=== PATIENT | male | born 1930 | race Caucasian/White ===

== ENCOUNTER → 2016-07-12 | Outpatient (CLI) | payer MEDICARE, BC ==
--- NOTE | 2016-07-13 13:30 | ECHOF ---
Referral Reason:R06.00 dyspnea MEASUREMENTS -------- HEIGHT: 180.3 cm WEIGHT: 102.1 kg BP: 135/84 RVIDd: 3.7 cm (< 3.3) IVSd: 1.3 cm (0.6 - 1.1) LVIDd: 4.8 cm (3.9 - 5.3) LVPWd: 1.3 cm (0.6 - 1.1) IVSs: 2.4 cm LVIDs: 3.2 cm LVPWs: 2.7 cm LA Diam: 5.1 cm (2.7 - 3.8) LAESV Index (A-L): 31.65 ml/m Ao Diam: 3.7 cm (2.0 - 3.7) AV Cusp: 1.7 cm (1.5 - 2.6) LA Diam: 4.6 cm (2.7 - 3.8) MV EXCURSION: 9.978 mm (> 18.000) MV EF SLOPE: 52 mm/s (70 - 150) EPSS: 0.8 cm RAP: 5.00 mmHg RVSP: 40.01 mmHg FINDINGS -------- Atrial fibrillation. This was a technically adequate study. The left ventricular size is normal. There is mild concentric left ventricular hypertrophy. Overall left ventricular systolic function is low-normal with, an EF between 50 - 55 %. The right ventricle is mildly enlarged. LA is midly dilated 29-33ml/m2. The right atrium is normal in size. There is mild aortic valve sclerosis. Mild mitral annular calcification present. Mild mitral regurgitation is present. Mild tricuspid regurgitation present. There is mild pulmonary hypertension. Trace/mild (physiologic) pulmonic regurgitation. The aortic root is dilated measuring 3.7cm. Normal inferior vena cava with normal inspiratory collapse consistent with estimated right atrial pressure of 5 mmHg. There is no pericardial effusion. CONCLUSIONS -------- 1. Atrial fibrillation. 2. Mild mitral annular calcification present. 3. Mild mitral regurgitation is present. 4. Mild tricuspid regurgitation present. 5. There is mild pulmonary hypertension. 6. Trace/mild (physiologic) pulmonic regurgitation. 7. The aortic root is dilated measuring 3.7cm. 8. Normal inferior vena cava with normal inspiratory collapse consistent with estimated right atrial pressure of 5 mmHg. 9. There is no pericardial effusion. 10. This was a technically adequate study. 11. The left ventricular size is normal. 12. There is mild concentric left ventricular hypertrophy. 13. Overall left ventricular systolic function is low-normal with, an EF between 50 - 55 %. 14. The right ventricle is mildly enlarged. 15. LA is midly dilated 29-33ml/m2. 16. The right atrium is normal in size. 17. There is mild aortic valve sclerosis. WATER[employer] INSPECTOR: Quin Carias RDCS
== END | disposition home or self-care (01) ==
LOC: RADECHMAIN 12:59
PROVIDERS: ATTEND Family Medicine
DX: I48.91 Unspecified atrial fibrillation (principal); I27.2 Other secondary pulmonary hypertension; I51.7 Cardiomegaly; I08.1 Rheumatic disorders of both mitral and tricuspid valves; I77.819 Aortic ectasia, unspecified site
CPT/HCPCS: 93306

== ENCOUNTER 2017-01-29 09:36 | Inpatient (IN) | payer MEDICARE, BC ==
[2017-01-29] MEDS ORDERED: SODIUM CHLORIDE 0.9% 1,000 ML IV STA (10:30)
[2017-01-29] MEDS ORDERED: SODIUM CHLORIDE 0.9% 500 ML IV STA (10:30)
[2017-01-29 10:51] LABS: CH 29.1; CHCM 32.8; HDW 2.62; HGB 11.5 gm/dL (13.0-17.5); MCH 29.3 pg (25.0-35.0); RBC 3.94 m/uL (4.30-5.90); RDW 14.9 % (11.5-15.5); WBC 2.9 k/uL (3.8-10.6); WBC (Perox) 2.86
[2017-01-29 10:58] LABS: ALT 33 U/L (21-72); AST 27 U/L (17-59); Alkaline Phosphatase 104 U/L (38-126); Anion Gap 10 mmol/L; Blood Urea Nitrogen 16 mg/dL (9-20); Calcium 8.9 mg/dL (8.4-10.2); Carbon Dioxide 26 mmol/L (22-30); Chloride 101 mmol/L (98-107); Glucose 122 mg/dL (74-99); Non-African American GFR(MDRD) >60 (>60 ml/min/1.73 sqM); Potassium 4.8 mmol/L (3.5-5.1); Sodium 137 mmol/L (137-145); Total Bilirubin 0.8 mg/dL (0.2-1.3); Total Protein 6.2 g/dL (6.3-8.2)
[2017-01-29 11:14] LABS: Creatine Kinase 79 U/L (55-170)
[2017-01-29 11:28] LABS: Creatine Kinase MB 1.4 ng/mL (0.0-2.4); Troponin I <0.012 ng/mL (0.000-0.034)
[2017-01-29 11:57] LABS: Add Differential Manual Differential
[2017-01-29 12:01] LABS: Nucleated Red Blood Cells 0 /100 WBC (0-0); Total Cells Counted 100
[2017-01-29 12:03] LABS: Ovalocytes Present
[2017-01-29 12:42] LABS: INR 2.9 (<1.2)
--- NOTE | 2017-01-29 13:06 | ED ---
GI Bleed HPI - General Chief complaint: GI Bleed Stated complaint: coumadin levels Time Seen by Provider: 01/29/17 10:16 Source: patient Mode of arrival: ambulatory Limitations: no limitations - History of Present Illness Initial comments: 6 years old gentleman on Coumadin for his atrial fibrillation he seems small amount of blood about a week ago then he didn't notice any blood in the stool this morning when he was moving his bowels he seen some bright red blood with stool, he denies any abdominal pain no nausea no vomiting no fever no chills - Related Data Home Medications Medication Instructions Recorded Confirmed Atorvastatin [Lipitor] 20 mg PO HS 01/29/17 01/29/17 Budesonide [Pulmicort] 0.5 mg INHALATION RT-BID 01/29/17 01/29/17 Calcium Carbonate/Vitamin D3 1 tab PO DAILY 01/29/17 01/29/17 [Calcium 600-Vit D3 400 Caplet] Diltiazem HCl [Diltiazem 24Hr ER] 120 mg PO Q24HR 01/29/17 01/29/17 Escitalopram [Lexapro] 10 mg PO HS 01/29/17 01/29/17 Ipratropium-Albuterol Nebulize 3 ml INHALATION RT-QID PRN 01/29/17 01/29/17 [Duoneb 0.5 mg-3 mg/3 ml Soln] Metoprolol Tartrate [Lopressor] 50 mg PO BID 01/29/17 01/29/17 Montelukast [Singulair] 10 mg PO HS 01/29/17 01/29/17 Multivitamins, Thera [Multivitamin 1 tab PO DAILY 01/29/17 01/29/17 (formulary)] [place]-3 Fatty Acids/Fish Oil [Fish 1 cap PO DAILY 01/29/17 01/29/17 Oil 1,000 mg Softgel] Terazosin HCl 5 mg PO BID 01/29/17 01/29/17 Warfarin Sodium [Coumadin] 4.5 mg PO SUMOWEFRSA 01/29/17 01/29/17 Warfarin Sodium [Coumadin] 6 mg PO TUTH 01/29/17 01/29/17 Allergies Allergy/AdvReac Type Severity Reaction Status Date / Time No Known Allergies Allergy Verified 01/29/17 10:43 Review of Systems ROS Statement: Those systems with pertinent positive or pertinent negative responses have been documented in the HPI. ROS Other: All systems not noted in ROS Statement are negative. Past Medical History Past Medical History: Atrial Fibrillation, Asthma, Cancer, COPD, Deep Vein Thrombosis (DVT), Hypertension, Myocardial Infarction (AK), Prostate Disorder Additional Past Medical History / Comment(s): prostate CA History of Any Multi-Drug Resistant Organisms: None Reported Past Surgical History: No Surgical Hx Reported Past Psychological History: No Psychological Hx Reported Smoking Status: Former smoker Past Alcohol Use History: Rare Past Drug Use History: None Reported General Exam - General Exam Comments Initial Comments: General: The patient is awake and alert, in no distress, and does not appear acutely ill. Skin: Skin is warm and dry and no rashes or lesions are noted. Eye: Pupils are equal, round and reactive to light, extra-ocular movements are intact; there is normal conjunctiva bilaterally. Ears, nose, mouth and throat: There are moist mucous membranes and no oral lesions. Neck: The neck is supple, there is no tenderness or JVD. Cardiovascular: There is a regular rate and rhythm. No murmur, rub or gallop is appreciated. Respiratory: To auscultation bilateral, no wheezing no rhonchi no distress respiratory ellis noticed Gastrointestinal: Soft, non-distended, non-tender abdomen without masses or organomegaly noted. There is no rebound or guarding present. Bowel sounds are unremarkable. Rectal exam noticed bright red blood, no perirectal abscess noticed rectal tone is good no prolapse or hemorrhoids noticed Back: There is no tenderness to palpation in the midline. There is no obvious deformity. Musculoskeletal: Normal ROM, no tenderness, There is no pedal edema. There is no calf tenderness or swelling. No cords were appreciated. Neurological: CN II-XII intact, Cranial nerves III through XII are intact. There are no obvious motor or sensory deficits. Coordination appears grossly intact. Speech is normal. Psychiatric: Cooperative, appropriate mood & affect, normal judgment. Limitations: no limitations Course Vital Signs 01/29/17 01/29/17 09:57 12:26 Temperature 98.2 F 98.6 F Pulse Rate 78 61 Respiratory 18 19 Rate Blood Pressure 118/65 112/72 O2 Sat by Pulse 95 95 Oximetry PT/INR CBC compressive metabolic panel those are old, no hemoglobin level available to compare with and without active bleed and being on Coumadin and I prefer to keep him for observation. Admitted to Dr. Blankenship service and will consult Dr. Keyes for possible scope Medical Decision Making - Lab Data Result diagrams: 01/29/17 10:15 01/29/17 10:15 Lab Results 01/29/17 01/29/17 01/29/17 Range/Units 10:15 10:15 10:15 WBC 2.9 L (3.8-10.6) k/uL RBC 3.94 L (4.30-5.90) m/uL Hgb 11.5 L (13.0-17.5) gm/dL Hct 35.0 L (39.0-53.0) % MCV 89.0 (80.0-100.0) fL MCH 29.3 (25.0-35.0) pg MCHC 33.0 (31.0-37.0) g/dL RDW 14.9 (11.5-15.5) % Plt Count 102 L (150-450) k/uL Neutrophils % (Manual) 59.0 % Lymphocytes % (Manual) 11.0 % Monocytes % (Manual) 27.0 % Eosinophils % (Manual) 3.0 % Neutrophils # (Manual) 1.7 (1.3-7.7) k/uL Lymphocytes # (Manual) 0.3 L (1.0-4.8) k/uL Monocytes # (Manual) 0.8 (0-1.0) k/uL Eosinophils # (Manual) 0.1 (0-0.7) k/uL Nucleated RBCs 0 (0-0) /100 WBC Ovalocytes Present PT (9.0-12.0) sec INR (<1.2) APTT (22.0-30.0) sec Sodium 137 (137-145) mmol/L Potassium 4.8 (3.5-5.1) mmol/L Chloride 101 (98-107) mmol/L Carbon Dioxide 26 (22-30) mmol/L Anion Gap 10 mmol/L BUN 16 (9-20) mg/dL Creatinine 0.82 (0.66-1.25) mg/dL Est GFR (MDRD) Af Amer >60 (>60 ml/min/1.73 sqM) Est GFR (MDRD) Non-Af >60 (>60 ml/min/1.73 sqM) Glucose 122 H (74-99) mg/dL Calcium 8.9 (8.4-10.2) mg/dL Total Bilirubin 0.8 (0.2-1.3) mg/dL AST 27 (17-59) U/L ALT 33 (21-72) U/L Alkaline Phosphatase 104 (38-126) U/L Total Creatine Kinase 79 (55-170) U/L CK-MB (CK-2) 1.4 (0.0-2.4) ng/mL CK-MB (CK-2) Rel Index 1.8 Troponin I <0.012 (0.000-0.034) ng/mL Total Protein 6.2 L (6.3-8.2) g/dL Albumin 3.9 (3.5-5.0) g/dL Stool Occult Blood (Negative) 01/29/17 01/29/17 01/29/17 Range/Units 10:15 10:15 10:30 WBC (3.8-10.6) k/uL RBC (4.30-5.90) m/uL Hgb (13.0-17.5) gm/dL Hct (39.0-53.0) % MCV (80.0-100.0) fL MCH (25.0-35.0) pg MCHC (31.0-37.0) g/dL RDW (11.5-15.5) % Plt Count (150-450) k/uL Neutrophils % (Manual) % Lymphocytes % (Manual) % Monocytes % (Manual) % Eosinophils % (Manual) % Neutrophils # (Manual) (1.3-7.7) k/uL Lymphocytes # (Manual) (1.0-4.8) k/uL Monocytes # (Manual) (0-1.0) k/uL Eosinophils # (Manual) (0-0.7) k/uL Nucleated RBCs (0-0) /100 WBC Ovalocytes PT 28.0 H (9.0-12.0) sec INR 2.9 H (<1.2) APTT 32.3 H (22.0-30.0) sec Sodium (137-145) mmol/L Potassium (3.5-5.1) mmol/L Chloride (98-107) mmol/L Carbon Dioxide (22-30) mmol/L Anion Gap mmol/L BUN (9-20) mg/dL Creatinine (0.66-1.25) mg/dL Est GFR (MDRD) Af Amer (>60 ml/min/1.73 sqM) Est GFR (MDRD) Non-Af (>60 ml/min/1.73 sqM) Glucose (74-99) mg/dL Calcium (8.4-10.2) mg/dL Total Bilirubin (0.2-1.3) mg/dL AST (17-59) U/L ALT (21-72) U/L Alkaline Phosphatase (38-126) U/L Total Creatine Kinase (55-170) U/L CK-MB (CK-2) (0.0-2.4) ng/mL CK-MB (CK-2) Rel Index Troponin I (0.000-0.034) ng/mL Total Protein (6.3-8.2) g/dL Albumin (3.5-5.0) g/dL Stool Occult Blood Positive (Negative) Disposition Clinical Impression: GI bleed Disposition: ADMITTED IP TO THIS HOSP Condition: Good Referrals: Rafael Presley DO [Primary Care Provider] - 1-2 days
[2017-01-29] MEDS ORDERED: NALOXONE 0.4 MG/ML 1 ML VIAL IV PRN (13:12)
[2017-01-29 13:54] LABS: CH 29.2; CHCM 33.1; HCT 33.9 % (39.0-53.0); HDW 2.65; HGB 11.3 gm/dL (13.0-17.5); MCH 29.4 pg (25.0-35.0); MCHC 33.2 g/dL (31.0-37.0); MCV 88.6 fL (80.0-100.0); Mean Platelet Volume 9.6; RBC 3.83 m/uL (4.30-5.90); WBC 2.7 k/uL (3.8-10.6)
[2017-01-29] MEDS ORDERED: PHYTONADIONE ORAL 5 MG/5 ML ORAL.SYRG PO STA ×2 (15:29→23:20)
[2017-01-29] MEDS: SODIUM CHLORIDE 0.9% 1,000 ML IV SCH (16:56)
[2017-01-29] MEDS: ESOMEPRAZOLE 20 MG in SODIUM CHLORIDE 0.9% 50 ML IVPB SCH (16:57)
[2017-01-29 18:29] LABS: Aty Lym Flag Moderate; CH 28.3; CHCM 32.1; HCT 31.8 % (39.0-53.0); HDW 2.64; HGB 10.8 gm/dL (13.0-17.5); MCHC 33.8 g/dL (31.0-37.0); MCV 88.6 fL (80.0-100.0); Mean Platelet Volume 8.4; RBC 3.59 m/uL (4.30-5.90); RDW 14.4 % (11.5-15.5); WBC 2.3 k/uL (3.8-10.6)
[2017-01-29 18:47] LABS: Add Differential Manual Differential
[2017-01-29 18:49] LABS: Nucleated Red Blood Cells 0 /100 WBC (0-0); Polychromasia Present; Total Cells Counted 100
[2017-01-29 19:57] LABS: CHCM 32.4; HCT 32.1 % (39.0-53.0); HDW 2.59; HGB 10.8 gm/dL (13.0-17.5); MCH 30.2 pg (25.0-35.0); MCHC 33.5 g/dL (31.0-37.0); MCV 89.9 fL (80.0-100.0); Mean Platelet Volume 8.7; RBC 3.57 m/uL (4.30-5.90); RDW 14.8 % (11.5-15.5); WBC 3.2 k/uL (3.8-10.6)
[2017-01-29] MEDS: METOPROLOL TARTRATE 50 MG TAB PO SCH (20:59)
[2017-01-29] MEDS: ESCITALOPRAM 10 MG TAB PO SCH (20:59)
[2017-01-29] MEDS: ATORVASTATIN 20 MG TAB PO SCH (20:59)
[2017-01-29] MEDS: MONTELUKAST 10 MG TAB PO SCH (20:59)
[2017-01-29] MEDS: TERAZOSIN 5 MG CAP PO SCH (20:59)
[2017-01-29] MEDS: BUDESONIDE 0.5 MG/2 ML NEBU INHALATION SCH (21:13)
[2017-01-29] MEDS ORDERED: HYDROcodone/APAP 5-325MG 1 EACH TAB PO PRN (21:59)
[2017-01-29] MEDS ORDERED: ALPRAZolam 0.25 MG TAB PO PRN (21:59)
[2017-01-29 22:41] LABS: INR 2.5 (<1.2); Prothrombin Time 24.4 sec (9.0-12.0)
[2017-01-30 00:08] LABS: CHCM 32.6; HCT 32.2 % (39.0-53.0); HDW 2.63; HGB 10.7 gm/dL (13.0-17.5); MCH 29.7 pg (25.0-35.0); MCHC 33.2 g/dL (31.0-37.0); MCV 89.3 fL (80.0-100.0); Mean Platelet Volume 9.1; RDW 14.8 % (11.5-15.5); WBC 2.9 k/uL (3.8-10.6)
[2017-01-30 04:08] LABS: Anion Gap 9 mmol/L; Blood Urea Nitrogen 12 mg/dL (9-20); Calcium 8.7 mg/dL (8.4-10.2); Carbon Dioxide 24 mmol/L (22-30); Chloride 106 mmol/L (98-107); Glucose 101 mg/dL (74-99); Non-African American GFR(MDRD) >60 (>60 ml/min/1.73 sqM); Potassium 4.4 mmol/L (3.5-5.1); Sodium 139 mmol/L (137-145)
[2017-01-30 04:13] LABS: Aty Lym Flag Slight; CH 29.1; CHCM 32.3; HCT 36.8 % (39.0-53.0); HDW 2.59; HGB 11.9 gm/dL (13.0-17.5); MCH 29.1 pg (25.0-35.0); MCHC 32.2 g/dL (31.0-37.0); MCV 90.3 fL (80.0-100.0); Mean Platelet Volume 7.9; RBC 4.07 m/uL (4.30-5.90); RDW 14.9 % (11.5-15.5); WBC 2.8 k/uL (3.8-10.6); WBC (Perox) 3.04
[2017-01-30 04:36] LABS: Prothrombin Time 19.1 sec (9.0-12.0)
[2017-01-30 04:37] LABS: Add Differential Manual Differential
[2017-01-30 04:41] LABS: Manual Review Performed; Nucleated Red Blood Cells 0 /100 WBC (0-0); Total Cells Counted 100
[2017-01-30] MEDS: SODIUM CHLORIDE 0.9% 1,000 ML IV SCH ×2 (04:53→20:29)
[2017-01-30 06:51] LABS: Aty Lym Flag Slight; CHCM 31.9; HGB 10.8 gm/dL (13.0-17.5); MCH 28.9 pg (25.0-35.0); MCHC 31.7 g/dL (31.0-37.0); MCV 91.3 fL (80.0-100.0); Mean Platelet Volume 9.1; RBC 3.73 m/uL (4.30-5.90); WBC 2.4 k/uL (3.8-10.6); WBC (Perox) 2.47
[2017-01-30 08:09] LABS: Add Differential Manual Differential
[2017-01-30 08:15] LABS: Nucleated Red Blood Cells 0 /100 WBC (0-0); Total Cells Counted 100
[2017-01-30 08:16] LABS: Tear Drop Cells Present
[2017-01-30] MEDS: CALCIUM CARB-VIT D 500MG-200UN 1 EACH TAB PO SCH (08:37)
[2017-01-30] MEDS: DILTIAZEM CD 120 MG CAP.ER.24H PO SCH (08:37)
[2017-01-30] MEDS: METOPROLOL TARTRATE 50 MG TAB PO SCH ×2 (08:38→20:27)
[2017-01-30] MEDS: TERAZOSIN 5 MG CAP PO SCH ×2 (08:38→20:27)
[2017-01-30] MEDS: ESOMEPRAZOLE 20 MG in SODIUM CHLORIDE 0.9% 50 ML IVPB SCH (08:38)
[2017-01-30] MEDS ORDERED: NON-FORMULARY DRUG (Omega-3 Fatty Acids/Fish Oil [Fish Oil 1,000 Mg Softgel] 1 CAP) PO SCH (09:00)
[2017-01-30] MEDS: BUDESONIDE 0.5 MG/2 ML NEBU INHALATION SCH ×2 (09:23→20:56)
--- NOTE | 2017-01-30 09:37 | P.CONS ---
History of Present Illness - Reason for Consult Consult date: 01/30/17 GI bleed Requesting physician: Ping Blankenship - History of Present Illness 86-year-old gentleman with a history of atrial fibrillation Coumadin monitoring , prostate carcinoma with radiation, COPD, DVT, hypertension, AK, and hyperlipidemia. Patient presented yesterday with painless burgundy color bowel movements started around 4:30 in the morning. Patient had several bowel movements every 2 hours yesterday. Denies nausea vomiting gross hematemesis or melena. No history GI bleed. Patient completed about 40 radiation treatments last year for prostate carcinoma. No history of EGD colonoscopy. Admission hemoglobin 11.3. Platelet 93,000. MCV 88. Current hemoglobin 10.8. Platelet 98,000. Admission INR 2.9. Vitamin K 10 mg oral given yesterday present INR is 2.0. Last bowel movement about 2 hours ago jelly/burgundy/ with clot. Drinks a shot of whiskey daily to help loosen phlegm. Stool occult blood positive. Review of Systems Constitutional: Denies fever, chills, sweats, weight gain, or loss. HEENT: Negative for migraines, blurred vision or loss, earaches, drainage, tinnitus, oral mucosal lesions, dysphagia, or odynophagia. Cardiac: Atrial fibrillation. DVT. Hypertension. Hyperlipidemia. Negative for chest pain, arrhythmias, or palpitation. Respiratory: COPD. Negative for shortness of breath, hemoptysis, cough, or sputum production. Gastrointestinal: See HPI for pertinent findings. Genitourinary: Prostate carcinoma. Negative for hematuria, urgency, frequency, polyuria, dysuria, or penile discharge. Musculoskeletal: Negative for muscle aches, swelling, arthritis, and arthralgias. Neurologic: Negative for stroke or TIA. Endocrine: Negative for thyroid problems. Skin: Skin carcinoma. Negative for rash or itching. Psychiatric: Negative history for depression and anxiety All systems: negative (See HPI) Past Medical History Past Medical History: Atrial Fibrillation, Asthma, Cancer, COPD, Deep Vein Thrombosis (DVT), Hyperlipidemia, Hypertension, Memory Impairment, Myocardial Infarction (AK), Osteoarthritis (OA), Prostate Disorder Additional Past Medical History / Comment(s): prostate CA-HAD 46 RADIATION [place], MILD SHORT TERM MEMORY PROBLEMS, NAVEL HERNIA,SKIN CA (LT HAND-REMOVED Last Myocardial Infarction Date:: UNK History of Any Multi-Drug Resistant Organisms: None Reported Past Surgical History: Heart Catheterization Additional Past Surgical History / Comment(s): VASECTOMY, PROSTATE BX TOMMY CATARACTS, RT EYE LASER SX Past Anesthesia/Blood Transfusion Reactions: No Reported Reaction Smoking Status: Former smoker - Past Family History Mother Additional Family Medical History / Comment(s): RHEUMATIC FEVER- HEART VALVE DAMAGE- AGE 45 Father Family Medical History: Coronary Artery Disease (CAD) Additional Family Medical History / Comment(s): AGE 93 HEART PROBLEMS Medications and Allergies Home Medications Medication Instructions Recorded Confirmed Type Atorvastatin [Lipitor] 20 mg PO HS 01/29/17 01/29/17 History Budesonide [Pulmicort] 0.5 mg INHALATION RT-BID 01/29/17 01/29/17 History Calcium Carbonate/Vitamin D3 1 tab PO DAILY 01/29/17 01/29/17 History [Calcium 600-Vit D3 400 Caplet] Diltiazem HCl [Diltiazem 24Hr ER] 120 mg PO Q24HR 01/29/17 01/29/17 History Escitalopram [Lexapro] 10 mg PO HS 01/29/17 01/29/17 History Ipratropium-Albuterol Nebulize 3 ml INHALATION RT-QID PRN 01/29/17 01/29/17 History [Duoneb 0.5 mg-3 mg/3 ml Soln] Metoprolol Tartrate [Lopressor] 50 mg PO BID 01/29/17 01/29/17 History Montelukast [Singulair] 10 mg PO HS 01/29/17 01/29/17 History Multivitamins, Thera [Multivitamin 1 tab PO DAILY 01/29/17 01/29/17 History (formulary)] [place]-3 Fatty Acids/Fish Oil [Fish 1 cap PO DAILY 01/29/17 01/29/17 History Oil 1,000 mg Softgel] Terazosin HCl 5 mg PO BID 01/29/17 01/29/17 History Warfarin Sodium [Coumadin] 4.5 mg PO SUMOWEFRSA 01/29/17 01/29/17 History Warfarin Sodium [Coumadin] 6 mg PO TUTH 01/29/17 01/29/17 History Allergies Allergy/AdvReac Type Severity Reaction Status Date / Time No Known Allergies Allergy Verified 01/29/17 10:43 Physical Exam Vitals: Vital Signs Temp Pulse Pulse Resp BP BP Pulse Ox 01/30/17 09:29 85 01/30/17 09:24 85 01/30/17 03:58 85 16 113/83 92 L 01/29/17 23:37 97.9 F 71 16 135/85 95 01/29/17 21:23 66 14 01/29/17 21:13 66 14 01/29/17 20:00 98.2 F 64 16 139/83 97 01/29/17 16:30 97.1 F L 53 L 16 113/68 95 01/29/17 15:32 16 01/29/17 15:00 98.2 F 65 16 115/60 95 01/29/17 12:26 98.6 F 61 19 112/72 95 01/29/17 09:57 98.2 F 78 18 118/65 95 Intake and Output 01/29/17 01/30/17 01/30/17 22:59 06:59 14:59 Intake Total 130 900 Output Total 1150 600 Balance -1020 300 Intake: IV 10 900 0.9 10 900 Oral 120 Output: Urine 600 200 Stool 550 400 Other: Voiding Method Toilet Weight 103.2 kg General appearance: The patient is alert, oriented, in no acute distress. HET: Head is normocephalic and atraumatic. Pupils are equal and reactive. Oropharynx is clear without lesions. Neck: Supple without lymphadenopathy. Trachea midline. Heart: S1 S2. Lungs: No crackles or wheezes are heard. Abdomen: Soft, nontender, nondistended with bowel sounds. No peritoneal signs. No palpable organomegaly or masses. Extremities: Normal skin color and turgor. No cyanosis, rash, ulceration, clubbing, or edema. Radial and pedal pulses are 2/4 bilaterally. Neurological: No focal deficits. Strength and sensation are grossly intact. Results CBC & Chem 7: 01/30/17 05:57 01/30/17 03:32 Labs: Abnormal Lab Results - Last 24 Hours (Table) 01/29/17 01/29/17 01/29/17 Range/Units 10:15 10:15 10:15 WBC 2.9 L (3.8-10.6) k/uL RBC 3.94 L (4.30-5.90) m/uL Hgb 11.5 L (13.0-17.5) gm/dL Hct 35.0 L (39.0-53.0) % Plt Count 102 L (150-450) k/uL Lymphocytes # (Manual) 0.3 L (1.0-4.8) k/uL PT (9.0-12.0) sec INR (<1.2) APTT 32.3 H (22.0-30.0) sec Glucose 122 H (74-99) mg/dL Total Protein 6.2 L (6.3-8.2) g/dL 01/29/17 01/29/17 01/29/17 Range/Units 10:15 13:34 18:06 WBC 2.7 L 2.3 L (3.8-10.6) k/uL RBC 3.83 L 3.59 L (4.30-5.90) m/uL Hgb 11.3 L 10.8 L (13.0-17.5) gm/dL Hct 33.9 L 31.8 L (39.0-53.0) % Plt Count 93 L 87 L (150-450) k/uL Lymphocytes # (Manual) 0.3 L (1.0-4.8) k/uL PT 28.0 H (9.0-12.0) sec INR 2.9 H (<1.2) APTT (22.0-30.0) sec Glucose (74-99) mg/dL Total Protein (6.3-8.2) g/dL 01/29/17 01/29/17 01/29/17 Range/Units 19:44 22:09 23:49 WBC 3.2 L 2.9 L (3.8-10.6) k/uL RBC 3.57 L 3.60 L (4.30-5.90) m/uL Hgb 10.8 L 10.7 L (13.0-17.5) gm/dL Hct 32.1 L 32.2 L (39.0-53.0) % Plt Count 97 L 80 L (150-450) k/uL Lymphocytes # (Manual) (1.0-4.8) k/uL PT 24.4 H (9.0-12.0) sec INR 2.5 H (<1.2) APTT (22.0-30.0) sec Glucose (74-99) mg/dL Total Protein (6.3-8.2) g/dL 01/30/17 01/30/17 01/30/17 Range/Units 03:32 03:32 03:40 WBC 2.8 L (3.8-10.6) k/uL RBC 4.07 L (4.30-5.90) m/uL Hgb 11.9 L (13.0-17.5) gm/dL Hct 36.8 L (39.0-53.0) % Plt Count 100 L (150-450) k/uL Lymphocytes # (Manual) 0.3 L (1.0-4.8) k/uL PT 19.1 H (9.0-12.0) sec INR 2.0 H (<1.2) APTT (22.0-30.0) sec Glucose 101 H (74-99) mg/dL Total Protein (6.3-8.2) g/dL 01/30/17 Range/Units 05:57 WBC 2.4 L (3.8-10.6) k/uL RBC 3.73 L (4.30-5.90) m/uL Hgb 10.8 L (13.0-17.5) gm/dL Hct 34.0 L (39.0-53.0) % Plt Count 98 L (150-450) k/uL Lymphocytes # (Manual) 0.2 L (1.0-4.8) k/uL PT (9.0-12.0) sec INR (<1.2) APTT (22.0-30.0) sec Glucose (74-99) mg/dL Total Protein (6.3-8.2) g/dL Assessment and Plan (1) GI bleed Narrative/Plan: 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 Status: Acute (2) Acute blood loss anemia Status: Acute (3) Prostate carcinoma Status: Acute (4) Atrial fibrillation Status: Acute (5) Warfarin-induced coagulopathy Status: Acute Plan: 1. Clear liquid diet. 2. EGD colonoscopy Saturday. 3. CBC monitoring. PT/INR daily. Hold Coumadin. 4. Continue with IV Nexium 20 mg daily. 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 The patient has indicated understanding and acceptance of the risks and procedures discussed. Thank you for this kind referral and the opportunity to participate in the care of your patient. This consultation was discussed with Dr. Lorenzo. The impression and plan of care have been directed as dictated.
--- NOTE | 2017-01-30 09:41 | HP ---
DATE OF SERVICE: 01/29/2017 CHIEF COMPLAINT: GI bleeding. HISTORY OF PRESENT ILLNESS: This 86-year-old gentleman with a past medical history of asthma, COPD, history of atrial fibrillation, history of hypertension , hyperlipidemia being followed by Dr. Presley in [facility] was complaining of GI bleed since this morning. The patient initially had a small amount of blood about a week ago, but the patient was also on Coumadin for atrial fibrillation. The patient had multiple episodes of bloody diarrheal stools and the patient came to [facility] and admitted for further evaluation and treatment. There is no history of any fever or rigors. There is no chills. No history of headache, loss of consciousness and seizures. No history of severe abdominal pain. The blood was almost bright red in color. After admission, vitamin K was given. PAST MEDICAL HISTORY: Atrial fibrillation, asthma, COPD, DVT, hypertension, hyperlipidemia, history of DJD. MEDICATIONS PRIOR TO ADMISSION: 1. [place] 3 fatty acid. 2. Multivitamin. 3. Singulair 10 mg p.o. q.h.s. 4. Vitamin D3 p.o. daily. 5. Lipitor 20 mg p.o. q.h.s. 6. Coumadin 6 mg p.o. Saturday, and 4.5 mg Saturday, Saturday, Saturday, Saturday, Saturday. 7. Terazosin 5 mg p.o. b.i.d. 8. Pulmicort 0.5 b.i.d. 9. DuoNeb q.i.d. and p.r.n. 10. Diltiazem 120 mg p.o. daily. 11. Lopressor 50 mg p.o. b.i.d. 12. Lexapro 10 mg q.h.s. Allergies are none. FAMILY HISTORY: History of coronary artery disease, rheumatic valve disease in the family. SOCIAL HISTORY: History of occasional alcohol. Previous history of smoking. REVIEW OF SYSTEMS: ENT: No diminished hearing or diminished vision. CARDIOVASCULAR SYSTEM: As mentioned earlier. RESPIRATORY: As mentioned earlier. GI: As mentioned earlier. : No dysuria. NERVOUS SYSTEM: No numbness or weakness. ALLERGY/IMMUNOLOGY: No asthma or hayfever. MUSCULOSKELETAL: As mentioned earlier. HEMATOLOGY/ONCOLOGY: No history of anemia. ENDOCRINE: No history of diabetes or hypothyroidism. CONSTITUTIONAL: As mentioned earlier. DERMATOLOGY: Negative. RHEUMATOLOGY: As mentioned earlier. PSYCHIATRY: As mentioned earlier. PHYSICAL EXAMINATION: Patient is alert and oriented x3. Pulse is 64, blood pressure 139/83, respirations 16, temperature 98.2, pulse ox 97% on room air. HEENT: Conjunctivae clear. Oral mucosa moist. NECK: No jugular venous distention. No carotid bruit. No lymph node enlargement. CARDIOVASCULAR: S1 and S2, muffled. No S3, no S4. RESPIRATORY: Breath sounds diminished at the bases. A few scattered rhonchi. No crackles. ABDOMEN: Soft and nontender. No mass palpable. Obese. Lower abdominal wall hernia present. No guarding, no rigidity. No hepatosplenomegaly. Bowel sounds present. LEGS: No edema, no swelling. NERVOUS SYSTEM: Higher function as mentioned earlier. Moves all 4 limbs. No focal motor or sensory deficits. LYMPHATICS: No lymphadenopathy of the neck, axillae or groin. SKIN: No ulcers, rashes or bleeding. Labs are at this time WBC 2.9, hemoglobin 11.5 10.8. INR 2.9. ASSESSMENT: 1. Acute lower gastrointestinal bleeding, possibly diverticular bleeding with acute blood loss anemia. 2. Mild pancytopenia of undetermined etiology. 3. Coumadin monitoring. 4. Atrial fibrillation. 5. History of asthma, chronic obstructive pulmonary disease. 6. History of deep venous thrombosis. 7. Hypertension. 8. Hyperlipidemia. 9. History of myocardial infarction. 10. FULL CODE. RECOMMENDATIONS AND DISCUSSION: This 86-year-old gentleman who presented with multiple complex medical issues. Will monitor the patient closely. Continue the current medications. Continue symptomatic treatment. Otherwise at this time , I recommend continue with the current medications. We will monitor the hemoglobin closely. If the hemoglobin is falling or patient has significant bleeding, the patient will be transferred to the ICU and continue to monitor. Otherwise, I will repeat PT, INR and will also repeat vitamin K. Other than that , Dr. Trejo and Dr. Lorenzo will be consulted for possible endoscopy. Home medications will be continued. Hold antiplatelet agents and Coumadin. Monitor PT and INR closely. Guarded prognosis because of multiple complex medical issues. Further recommendations to follow. Nexium IV. Once again, the prognosis is guarded. Also repeat the PT, INR in the morning as well. See orders for further details. MTDD
[2017-01-30] MEDS: MULTIVITAMINS, THERA 1 EACH TAB PO SCH (14:07)
[2017-01-30] MEDS: ACETAMINOPHEN TAB 325 MG TAB PO PRN (14:07)
[2017-01-30 18:48] LABS: Aty Lym Flag Slight; CH 29.1; CHCM 32.7; HCT 32.5 % (39.0-53.0); HDW 2.66; HGB 10.6 gm/dL (13.0-17.5); MCH 29.1 pg (25.0-35.0); MCHC 32.5 g/dL (31.0-37.0); MCV 89.4 fL (80.0-100.0); Mean Platelet Volume 10.2; RBC 3.64 m/uL (4.30-5.90); RDW 14.9 % (11.5-15.5); WBC 2.4 k/uL (3.8-10.6); WBC (Perox) 2.53
[2017-01-30 19:05] LABS: Add Differential Manual Differential
[2017-01-30 19:10] LABS: Manual Review Performed; Nucleated Red Blood Cells 0 /100 WBC (0-0); Total Cells Counted 100; Toxic Granulation Present
[2017-01-30] MEDS: MELATONIN 3 MG TABLET PO SCH (20:27)
[2017-01-30] MEDS: MONTELUKAST 10 MG TAB PO SCH (20:27)
[2017-01-30] MEDS: ESCITALOPRAM 10 MG TAB PO SCH (20:27)
[2017-01-30] MEDS: ATORVASTATIN 20 MG TAB PO SCH (20:27)
--- NOTE | 2017-01-30 22:20 | PN ---
DATE OF SERVICE: 01/30/17 This 86 -year-old gentleman who was admitted with lower GI bleeding, has suspected to have diverticular bleed. The patient also had elevated INR also. Hemoglobin 10.8 at this time. INR is . Gastroenterology saw the patient and tentatively recommending colonoscopy. Past medical history reviewed. REVIEW OF SYSTEMS: CARDIOVASCULAR: No angina. GI: As mentioned earlier. : No dysuria. Respiratory: Shortness of breath. Nervous system: Diffusely weak. Current medications are reviewed and include: 1. Tylenol 650 q6h prn. 2. [place] 5 mg q6h prn 3. DuoNeb q.i.d. and prn. 4. Xanax 0.25 t.i.d. 5. Lipitor 20 mg q.h.s. 6. Pulmicort 0.5 b.i.d. 7. [place] with Vitamin D one po daily. 8. Cardizem CD 120 mg daily. 9. Lexapro 20 mg q.h.s. 10. Melatonin 3 mg q.h.s. 11. Lopressor 50 mg po b.i.d. 12. Singulair 10 mg q.h.s. 13. Multivitamin one po daily. 14. Narcan 0.2 q2h prn 15. Hytrin 5 mg po b.i.d. PHYSICAL EXAMINATION: The patient is alert and oriented times three. Pulse 80 Blood pressure 122/72. Respiratory rate 16. Temperature 97.4 degrees. Pulse ox 94% on room air. HEENT: Conjunctivae normal. Oral mucosa moist. NECK: No JVD. No carotid bruit. No lymph node enlargement. CARDIOVASCULAR: S1, S2 muffled. RESPIRATORY: Breath sounds diminished at the bases. Bilateral scattered rhonchi and crackles. Abdomen is soft. Diffusely distended. Nontender. No mass palpable. LEGS: No edema. No swelling. Nervous system: Higher functions as mentioned earlier. Moves all four limbs. No focal deficits. Lymphatics: No lymph nodes palpable in the neck, axilla and groin. SKIN: No ulcer, rash or bleeding. LABS: WBC 2.5, Hemoglobin 10.8, INR 2. ASSESSMENT: 1. Acute lower gastrointestinal bleeding with possible diverticular bleeding with acute blood loss anemia. 2. Pancytopenia of undetermined etiology. 3. Coumadin monitoring. 4. Atrial fibrillation. 5. History of asthma, chronic obstructive pulmonary disease. 6. History of deep venous thrombosis. RECOMMENDATIONS AND DISCUSSION: Continue the current medications. Continue symptomatic treatment. Continue with monitoring. Otherwise, at this time, monitor PT/INR closely. Otherwise, closely follow with gastroenterology. Further recommendations to follow. MTDD
[2017-01-31 01:18] LABS: CH 29.2; CHCM 32.6; HCT 31.6 % (39.0-53.0); HDW 2.67; HGB 10.2 gm/dL (13.0-17.5); MCHC 32.2 g/dL (31.0-37.0); MCV 89.9 fL (80.0-100.0); Mean Platelet Volume 9.3; RBC 3.52 m/uL (4.30-5.90); RDW 14.9 % (11.5-15.5); WBC 2.4 k/uL (3.8-10.6)
[2017-01-31] MEDS: ACETAMINOPHEN TAB 325 MG TAB PO PRN (04:20)
[2017-01-31] MEDS: SODIUM CHLORIDE 0.9% 1,000 ML IV SCH ×2 (05:51→23:48)
[2017-01-31 06:37] LABS: Aty Lym Flag Slight; CH 29.1; CHCM 32.5; HCT 31.5 % (39.0-53.0); HDW 2.69; HGB 10.4 gm/dL (13.0-17.5); MCH 29.7 pg (25.0-35.0); MCHC 33.1 g/dL (31.0-37.0); MCV 89.8 fL (80.0-100.0); Mean Platelet Volume 9.3; RDW 14.8 % (11.5-15.5); WBC 2.3 k/uL (3.8-10.6); WBC (Perox) 2.45
[2017-01-31 06:44] LABS: INR 1.3 (<1.2); Prothrombin Time 13.1 sec (9.0-12.0)
[2017-01-31 06:57] LABS: Anion Gap 8 mmol/L; Blood Urea Nitrogen 8 mg/dL (9-20); Calcium 8.2 mg/dL (8.4-10.2); Carbon Dioxide 23 mmol/L (22-30); Chloride 105 mmol/L (98-107); Glucose 90 mg/dL (74-99); Non-African American GFR(MDRD) >60 (>60 ml/min/1.73 sqM); Sodium 136 mmol/L (137-145)
[2017-01-31 07:18] LABS: Add Differential Manual Differential
[2017-01-31 07:24] LABS: Nucleated Red Blood Cells 0 /100 WBC (0-0); Total Cells Counted 100
[2017-01-31 07:25] LABS: Manual Review Performed
[2017-01-31] MEDS: CALCIUM CARB-VIT D 500MG-200UN 1 EACH TAB PO SCH (08:07)
[2017-01-31] MEDS: METOPROLOL TARTRATE 50 MG TAB PO SCH ×2 (08:07→20:36)
[2017-01-31] MEDS: TERAZOSIN 5 MG CAP PO SCH ×2 (08:07→20:36)
[2017-01-31] MEDS: MULTIVITAMINS, THERA 1 EACH TAB PO SCH (08:07)
[2017-01-31] MEDS: DILTIAZEM CD 120 MG CAP.ER.24H PO SCH (08:07)
[2017-01-31] MEDS: BUDESONIDE 0.5 MG/2 ML NEBU INHALATION SCH ×2 (09:02→20:07)
[2017-01-31] MEDS: IPRATROPIUM-ALBUTEROL 3 ML NEB INHALATION PRN ×3 (09:02→20:07)
[2017-01-31] MEDS: ESOMEPRAZOLE 20 MG in SODIUM CHLORIDE 0.9% 50 ML IVPB SCH (09:06)
--- NOTE | 2017-01-31 10:15 | P.PN ---
Subjective Principal diagnosis: GI bleed Admitted with painless rectal bleeding burgundy-colored. Still passing small burgundy color bowel movements every 2-3 hours. Hemoglobin 10.4. Platelet 95, 000. INR 1.3. BUN 8. Creatinine 0.6. Denies abdominal pain. Afebrile. Objective - Vital Signs Vital signs: Vital Signs Temp 97 F L 01/31/17 08:00 Pulse 76 01/31/17 09:15 Resp 17 01/31/17 08:00 BP 129/79 01/31/17 08:00 Pulse Ox 93 L 01/31/17 08:00 Intake & Output 01/30/17 01/31/17 01/31/17 18:59 06:59 18:59 Intake Total 360 1725 Output Total 1250 1150 Balance -890 575 Weight 100.2 kg Intake: IV 1725 0.9 1725 Oral 360 Output: Urine 1100 750 Stool 150 400 Other: # Voids 1 # Bowel Movements 2 - Exam General appearance: The patient is alert, oriented, in no acute distress. HET: Head is normocephalic and atraumatic. Pupils are equal and reactive. Oropharynx is clear without lesions. Neck: Supple without lymphadenopathy. Trachea midline. Heart: S1 S2. Regular rate and rhythm. Lungs: No crackles or wheezes are heard. Abdomen: Soft, nontender, nondistended with bowel sounds. No peritoneal signs. No palpable organomegaly or masses. Extremities: Normal skin color and turgor. No cyanosis, rash, ulceration, clubbing, or edema. Radial and pedal pulses are 2/4 bilaterally. Neurological: No focal deficits. Strength and sensation are grossly intact. - Labs CBC & Chem 7: 01/31/17 05:53 01/31/17 05:53 Labs: Abnormal Lab Results - Last 24 Hours (Table) 01/30/17 01/31/17 01/31/17 Range/Units 18:32 00:54 05:53 WBC 2.4 L 2.4 L 2.3 L (3.8-10.6) k/uL RBC 3.64 L 3.52 L 3.50 L (4.30-5.90) m/uL Hgb 10.6 L 10.2 L 10.4 L (13.0-17.5) gm/dL Hct 32.5 L 31.6 L 31.5 L (39.0-53.0) % Plt Count 93 L 78 L 95 L (150-450) k/uL Lymphocytes # (Manual) 0.4 L 0.3 L (1.0-4.8) k/uL PT (9.0-12.0) sec INR (<1.2) Sodium (137-145) mmol/L BUN (9-20) mg/dL Calcium (8.4-10.2) mg/dL 01/31/17 01/31/17 Range/Units 05:53 05:53 WBC (3.8-10.6) k/uL RBC (4.30-5.90) m/uL Hgb (13.0-17.5) gm/dL Hct (39.0-53.0) % Plt Count (150-450) k/uL Lymphocytes # (Manual) (1.0-4.8) k/uL PT 13.1 H (9.0-12.0) sec INR 1.3 H (<1.2) Sodium 136 L (137-145) mmol/L BUN 8 L (9-20) mg/dL Calcium 8.2 L (8.4-10.2) mg/dL Assessment and Plan (1) GI bleed Narrative/Plan: 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 Status: Acute (2) Acute blood loss anemia Status: Acute (3) Prostate carcinoma Status: Acute (4) Atrial fibrillation Status: Acute (5) Warfarin-induced coagulopathy Status: Acute Plan: 1. Clear liquid diet. 2. EGD colonoscopy tomorrow. 3. CBC monitoring. PT/INR daily. Hold Coumadin. 4. Continue with IV Nexium 20 mg daily. 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 The patient has indicated understanding and acceptance of the risks and procedures discussed. Assessment and plan of care discussed with Dr. Lorenzo
[2017-01-31] MEDS ORDERED: PEG 3350-NA SULF,BICARB,CL/KCL 4,000 ML BOTTLE PO ONE (15:00)
[2017-01-31] MEDS: ESCITALOPRAM 10 MG TAB PO SCH (20:35)
[2017-01-31] MEDS: ATORVASTATIN 20 MG TAB PO SCH (20:35)
[2017-01-31] MEDS: MELATONIN 3 MG TABLET PO SCH (20:36)
[2017-01-31] MEDS: MONTELUKAST 10 MG TAB PO SCH (20:36)
[2017-01-31] MEDS ORDERED: LIDOCAINE 1% 20 ML VIAL (10MG/ML) FOR IV START INTRADERMA PRN (21:40)
[2017-01-31] MEDS: LACTATED RINGERS 1,000 ML IV SCH (23:51)
[2017-02-01 06:48] LABS: Aty Lym Flag Moderate; CH 29.1; CHCM 32.9; HCT 30.2 % (39.0-53.0); HDW 2.65; HGB 9.7 gm/dL (13.0-17.5); MCH 28.7 pg (25.0-35.0); MCHC 32.3 g/dL (31.0-37.0); MCV 88.8 fL (80.0-100.0); Mean Platelet Volume 10.6; RBC 3.39 m/uL (4.30-5.90); RDW 14.9 % (11.5-15.5); WBC 2.1 k/uL (3.8-10.6)
[2017-02-01 06:56] LABS: INR 1.2 (<1.2)
[2017-02-01 07:01] LABS: Anion Gap 7 mmol/L; Blood Urea Nitrogen 8 mg/dL (9-20); Calcium 8.1 mg/dL (8.4-10.2); Carbon Dioxide 27 mmol/L (22-30); Chloride 104 mmol/L (98-107); Glucose 87 mg/dL (74-99); Non-African American GFR(MDRD) >60 (>60 ml/min/1.73 sqM); Potassium 3.7 mmol/L (3.5-5.1); Sodium 138 mmol/L (137-145)
[2017-02-01 07:04] LABS: Add Differential Manual Differential
[2017-02-01 07:11] LABS: Manual Review Performed; Nucleated Red Blood Cells 0 /100 WBC (0-0); Total Cells Counted 100
[2017-02-01 07:13] LABS: Polychromasia Present
[2017-02-01] MEDS: ESOMEPRAZOLE 20 MG in SODIUM CHLORIDE 0.9% 50 ML IVPB SCH (08:06)
[2017-02-01] MEDS: METOPROLOL TARTRATE 50 MG TAB PO SCH ×2 (08:06→21:18)
[2017-02-01] MEDS: DILTIAZEM CD 120 MG CAP.ER.24H PO SCH (08:06)
[2017-02-01] MEDS: CALCIUM CARB-VIT D 500MG-200UN 1 EACH TAB PO SCH (08:07)
[2017-02-01] MEDS: TERAZOSIN 5 MG CAP PO SCH ×2 (08:08→21:18)
--- NOTE | 2017-02-01 08:08 | PN ---
DATE OF SERVICE: 01/31/2017 This 86-year-old gentleman was admitted with lower GI bleeding, also had some pancytopenia. The patient was scheduled for colonoscopy. His stool is burgundy colored. Clear liquid diet has been initiated. No chest pain or palpitation. No fever. On exam, alert and oriented x3. Pulse is 68, blood pressure 104/79, respirations 18, temperature is normal. Pulse ox 94% on room air. HEENT: Conjunctivae normal. NECK: No jugular venous distention. CARDIOVASCULAR: S1 and S2 muffled. RESPIRATORY: Breath sounds diminished at the bases. No rhonchi. No crackles. ABDOMEN: Soft, nontender. No mass palpable. LEGS: No edema. NERVOUS SYSTEM: No focal deficits. Labs are WBC 2.3, hemoglobin 10.4. INR 1.3. Sodium 136. ASSESSMENT: 1. Acute lower gastrointestinal bleeding with possible acute diverticular bleeding with acute blood loss anemia. 2. Pancytopenia. 3. Coumadin monitoring. 4. Atrial fibrillation. 5. History of asthma, chronic obstructive pulmonary disease. 6. History of deep vein thrombosis. RECOMMENDATIONS AND DISCUSSION: Recommend to continue current medications. Continue symptomatic treatment. Will closely monitor. Otherwise possible colonoscopy. Further recommendations to follow. MTDD
[2017-02-01] MEDS: SODIUM CHLORIDE 0.9% 1,000 ML IV SCH ×2 (08:09→23:59)
[2017-02-01] MEDS: BUDESONIDE 0.5 MG/2 ML NEBU INHALATION SCH ×2 (08:50→21:04)
[2017-02-01] MEDS: IPRATROPIUM-ALBUTEROL 3 ML NEB INHALATION PRN (08:50)
[2017-02-01] MEDS: MULTIVITAMINS, THERA 1 EACH TAB PO SCH ×2 (11:29→21:19)
[2017-02-01] MEDS ORDERED: IV FLUID CONTINUATION 1,000 ML IV ONE (14:42)
[2017-02-01] MEDS ORDERED: PROPOFOL 10 MG/ML 20 ML VIAL IV ONE (14:42)
--- NOTE | 2017-02-01 15:17 | P.PCN ---
Date of Procedure: 02/01/17 Preoperative Diagnosis: Postoperative Diagnosis: Procedure(s) Performed: Brief history: Patient is a pleasant 86-year-old white male, admitted to the hospital with acute GI bleed. He had multiple episodes of maroon colored stools for the last 2 days' duration. He has been on Coumadin which has been on hold and INR today is 1.2 g/dL. The patient had history of prostate cancer and underwent radiation therapy a year ago. He is scheduled scheduled for an elective upper endoscopy as well as colonoscopy as a part of evaluation of acute GI bleed. Procedure performed: Esophagogastroduodenoscopy Colonoscopy with argon plasma coagulation Preoperative diagnosis: Acute GI bleed Anesthesia: MAC Procedure: After informed consent was obtained from the patient was brought into the endoscopy unit and IV sedation was administered by anesthesia under continuous monitoring. Initially upper endoscopy was done. The Olympus GF 160 video endoscope was inserted inserted into the mouth and esophagus intubated without any difficulty and was gradually advanced into the stomach and duodenum and carefully examined. No evidence of acute upper GI bleed. The bulb and second part of the duodenum appeared normal. The scope was then withdrawn into the stomach adequately insufflated with air and upon careful examination the antrum and body, cardia and fundus appeared normal. The scope was then withdrawn into the esophagus. The GE junction was located at 40 cm to the incisors. Small hiatal hernia noted. It appeared regular with no erythema erosions or ulcerations. Rest of the esophagus appeared normal. Patient tolerated the procedure well. At this time the patient continued to remain sedation. Initial digital rectal examination was normal. Olympus CF 160 video colonoscope was then inserted into the rectum and gradually advanced to the cecum without any difficulty. Careful examination was performed as the scope was gradually being withdrawn. The prep was excellent. The cecum, ascending colon, transverse colon, descending colon, sigmoid colon appeared normal. Moderate sigmoid diverticula seen. The distal rectum there was evidence of multiple telangiectasias, 2 of which with active bleeding status post argon plasma coagulation with good hemostasis. Retroflexion was performed in the rectum and no lesions were noted. Patient tolerated the procedure well. Impression: 1. Upper endoscopy revealed small hiatal hernia, no evidence of acute upper GI bleed. 2. 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 Moderate sigmoid diverticulosis seen Recommendations: Findings of this examination were discussed with the patient . At this time will continue to hold Coumadin for 1 week. Diet will be advanced as tolerated. Implants: Indications for Procedure: Operative Findings: Description of Procedure:
[2017-02-01] MEDS: ACETAMINOPHEN TAB 325 MG TAB PO PRN (16:38)
[2017-02-01] MEDS: ATORVASTATIN 20 MG TAB PO SCH (21:17)
[2017-02-01] MEDS: ESCITALOPRAM 10 MG TAB PO SCH (21:18)
[2017-02-01] MEDS: MONTELUKAST 10 MG TAB PO SCH (21:18)
[2017-02-01] MEDS: MELATONIN 3 MG TABLET PO SCH (21:19)
[2017-02-01] MEDS: LACTATED RINGERS 1,000 ML IV SCH (21:20)
[2017-02-02] MEDS: BUDESONIDE 0.5 MG/2 ML NEBU INHALATION SCH (07:17)
[2017-02-02] MEDS: IPRATROPIUM-ALBUTEROL 3 ML NEB INHALATION PRN ×2 (07:17→11:32)
[2017-02-02 07:38] VITALS: BP 131/80; RESP 20; TEMP 97.9
[2017-02-02 09:03] LABS: Aty Lym Flag Slight; CH 28.7; CHCM 32.7; HCT 29.2 % (39.0-53.0); HDW 2.71; HGB 9.8 gm/dL (13.0-17.5); MCH 29.7 pg (25.0-35.0); MCHC 33.6 g/dL (31.0-37.0); MCV 88.4 fL (80.0-100.0); Mean Platelet Volume 9.1; RBC 3.31 m/uL (4.30-5.90); RDW 14.6 % (11.5-15.5); WBC 4.5 k/uL (3.8-10.6); WBC (Perox) 4.86
[2017-02-02] MEDS: CALCIUM CARB-VIT D 500MG-200UN 1 EACH TAB PO SCH (09:09)
[2017-02-02] MEDS: TERAZOSIN 5 MG CAP PO SCH (09:09)
[2017-02-02] MEDS: METOPROLOL TARTRATE 50 MG TAB PO SCH (09:10)
[2017-02-02] MEDS: DILTIAZEM CD 120 MG CAP.ER.24H PO SCH (09:10)
[2017-02-02] MEDS: ESOMEPRAZOLE 20 MG in SODIUM CHLORIDE 0.9% 50 ML IVPB SCH (09:12)
[2017-02-02 09:14] LABS: INR 1.2 (<1.2); Prothrombin Time 12.1 sec (9.0-12.0)
[2017-02-02] MEDS: ACETAMINOPHEN TAB 325 MG TAB PO PRN (09:17)
[2017-02-02 09:20] LABS: Anion Gap 7 mmol/L; Blood Urea Nitrogen 11 mg/dL (9-20); Calcium 7.9 mg/dL (8.4-10.2); Carbon Dioxide 25 mmol/L (22-30); Chloride 100 mmol/L (98-107); Glucose 162 mg/dL (74-99); Non-African American GFR(MDRD) >60 (>60 ml/min/1.73 sqM); Potassium 3.8 mmol/L (3.5-5.1); Sodium 132 mmol/L (137-145)
[2017-02-02 09:37] LABS: Add Differential Manual Differential
[2017-02-02 09:39] LABS: Nucleated Red Blood Cells 0 /100 WBC (0-0); Total Cells Counted 100
[2017-02-02 09:40] LABS: Manual Review Performed
[2017-02-02 11:45] VITALS: PULSE 73
--- NOTE | 2017-02-02 11:50 | PN ---
DATE OF SERVICE: 02/01/17 This 86-year-old gentleman who was admitted with lower GI bleeding, underwent colonoscopy by Dr. Lorenzo. The endoscope showed small hiatal hernia. Colonoscopy showed radiation proctitis with active oozing, status post Argon plasma coagulation. No chest pain. No palpitations. No fever. On exam, Alert and oriented times three. Pulse 70, blood pressure 157/82. Respiratory rate 18. Temperature 97 degrees. Pulse ox 97% on room air. HEENT: Conjunctivae normal. NECK: no JVD. CARDIOVASCULAR: S1, S2 muffled. RESPIRATORY: Breath sounds diminished at the bases. No rhonchi and no crackles. Abdomen is soft. Nontender. LEGS: No edema. No swelling. Nervous system: No focal deficits. LABS: WBC 2.9, hemoglobin 9.7, it was 10.4 yesterday. INR 1.2. ASSESSMENT: 1. Acute lower gastrointestinal bleeding from acute radiation proctitis with active ooze status post Argon plasma coagulation ablation. 2. Small hiatal hernia in the upper gastrointestinal exam. 3. Pancytopenia. 4. Coumadin monitoring. 5. Atrial fibrillation. 6. History of asthma, chronic obstructive pulmonary disease. 7. History of deep venous thrombosis. RECOMMENDATIONS AND DISCUSSION: Continue the current medications. Continue with monitoring and symptomatic treatment. Otherwise, we will monitor the patient closely. The patient is anemic, off anticoagulants. Guarded prognosis because of multiple complex medical problems. Further recommendations to follow. MTDD
[2017-02-02] MEDS: SODIUM CHLORIDE 0.9% 1,000 ML IV SCH (14:26)
--- NOTE | 2017-02-02 16:31 | P.DS ---
Providers Date of admission: 01/30/17 15:12 Attending physician: Ping Blankenship Consults: 01/29/17 13:18 Consult Physician Stat Consulting Provider: Fred Trejo Consult Reason/Comments: gi bleed Do you want consulting provider notified?: Yes [facility] Course: This 86-year-old gentleman was admitted with lower GI bleeding. Patient underwent colonoscopy by Dr. fraser Colonoscopy showed active oozing from radiation proctitis. Argon plasma coagulation and ablation was done. Patient improved significantly. On exam vitals stable. S1-S2 normal. Breath sounds normal. Abdomen soft nontender. Final diagnosis 1. Acute lower GI bleeding from radiation proctitis status post colonoscopy and argon plasma coagulation. 2. Small hiatal hernia and upper GI exam. 3. Pancytopenia undetermined or etiology. 4. Coumadin monitoring 5. Atrial fibrillation This 86-year-old gentleman has improved significantly. Patient be discharged home. Total time to time taken 35 minutes. Regardless of antiplatelet agents. To be restarted slowly in the preceding. Patient Condition at Discharge: Good Plan - Discharge Summary New Discharge Prescriptions: Continue Escitalopram [Lexapro] 10 mg PO HS Multivitamins, Thera [Multivitamin (formulary)] 1 tab PO DAILY Montelukast [Singulair] 10 mg PO HS Calcium Carbonate/Vitamin D3 [Calcium 600-Vit D3 400 Caplet] 1 tab PO DAILY Atorvastatin [Lipitor] 20 mg PO HS Terazosin HCl 5 mg PO BID Budesonide [Pulmicort] 0.5 mg INHALATION RT-BID Ipratropium-Albuterol Nebulize [Duoneb 0.5 mg-3 mg/3 ml Soln] 3 ml INHALATION RT-QID PRN PRN Reason: Shortness Of Breath Diltiazem HCl [Diltiazem 24Hr ER] 120 mg PO Q24HR Metoprolol Tartrate [Lopressor] 50 mg PO BID Discontinued Warfarin Sodium [Coumadin] 4.5 mg PO SUMOWEFRSA Warfarin Sodium [Coumadin] 6 mg PO TUTH [place]-3 Fatty Acids/Fish Oil [Fish Oil 1,000 mg Softgel] 1 cap PO DAILY Discharge Medication List Atorvastatin [Lipitor] 20 mg PO HS 01/29/17 [History] Budesonide [Pulmicort] 0.5 mg INHALATION RT-BID 01/29/17 [History] Calcium Carbonate/Vitamin D3 [Calcium 600-Vit D3 400 Caplet] 1 tab PO DAILY 07/17 [History] Diltiazem HCl [Diltiazem 24Hr ER] 120 mg PO Q24HR 01/29/17 [History] Escitalopram [Lexapro] 10 mg PO HS 01/29/17 [History] Ipratropium-Albuterol Nebulize [Duoneb 0.5 mg-3 mg/3 ml Soln] 3 ml INHALATION RT -QID PRN 01/29/17 [History] Metoprolol Tartrate [Lopressor] 50 mg PO BID 01/29/17 [History] Montelukast [Singulair] 10 mg PO HS 01/29/17 [History] Multivitamins, Thera [Multivitamin (formulary)] 1 tab PO DAILY 01/29/17 [History ] Terazosin HCl 5 mg PO BID 01/29/17 [History] Follow up Appointment(s)/Referral(s): Precious Lorenzo MD [STAFF PHYSICIAN] - 3 Weeks Rafael Presley DO [Primary Care Provider] - 1-2 days Ambulatory/Diagnostic Orders: Complete Blood Count w/diff [LAB.AMB] Location: Determined By Patient Patient Instructions/Handouts: Soft Diet (DC) Activity/Diet/Wound Care/Special Instructions: diet soft bland act limited till f/u Discharge Disposition: HOME SELF-CARE
--- NOTE | 2017-02-02 17:09 | PN ---
DATE OF SERVICE: 02/02/2017 The patient is an 86-year-old pleasant white male admitted to the hospital with acute GI bleed. He underwent an upper endoscopy as well as colonoscopy yesterday. Upper endoscopy showed some gastritis. Colonoscopy revealed severe radiation proctitis with active bleeding status post argon plasma coagulation and the patient did well. Today he is doing better. No further bleeding since yesterday. Denies any abdominal pain. No nausea or vomiting. The patient is status post radiation therapy to prostate cancer about a year ago. On physical examination he appears comfortable, no apparent distress. Vital signs are stable. Blood pressure is 131/80, pulse rate 109, temperature 97.9. HEENT: Unremarkable. Conjunctivae pink. Sclerae anicteric. Oral cavity, no lesions. NECK: No JVD or lymph node enlargement. CHEST: Clear to auscultation. HEART: Regular rate and rhythm. ABDOMEN: Soft. Bowel sounds are positive. No organomegaly. EXTREMITIES: No pedal edema. SKIN: No rashes. NEURO: Alert and oriented x3. No focal deficits. Labs done today, hemoglobin 9.8, WBC 4.5, platelets are 84. INR 1.2. IMPRESSION: 1. Acute lower gastrointestinal bleed secondary to radiation proctitis status post EGD and colonoscopy yesterday. 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 Presently no further bleeding. Hemoglobin is stable. 2. Atria fibrillation on Coumadin which is currently on hold. INR is 1.2. RECOMMENDATIONS: 1. Discussed with the patient proctitis. At this time I suggested that he continue with stool softeners and avoid straining and constipation. If he has recurrent bleeding he will be a candidate for a repeat flexible sigmoidoscopy with argon plasma coagulation. At this time I will hold off on the Coumadin for another week and can be resumed then. 2. The patient can be discharged home today with an outpatient follow up in two months. [facility]
== END 2017-02-02 15:26 | disposition home or self-care (01) | DRG 394 ==
LOC: EC 09:36 → 4MS4W 13:13 → 6SEL 16:21 → OBSVTOIN 01-30 15:12 → 4MS4W 02-01 16:26
PROVIDERS: ADMIT Hospitalist; ATTEND Hospitalist
PROC: 0W3P8ZZ Control Bleeding in Gastrointestinal Tract, Via Natural or Artificial Opening Endoscopic (ICD-10-PCS; principal; 2017-02-01 13:25)
PROC: 0DJ08ZZ Inspection of Upper Intestinal Tract, Via Natural or Artificial Opening Endoscopic (ICD-10-PCS; 2017-02-01 13:25)
DX: K62.7 Radiation proctitis (principal); D61.818 Other pancytopenia; K92.2 Gastrointestinal hemorrhage, unspecified; I48.91 Unspecified atrial fibrillation; J44.9 Chronic obstructive pulmonary disease, unspecified; I10 Essential (primary) hypertension; E78.5 Hyperlipidemia, unspecified; I25.2 Old myocardial infarction; K29.70 Gastritis, unspecified, without bleeding; K44.9 Diaphragmatic hernia without obstruction or gangrene; K57.30 Diverticulosis of large intestine without perforation or abscess without bleeding; R79.1 Abnormal coagulation profile; T45.515A Adverse effect of anticoagulants, initial encounter; M19.90 Unspecified osteoarthritis, unspecified site; I78.1 Nevus, non-neoplastic; Z79.01 Long term (current) use of anticoagulants; Z79.899 Other long term (current) drug therapy; Z85.46 Personal history of malignant neoplasm of prostate; Z87.891 Personal history of nicotine dependence; Z92.3 Personal history of irradiation; Z85.828 Personal history of other malignant neoplasm of skin; Z82.49 Family history of ischemic heart disease and other diseases of the circulatory system; Y84.2 Radiological procedure and radiotherapy as the cause of abnormal reaction of the patient, or of later complication, without mention of misadventure at the time of the procedure
CPT/HCPCS: 36415; 43235; 45382; 80048; 80053; 82272; 82550; 82553; 84484; 85025; 85027; 85610; 85730; 86850; 86900; 86901; 94640; 96360; 96361; 99285

== ENCOUNTER 2017-12-06 11:25 | Inpatient (IN) | payer OTHER, MEDICARE, BC ==
--- NOTE | 2017-12-06 11:47 | ED ---
General Adult HPI - General Chief complaint: Recheck/Abnormal Lab/Rx Stated complaint: Coughing up Blood Time Seen by Provider: 12/06/17 11:33 Source: patient, RN notes reviewed Mode of arrival: ambulatory Limitations: no limitations - History of Present Illness Initial comments: This is a 87-year-old male presents emergency Department chief complaint of coughing up blood. Patient states her last 4 days he's noticed blood streaks in his phlegm and he states it's progressively getting worse. Patient did state that he stopped his Coumadin a few days ago as he noticed symptoms. He states that he takes Coumadin for atrial fibrillation. Patient does have a history of COPD and does complain of some shortness of breath and chest tightness. Patient reports no fever no chills. Patient states that he just does not feel his usual self feels more weak and run down. Patient has had a prior DVT states he has no history of PEs. Patient denies sore throat, headache or dizziness. 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 - Related Data Home Medications Medication Instructions Recorded Confirmed Calcium Carbonate/Vitamin D3 1 tab PO DAILY 01/29/17 12/06/17 [Calcium 600-Vit D3 400 Caplet] Diltiazem HCl [Diltiazem 24Hr ER] 120 mg PO Q24HR 01/29/17 12/06/17 Escitalopram [Lexapro] 10 mg PO HS 01/29/17 12/06/17 Ipratropium-Albuterol Nebulize 3 ml INHALATION RT-QID PRN 01/29/17 12/06/17 [Duoneb 0.5 mg-3 mg/3 ml Soln] Metoprolol Tartrate [Lopressor] 50 mg PO BID 01/29/17 12/06/17 Montelukast [Singulair] 10 mg PO HS 01/29/17 12/06/17 Multivitamins, Thera [Multivitamin 1 tab PO DAILY 01/29/17 12/06/17 (formulary)] Terazosin HCl 5 mg PO BID 01/29/17 12/06/17 Ammonium Lactate Cream [Lac-Hydrin 1 applic TOPICAL DAILY PRN 12/06/17 12/06/17 12% Cream] Atorvastatin [Lipitor] 40 mg PO DAILY 12/06/17 12/06/17 Budesonide/Formoterol Fumarate 2 puff INHALATION RT-BID 12/06/17 12/06/17 [Symbicort 80-4.5 Mcg Inhaler] EPINEPHrine (Auto Inject) [Epipen] 0.3 mg IM ONCE PRN 12/06/17 12/06/17 Enzalutamide [Xtandi] 160 mg PO DAILY 12/06/17 12/06/17 Warfarin [Coumadin] 4.5 mg PO SUTUTHSA 12/06/17 12/06/17 Warfarin [Coumadin] 6 mg PO MOWEFR 12/06/17 12/06/17 Allergies Allergy/AdvReac Type Severity Reaction Status Date / Time No Known Allergies Allergy Verified 12/06/17 11:31 Review of Systems ROS Statement: Those systems with pertinent positive or pertinent negative responses have been documented in the HPI. ROS Other: All systems not noted in ROS Statement are negative. Past Medical History Past Medical History: Atrial Fibrillation, Asthma, Cancer, COPD, Deep Vein Thrombosis (DVT), Hyperlipidemia, Hypertension, Memory Impairment, Myocardial Infarction (NM), Osteoarthritis (OA), Prostate Disorder Additional Past Medical History / Comment(s): prostate CA-HAD 44 RADIATION [place], MILD SHORT TERM MEMORY PROBLEMS, NAVEL HERNIA,SKIN CA (LT HAND-REMOVED Last Myocardial Infarction Date:: UNK History of Any Multi-Drug Resistant Organisms: None Reported Past Surgical History: Heart Catheterization Additional Past Surgical History / Comment(s): VASECTOMY, PROSTATE BX TOMMY CATARACTS, RT EYE LASER SX Past Anesthesia/Blood Transfusion Reactions: No Reported Reaction Past Psychological History: No Psychological Hx Reported Smoking Status: Former smoker Past Alcohol Use History: None Reported Past Drug Use History: None Reported - Past Family History Mother Additional Family Medical History / Comment(s): RHEUMATIC FEVER- HEART VALVE DAMAGE- AGE 45 Father Family Medical History: Coronary Artery Disease (CAD) Additional Family Medical History / Comment(s): AGE 93 HEART PROBLEMS General Exam Limitations: no limitations General appearance: alert, in no apparent distress Head exam: Present: atraumatic, normocephalic, normal inspection Eye exam: Present: normal appearance, PERRL, EOMI. Absent: scleral icterus, conjunctival injection, periorbital swelling ENT exam: Present: normal exam, normal oropharynx, mucous membranes moist Neck exam: Present: normal inspection, full ROM. Absent: tenderness, meningismus, lymphadenopathy Respiratory exam: Present: rhonchi (Left lower). Absent: normal lung sounds bilaterally, respiratory distress, wheezes, rales, stridor Cardiovascular Exam: Present: regular rate, normal rhythm, normal heart sounds. Absent: systolic murmur, diastolic murmur, rubs, gallop, clicks GI/Abdominal exam: Present: soft, normal bowel sounds. Absent: distended, tenderness, guarding, rebound, rigid Extremities exam: Present: pedal edema (Pedal Edema noted to the right lower extremity pulses equal bilaterally) Skin exam: Present: warm, dry, intact, normal color. Absent: rash Course Vital Signs 12/06/17 12/06/17 12/06/17 11:29 12:00 13:40 Temperature 98.3 F 97.9 F Pulse Rate 75 86 Respiratory 20 20 18 Rate Blood Pressure 127/78 133/76 O2 Sat by Pulse 98 98 Oximetry EKG Findings - EKG Comments: EKG Findings:: EKG performed at 12:22 A. fib with a rate of 62 QRS 80 QT/QTC 48/ 495 Medical Decision Making - Medical Decision Making 87-year-old male presents from for hemoptysis. Patient had x-ray, ultrasound, CT. 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 Patient does have evidence of bilateral pneumonia and CT. Patient will be treated at this time. Patient will be admitted for further evaluation. Patient 's processor inspector is Dr. Joy. - Lab Data Result diagrams: 12/06/17 12:00 12/06/17 12:00 Lab Results 12/06/17 12/06/17 12/06/17 Range/Units 12:00 12:00 12:00 WBC 7.8 (3.8-10.6) k/uL RBC 3.52 L (4.30-5.90) m/uL Hgb 10.4 L (13.0-17.5) gm/dL Hct 31.3 L (39.0-53.0) % MCV 88.8 (80.0-100.0) fL MCH 29.5 (25.0-35.0) pg MCHC 33.2 (31.0-37.0) g/dL RDW 15.7 H (11.5-15.5) % Plt Count 112 L (150-450) k/uL Neutrophils % 76 % Lymphocytes % 4 % Monocytes % 17 % Eosinophils % 0 % Basophils % 0 % Neutrophils # 5.9 (1.3-7.7) k/uL Lymphocytes # 0.3 L (1.0-4.8) k/uL Monocytes # 1.4 H (0-1.0) k/uL Eosinophils # 0.0 (0-0.7) k/uL Basophils # 0.0 (0-0.2) k/uL RBC Morphology Normal PT (9.0-12.0) sec INR (<1.2) APTT (22.0-30.0) sec D-Dimer (<0.60) mg/L FEU Sodium 136 L (137-145) mmol/L Potassium 4.1 (3.5-5.1) mmol/L Chloride 102 (98-107) mmol/L Carbon Dioxide 23 (22-30) mmol/L Anion Gap 11 mmol/L BUN 15 (9-20) mg/dL Creatinine 0.61 L (0.66-1.25) mg/dL Est GFR (CKD-EPI)AfAm >90 (>60 ml/min/1.73 sqM) Est GFR (CKD-EPI)NonAf >90 (>60 ml/min/1.73 sqM) Glucose 97 (74-99) mg/dL Calcium 8.1 L (8.4-10.2) mg/dL Magnesium 2.1 (1.6-2.3) mg/dL Total Bilirubin 1.5 H (0.2-1.3) mg/dL AST 30 (17-59) U/L ALT 29 (21-72) U/L Alkaline Phosphatase 88 (38-126) U/L Total Creatine Kinase 154 (55-170) U/L CK-MB (CK-2) 2.0 (0.0-2.4) ng/mL CK-MB (CK-2) Rel Index 1.3 Troponin I <0.012 (0.000-0.034) ng/mL NT-Pro-B Natriuret Pep pg/mL Total Protein 5.6 L (6.3-8.2) g/dL Albumin 3.4 L (3.5-5.0) g/dL 12/06/17 12/06/17 Range/Units 12:00 12:00 WBC (3.8-10.6) k/uL RBC (4.30-5.90) m/uL Hgb (13.0-17.5) gm/dL Hct (39.0-53.0) % MCV (80.0-100.0) fL MCH (25.0-35.0) pg MCHC (31.0-37.0) g/dL RDW (11.5-15.5) % Plt Count (150-450) k/uL Neutrophils % % Lymphocytes % % Monocytes % % Eosinophils % % Basophils % % Neutrophils # (1.3-7.7) k/uL Lymphocytes # (1.0-4.8) k/uL Monocytes # (0-1.0) k/uL Eosinophils # (0-0.7) k/uL Basophils # (0-0.2) k/uL RBC Morphology PT 14.4 H (9.0-12.0) sec INR 1.6 H (<1.2) APTT 31.4 H (22.0-30.0) sec D-Dimer 0.32 (<0.60) mg/L FEU Sodium (137-145) mmol/L Potassium (3.5-5.1) mmol/L Chloride (98-107) mmol/L Carbon Dioxide (22-30) mmol/L Anion Gap mmol/L BUN (9-20) mg/dL Creatinine (0.66-1.25) mg/dL Est GFR (CKD-EPI)AfAm (>60 ml/min/1.73 sqM) Est GFR (CKD-EPI)NonAf (>60 ml/min/1.73 sqM) Glucose (74-99) mg/dL Calcium (8.4-10.2) mg/dL Magnesium (1.6-2.3) mg/dL Total Bilirubin (0.2-1.3) mg/dL AST (17-59) U/L ALT (21-72) U/L Alkaline Phosphatase (38-126) U/L Total Creatine Kinase (55-170) U/L CK-MB (CK-2) (0.0-2.4) ng/mL CK-MB (CK-2) Rel Index Troponin I (0.000-0.034) ng/mL NT-Pro-B Natriuret Pep 6210 pg/mL Total Protein (6.3-8.2) g/dL Albumin (3.5-5.0) g/dL Disposition Clinical Impression: Bilateral pneumonia, Hemoptysis, Atrial fibrillation Disposition: ADMITTED IP TO THIS HOSP Condition: Fair Referrals: [facility],Clinic [Primary Care Provider] - 1-2 days
[2017-12-06 12:17] LABS: Basophils % (A) 0 %; Eosinophils % (A) 0 %; HCT 31.3 % (39.0-53.0); HGB 10.4 gm/dL (13.0-17.5); Lymphocytes # (A) 0.3 k/uL (1.0-4.8); Lymphocytes % (A) 4 %; MCH 29.5 pg (25.0-35.0); MCHC 33.2 g/dL (31.0-37.0); MCV 88.8 fL (80.0-100.0); Mean Platelet Volume 9.2; Monocytes # (A) 1.4 k/uL (0-1.0); Monocytes % (A) 17 %; Neutrophils # (A) 5.9 k/uL (1.3-7.7); Neutrophils % (A) 76 %; Platelet Count 112 k/uL (150-450); RBC 3.52 m/uL (4.30-5.90); RDW 15.7 % (11.5-15.5); WBC 7.8 k/uL (3.8-10.6)
[2017-12-06 12:19] LABS: ALT 29 U/L (21-72); AST 30 U/L (17-59); Albumin 3.4 g/dL (3.5-5.0); Alkaline Phosphatase 88 U/L (38-126); Anion Gap 11 mmol/L; Blood Urea Nitrogen 15 mg/dL (9-20); Calcium 8.1 mg/dL (8.4-10.2); Carbon Dioxide 23 mmol/L (22-30); Chloride 102 mmol/L (98-107); Glucose 97 mg/dL (74-99); Magnesium 2.1 mg/dL (1.6-2.3); Potassium 4.1 mmol/L (3.5-5.1); Sodium 136 mmol/L (137-145); Total Bilirubin 1.5 mg/dL (0.2-1.3); Total Protein 5.6 g/dL (6.3-8.2)
--- NOTE | 2017-12-06 12:20 | XR ---
EXAMINATION TYPE: XR chest 2V DATE OF EXAM: 12/06/2017 COMPARISON: 03/14/2015 TECHNIQUE: PA and lateral views submitted. HISTORY: Difficulty breathing FINDINGS: Chronic rib deformities are seen and there is a subsegmental consolidation left lung base. The heart is enlarged. There is no overt failure or pneumothorax. Arthropathy of the shoulders and degenerative change of the spine. There is ectasia of the aorta. Descending aorta measures 4.2 cm compatible with aneurysmal dilation. IMPRESSION: 1. 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 2. Subsegmental changes at the left lung base could been the basis of atelectasis or infiltrate. Foll ow to resolution to exclude underlying nodularity. 2. Small area of irregularity along the anterior margin the left first rib which could be correlated with CT scan to exclude pulmonary nodule.
[2017-12-06 12:25] LABS: D-Dimer 0.32 mg/L FEU (<0.60); INR 1.6 (<1.2); Partial Thromboplastin Time 31.4 sec (22.0-30.0); Prothrombin Time 14.4 sec (9.0-12.0)
[2017-12-06 12:28] LABS: Creatine Kinase 154 U/L (55-170)
[2017-12-06 12:41] LABS: Troponin I <0.012 ng/mL (0.000-0.034)
--- NOTE | 2017-12-06 13:03 | US ---
EXAMINATION TYPE: US venous doppler duplex LE RT DATE OF EXAM: 12/06/2017 12:55 PM COMPARISON: NONE CLINICAL HISTORY: Pain, right leg swelling SIDE PERFORMED: Right TECHNIQUE: The lower extremity deep venous system is examined utilizing real time linear array sonog amandeep with graded compression, doppler sonography and color-flow sonography. VESSELS IMAGED: External Iliac Vein (EIV) Common Femoral Vein Deep Femoral Vein Greater Saphenous Vein * Femoral Vein Popliteal Vein Small Saphenous Vein * Proximal Calf Veins (* superficial vessels) Grayscale, color doppler, spectral doppler imaging performed of the deep veins of the right lower ext remity. There is normal flow, compressibility, vascular waveforms. Right Leg: Negative for DVT IMPRESSION: No sonographic evidence of deep venous thrombosis within the right lower extremity.
--- NOTE | 2017-12-06 14:11 | CT ---
CT CHEST FOR PULMONARY EMBOLISM. EXAMINATION TYPE: CT chest angio for PE DATE OF EXAM: 12/06/2017 INDICATION: Hemoptysis CT DLP: 454.5 mGycm, Automated exposure control for dose reduction was used. CONTRAST: Patient injected with 83 mL of Isovue 370. COMPARISON: NONE TECHNIQUE: CT of the chest is performed on a spiral scan at 2 mm thick sections. Study is performed with intravenous contrast timed for evaluation for pulmonary embolism. This will limit additional po rtions of the evaluation. 3-D MIP images reconstructed by the technologist are reviewed on the compu ter in the coronal and sagittal planes. FINDINGS: No persistent filling defects are evident to suggest an acute pulmonary embolism. No mediastinal or hilar adenopathy enlarged by CT criteria is evident. The ascending aorta diameter at the level of the main pulmonary artery is 4.1 cm. The main pulmonary artery diameter at the bifur cation is 3.2 cm. There is reflux into the superior portion inferior vena cava as well as reflux into the portal system. Others prominence of the right ventricle compared to the left with a ratio greate r than 1. Pulmonary hypertension is likely present. There is a lobular density in the left upper lobe which measures 1.5 x 0.8 cm on the lung windows. So me emphysematous changes present. Scattered infiltrates are within the left lower lobe. Underlying no dule measuring 0.8 cm is not excluded within this infiltrate. Series 5 image 101 Some mild infiltrate is within the right middle lobe. Subtle underlying 0.6 and meter nodule may be p resent. Series 5 image 97. There is a 5.5 cm cyst within the medial right lobe liver measuring 4 Hounsfield units. An additional subtle cyst may be within the medial right lobe liver adjacent to the ligamentum teres measuring 1.9 cm. The left adrenal gland is enlarged at 2.1 cm. Fatty infiltration of the pancreas is present. IMPRESSIONS: 1. No acute pulmonary embolism. 2. Changes discussed above, however, suggest pulmonary hypertension. 3. Hepatic cysts. 4. Enlarged left adrenal gland.
[2017-12-06] MEDS ORDERED: LEVOFLOXACIN 750MG-D5W PMX 750 MG in DEXTROSE/WATER 1 150ML.BAG IVPB STA (14:33)
[2017-12-06] MEDS ORDERED: PIPERACILLIN-TAZOBACTAM 3.375 GM in DEXTROSE/WATER 1 50ML.BAG IVPB STA (14:33)
[2017-12-06] MEDS ORDERED: PNEUMONIA PROTOCOL UTILIZED 1 EACH MISC PO PRN (14:33)
[2017-12-06] MEDS ORDERED: EPINEPHrine 1 MG/ML 1 ML AMP SQ PRN (17:28)
[2017-12-06] MEDS ORDERED: AMMONIUM LACTATE 12% CREAM 140 GM TUBE TOPICAL PRN (17:28)
[2017-12-06] MEDS ORDERED: WARFARIN 3 MG TAB PO SCH (18:00)
[2017-12-06] MEDS: SYMBICORT 80-4.5 MCG INHALER INHALATION SCH (19:29)
[2017-12-06] MEDS: ESCITALOPRAM 10 MG TAB PO SCH (21:10)
[2017-12-06] MEDS: MONTELUKAST 10 MG TAB PO SCH (21:10)
[2017-12-06] MEDS: METOPROLOL TARTRATE 50 MG TAB PO SCH (21:10)
[2017-12-06] MEDS: PIPERACILLIN-TAZOBACTAM 3.375 GM in DEXTROSE/WATER 1 50ML.BAG IVPB SCH (23:32)
[2017-12-06] MEDS: ACETAMINOPHEN TAB 325 MG TAB PO PRN (23:33)
--- NOTE | 2017-12-07 00:14 | P.HPIM ---
History of Present Illness H&P Date: 12/06/17 Chief Complaint: Cough and hemoptysis Patient is a 87-year-old male with a known history of atrial fibrillation on anticoagulation, asthma/COPD history of DVT in the popliteal vein, prostate cancer status post radiation and currently undergoing chemotherapy and multiple other medical problems came to ER with complaints of coughing of blood. Patient states her last 4 days he's noticed blood streaks in his phlegm and he states it's progressively getting worse. Patient did state that he stopped his Coumadin a few days ago as he noticed symptoms. Patient does have a history of COPD and does complain of some shortness of breath and chest tightness. Patient reports no fever no chills. Patient states that he just does not feel his usual self feels more weak and run down. Patient has had a prior DVT states he has no history of PEs. Patient denies sore throat, headache or dizziness. 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 Left. Right lower activity duplex scan showed no evidence of DVT INR 1.6 D-dimer not elevated Review of Systems Constitutional: Patient denies any fever or chills . No generalized weakness or weight loss. Abdomen: Patient denied nausea vomiting and diarrhea and abdominal pain. Cardiovascular: Patient denies any chest pain or short of breath no palpitations. Respiratory: Patient does have blood in the sputum. No shortness of breath Neurologic: Patient denied any numbness or tingling headache. Musculoskeletal: Patient denies any complaints of joint swelling or deformity. Skin: Negative Psychiatric: Negative Endocrine: No heat or cold intolerance. No recent weight gain. Genitourinary: No dysuria or hematuria. 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 past gi bleed lower bowel pt stated it was from the past radiation tx- it was cauterized.. Last Myocardial Infarction Date:: UNK History of Any Multi-Drug Resistant Organisms: None Reported Past Surgical History: Heart Catheterization Additional Past Surgical History / Comment(s): VASECTOMY, PROSTATE BX TOMMY CATARACTS, RT EYE LASER SX, skin ca removed. Past Anesthesia/Blood Transfusion Reactions: No Reported Reaction Smoking Status: Former smoker - Past Family History Mother Additional Family Medical History / Comment(s): RHEUMATIC FEVER- HEART VALVE DAMAGE- AGE 45 Father Family Medical History: Coronary Artery Disease (CAD) Additional Family Medical History / Comment(s): AGE 93 HEART PROBLEMS Medications and Allergies Home Medications Medication Instructions Recorded Confirmed Type Calcium Carbonate/Vitamin D3 1 tab PO DAILY 01/29/17 12/06/17 History [Calcium 600-Vit D3 400 Caplet] Diltiazem HCl [Diltiazem 24Hr ER] 120 mg PO Q24HR 01/29/17 12/06/17 History Escitalopram [Lexapro] 10 mg PO HS 01/29/17 12/06/17 History Ipratropium-Albuterol Nebulize 3 ml INHALATION RT-QID PRN 01/29/17 12/06/17 History [Duoneb 0.5 mg-3 mg/3 ml Soln] Metoprolol Tartrate [Lopressor] 50 mg PO BID 01/29/17 12/06/17 History Montelukast [Singulair] 10 mg PO HS 01/29/17 12/06/17 History Multivitamins, Thera [Multivitamin 1 tab PO DAILY 01/29/17 12/06/17 History (formulary)] Terazosin HCl 5 mg PO BID 01/29/17 12/06/17 History Ammonium Lactate Cream [Lac-Hydrin 1 applic TOPICAL DAILY PRN 12/06/17 12/06/17 History 12% Cream] Atorvastatin [Lipitor] 40 mg PO DAILY 12/06/17 12/06/17 History Budesonide/Formoterol Fumarate 2 puff INHALATION RT-BID 12/06/17 12/06/17 History [Symbicort 80-4.5 Mcg Inhaler] EPINEPHrine (Auto Inject) [Epipen] 0.3 mg IM ONCE PRN 12/06/17 12/06/17 History Enzalutamide [Xtandi] 160 mg PO DAILY 12/06/17 12/06/17 History Warfarin [Coumadin] 4.5 mg PO SUTUTHSA 12/06/17 12/06/17 History Warfarin [Coumadin] 6 mg PO MOWEFR 12/06/17 12/06/17 History Allergies Allergy/AdvReac Type Severity Reaction Status Date / Time No Known Allergies Allergy Verified 12/06/17 11:31 Physical Exam Vitals: Vital Signs Temp Pulse Pulse Resp BP BP Pulse Ox 12/06/17 16:00 97.7 F 78 16 120/71 100 12/06/17 15:32 98.2 F 12/06/17 15:02 82 18 121/72 98 12/06/17 13:40 97.9 F 86 18 133/76 98 12/06/17 12:00 20 12/06/17 11:29 98.3 F 75 20 127/78 98 Intake and Output 12/06/17 12/06/17 12/06/17 06:59 14:59 22:59 Other: Weight 99.79 kg PHYSICAL EXAMINATION: Patient is lying in the bed comfortably, no acute distress, awake alert and oriented.. HEENT: Normocephalic. Neck is supple. Pupils reactive. Nostrils clear. Oral cavity is moist. Ears reveal no drainage. Neck reveals no JVD, carotid bruits, or thyromegaly. CHEST EXAMINATION: Trachea is central. Symmetrical expansion. Diminished bibasilar air entry and minimal fine crackles. No wheezing otherwise Lung castellon clear to auscultation and percussion. CARDIAC: Normal S1, S2 with no gallops. No murmurs ABDOMEN: Soft. Bowel sounds normal. No organomegaly. No abdominal bruits. Extremities: reveal no edema. No clubbing or cyanosis Neurologically awake, alert, oriented x3 with well-coordinated movements. No focal deficits noted Skin: No rash or skin lesions. Psychiatric: Coperative. Nonsuicidal Musculoskeletal: No joint swelling or deformity. Normal range of motion. Results CBC & Chem 7: 12/06/17 12:00 12/06/17 12:00 Labs: Abnormal Lab Results - Last 24 Hours (Table) 12/06/17 12/06/17 12/06/17 Range/Units 12:00 12:00 12:00 RBC 3.52 L (4.30-5.90) m/uL Hgb 10.4 L (13.0-17.5) gm/dL Hct 31.3 L (39.0-53.0) % RDW 15.7 H (11.5-15.5) % Plt Count 112 L (150-450) k/uL Lymphocytes # 0.3 L (1.0-4.8) k/uL Monocytes # 1.4 H (0-1.0) k/uL PT 14.4 H (9.0-12.0) sec INR 1.6 H (<1.2) APTT 31.4 H (22.0-30.0) sec Sodium 136 L (137-145) mmol/L Creatinine 0.61 L (0.66-1.25) mg/dL Calcium 8.1 L (8.4-10.2) mg/dL Total Bilirubin 1.5 H (0.2-1.3) mg/dL Total Protein 5.6 L (6.3-8.2) g/dL Albumin 3.4 L (3.5-5.0) g/dL Thrombosis Risk Factor Assmnt - DVT/VTE Prophylaxis DVT/VTE Prophylaxis: Pharmacologic Prophylaxis ordered Assessment and Plan Assessment: Cough, shortness of breath and Hemoptysis likely due to supratherapeutic INR. Unlikely pneumonia Atrial fibrillation on anticoagulation with Coumadin. 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 Status post radiation previously History of lower GI bleed. Status post cauterization Hyperlipidemia Hypertension Memory impairment History of AR Previous history of smoking Plan: Patient will be continued on breathing treatments and monitor H&H. Patient was started on antibiotics in the form of Zosyn and Levaquin for possible pneumonia. CT chest showed no evidence of pneumonia. We will discontinue antibiotics. Pulmonary was consulted. Current with home medications and follow closely. Prognosis is poor with multiple medical problems and advanced prostate cancer with metastases to bone. Further recommendations based on the clinical course. Continue the pain management. Monitor INR. Time with Patient: Greater than 30
--- NOTE | 2017-12-07 07:27 | XR ---
EXAMINATION TYPE: XR chest 2V DATE OF EXAM: 12/07/2017 COMPARISON: 12/06/2017 HISTORY: Hemoptysis. TECHNIQUE: Frontal and lateral views of the chest are obtained. FINDINGS: Left basilar opacity is linear in orientation and improved from the prior exam of 12/06/2017 . Diffuse interstitial prominence is slightly progressed from the prior and may represent mild inters titial pulmonary edema. No sizable pleural effusion or pneumothorax. Cardia mediastinal silhouette is stable. Degenerative changes of the glenohumeral joints are noted. Osseous structures are grossly in tact. IMPRESSION: 1. Findings suggesting new mild interstitial edema, likely from fluid overload. 2. Improving left basilar opacity, clinically representing pneumonia with component of atelectasis zelaya spected.
[2017-12-07] MEDS: ATORVASTATIN 40 MG TAB PO SCH (08:27)
[2017-12-07] MEDS: METOPROLOL TARTRATE 50 MG TAB PO SCH ×2 (08:27→21:38)
[2017-12-07] MEDS: PIPERACILLIN-TAZOBACTAM 3.375 GM in DEXTROSE/WATER 1 50ML.BAG IVPB SCH ×2 (08:27→18:15)
[2017-12-07] MEDS: DOXAZOSIN 4 MG TAB PO SCH (08:27)
[2017-12-07] MEDS: DILTIAZEM CD 120 MG CAP.ER.24H PO SCH (08:28)
[2017-12-07] MEDS: SYMBICORT 80-4.5 MCG INHALER INHALATION SCH (08:33)
[2017-12-07 09:10] LABS: Anion Gap 9 mmol/L; Blood Urea Nitrogen 13 mg/dL (9-20); Calcium 7.9 mg/dL (8.4-10.2); Carbon Dioxide 26 mmol/L (22-30); Chloride 104 mmol/L (98-107); Glucose 101 mg/dL (74-99); Potassium 3.7 mmol/L (3.5-5.1); Sodium 139 mmol/L (137-145)
[2017-12-07 09:12] LABS: HCT 29.5 % (39.0-53.0); HGB 9.7 gm/dL (13.0-17.5); MCH 29.3 pg (25.0-35.0); MCHC 32.7 g/dL (31.0-37.0); MCV 89.4 fL (80.0-100.0); Mean Platelet Volume 8.5; Platelet Count 109 k/uL (150-450); RDW 15.2 % (11.5-15.5); WBC 4.9 k/uL (3.8-10.6)
[2017-12-07 09:26] LABS: Band Neutrophils % 1 %; Eosinophils # (M) 0.05 k/uL (0-0.7); Lymphocytes # (M) 0.34 k/uL (1.0-4.8); Metamyelocytes # (M) 0.05 k/uL (0); Metamyelocytes % 1 %; Monocytes # (M) 1.03 k/uL (0-1.0); Myelocytes # (M) 0.05 k/uL (0); Myelocytes % 1 %; Neutrophils % (M) 70 %; Nucleated Red Blood Cells 0 /100 WBC (0-0); Total Cells Counted 200
--- NOTE | 2017-12-07 10:00 | P.CNPUL ---
History of Present Illness Consult date: 12/07/17 Reason for consult: dyspnea, cough Chief complaint: Hemoptysis History of present illness: This is an 87-year-old gentleman who presented emergency department complaining of coughing up blood. The patient states that started a few days ago and began to worsen. He states he has been coughing up bright red blood. He is on Coumadin for atrial fibrillation and states that his INR was 3.9 and he stops taking the Coumadin. Today he reports that he had a few streaks of blood but it is improving. He denies fevers and chills. He states he did feel like he was getting bronchitis at home. He is a former smoker he used to smoke 2 packs per day for 30 years. He states he quit 30 years ago. He was in the [employer]. He believes he might have been exposed to asbestos when he worked for [employer]. The patient is currently undergoing chemotherapy for metastatic prostate cancer. He also follows with Dr. BEN Joy in the office for asthma and COPD. He states he does use a nebulizer at home. He also has Pulmicort which he does not use. He does not wear oxygen at home. The patient is also on Xolair and singulair as an outpatient. The patient did have a pulmonary function test done in July 2017 which showed moderate COPD. The patient did have a CTA of the chest which showed no evidence of pulmonary embolism. It showed evidence of pulmonary hypertension, left upper lobe lobular density measuring 1.5 x 0.8 cm, emphysematous changes, scattered infiltrates within the left lower lobe, mild infiltrate within the right middle lobe, scattered subcentimeter nodules. Review of Systems All systems: negative Past Medical History Past Medical History: Atrial Fibrillation, Asthma, Cancer, COPD, Deep Vein Thrombosis (DVT), GI Bleed, Hyperlipidemia, Hypertension, Memory Impairment, Myocardial Infarction (DC), Osteoarthritis (OA), Prostate Disorder Additional Past Medical History / Comment(s): prostate CA-HAD 46 RADIATION TX- had mets to bone currently taking oral chemo and hormone tx, MILD SHORT TERM MEMORY PROBLEMS, NAVEL HERNIA,SKIN CA basal cell(LT HAND-lip. back REMOVED. past gi bleed lower bowel pt stated it was from the past radiation tx- it was cauterized.. Last Myocardial Infarction Date:: UNK History of Any Multi-Drug Resistant Organisms: None Reported Past Surgical History: Heart Catheterization Additional Past Surgical History / Comment(s): VASECTOMY, PROSTATE BX TOMMY CATARACTS, RT EYE LASER SX, skin ca removed. Past Anesthesia/Blood Transfusion Reactions: No Reported Reaction Smoking Status: Former smoker - Past Family History Mother Additional Family Medical History / Comment(s): RHEUMATIC FEVER- HEART VALVE DAMAGE- AGE 45 Father Family Medical History: Coronary Artery Disease (CAD) Additional Family Medical History / Comment(s): AGE 93 HEART PROBLEMS Medications and Allergies Home Medications Medication Instructions Recorded Confirmed Type Calcium Carbonate/Vitamin D3 1 tab PO DAILY 01/29/17 12/06/17 History [Calcium 600-Vit D3 400 Caplet] Diltiazem HCl [Diltiazem 24Hr ER] 120 mg PO Q24HR 01/29/17 12/06/17 History Escitalopram [Lexapro] 10 mg PO HS 01/29/17 12/06/17 History Ipratropium-Albuterol Nebulize 3 ml INHALATION RT-QID PRN 01/29/17 12/06/17 History [Duoneb 0.5 mg-3 mg/3 ml Soln] Metoprolol Tartrate [Lopressor] 50 mg PO BID 01/29/17 12/06/17 History Montelukast [Singulair] 10 mg PO HS 01/29/17 12/06/17 History Multivitamins, Thera [Multivitamin 1 tab PO DAILY 01/29/17 12/06/17 History (formulary)] Terazosin HCl 5 mg PO BID 01/29/17 12/06/17 History Ammonium Lactate Cream [Lac-Hydrin 1 applic TOPICAL DAILY PRN 12/06/17 12/06/17 History 12% Cream] Atorvastatin [Lipitor] 40 mg PO DAILY 12/06/17 12/06/17 History Budesonide/Formoterol Fumarate 2 puff INHALATION RT-BID 12/06/17 12/06/17 History [Symbicort 80-4.5 Mcg Inhaler] EPINEPHrine (Auto Inject) [Epipen] 0.3 mg IM ONCE PRN 12/06/17 12/06/17 History Enzalutamide [Xtandi] 160 mg PO DAILY 12/06/17 12/06/17 History Warfarin [Coumadin] 4.5 mg PO SUTUTHSA 12/06/17 12/06/17 History Warfarin [Coumadin] 6 mg PO MOWEFR 12/06/17 12/06/17 History Allergies Allergy/AdvReac Type Severity Reaction Status Date / Time No Known Allergies Allergy Verified 12/06/17 11:31 Physical Exam Osteopathic Statement: *. No significant issues noted on an osteopathic structural exam other than those noted in the History and Physical/Consult. Vitals: Vital Signs Temp Pulse Pulse Resp BP BP Pulse Ox 12/07/17 06:18 97.4 F L 81 16 146/88 94 L 12/06/17 23:00 97.0 F L 70 16 115/76 94 L 12/06/17 16:00 97.7 F 78 16 120/71 100 12/06/17 15:32 98.2 F 12/06/17 15:02 82 18 121/72 98 12/06/17 13:40 97.9 F 86 18 133/76 98 12/06/17 12:00 20 12/06/17 11:29 98.3 F 75 20 127/78 98 Intake and Output 12/06/17 12/07/17 12/07/17 22:59 06:59 14:59 Intake Total 150 Output Total 900 Balance 150 -900 Intake: Intake, IV Titration 150 Amount Levofloxacin 750Mg-D5w 100 Pmx 750 mg In Dextrose/ Water 1 150ml.bag @ 100 mls/hr IVPB ONCE STA Rx#: [id number] Piperacillin-Tazobactam 3 50 .375 gm In Dextrose/Water 1 50ml.bag @ 12.5 mls/hr IVPB ONCE STA Rx#: [id number] Output: Urine 900 Other: Voiding Method Toilet Urinal # Voids 1 Gen.: Patient is alert and oriented 3, no acute distress Cardiovascular: Regular rate and rhythm, S1/S2 Lungs: Scattered rhonchi with forced expiration Abdomen: Soft nontender nondistended positive bowel sounds Extremities: No edema Results - Laboratory Findings CBC and BMP: 12/07/17 07:32 12/07/17 07:32 PT/INR, D-dimer PT 14.4 sec (9.0-12.0) H 12/06/17 12:00 INR 1.6 (<1.2) H 12/06/17 12:00 D-Dimer 0.32 mg/L FEU (<0.60) 12/06/17 12:00 Abnormal lab findings: Abnormal Labs 12/06/17 12/06/17 12/06/17 12:00 12:00 12:00 RBC 3.52 L Hgb 10.4 L Hct 31.3 L RDW 15.7 H Plt Count 112 L Lymphocytes # 0.3 L Lymphocytes # (Manual) Monocytes # 1.4 H Monocytes # (Manual) Metamyelocytes # (Man) Myelocytes # (Manual) PT 14.4 H INR 1.6 H APTT 31.4 H Sodium 136 L Creatinine 0.61 L Glucose Calcium 8.1 L Total Bilirubin 1.5 H Total Protein 5.6 L Albumin 3.4 L 12/07/17 12/07/17 07:32 07:32 RBC 3.30 L Hgb 9.7 L Hct 29.5 L RDW Plt Count 109 L Lymphocytes # Lymphocytes # (Manual) 0.34 L Monocytes # Monocytes # (Manual) 1.03 H Metamyelocytes # (Man) 0.05 H Myelocytes # (Manual) 0.05 H PT INR APTT Sodium Creatinine Glucose 101 H Calcium 7.9 L Total Bilirubin Total Protein Albumin - Diagnostic Findings Chest x-ray: report reviewed, image reviewed CT scan - chest: report reviewed, image reviewed Assessment and Plan Assessment: Community-acquired pneumonia, bilateral Hemoptysis Acute exacerbation of COPD/moderate persistent asthma Bilateral pulmonary nodules Pulmonary hypertension, echocardiogram done in July 2016 showed an RVSP of 40 mmHg Metastatic prostate cancer, currently undergoing chemotherapy Atrial fibrillation Coumadin coagulopathy, subtherapeutic History of prior radiation therapy for prostate cancer History of lower GI bleed status post cauterization Dyslipidemia Hypertension History of [place] Remote history of tobacco abuse O2 to maintain saturation greater than equal to 90% Sputum culture Monitor hemoglobin Antibiotics: Zosyn and Levaquin Pulmicort Duo nebs Singulair Incentive spirometry and pulmonary hygiene Prednisone taper Echocardiogram Coumadin dosing for goal INR 2-3 Follow up outpatient for pulmonary nodules, repeat CT/PET scan in 4-6 weeks Continue Xolair as outpatient If hemopytsis recurs, will consider bronchoscopy Thank you for this consultation. We will continue to follow along.
[2017-12-07 10:10] LABS: INR 1.5 (<1.2); Prothrombin Time 13.9 sec (9.0-12.0)
[2017-12-07] MEDS: IPRATROPIUM-ALBUTEROL 3 ML NEB INHALATION PRN ×3 (11:32→20:36)
[2017-12-07] MEDS: CALCIUM CARB-VIT D 500MG-200UN 1 EACH TAB PO SCH (11:43)
[2017-12-07] MEDS: predniSONE 20 MG TAB PO SCH (11:43)
[2017-12-07] MEDS: MULTIVITAMINS, THERA 1 EACH TAB PO SCH (11:43)
--- NOTE | 2017-12-07 14:25 | ECHOF ---
Referral Reason:pulmonary hypertension MEASUREMENTS -------- HEIGHT: 180.3 cm WEIGHT: 99.8 kg BP: 146/88 RVIDd: 3.6 cm (< 3.3) IVSd: 1.5 cm (0.6 - 1.1) LVIDd: 4.6 cm (3.9 - 5.3) LVPWd: 1.6 cm (0.6 - 1.1) IVSs: 2.1 cm LVIDs: 3.3 cm LVPWs: 2.1 cm LA Diam: 4.4 cm (2.7 - 3.8) LAESV Index (A-L): 55.90 ml/m Ao Diam: 3.9 cm (2.0 - 3.7) AV Cusp: 1.8 cm (1.5 - 2.6) MV EXCURSION: 21.085 mm (> 18.000) MV EF SLOPE: 104 mm/s (70 - 150) EPSS: 0.1 cm AV maxP.92 mmHg AV meanP.12 mmHg RAP: 5.00 mmHg RVSP: 43.59 mmHg FINDINGS -------- Atrial fibrillation. This was a technically adequate study. The left ventricular size is normal. There is moderate concentric left ventricular hypertrophy. O verall left ventricular systolic function is low-normal with, an EF between 50 - 55 %. The right ventricle is mildly enlarged. LA is severely dilated >40 ml/m2 The right atrium is normal in size. There is mild to moderate aortic valve sclerosis. There is mild aortic stenosis present. Peak/joel n gradient across the Aortic Valve is 17.92mmHg / 8.12mmHg. Mild mitral annular calcification present. Mild mitral regurgitation is present. Mild tricuspid regurgitation present. There is mild pulmonary hypertension. The right ventricular systolic pressure, as measured by Doppler, is 43.59mmHg. Trace/mild (physiologic) pulmonic regurgitation. The aortic root is dilated measuring 3.9cm. Normal inferior vena cava with normal inspiratory collapse consistent with estimated right atrial pre ssure of 5 mmHg. The inferior vena cava is mildly dilated. There is no pericardial effusion. CONCLUSIONS -------- 1. Atrial fibrillation. 2. This was a technically adequate study. 3. The left ventricular size is normal. 4. There is moderate concentric left ventricular hypertrophy. 5. Overall left ventricular systolic function is low-normal with, an EF between 50 - 55 %. 6. The right ventricle is mildly enlarged. 7. LA is severely dilated >40 ml/m2 8. The right atrium is normal in size. 9. There is mild to moderate aortic valve sclerosis. 10. There is mild aortic stenosis present. 11. Peak/mean gradient across the Aortic Valve is 17.92mmHg / 8.12mmHg. 12. Mild mitral annular calcification present. 13. Mild mitral regurgitation is present. 14. Mild tricuspid regurgitation present. 15. There is mild pulmonary hypertension. 16. The right ventricular systolic pressure, as measured by Doppler, is 43.59mmHg. 17. Trace/mild (physiologic) pulmonic regurgitation. 18. The aortic root is dilated measuring 3.9cm. 19. Normal inferior vena cava with normal inspiratory collapse consistent with estimated right atrial pressure of 5 mmHg. 20. The inferior vena cava is mildly dilated. 21. There is no pericardial effusion. HOT MAN: Vanessa Ricci RDCS
[2017-12-07] MEDS: LEVOFLOXACIN 750MG-D5W PMX 750 MG in DEXTROSE/WATER 1 150ML.BAG IVPB SCH (16:12)
[2017-12-07] MEDS: WARFARIN 2 MG TAB PO SCH (18:16)
[2017-12-07] MEDS: WARFARIN 2.5 MG TAB PO SCH (18:16)
[2017-12-07] MEDS: BUDESONIDE 0.5 MG/2 ML NEBU INHALATION SCH (20:36)
[2017-12-07] MEDS: ESCITALOPRAM 10 MG TAB PO SCH (21:38)
[2017-12-07] MEDS: MONTELUKAST 10 MG TAB PO SCH (21:38)
--- NOTE | 2017-12-07 23:52 | P.PN ---
Subjective Progress Note Date: 12/07/17 Principal diagnosis: Hemoptysis and pneumonia Patient is a 87-year-old male with a known history of atrial fibrillation on anticoagulation, asthma/COPD history of DVT in the popliteal vein, prostate cancer status post radiation and currently undergoing chemotherapy and multiple other medical problems came to ER with complaints of coughing of blood. Patient states her last 4 days he's noticed blood streaks in his phlegm and he states it's progressively getting worse. Patient did state that he stopped his Coumadin a few days ago as he noticed symptoms. Patient does have a history of COPD and does complain of some shortness of breath and chest tightness. Patient reports no fever no chills. Patient states that he just does not feel his usual self feels more weak and run down. Patient has had a prior DVT states he has no history of PEs. Patient denies sore throat, headache or dizziness. 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 Left. Right lower activity duplex scan showed no evidence of DVT INR 1.6 D-dimer not elevated 12/07/2017 Patient says that his breathing status is slightly better. No complaints of chest pain. Patient says that he still having blood in the sputum. No active bleeding at this time. Hemoglobin 9.7. Pulmonary is following. Otherwise continued on antibiotics for pneumonia and chest x-ray showed new mild interstitial edema. Likely from fluid load. Improving left basilar opacity likely representing pneumonia with component of atelectasis. No fever no chills. No other acute overnight issues otherwise. All other review of systems negative except the above Active Medications Generic Name Dose Route Start Last Admin Trade Name Freq PRN Reason Stop Dose Admin Acetaminophen 650 mg 12/06/17 23:29 12/06/17 23:33 Tylenol Tab PO 650 mg Q6HR PRN Administration Fever and/ or Pain Albuterol/Ipratropium 3 ml 12/06/17 17:28 12/07/17 20:36 Duoneb 0.5 Mg-3 Mg/3 Ml Soln INHALATION 3 ml RT-QID PRN Administration Shortness Of Breath Atorvastatin Calcium 40 mg 12/07/17 09:00 12/07/17 08:27 Lipitor PO 40 mg DAILY MIKE Administration Budesonide 0.5 mg 12/07/17 20:00 12/07/17 20:36 Pulmicort INHALATION 0.5 mg RT-BID MIKE Administration Calcium Carbonate 1 each 12/07/17 12:00 12/07/17 11:43 Oscal 500+D PO 1 each DAILY@1200 MIKE Administration Diltiazem HCl 120 mg 12/07/17 09:00 12/07/17 08:28 Cardizem Cd PO 120 mg Q24HR MIKE Administration Doxazosin Mesylate 8 mg 12/07/17 09:00 12/07/17 08:27 Cardura PO 8 mg DAILY MIKE Administration Epinephrine HCl 0.3 mg 12/06/17 17:28 Adrenalin SQ ONCE PRN Anaphylaxis Escitalopram Oxalate 10 mg 12/06/17 21:00 12/07/17 21:38 Lexapro PO 10 mg HS MIKE Administration Levofloxacin 750 mg/ IV 150 mls @ 100 mls/hr 12/07/17 15:00 12/07/17 16:12 Solution IVPB 12/19/17 15:01 100 mls/hr Q24H MIKE Administration Piperacillin/Tazobactam/ 50 mls @ 12.5 mls/hr 12/07/17 00:00 12/07/17 18:15 Dextrose 3.375 gm/ IV Solution IVPB 12/16/17 00:01 12.5 mls/hr Q8HR MIKE Administration Lactic Acid 1 applic 12/06/17 17:28 Ammonium Lactate TOPICAL DAILY PRN Rash Metoprolol Tartrate 50 mg 12/06/17 21:00 12/07/17 21:38 Lopressor PO 50 mg BID MIKE Administration Miscellaneous Information 1 each 12/06/17 14:33 Pneumonia Protocol Utilized PO ONCE PRN Per Protocol Montelukast Sodium 10 mg 12/06/17 21:00 12/07/17 21:38 Singulair PO 10 mg HS MIKE Administration Multivitamins 1 each 12/07/17 12:00 12/07/17 11:43 Theragran PO 1 each DAILY@1200 MIKE Administration Non-Formulary Medication 160 mg 12/07/17 09:00 12/07/17 11:56 Enzalutamide [Xtandi] PO 160 mg DAILY MIKE Administration Prednisone 60 mg 12/07/17 10:30 12/07/17 11:43 PO 60 mg DAILY MIKE Administration Warfarin Sodium 2.5 mg 12/07/17 18:00 12/07/17 18:16 Coumadin PO 2.5 mg SuTuThSa@1800 MIKE Administration Warfarin Sodium 6 mg 12/06/17 18:00 12/06/17 18:10 Coumadin PO 6 mg MoWeFr@1800 MIKE Administration Warfarin Sodium 2 mg 12/07/17 18:00 12/07/17 18:16 Coumadin PO 2 mg SuTuThSa@1800 MIKE Administration Objective - Vital Signs Vital signs: Vital Signs Temp 97.7 F 12/07/17 23:00 Pulse 87 12/07/17 23:00 Resp 16 12/07/17 23:00 BP 137/88 12/07/17 23:00 Pulse Ox 94 L 12/07/17 23:00 Intake & Output 12/07/17 12/07/17 12/08/17 06:59 18:59 06:59 Intake Total 900 Output Total 900 Balance -900 900 Intake: Oral 900 Output: Urine 900 Other: # Voids 1 2 - Exam Patient is lying in the bed comfortably, no acute distress, awake alert and oriented.. HEENT: Normocephalic. Neck is supple. Pupils reactive. Nostrils clear. Oral cavity is moist. Ears reveal no drainage. Neck reveals no JVD, carotid bruits, or thyromegaly. CHEST EXAMINATION: Trachea is central. Symmetrical expansion. Diminished bibasilar air entry and minimal fine crackles. No wheezing otherwise Lung castellon clear to auscultation and percussion. CARDIAC: Normal S1, S2 with no gallops. No murmurs ABDOMEN: Soft. Bowel sounds normal. No organomegaly. No abdominal bruits. Extremities: reveal no edema. No clubbing or cyanosis Neurologically awake, alert, oriented x3 with well-coordinated movements. No focal deficits noted Skin: No rash or skin lesions. Psychiatric: Coperative. Nonsuicidal Musculoskeletal: No joint swelling or deformity. Normal range of motion. - Labs CBC & Chem 7: 12/07/17 07:32 12/07/17 07:32 Labs: Abnormal Lab Results - Last 24 Hours (Table) 12/07/17 12/07/17 12/07/17 Range/Units 07:32 07:32 07:32 RBC 3.30 L (4.30-5.90) m/uL Hgb 9.7 L (13.0-17.5) gm/dL Hct 29.5 L (39.0-53.0) % Plt Count 109 L (150-450) k/uL Lymphocytes # (Manual) 0.34 L (1.0-4.8) k/uL Monocytes # (Manual) 1.03 H (0-1.0) k/uL Metamyelocytes # (Man) 0.05 H (0) k/uL Myelocytes # (Manual) 0.05 H (0) k/uL PT 13.9 H (9.0-12.0) sec INR 1.5 H (<1.2) Glucose 101 H (74-99) mg/dL Calcium 7.9 L (8.4-10.2) mg/dL Microbiology - Last 24 Hours (Table) 12/06/17 12:00 Blood Culture - Preliminary Blood No Growth after 24 hours 12/06/17 21:10 Gram Stain - Preliminary Sputum Sputum Culture - Preliminary Assessment and Plan Assessment: Left basilar pneumonia. Completed quite. Presented with Cough, shortness of breath Hemoptysis likely due to supratherapeutic INR. Atrial fibrillation on anticoagulation with Coumadin. 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 Status post radiation previously History of lower GI bleed. Status post cauterization Hyperlipidemia Hypertension Memory impairment History of [place] Previous history of smoking Plan: Patient will be continued on breathing treatments and monitor H&H. Patient was started on antibiotics in the form of Zosyn and Levaquin for possible pneumonia. CT chest showed no evidence of pneumonia. Pulmonary was consulted. Current with home medications and follow closely. Pulmonary is considering bronchoscopy if the patient continues to have hemoptysis. Prognosis is poor with multiple medical problems and advanced prostate cancer with metastases to bone. Further recommendations based on the clinical course. Continue the pain management. Monitor INR. Time with Patient: Greater than 30
[2017-12-08] MEDS: PIPERACILLIN-TAZOBACTAM 3.375 GM in DEXTROSE/WATER 1 50ML.BAG IVPB SCH ×3 (00:23→17:18)
[2017-12-08] MEDS: ACETAMINOPHEN TAB 325 MG TAB PO PRN (00:25)
[2017-12-08] MEDS: ATORVASTATIN 40 MG TAB PO SCH (08:11)
[2017-12-08] MEDS: predniSONE 20 MG TAB PO SCH (08:11)
[2017-12-08] MEDS: METOPROLOL TARTRATE 50 MG TAB PO SCH ×2 (08:11→20:10)
[2017-12-08] MEDS: DOXAZOSIN 4 MG TAB PO SCH (08:11)
[2017-12-08] MEDS: DILTIAZEM CD 120 MG CAP.ER.24H PO SCH (08:11)
[2017-12-08] MEDS: IPRATROPIUM-ALBUTEROL 3 ML NEB INHALATION PRN ×3 (08:13→20:17)
[2017-12-08] MEDS: BUDESONIDE 0.5 MG/2 ML NEBU INHALATION SCH ×2 (08:13→20:17)
[2017-12-08 08:59] LABS: Basophils % (A) 0 %; Eosinophils % (A) 0 %; HCT 31.5 % (39.0-53.0); HGB 10.3 gm/dL (13.0-17.5); Lymphocytes # (A) 0.4 k/uL (1.0-4.8); Lymphocytes % (A) 10 %; MCH 29.3 pg (25.0-35.0); MCHC 32.6 g/dL (31.0-37.0); MCV 89.7 fL (80.0-100.0); Mean Platelet Volume 8.7; Monocytes # (A) 0.4 k/uL (0-1.0); Monocytes % (A) 10 %; Neutrophils # (A) 3.1 k/uL (1.3-7.7); Neutrophils % (A) 78 %; Platelet Count 119 k/uL (150-450); RBC 3.51 m/uL (4.30-5.90); RDW 15.4 % (11.5-15.5)
[2017-12-08 09:05] LABS: INR 1.5 (<1.2); Prothrombin Time 14.1 sec (9.0-12.0)
[2017-12-08 09:10] LABS: Anion Gap 14 mmol/L; Blood Urea Nitrogen 12 mg/dL (9-20); Calcium 8.5 mg/dL (8.4-10.2); Carbon Dioxide 25 mmol/L (22-30); Chloride 101 mmol/L (98-107); Glucose 153 mg/dL (74-99); Potassium 3.7 mmol/L (3.5-5.1); Sodium 140 mmol/L (137-145)
--- NOTE | 2017-12-08 12:33 | P.PN ---
<Marce Carter E - Last Filed: 12/08/17 12:28> Subjective Progress Note Date: 12/08/17 HPI: This is an 87-year-old gentleman who presented emergency department complaining of coughing up blood. The patient states that started a few days ago and began to worsen. He states he has been coughing up bright red blood. He is on Coumadin for atrial fibrillation and states that his INR was 3.9 and he stops taking the Coumadin. Today he reports that he had a few streaks of blood but it is improving. He denies fevers and chills. He states he did feel like he was getting bronchitis at home. He is a former smoker he used to smoke 2 packs per day for 30 years. He states he quit 30 years ago. He was in the [employer]. He believes he might have been exposed to asbestos when he worked for [employer]. The patient is currently undergoing chemotherapy for metastatic prostate cancer. He also follows with Dr. BEN Joy in the office for asthma and COPD. He states he does use a nebulizer at home. He also has Pulmicort which he does not use. He does not wear oxygen at home. The patient is also on Xolair and singulair as an outpatient. The patient did have a pulmonary function test done in July 2017 which showed moderate COPD. The patient did have a CTA of the chest which showed no evidence of pulmonary embolism. It showed evidence of pulmonary hypertension, left upper lobe lobular density measuring 1.5 x 0.8 cm, emphysematous changes, scattered infiltrates within the left lower lobe, mild infiltrate within the right middle lobe, scattered subcentimeter nodules. Interval History: 12/08/17- patient is being seen examined and evaluated today on rounds. He is resting up in bed with his daughter at bedside. He states his breathing is slowly improving. He reports that his sputum is less blood-streaked and is more brown specks. The possibility of a bronchoscopy in the future was discussed with the patient as well as his daughter and at this time, it is decided with both parties to wait on the bronchoscopy procedure and possibly do it outpatient if the patient continues to have hemoptysis, as it is improving at this current state. He feels his breathing treatments are helping significantly. He is afebrile no further complaints. Objective - Vital Signs Vital signs: Vital Signs Temp 97 F L 12/08/17 07:00 Pulse 78 12/08/17 12:12 Resp 18 12/08/17 07:00 BP 130/86 12/08/17 07:00 Pulse Ox 93 L 12/08/17 07:00 Intake & Output 12/07/17 12/08/17 12/08/17 18:59 06:59 18:59 Intake Total 900 Balance 900 Intake: Oral 900 Other: Voiding Method Toilet Urinal # Voids 2 2 - Exam Gen.: Patient is alert and oriented 3, no acute distress Cardiovascular: Regular rate and rhythm, S1/S2 Lungs: Scattered rhonchi with forced expiration Abdomen: Soft nontender nondistended positive bowel sounds Extremities: No edema - Labs CBC & Chem 7: 12/08/17 08:35 12/08/17 08:35 Labs: Abnormal Lab Results - Last 24 Hours (Table) 12/08/17 12/08/17 12/08/17 Range/Units 08:35 08:35 08:35 RBC 3.51 L (4.30-5.90) m/uL Hgb 10.3 L (13.0-17.5) gm/dL Hct 31.5 L (39.0-53.0) % Plt Count 119 L (150-450) k/uL Lymphocytes # 0.4 L (1.0-4.8) k/uL PT 14.1 H (9.0-12.0) sec INR 1.5 H (<1.2) Glucose 153 H (74-99) mg/dL Microbiology - Last 24 Hours (Table) 12/06/17 12:00 Blood Culture - Preliminary Blood No Growth after 24 hours Assessment and Plan Assessment: Assessment: Community-acquired pneumonia, bilateral Hemoptysis Acute exacerbation of COPD/moderate persistent asthma Bilateral pulmonary nodules Pulmonary hypertension, echocardiogram done in July 2016 showed an RVSP of 40 mmHg Metastatic prostate cancer, currently undergoing chemotherapy Atrial fibrillation Coumadin coagulopathy, subtherapeutic History of prior radiation therapy for prostate cancer History of lower GI bleed status post cauterization Dyslipidemia Hypertension History of [place] Remote history of tobacco abuse Plan Medications have been reviewed and will be continued as ordered. O2 to maintain saturation greater than equal to 90% Sputum culture Monitor hemoglobin Antibiotics: Zosyn and Levaquin Pulmicort Duo nebs Singulair Incentive spirometry and pulmonary hygiene Prednisone taper Echocardiogram Coumadin dosing for goal INR 2-3 Follow up outpatient for pulmonary nodules, repeat CT/PET scan in 4-6 weeks Continue Xolair as outpatient If hemopytsis recurs, will consider bronchoscopy outpatient, currenlty improving We will continue to follow along. I performed an examination of the patient and discussed their management with the nurse practitioner. I have reviewed the nurse practitioner's note and agree with the documented findings and plan of care. <Poornima Birch A - Last Filed: 12/08/17 12:34> Objective - Vital Signs Vital signs: Vital Signs Temp 97 F L 12/08/17 07:00 Pulse 78 12/08/17 12:12 Resp 18 12/08/17 07:00 BP 130/86 12/08/17 07:00 Pulse Ox 93 L 12/08/17 07:00 Intake & Output 12/07/17 12/08/17 12/08/17 18:59 06:59 18:59 Intake Total 900 Balance 900 Intake: Oral 900 Other: Voiding Method Toilet Urinal # Voids 2 2 - Labs CBC & Chem 7: 12/08/17 08:35 12/08/17 08:35 Labs: Abnormal Lab Results - Last 24 Hours (Table) 12/08/17 12/08/17 12/08/17 Range/Units 08:35 08:35 08:35 RBC 3.51 L (4.30-5.90) m/uL Hgb 10.3 L (13.0-17.5) gm/dL Hct 31.5 L (39.0-53.0) % Plt Count 119 L (150-450) k/uL Lymphocytes # 0.4 L (1.0-4.8) k/uL PT 14.1 H (9.0-12.0) sec INR 1.5 H (<1.2) Glucose 153 H (74-99) mg/dL Microbiology - Last 24 Hours (Table) 12/06/17 12:00 Blood Culture - Preliminary Blood No Growth after 24 hours Assessment and Plan Assessment: Patient states his hemoptysis is improving, becoming darker clots. Continue present management. If worsens or recurs, consider bronchoscopy. ~Poornima Birch DO
[2017-12-08] MEDS: CALCIUM CARB-VIT D 500MG-200UN 1 EACH TAB PO SCH (12:50)
[2017-12-08] MEDS: MULTIVITAMINS, THERA 1 EACH TAB PO SCH (12:50)
[2017-12-08] MEDS: LEVOFLOXACIN 750MG-D5W PMX 750 MG in DEXTROSE/WATER 1 150ML.BAG IVPB SCH (15:59)
[2017-12-08] MEDS: WARFARIN 2 MG TAB PO SCH (17:19)
[2017-12-08] MEDS: WARFARIN 2.5 MG TAB PO SCH (17:19)
[2017-12-08] MEDS: MONTELUKAST 10 MG TAB PO SCH (20:10)
[2017-12-08] MEDS: ESCITALOPRAM 10 MG TAB PO SCH (20:10)
--- NOTE | 2017-12-08 23:56 | P.PN ---
Subjective Progress Note Date: 12/08/17 Principal diagnosis: Hemoptysis and pneumonia Patient is a 87-year-old male with a known history of atrial fibrillation on anticoagulation, asthma/COPD history of DVT in the popliteal vein, prostate cancer status post radiation and currently undergoing chemotherapy and multiple other medical problems came to ER with complaints of coughing of blood. Patient states her last 4 days he's noticed blood streaks in his phlegm and he states it's progressively getting worse. Patient did state that he stopped his Coumadin a few days ago as he noticed symptoms. Patient does have a history of COPD and does complain of some shortness of breath and chest tightness. Patient reports no fever no chills. Patient states that he just does not feel his usual self feels more weak and run down. Patient has had a prior DVT states he has no history of PEs. Patient denies sore throat, headache or dizziness. 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 Left. Right lower activity duplex scan showed no evidence of DVT INR 1.6 D-dimer not elevated 12/07/2017 Patient says that his breathing status is slightly better. No complaints of chest pain. Patient says that he still having blood in the sputum. No active bleeding at this time. Hemoglobin 9.7. Pulmonary is following. Otherwise continued on antibiotics for pneumonia and chest x-ray showed new mild interstitial edema. Likely from fluid load. Improving left basilar opacity likely representing pneumonia with component of atelectasis. No fever no chills. No other acute overnight issues otherwise. 12/08/2017 Patient denied any complaints of worsening shortness of breath or chest pain. Patient is still having streaks of blood in the sputum which has much improved now. Patient has been afebrile and hemodynamically stable. Ambulating in the hallway. Pulmonary is following. Continued on current antibiotics. All other review of systems negative except the above Active Medications Generic Name Dose Route Start Last Admin Trade Name Freq PRN Reason Stop Dose Admin Acetaminophen 650 mg 12/06/17 23:29 12/06/17 23:33 Tylenol Tab PO 650 mg Q6HR PRN Administration Fever and/ or Pain Albuterol/Ipratropium 3 ml 12/06/17 17:28 12/07/17 20:36 Duoneb 0.5 Mg-3 Mg/3 Ml Soln INHALATION 3 ml RT-QID PRN Administration Shortness Of Breath Atorvastatin Calcium 40 mg 12/07/17 09:00 12/07/17 08:27 Lipitor PO 40 mg DAILY MIKE Administration Budesonide 0.5 mg 12/07/17 20:00 12/07/17 20:36 Pulmicort INHALATION 0.5 mg RT-BID MIKE Administration Calcium Carbonate 1 each 12/07/17 12:00 12/07/17 11:43 Oscal 500+D PO 1 each DAILY@1200 MIKE Administration Diltiazem HCl 120 mg 12/07/17 09:00 12/07/17 08:28 Cardizem Cd PO 120 mg Q24HR MIKE Administration Doxazosin Mesylate 8 mg 12/07/17 09:00 12/07/17 08:27 Cardura PO 8 mg DAILY MIKE Administration Epinephrine HCl 0.3 mg 12/06/17 17:28 Adrenalin SQ ONCE PRN Anaphylaxis Escitalopram Oxalate 10 mg 12/06/17 21:00 12/07/17 21:38 Lexapro PO 10 mg HS MIKE Administration Levofloxacin 750 mg/ IV 150 mls @ 100 mls/hr 12/07/17 15:00 12/07/17 16:12 Solution IVPB 12/19/17 15:01 100 mls/hr Q24H MIKE Administration Piperacillin/Tazobactam/ 50 mls @ 12.5 mls/hr 12/07/17 00:00 12/07/17 18:15 Dextrose 3.375 gm/ IV Solution IVPB 12/16/17 00:01 12.5 mls/hr Q8HR MIKE Administration Lactic Acid 1 applic 12/06/17 17:28 Ammonium Lactate TOPICAL DAILY PRN Rash Metoprolol Tartrate 50 mg 12/06/17 21:00 12/07/17 21:38 Lopressor PO 50 mg BID MIKE Administration Miscellaneous Information 1 each 12/06/17 14:33 Pneumonia Protocol Utilized PO ONCE PRN Per Protocol Montelukast Sodium 10 mg 12/06/17 21:00 12/07/17 21:38 Singulair PO 10 mg HS MIKE Administration Multivitamins 1 each 12/07/17 12:00 12/07/17 11:43 Theragran PO 1 each DAILY@1200 MIKE Administration Non-Formulary Medication 160 mg 12/07/17 09:00 12/07/17 11:56 Enzalutamide [Xtandi] PO 160 mg DAILY MIKE Administration Prednisone 60 mg 12/07/17 10:30 12/07/17 11:43 PO 60 mg DAILY MIKE Administration Warfarin Sodium 2.5 mg 12/07/17 18:00 12/07/17 18:16 Coumadin PO 2.5 mg SuTuThSa@1800 MIKE Administration Warfarin Sodium 6 mg 12/06/17 18:00 12/06/17 18:10 Coumadin PO 6 mg MoWeFr@1800 MIKE Administration Warfarin Sodium 2 mg 12/07/17 18:00 12/07/17 18:16 Coumadin PO 2 mg SuTuThSa@1800 MIKE Administration Objective - Vital Signs Vital signs: Vital Signs Temp 97 F L 12/08/17 07:00 Pulse 78 12/08/17 12:12 Resp 18 12/08/17 07:00 BP 130/86 12/08/17 07:00 Pulse Ox 93 L 12/08/17 07:00 Intake & Output 12/07/17 12/08/17 12/08/17 18:59 06:59 18:59 Intake Total 900 Balance 900 Intake: Oral 900 Other: Voiding Method Toilet Urinal # Voids 2 2 - Exam Patient is lying in the bed comfortably, no acute distress, awake alert and oriented.. HEENT: Normocephalic. Neck is supple. Pupils reactive. Nostrils clear. Oral cavity is moist. Ears reveal no drainage. Neck reveals no JVD, carotid bruits, or thyromegaly. CHEST EXAMINATION: Trachea is central. Symmetrical expansion. Diminished bibasilar air entry and minimal fine crackles. No wheezing otherwise Lung castellon clear to auscultation and percussion. CARDIAC: Normal S1, S2 with no gallops. No murmurs ABDOMEN: Soft. Bowel sounds normal. No organomegaly. No abdominal bruits. Extremities: reveal no edema. No clubbing or cyanosis Neurologically awake, alert, oriented x3 with well-coordinated movements. No focal deficits noted Skin: No rash or skin lesions. Psychiatric: Coperative. Nonsuicidal Musculoskeletal: No joint swelling or deformity. Normal range of motion. - Labs CBC & Chem 7: 12/08/17 08:35 12/08/17 08:35 Labs: Abnormal Lab Results - Last 24 Hours (Table) 12/08/17 12/08/17 12/08/17 Range/Units 08:35 08:35 08:35 RBC 3.51 L (4.30-5.90) m/uL Hgb 10.3 L (13.0-17.5) gm/dL Hct 31.5 L (39.0-53.0) % Plt Count 119 L (150-450) k/uL Lymphocytes # 0.4 L (1.0-4.8) k/uL PT 14.1 H (9.0-12.0) sec INR 1.5 H (<1.2) Glucose 153 H (74-99) mg/dL Microbiology - Last 24 Hours (Table) 12/06/17 12:00 Blood Culture - Preliminary Blood No Growth after 48 hours Assessment and Plan Assessment: Left basilar pneumonia. Community-acquired. Presented with Cough, shortness of breath Hemoptysis likely due to pneumonia. Patient was also supratherapeutic. Improved now. Atrial fibrillation on anticoagulation with Coumadin. 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 Status post radiation previously History of lower GI bleed. Status post cauterization Hyperlipidemia Hypertension Memory impairment History of [place] Previous history of smoking Plan: Patient will be continued on breathing treatments and monitor H&H. Patient was started on antibiotics in the form of Zosyn and Levaquin for possible pneumonia. CT chest showed no evidence of pneumonia. Pulmonary is following. Current with home medications and follow closely. Pulmonary is considering bronchoscopy if the patient continues to have hemoptysis. Prognosis is poor with multiple medical problems and advanced prostate cancer with metastases to bone. Further recommendations based on the clinical course. Continue the pain management. Monitor INR. Time with Patient: Greater than 30
[2017-12-09] MEDS: PIPERACILLIN-TAZOBACTAM 3.375 GM in DEXTROSE/WATER 1 50ML.BAG IVPB SCH ×2 (00:03→08:27)
[2017-12-09] MEDS: ACETAMINOPHEN TAB 325 MG TAB PO PRN (01:21)
[2017-12-09] MEDS: BUDESONIDE 0.5 MG/2 ML NEBU INHALATION SCH (07:26)
[2017-12-09] MEDS: IPRATROPIUM-ALBUTEROL 3 ML NEB INHALATION PRN ×2 (07:26→11:27)
[2017-12-09] MEDS: predniSONE 20 MG TAB PO SCH (08:26)
[2017-12-09] MEDS: METOPROLOL TARTRATE 50 MG TAB PO SCH (08:27)
[2017-12-09] MEDS: ATORVASTATIN 40 MG TAB PO SCH (08:27)
[2017-12-09] MEDS: DOXAZOSIN 4 MG TAB PO SCH (08:27)
[2017-12-09] MEDS: DILTIAZEM CD 120 MG CAP.ER.24H PO SCH (08:28)
[2017-12-09 09:58] LABS: INR 1.7 (<1.2); Prothrombin Time 15.6 sec (9.0-12.0)
--- NOTE | 2017-12-09 10:16 | P.PN ---
Subjective Progress Note Date: 12/09/17 HPI: This is an 87-year-old gentleman who presented emergency department complaining of coughing up blood. The patient states that started a few days ago and began to worsen. He states he has been coughing up bright red blood. He is on Coumadin for atrial fibrillation and states that his INR was 3.9 and he stops taking the Coumadin. Today he reports that he had a few streaks of blood but it is improving. He denies fevers and chills. He states he did feel like he was getting bronchitis at home. He is a former smoker he used to smoke 2 packs per day for 30 years. He states he quit 30 years ago. He was in the [employer]. He believes he might have been exposed to asbestos when he worked for [employer]. The patient is currently undergoing chemotherapy for metastatic prostate cancer. He also follows with Dr. BEN Joy in the office for asthma and COPD. He states he does use a nebulizer at home. He also has Pulmicort which he does not use. He does not wear oxygen at home. The patient is also on Xolair and singulair as an outpatient. The patient did have a pulmonary function test done in July 2017 which showed moderate COPD. The patient did have a CTA of the chest which showed no evidence of pulmonary embolism. It showed evidence of pulmonary hypertension, left upper lobe lobular density measuring 1.5 x 0.8 cm, emphysematous changes, scattered infiltrates within the left lower lobe, mild infiltrate within the right middle lobe, scattered subcentimeter nodules. Interval History: 12/08/17- patient is being seen examined and evaluated today on rounds. He is resting up in bed with his daughter at bedside. He states his breathing is slowly improving. He reports that his sputum is less blood-streaked and is more brown specks. The possibility of a bronchoscopy in the future was discussed with the patient as well as his daughter and at this time, it is decided with both parties to wait on the bronchoscopy procedure and possibly do it outpatient if the patient continues to have hemoptysis, as it is improving at this current state. He feels his breathing treatments are helping significantly. He is afebrile no further complaints. 12/09/17- patient being seen examined and evaluated at bedside. He is resting up in bed on room air. Feels his breathing continues to get better each day. This morning he did have a few productive cough some brought up yellow white sputum with no blood however occasionally will have a blood tinged streak. The blood tinged streak episodes overall have decreased as well. He has been afebrile. No further complaints. Objective - Vital Signs Vital signs: Vital Signs Temp 98.3 F 12/09/17 07:15 Pulse 82 12/09/17 07:38 Resp 16 12/09/17 07:15 BP 134/79 12/09/17 07:15 Pulse Ox 94 L 12/09/17 07:15 Intake & Output 12/08/17 12/09/17 12/09/17 18:59 06:59 18:59 Intake Total 500 Balance 500 Intake: Oral 500 Other: Voiding Method Urinal # Voids 3 2 - Exam Gen.: Patient is alert and oriented 3, no acute distress Cardiovascular: Regular rate and rhythm, S1/S2 Lungs: Scattered rhonchi with forced expiration Abdomen: Soft nontender nondistended positive bowel sounds Extremities: No edema - Labs CBC & Chem 7: 12/08/17 08:35 12/08/17 08:35 Labs: Abnormal Lab Results - Last 24 Hours (Table) 12/09/17 Range/Units 09:41 PT 15.6 H (9.0-12.0) sec INR 1.7 H (<1.2) Microbiology - Last 24 Hours (Table) 12/06/17 21:10 Gram Stain - Final Sputum Sputum Culture - Final 12/06/17 12:00 Blood Culture - Preliminary Blood No Growth after 48 hours Assessment and Plan Assessment: Assessment: Community-acquired pneumonia, bilateral Hemoptysis Acute exacerbation of COPD/moderate persistent asthma Bilateral pulmonary nodules Pulmonary hypertension, echocardiogram done in July 2016 showed an RVSP of 40 mmHg Metastatic prostate cancer, currently undergoing chemotherapy Atrial fibrillation Coumadin coagulopathy, subtherapeutic History of prior radiation therapy for prostate cancer History of lower GI bleed status post cauterization Dyslipidemia Hypertension History of [place] Remote history of tobacco abuse Plan Patient could be cleared for discharge from pulmonary standpoint, we will follow closely outpatient Medications have been reviewed and will be continued as ordered. O2 to maintain saturation greater than equal to 90% Sputum culture Monitor hemoglobin Antibiotics: Zosyn and Levaquin Pulmicort Duo nebs Singulair Incentive spirometry and pulmonary hygiene Prednisone taper Echocardiogram Coumadin dosing for goal INR 2-3 Follow up outpatient for pulmonary nodules, repeat CT/PET scan in 4-6 weeks Continue Xolair as outpatient If hemopytsis worsens or recurs, will consider bronchoscopy outpatient, currently improving We will continue to follow along. I performed an examination of the patient and discussed their management with the nurse practitioner. I have reviewed the nurse practitioner's note and agree with the documented findings and plan of care.
[2017-12-09] MEDS: CALCIUM CARB-VIT D 500MG-200UN 1 EACH TAB PO SCH (12:40)
[2017-12-09] MEDS: MULTIVITAMINS, THERA 1 EACH TAB PO SCH (12:40)
--- NOTE | 2017-12-09 12:59 | CDI ---
Last Revision, May 2017 Documentation Clarification Form Date: 12/09/17 From: Candi Dunn RN, CCDS Admit Date: 12/06/2017 2:42:00 PM Patient Name: Rowan Calderon Visit Number: [id number] Discharge Date: ATTENTION: The Clinical Documentation Specialists (CDI) and [facility] Coding Staff appreciate your assistance in clarifying documentation. Please respond to the clarification below the line at the bottom and electronically sign. The CDI & [facility] Coding staff will review the response and follow-up if needed. Please note: Queries are made part of the Legal Health Record. If you have any questions, please contact the author of this message via ITS. Dr. Trupti De Leon Atrial fibrillation is documented in the Emergency Room notes, your H&P and progress notes History/Risk Factors: Atrial Fibrillation, Asthma, Prostate CA, Hypertension, Clinical Indicators: Present with complaint of coughing up blood. He has a history of atrial fibrillation and is taking Coumadin. Vital signs: 127/78 75 20 98.3 98 % RA EKG/telemetry: A. fib with rate of 62 Treatment: Monitor Labs Coumadin Po Per orders In your professional opinion, can you please clarify the type of atrial fibrillation, if known? Chronic/Permanent Paroxysmal Persistent Other, please specify Unable to determine Please continue to document in your progress notes and discharge summary in order to capture severity of illness and risk of mortality. Include clinical findings that support your diagnosis. MTDD
--- NOTE | 2017-12-09 13:20 | CDI ---
Last Revision, May 2017 Documentation Clarification Form Date: 12/09/17 From: Candi Dunn RN, CCDS Admit Date: 12/06/2017 2:42:00 PM Patient Name: Rowan Calderon Visit Number: [id number] Discharge Date: ATTENTION: The Clinical Documentation Specialists (CDI) and [facility] Coding Staff appreciate your assistance in clarifying documentation. Please respond to the clarification below the line at the bottom and electronically sign. The CDI & [facility] Coding staff will review the response and follow-up if needed. Please note: Queries are made part of the Legal Health Record. If you have any questions, please contact the author of this message via ITS. Dr. Poornima Birch Moderate persistent asthma is documented in the Pulmonary consult on 12/07/17 and continue in your ongoing progress notes . Patient history/risk factors: Asthma, Atrial fibrillation, COPD, hypertension, Prostate CA, Former smoker Clinical Indicators: Present with complaint of coughing up blood. He does complain of some shortness of breath and chest tightness. Lungs has rhonchi left lower lobe. Vital signs 127/78 75 20 98.2 Chest x-ray showed aneurysmal dilation of descending thoracic aorta subsegmental atelectasis of left lung base/Atelectasis/infiltrate. Treatment: Albuterol/Ipratropium Duoneb's Pulmicort Inhalation Singular PO Prednisone PO Levaquin PO In your professional opinion, can you please further specify the following, if known? Moderate persistent asthma With: Acute Exacerbation- yes Without Acute Exacerbation Other, please specify Unable to determine Please continue to document in your progress notes and discharge summary in order to capture severity of illness and risk of mortality. Include clinical findings that support your diagnosis. acute exacerbation MTDD
[2017-12-09 14:29] VITALS: BP 133/88; PULSE 86; RESP 18; TEMP 97
[2017-12-09] MEDS ORDERED: LEVOFLOXACIN 750 MG TAB PO SCH (15:00)
--- NOTE | 2017-12-10 01:23 | P.DS ---
Providers Date of admission: 12/06/17 14:42 Attending physician: Ping Blankenship Consults: 12/06/17 14:34 Consult Physician Stat Consulting Provider: Heath Joy Consult Reason/Comments: Dyspnea, bilateral pneumonia, hemoptysis Do you want consulting provider notified?: Yes Primary care physician: [facility] Course: Discharge diagnosis Left basilar pneumonia. Community-acquired. Presented with Cough, shortness of breath. improved clinically Hemoptysis likely due to pneumonia. Patient was also supratherapeutic. Improved now. Acute exacerbation of COPD/moderate persistent asthma Moderate pulmonary hypertension. Chronic Atrial fibrillation on anticoagulation with Coumadin. 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 Status post radiation previously History of lower GI bleed. Status post cauterization Hyperlipidemia Hypertension Memory impairment History of [place] Previous history of smoking Hospital course Patient is a 87-year-old male with a known history of atrial fibrillation on anticoagulation, asthma/COPD history of DVT in the popliteal vein, prostate cancer status post radiation and currently undergoing chemotherapy and multiple other medical problems came to ER with complaints of coughing of blood. Patient states her last 4 days he's noticed blood streaks in his phlegm and he states it's progressively getting worse. Patient did state that he stopped his Coumadin a few days ago as he noticed symptoms. Patient does have a history of COPD and does complain of some shortness of breath and chest tightness. Patient reports no fever no chills. Patient states that he just does not feel his usual self feels more weak and run down. Patient has had a prior DVT states he has no history of PEs. Patient denies sore throat, headache or dizziness. 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 Left. Right lower activity duplex scan showed no evidence of DVT INR 1.6 D-dimer not elevated 12/07/2017 Patient says that his breathing status is slightly better. No complaints of chest pain. Patient says that he still having blood in the sputum. No active bleeding at this time. Hemoglobin 9.7. Pulmonary is following. Otherwise continued on antibiotics for pneumonia and chest x-ray showed new mild interstitial edema. Likely from fluid load. Improving left basilar opacity likely representing pneumonia with component of atelectasis. No fever no chills. No other acute overnight issues otherwise. 12/08/2017 Patient denied any complaints of worsening shortness of breath or chest pain. Patient is still having streaks of blood in the sputum which has much improved now. Patient has been afebrile and hemodynamically stable. Ambulating in the hallway. Pulmonary is following. Continued on current antibiotics. 12/09/2017 Patient did improve clinically. Patient be continued on antibiotics in the form of Levaquin and prednisone taper and was as an outpatient. Patient was cleared by pulmonary as well. Plan: Patient was continued on breathing treatments and monitored H&H. Patient was started on antibiotics in the form of Zosyn and Levaquin for possible pneumonia. Pulmonary has seen the patient and recommended can with antibiotics. Current with home medications and follow closely. Pulmonary is considering bronchoscopy if the patient continues to have hemoptysis. As an outpatient. Prognosis is poor with multiple medical problems and advanced prostate cancer with metastases to bone. Continued the pain management. Monitor INR. Otherwise patient is clinically stable to be discharged home. PHYSICAL EXAMINATION: Patient is lying in the bed comfortably, no acute distress, awake alert and oriented.. HEENT: Normocephalic. Neck is supple. Pupils reactive. Nostrils clear. Oral cavity is moist. Ears reveal no drainage. Neck reveals no JVD, carotid bruits, or thyromegaly. CHEST EXAMINATION: Trachea is central. Symmetrical expansion. Bibasilar minimal crackles. No rhonchi no wheezing. Nonlabored. CARDIAC: Normal S1, S2 with no gallops. No murmurs ABDOMEN: Soft. Bowel sounds normal. No organomegaly. No abdominal bruits. Extremities: reveal no edema. No clubbing or cyanosis Neurologically awake, alert, oriented x3 with well-coordinated movements. No focal deficits noted Skin: No rash or skin lesions. Psychiatric: Coperative. Nonsuicidal Musculoskeletal: No joint swelling or deformity. Normal range of motion. Vital Signs - 24 hr 12/09/17 12/09/17 12/09/17 07:15 07:26 07:38 Temperature 98.3 F Pulse Rate 80 82 Pulse Rate [ 80 Pulse Oximetery ] Respiratory 16 Rate Blood Pressure [Left Arm] Blood Pressure 134/79 [Right Arm] O2 Sat by Pulse 94 L Oximetry 12/09/17 12/09/17 12/09/17 11:27 11:38 14:18 Temperature 97.0 F L Pulse Rate 80 80 Pulse Rate [ 86 Pulse Oximetery ] Respiratory 18 Rate Blood Pressure 133/88 [Left Arm] Blood Pressure [Right Arm] O2 Sat by Pulse 92 L Oximetry Total time taken greater than 35 minutes including 18 minutes for counseling and coordination of care. Patient Condition at Discharge: Good Plan - Discharge Summary Discharge Rx Participant: No New Discharge Prescriptions: New Levofloxacin [Levaquin] 750 mg PO DAILY@1500 5 Days #5 tab predniSONE See Taper PO DAILY #45 tab Continue Escitalopram [Lexapro] 10 mg PO HS Multivitamins, Thera [Multivitamin (formulary)] 1 tab PO DAILY Montelukast [Singulair] 10 mg PO HS Calcium Carbonate/Vitamin D3 [Calcium 600-Vit D3 400 Caplet] 1 tab PO DAILY Terazosin HCl 5 mg PO BID Ipratropium-Albuterol Nebulize [Duoneb 0.5 mg-3 mg/3 ml Soln] 3 ml INHALATION RT-QID PRN PRN Reason: Shortness Of Breath Diltiazem HCl [Diltiazem 24Hr ER] 120 mg PO Q24HR Metoprolol Tartrate [Lopressor] 50 mg PO BID Warfarin [Coumadin] 4.5 mg PO SUTUTHSA Warfarin [Coumadin] 6 mg PO MOWEFR EPINEPHrine (Auto Inject) [Epipen] 0.3 mg IM ONCE PRN PRN Reason: Anaphylaxis Budesonide/Formoterol Fumarate [Symbicort 80-4.5 Mcg Inhaler] 2 puff INHALATION RT-BID Atorvastatin [Lipitor] 40 mg PO DAILY Ammonium Lactate Cream [Lac-Hydrin 12% Cream] 1 applic TOPICAL DAILY PRN PRN Reason: Rash Enzalutamide [Xtandi] 160 mg PO DAILY Discharge Medication List Calcium Carbonate/Vitamin D3 [Calcium 600-Vit D3 400 Caplet] 1 tab PO DAILY 07/17 [History] Diltiazem HCl [Diltiazem 24Hr ER] 120 mg PO Q24HR 01/29/17 [History] Escitalopram [Lexapro] 10 mg PO HS 01/29/17 [History] Ipratropium-Albuterol Nebulize [Duoneb 0.5 mg-3 mg/3 ml Soln] 3 ml INHALATION RT -QID PRN 01/29/17 [History] Metoprolol Tartrate [Lopressor] 50 mg PO BID 01/29/17 [History] Montelukast [Singulair] 10 mg PO HS 01/29/17 [History] Multivitamins, Thera [Multivitamin (formulary)] 1 tab PO DAILY 01/29/17 [History ] Terazosin HCl 5 mg PO BID 01/29/17 [History] Ammonium Lactate Cream [Lac-Hydrin 12% Cream] 1 applic TOPICAL DAILY PRN [History] Atorvastatin [Lipitor] 40 mg PO DAILY 12/06/17 [History] Budesonide/Formoterol Fumarate [Symbicort 80-4.5 Mcg Inhaler] 2 puff INHALATION RT-BID 12/06/17 [History] EPINEPHrine (Auto Inject) [Epipen] 0.3 mg IM ONCE PRN 12/06/17 [History] Enzalutamide [Xtandi] 160 mg PO DAILY 12/06/17 [History] Warfarin [Coumadin] 4.5 mg PO SUTUTHSA 12/06/17 [History] Warfarin [Coumadin] 6 mg PO MOWEFR 12/06/17 [History] Levofloxacin [Levaquin] 750 mg PO DAILY@1500 5 Days #5 tab 12/09/17 [Rx] predniSONE See Taper PO DAILY #45 tab 12/09/17 [Rx] Follow up Appointment(s)/Referral(s): Poornima Birch DO [Doctor of Osteopathic Medicine] - 12/16/17 11:45 am [facility],Clinic [Primary Care Provider] - 1-2 days (please call to schedule an appointment) Patient Instructions/Handouts: Pneumonia (DC) Discharge Disposition: HOME SELF-CARE
== END 2017-12-09 15:30 | disposition home or self-care (01) | DRG 194 ==
LOC: EC 11:25 → 4MS4W 14:42
PROVIDERS: ADMIT Hospitalist; ATTEND Hospitalist
DX: J18.9 Pneumonia, unspecified organism (principal); R04.2 Hemoptysis; C79.51 Secondary malignant neoplasm of bone; J98.11 Atelectasis; I48.2 Chronic atrial fibrillation; I27.20 Pulmonary hypertension, unspecified; C61 Malignant neoplasm of prostate; K76.89 Other specified diseases of liver; J43.9 Emphysema, unspecified; T45.515A Adverse effect of anticoagulants, initial encounter; J45.40 Moderate persistent asthma, uncomplicated; G31.84 Mild cognitive impairment of uncertain or unknown etiology; I25.2 Old myocardial infarction; E78.5 Hyperlipidemia, unspecified; I10 Essential (primary) hypertension; M19.91 Primary osteoarthritis, unspecified site; Z79.01 Long term (current) use of anticoagulants; Z79.51 Long term (current) use of inhaled steroids; Z79.899 Other long term (current) drug therapy; Z92.3 Personal history of irradiation; Z87.891 Personal history of nicotine dependence; Z86.718 Personal history of other venous thrombosis and embolism; Z92.21 Personal history of antineoplastic chemotherapy; Z98.42 Cataract extraction status, left eye; Z98.41 Cataract extraction status, right eye; Z77.090 Contact with and (suspected) exposure to asbestos; Z85.828 Personal history of other malignant neoplasm of skin; Z82.49 Family history of ischemic heart disease and other diseases of the circulatory system
CPT/HCPCS: 36415; 71046; 71275; 80048; 80053; 82550; 82553; 83735; 83880; 84484; 85025; 85379; 85610; 85730; 87040; 87070; 87205; 93005; 93306; 94640; 94760; 96365; 99285

== ENCOUNTER 2018-03-13 15:49 | Inpatient (IN) | payer MEDICARE, BC ==
[2018-03-13] MEDS ORDERED: SODIUM CHLORIDE 0.9% 500 ML IV STA (16:05)
--- NOTE | 2018-03-13 16:11 | ED ---
General Adult HPI - General Source: patient, family Mode of arrival: wheelchair Limitations: no limitations <Brayan Jo - Last Filed: 03/13/18 16:10> <Garrison Javier - Last Filed: 03/13/18 17:48> - General Chief complaint: Neuro Symptoms/Deficit Stated complaint: stroke Time Seen by Provider: 03/13/18 16:09 - History of Present Illness Initial comments: Dictation was produced using [employer] dictation software. please excuse any grammatical, word or spelling errors. Chief Complaint: 87-year-old male presents with strokelike symptoms starting at 3 PM History of Present Illness: Patient is a 87-year-old male who presents with his . At approximately 3 PM patient began having confusion. He was saying all these strange words out of context. who is at bedside states she's noticed it while they are getting ready for dinner. They had just come from a clinic appointment with patient's oncologist at [facility]. at bedside states that patient has never had a CVA in the past. Chart review shows that patient has history of atrial fibrillation, asthma, prostate cancer, DVT, hyperlipidemia, hypertension. did not notice any asymmetrical extremity weakness or paresthesias. They came directly here through triage. states that patient has never been like this in the past. He is on Coumadin for atrial fibrillation. The ROS documented in this emergency department record has been reviewed and confirmed by me. Those systems with pertinent positive or negative responses have been documented in the HPI. All other systems are other negative and/or noncontributory. (Brayan Jo) - Related Data Home Medications Medication Instructions Recorded Confirmed Calcium Carbonate/Vitamin D3 1 tab PO DAILY 01/29/17 03/13/18 [Calcium 600-Vit D3 400 Caplet] Diltiazem HCl [Diltiazem 24Hr ER] 120 mg PO Q24HR 01/29/17 03/13/18 Escitalopram [Lexapro] 10 mg PO HS 01/29/17 03/13/18 Ipratropium-Albuterol Nebulize 3 ml INHALATION RT-QID PRN 01/29/17 03/13/18 [Duoneb 0.5 mg-3 mg/3 ml Soln] Metoprolol Tartrate [Lopressor] 50 mg PO BID 01/29/17 03/13/18 Montelukast [Singulair] 10 mg PO HS 01/29/17 03/13/18 Multivitamins, Thera [Multivitamin 1 tab PO DAILY 01/29/17 03/13/18 (formulary)] Terazosin HCl 5 mg PO BID 01/29/17 03/13/18 Budesonide/Formoterol Fumarate 2 puff INHALATION RT-BID 12/06/17 03/13/18 [Symbicort 80-4.5 Mcg Inhaler] EPINEPHrine (Auto Inject) [Epipen] 0.3 mg IM ONCE PRN 12/06/17 03/13/18 Enzalutamide [Xtandi] 160 mg PO DAILY 12/06/17 03/13/18 Ascorbic Acid [Vitamin C] 500 mg PO DAILY 03/13/18 03/13/18 Atorvastatin [Lipitor] 20 mg PO HS 03/13/18 03/13/18 Prochlorperazine [Compazine] 10 mg PO Q6H PRN 03/13/18 03/13/18 Vit C/E/Zn/Coppr/Lutein/Zeaxan 1 cap PO DAILY 03/13/18 03/13/18 [Preservision Areds 2 Softgel] Warfarin Unknown Dose 1 tab PO DIRECTED 03/13/18 03/13/18 predniSONE 5 mg PO BID 03/13/18 03/13/18 traMADol HCL [Ultram] 50 mg PO Q4HR PRN 03/13/18 03/13/18 Allergies Allergy/AdvReac Type Severity Reaction Status Date / Time No Known Allergies Allergy Verified 03/13/18 15:54 Review of Systems ROS Other: All systems not noted in ROS Statement are negative. <Brayan Jo - Last Filed: 03/13/18 16:10> ROS Other: All systems not noted in ROS Statement are negative. <Garrison Javier - Last Filed: 03/13/18 17:48> ROS Statement: Those systems with pertinent positive or pertinent negative responses have been documented in the HPI. 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 back REMOVED. past gi bleed lower bowel pt stated it was from the past radiation tx- it was cauterized.. Last Myocardial Infarction Date:: UNK History of Any Multi-Drug Resistant Organisms: None Reported Past Surgical History: Heart Catheterization Additional Past Surgical History / Comment(s): VASECTOMY, PROSTATE BX TOMMY CATARACTS, RT EYE LASER SX, skin ca removed. Past Anesthesia/Blood Transfusion Reactions: No Reported Reaction Past Psychological History: No Psychological Hx Reported Smoking Status: Former smoker Past Alcohol Use History: Rare Past Drug Use History: None Reported - Past Family History Mother Additional Family Medical History / Comment(s): RHEUMATIC FEVER- HEART VALVE DAMAGE- AGE 45 Father Family Medical History: Coronary Artery Disease (CAD) Additional Family Medical History / Comment(s): AGE 93 HEART PROBLEMS <Brayan Jo - Last Filed: 03/13/18 16:10> General Exam Limitations: no limitations <Brayan Jo - Last Filed: 03/13/18 16:10> <Garrison Javier - Last Filed: 03/13/18 17:48> - General Exam Comments Initial Comments: PHYSICAL EXAM: General Impression: Alert HEENT: Normocephalic atraumatic, extra-ocular movements intact, pupils equal and reactive to light bilaterally, mucous membranes moist. Cardiovascular: Heart regular rate and rhythm, S1&S2 audible, no murmurs, rubs or gallops Chest: Lungs clear to auscultation bilaterally, no rhonchi, no wheeze, no rales Abdomen: Bowel sounds present, abdomen soft, non-tender, non-distended, no organomegaly Musculoskeletal: Pulses present and equal in all extremities, no peripheral edema Motor: Power 5/5 bilaterally, no focal deficits noted Neurological: Right lower facial weakness, patient is aphasic. No upper or lower extremity weakness or sensory deficits to light touch Skin: Intact with no visualized rashes Psych: Normal affect and mood (Brayan Jo) Course <Brayan Jo - Last Filed: 03/13/18 16:10> <Garrison Javier - Last Filed: 03/13/18 17:48> Vital Signs 03/13/18 03/13/18 03/13/18 15:52 16:10 16:25 Temperature 98.2 F Pulse Rate 83 80 75 Respiratory 20 18 18 Rate Blood Pressure 100/58 166/119 100/60 O2 Sat by Pulse 99 97 97 Oximetry 03/13/18 03/13/18 16:41 17:10 Temperature Pulse Rate 76 76 Respiratory 18 18 Rate Blood Pressure 101/60 102/65 O2 Sat by Pulse 95 96 Oximetry - Reevaluation(s) Reevaluation #1: 03/13/18 16:27 She'll be evaluated 37 minutes after initial presentation. NIH is 1. Patient' s aphasia is resolved. He has residual right sided facial droop. Extremities are 5 out of 5 bilaterally, no drift. (Garrison Javier) Reevaluation #2: 03/13/[address] Galvin, did discuss tPA with Dr. Deras, stroke neurologist. Patient is on Coumadin, INR greater than 1.7, additionally his platelets are 54. Patient' s symptoms are improving in the emergency department. Repeat NIH is 1. Patient is not a TPA candidate. (Garrison Javier) EKG Findings - EKG Comments: EKG Findings:: EKG: Atrial fibrillation, ventricular rate of 79, QRS duration 74 QTC 481, no ST segment elevation or depression <Garrison Javier - Last Filed: 03/13/18 17:48> Medical Decision Making <Brayan Jo - Last Filed: 03/13/18 16:10> - Lab Data Result diagrams: 03/13/18 16:25 03/13/18 16:25 <Garrison Javier - Last Filed: 03/13/18 17:48> - Medical Decision Making ED course: 87-year-old male with multiple comorbidities presents with strokelike symptoms starting at 3 PM. Patient given an NIH initially of 3 for aphasia and right facial weakness. Code stroke was paged given the patient in the window. Patient likely not an ideal candidate given that patient is on anticoagulation therapy and is 87. denies that patient has a history of CVA. Code stroke paged. Patient is signed out to oncoming physician for follow -up of workup, neurology recommendation and final disposition. Please refer to that physician's documentation for further details. (Brayan Jo) Patient presenting with aphasia and right-sided facial droop. Initial NIH is 3. This improves rapidly in the emergency department. Repeat NIH is 14 residual right-sided facial droop. Patient has fluent speech, no other neuro deficits. Head CT is obtained, negative for intracranial hemorrhage, there is remote occipital infarct. CTA is negative for any acute occlusion. Chest x- ray is improved from prior, no heart failure, no pneumonia. Patient is pancytopenic with a white count of 2.0, hemoglobin 10.6, and platelets of 54. Remainder of patient's laboratory studies are unremarkable. Patient's symptoms may be related to mild hypotension. His antihypertensives will be held initially. He is given some IV hydration. He will be admitted for further stroke workup. Case discussed with Dr. Blankenship who will accept admission ( Garrison Javier) - Lab Data Lab Results 03/13/18 03/13/18 03/13/18 Range/Units 16:00 16:25 16:25 WBC 2.0 L (3.8-10.6) k/uL RBC 3.65 L (4.30-5.90) m/uL Hgb 10.6 L (13.0-17.5) gm/dL Hct 32.4 L (39.0-53.0) % MCV 88.6 (80.0-100.0) fL MCH 28.9 (25.0-35.0) pg MCHC 32.6 (31.0-37.0) g/dL RDW 14.6 (11.5-15.5) % Plt Count 54 L (150-450) k/uL Neutrophils % 77 % Lymphocytes % 12 % Monocytes % 7 % Eosinophils % 1 % Basophils % 0 % Neutrophils # 1.5 (1.3-7.7) k/uL Lymphocytes # 0.2 L (1.0-4.8) k/uL Monocytes # 0.1 (0-1.0) k/uL Eosinophils # 0.0 (0-0.7) k/uL Basophils # 0.0 (0-0.2) k/uL Manual Slide Review Performed Large Platelets Present PT (9.0-12.0) sec INR (<1.2) APTT (22.0-30.0) sec Sodium 133 L (137-145) mmol/L Potassium 5.4 H (3.5-5.1) mmol/L Chloride 99 (98-107) mmol/L Carbon Dioxide 24 (22-30) mmol/L Anion Gap 10 mmol/L BUN 20 (9-20) mg/dL Creatinine 0.81 (0.66-1.25) mg/dL Est GFR (CKD-EPI)AfAm >90 (>60 ml/min/1.73 sqM) Est GFR (CKD-EPI)NonAf 81 (>60 ml/min/1.73 sqM) Glucose 160 H (74-99) mg/dL POC Glucose (mg/dL) 170 H (75-99) mg/dL POC Glu Protein Chemist ID Fide Low Calcium 8.4 (8.4-10.2) mg/dL Total Bilirubin 1.2 (0.2-1.3) mg/dL AST 41 (17-59) U/L ALT 29 (21-72) U/L Alkaline Phosphatase 94 (38-126) U/L Total Creatine Kinase (55-170) U/L CK-MB (CK-2) (0.0-2.4) ng/mL CK-MB (CK-2) Rel Index Troponin I (0.000-0.034) ng/mL Total Protein 6.0 L (6.3-8.2) g/dL Albumin 3.4 L (3.5-5.0) g/dL 03/13/18 03/13/18 Range/Units 16:25 16:25 WBC (3.8-10.6) k/uL RBC (4.30-5.90) m/uL Hgb (13.0-17.5) gm/dL Hct (39.0-53.0) % MCV (80.0-100.0) fL MCH (25.0-35.0) pg MCHC (31.0-37.0) g/dL RDW (11.5-15.5) % Plt Count (150-450) k/uL Neutrophils % % Lymphocytes % % Monocytes % % Eosinophils % % Basophils % % Neutrophils # (1.3-7.7) k/uL Lymphocytes # (1.0-4.8) k/uL Monocytes # (0-1.0) k/uL Eosinophils # (0-0.7) k/uL Basophils # (0-0.2) k/uL Manual Slide Review Large Platelets PT 16.3 H (9.0-12.0) sec INR 1.8 H (<1.2) APTT 27.5 (22.0-30.0) sec Sodium (137-145) mmol/L Potassium (3.5-5.1) mmol/L Chloride (98-107) mmol/L Carbon Dioxide (22-30) mmol/L Anion Gap mmol/L BUN (9-20) mg/dL Creatinine (0.66-1.25) mg/dL Est GFR (CKD-EPI)AfAm (>60 ml/min/1.73 sqM) Est GFR (CKD-EPI)NonAf (>60 ml/min/1.73 sqM) Glucose (74-99) mg/dL POC Glucose (mg/dL) (75-99) mg/dL POC Glu Protein Chemist ID Calcium (8.4-10.2) mg/dL Total Bilirubin (0.2-1.3) mg/dL AST (17-59) U/L ALT (21-72) U/L Alkaline Phosphatase (38-126) U/L Total Creatine Kinase 29 L (55-170) U/L CK-MB (CK-2) 1.3 (0.0-2.4) ng/mL CK-MB (CK-2) Rel Index 4.5 Troponin I <0.012 (0.000-0.034) ng/mL Total Protein (6.3-8.2) g/dL Albumin (3.5-5.0) g/dL Critical Care Time Critical Care Time: Yes Total Critical Care Time: 35 <Garrison Javier - Last Filed: 03/13/18 17:48> Disposition <Brayan Jo - Last Filed: 03/13/18 16:10> Is patient prescribed a controlled substance at d/c from ED?: No Decision to Admit Reason: Admit from EC Decision Date: 03/13/18 Decision Time: 17:48 <Garrison Javier - Last Filed: 03/13/18 17:48> Clinical Impression: Cerebrovascular accident Disposition: ADMITTED IP TO THIS HOSP Condition: Stable Referrals: Brooklyn Wolf, PAC [REFERRING] - 1-2 days
[2018-03-13 16:35] LABS: Basophils % (A) 0 %; Eosinophils % (A) 1 %; HCT 32.4 % (39.0-53.0); HGB 10.6 gm/dL (13.0-17.5); Lymphocytes # (A) 0.2 k/uL (1.0-4.8); Lymphocytes % (A) 12 %; MCH 28.9 pg (25.0-35.0); MCHC 32.6 g/dL (31.0-37.0); MCV 88.6 fL (80.0-100.0); Mean Platelet Volume 12.2; Monocytes # (A) 0.1 k/uL (0-1.0); Monocytes % (A) 7 %; Neutrophils # (A) 1.5 k/uL (1.3-7.7); Neutrophils % (A) 77 %; RBC 3.65 m/uL (4.30-5.90); RDW 14.6 % (11.5-15.5)
--- NOTE | 2018-03-13 16:38 | CT ---
EXAMINATION TYPE: CT brain wo con for TPA DATE OF EXAM: 03/13/2018 COMPARISON: None HISTORY: code stroke weakness CT DLP: 1014.3 mGycm Automated exposure control for dose reduction was used. FINDINGS: There is cerebral cortical atrophy. There is no mass effect nor midline shift. There is no sign of in tracranial hemorrhage. The calvarium is intact. There is patchy hypodensity in the periventricular wh ite matter. There is poorly marginated 1.5 cm hypodensity in the medial left occipital lobe cortex co nsistent with old cortical infarct. IMPRESSION: CEREBRAL ATROPHY AND CHRONIC SMALL VESSEL ISCHEMIA. NO ACUTE INTRACRANIAL ABNORMALITY. 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
[2018-03-13 16:46] LABS: ALT 29 U/L (21-72); AST 41 U/L (17-59); Albumin 3.4 g/dL (3.5-5.0); Alkaline Phosphatase 94 U/L (38-126); Anion Gap 10 mmol/L; Blood Urea Nitrogen 20 mg/dL (9-20); Calcium 8.4 mg/dL (8.4-10.2); Carbon Dioxide 24 mmol/L (22-30); Chloride 99 mmol/L (98-107); Glucose 160 mg/dL (74-99); Sodium 133 mmol/L (137-145); Total Bilirubin 1.2 mg/dL (0.2-1.3)
[2018-03-13 16:50] LABS: Large Platelets Present; Platelet Count 54 k/uL (150-450)
[2018-03-13 16:51] LABS: Potassium 5.4 mmol/L (3.5-5.1)
[2018-03-13 16:53] LABS: Glucose,Whole Blood 170 mg/dL (75-99)
[2018-03-13 16:54] LABS: Creatine Kinase 29 U/L (55-170)
[2018-03-13 16:59] LABS: INR 1.8 (<1.2); Partial Thromboplastin Time 27.5 sec (22.0-30.0); Prothrombin Time 16.3 sec (9.0-12.0)
[2018-03-13 17:07] LABS: Creatine Kinase MB 1.3 ng/mL (0.0-2.4); Troponin I <0.012 ng/mL (0.000-0.034)
--- NOTE | 2018-03-13 17:15 | CT ---
EXAMINATION TYPE: CT angio head neck DATE OF EXAM: 03/13/2018 HISTORY: code stroke weakness COMPARISON: None CT DLP: 1362.7 mGycm. Automated Exposure Control for Dose Reduction was Utilized. TECHNIQUE: CTA scan of the neck is performed with IV Contrast, patient injected with 65mL mL of Isov ue 370, axial images are obtained, coronal and sagittal reformatted images are reviewed. Three-D kelvin nstructed images are created on an independent workstation and reviewed. FINDINGS: There is normal branching pattern of the great vessels on the aortic arch. There is atheromatous hernandez ge in the thoracic aorta. There is arterial flow in both vertebral arteries are left vertebral artery slightly larger than the right. There is arterial flow in the common internal and external carotid a rteries bilaterally. There is no evidence of carotid artery aneurysm or dissection. There is no evide nce of vertebral dissection. There is minimal plaque at the carotid artery bifurcations. Luminal narr owing is less than 20%. There is arterial flow in the anterior middle and posterior cerebral arteries. There is arterial flow in the vertebrobasilar artery system. There is no evidence of aneurysm or neovascularity. There is n o contrast opacification of the venous sinuses. There is no evidence of intracranial arterial stenosi s. IMPRESSION: Atherosclerotic vascular disease. No evidence of hemodynamically significant stenosis.
--- NOTE | 2018-03-13 17:27 | XR ---
EXAMINATION TYPE: XR chest 2V DATE OF EXAM: 03/13/2018 COMPARISON: NONE HISTORY: Slurred speech TECHNIQUE: Frontal and lateral views of the chest are obtained. FINDINGS: There is no heart failure nor confluent pneumonic infiltrate. Thoracic aorta is atheromato us. I see no pleural effusion. There are chest leads. There is slight coarsening of the lung markings . IMPRESSION: Mild palmy fibrosis. No heart failure. There is improved aeration of the lungs compared to old exam. There is clearing of mild apparent CHF compared to old exam. There is clearing of small pleural effusions compared to old exam.
[2018-03-13] MEDS: SODIUM CHLORIDE 0.9% 1,000 ML IV SCH (19:34)
[2018-03-13] MEDS: WARFARIN 3 MG TAB PO SCH (21:16)
[2018-03-13] MEDS: DOXAZOSIN 4 MG TAB PO SCH (21:17)
[2018-03-13] MEDS: ATORVASTATIN 20 MG TAB PO SCH (21:17)
[2018-03-13] MEDS: ESCITALOPRAM 10 MG TAB PO SCH (21:17)
[2018-03-13] MEDS: predniSONE 5 MG TAB PO SCH (21:18)
[2018-03-13] MEDS: ALPRAZolam 0.25 MG TAB PO PRN (21:18)
[2018-03-13] MEDS: METOPROLOL TARTRATE 50 MG TAB PO SCH (21:18)
[2018-03-13] MEDS: MONTELUKAST 10 MG TAB PO SCH (21:18)
[2018-03-13] MEDS ORDERED: PANTOPRAZOLE 40 MG TABLET PO SCH (22:00)
--- NOTE | 2018-03-13 23:05 | HP ---
HISTORY AND PHYSICAL DATE OF SERVICE: 03/13/2018 CHIEF COMPLAINTS: Difficulty in speaking as well as facial deviation. HISTORY OF PRESENT ILLNESS: This 87-year-old gentleman with a past medical history of multiple medical problems, including atrial fibrillation, history of asthma, COPD, DVT, history of GI bleed , hypertension, hyperlipidemia, history of memory impairment, history of prostate disorder, prostate cancer, being followed by Dr. Presley in the outpatient setting, was noted to have some difficulty in speaking and facial deviation on the right side. The patient was unable to direct his words, and the patient came to [facility] and was admitted for further evaluation and treatment. There is no history of any fever, rigor or chills. No history of headache, loss of consciousness, seizures. CT scan of the brain showed cerebral atrophy and chronic small vessel ischemia, and old left small occipital cortical infarct was also noted. The patient was admitted for further evaluation treatment. A CT angio was also done which showed no evidence of any hemodynamically significant stenosis. PAST MEDICAL HISTORY: 1. History of asthma. 2. COPD. 3. DVT. 4. GI bleed. 5. Hypertension. 6. Hyperlipidemia. 7. Memory impairment. 8. History of prostate cancer, on radiation. HOME MEDICATIONS: 1. Singulair 10 mg at bedtime. 2. Lexapro 10 mg at bedtime. 3. Lipitor 20 mg at bedtime. 4. Coumadin 6 mg Saturday, Saturday, Saturday and 4.5 mg Saturday, , Saturday. 5. Xanax 0.25 at bedtime p.r.n. 6. Ultram 50 mg q.4 p.r.n. 7. Prednisone 5 mg p.o. b.i.d. 8. Vitamin C with zinc 1 capsule p.o. daily. 9. Terazosin 5 mg p.o. b.i.d. 10.Compazine 10 mg q.6 p.r.n. 11.Multivitamins 1 p.o. daily. 12.Lopressor 50 mg p.o. b.i.d. 13.DuoNeb q.i.d. p.r.n. 14.EpiPen 0.3 IM p.r.n. 15.Diltiazem 24-hour 120 mg p.o. q.24 hours. 16.Calcium with vitamin D one p.o. daily. 17.Symbicort 80/4.5 two puffs b.i.d. 18.Vitamin C 500 mg p.o. daily. ALLERGIES: NONE. FAMILY HISTORY: History of coronary artery disease and rheumatic fever in the family. SOCIAL HISTORY: Previous history of smoking. No current smoking or alcohol intake. REVIEW OF SYSTEMS: ENT: As mentioned earlier. CARDIOVASCULAR SYSTEM: No angina, palpitations. RESPIRATORY SYSTEM: As mentioned earlier. GI: No nausea, vomiting. : No dysuria or retention. NERVOUS SYSTEM: As mentioned earlier. ALLERGY/IMMUNOLOGY: No asthma, hayfever. MUSCULOSKELETAL: As mentioned earlier. HEMATOLOGY/ONCOLOGY: As mentioned earlier. ENDOCRINE: No history of diabetes, hypothyroidism. CONSTITUTIONAL: As mentioned earlier. DERMATOLOGY: Negative. RHEUMATOLOGY: Negative. PSYCHIATRY: As mentioned earlier. PHYSICAL EXAMINATION: Patient alert and oriented x3. Pulse is 80, blood pressure 111/58, respiration 19, temperature 97.6, pulse ox 96% on room air. HEENT: Conjunctivae normal. Oral mucosa moist. NECK: No jugular venous distention. No carotid bruit. No lymph node enlargement. CARDIOVASCULAR SYSTEM: S1, S2 muffled. RESPIRATORY SYSTEM: Breath sounds diminished at the bases. No rhonchi. No crackles. ABDOMEN: Soft, obese, non-tender. No mass palpable. LEGS: No edema. No swelling. NERVOUS SYSTEM: Higher functions as mentioned earlier. Right facial droop present, upper motor neuron facial palsy. Minimal weakness of the right upper limb. Otherwise no other weakness. Reflexes are normal. No obvious signs coordination. No gait dysfunction. SKIN: No ulcer, rash, bleeding. LYMPHATICS: No lymph node palpable in neck, axillae or groin. JOINTS: No active deforming arthropathy. LABS: WBC 2, hemoglobin 10.6, platelets 54. INR 1.8. Sodium 133, potassium 5.4. ASSESSMENT: 1. Acute stroke involving the left hemisphere causing dysphasia as well as right upper motor neuron facial palsy and right upper limb weakness. 2. Pancytopenia, possibly secondary to chemotherapy. 3. 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 4. Prostate cancer with metastases, on chemo. 5. Hyponatremia. 6. Hyperkalemia, mild. 7. History of atrial fibrillation. 8. History of asthma. 9. History of chronic obstructive pulmonary disease. 10.History of deep venous thrombosis. 11.History of gastrointestinal bleed. 12.Hypertension. 13.Hyperlipidemia. 14.History of memory impairment. 15.History of myocardial infarction. 16.History of degenerative joint disease. RECOMMENDATIONS AND DISCUSSION: In this 87-year-old gentleman who presented with multiple complex medical issues , we will monitor the patient closely, continue the current medications, continue with symptomatic treatment. I recommend antiplatelet agents and also full neurovascular workup. Neurology consultation. Neuro checks. Otherwise, patient also had pancytopenia, possibly secondary to chemotherapy malignancy. Abnormal labs will be repeated. Hematology/Oncology. Also repeated MRI of the brain will be ordered. The prognosis is guarded because of multiple complex medical issues. Further recommendations to follow. A copy of this dictation is being forwarded to Dr. Presley at the [facility] in the outpatient setting for further evaluation and treatment. RALPH / ERIK: [id number] / MTDD
--- NOTE | 2018-03-14 00:54 | P.CNNES ---
History of Present Illness Consult date: 03/13/18 Reason for Consult: Patient admitted with right facial droop and slurred speech. History of Present Illness: This patient is a 87-year-old right-handed white male who apparently was in his usual state of health until 3 PM this afternoon. The patient had come in this morning to be seen by his oncologist Dr. Hamilton at the [facility]. The patient has a history of prostate cancer and is being closely followed for this condition. After completing his initial laboratory testing and follow-up visit he was on his way home with his . Apparently she noticed that he was having sudden onset of confusion and slurring of his speech. He then seemed to have great difficulty getting his words out. The is very worried that the patient may be having a stroke and decided take him directly to the emergency room at [facility]. He was seen in the ER by Dr. Javier. He was sent for a computed tomography scan of the brain which reveals cerebral atrophy and chronic small vessel ischemia. No acute intracranial abnormality was noted. 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 The patient has a known history of chronic atrial fibrillation. He has been taking Coumadin therapy for management. His INR was 1.8 on admission. His initial evaluation in the ER revealed his NIH stroke scale to be 1.0. He did undergo a CTA angiogram of the head and neck which was negative for any acute occlusion. His NIH stroke scale in the ER was noted to be 3.0. He was not a candidate for TPA as was determined by Dr. Welsh. His NIH stroke scale was rapidly improving and was noted to be 1.0. His platelet count was low at 54,000. The patient was anticoagulated with Coumadin as well. The patient did notice some facial asymmetry on his right side. His speech has improved since admission to the hospital. Patient feels his speech is back to normal at this time. We reviewed all of his study results with the patient today in detail. We will continue close neurological follow-up for the patient during this admission. It was decided that the patient was not a candidate for TPA. The patient was subsequently admitted to the hospital. His speech remains improved but clearly he has some difficulty with word finding. Neurology is now been consulted for further evaluation and recommendations. Review of Systems Constitutional: Denies chills, Denies fever Eyes: denies blurred vision, denies pain Ears, nose, mouth and throat: Denies headache, Denies sore throat Cardiovascular: Denies chest pain, Denies shortness of breath Respiratory: Denies cough Gastrointestinal: Denies abdominal pain, Denies diarrhea, Denies nausea, Denies vomiting Musculoskeletal: Denies myalgias Integumentary: Denies pruritus, Denies rash Neurological: Reports aphasia, Reports change in mentation, Reports confusion, Reports memory loss, Reports spasticity, Denies numbness, Denies weakness Psychiatric: Denies anxiety, Denies depression Endocrine: Denies fatigue, Denies weight change Past Medical History Past Medical History: Atrial Fibrillation, Asthma, Cancer, COPD, Deep Vein Thrombosis (DVT), GI Bleed, Hyperlipidemia, Hypertension, Memory Impairment, Myocardial Infarction ([place]), Osteoarthritis (OA), Prostate Disorder Additional Past Medical History / Comment(s): prostate CA-HAD 46 RADIATION TX- had mets to bone currently taking oral chemo and hormone tx, MILD SHORT TERM MEMORY PROBLEMS, NAVEL HERNIA,SKIN CA basal cell(LT HAND-lip. back REMOVED. past gi bleed lower bowel pt stated it was from the past radiation tx- it was cauterized.. Last Myocardial Infarction Date:: UNK History of Any Multi-Drug Resistant Organisms: None Reported Past Surgical History: Heart Catheterization Additional Past Surgical History / Comment(s): VASECTOMY, PROSTATE BX TOMMY CATARACTS, RT EYE LASER SX, skin ca removed. Past Anesthesia/Blood Transfusion Reactions: No Reported Reaction Past Psychological History: No Psychological Hx Reported Additional Psychological History / Comment(s): pt lives alone. uses cane when up and has a walker to use if needed. Smoking Status: Former smoker Past Alcohol Use History: Rare Additional Past Alcohol Use History / Comment(s): STARTED SMOKING AT AGE 16(1945 ), WAS SMOKING 2 PPD. QUIT 1992 Past Drug Use History: None Reported - Past Family History Mother Additional Family Medical History / Comment(s): RHEUMATIC FEVER- HEART VALVE DAMAGE- AGE 45 Father Family Medical History: Coronary Artery Disease (CAD) Additional Family Medical History / Comment(s): AGE 93 HEART PROBLEMS Medications and Allergies Home Medications Medication Instructions Recorded Confirmed Type Calcium Carbonate/Vitamin D3 1 tab PO DAILY 01/29/17 03/13/18 History [Calcium 600-Vit D3 400 Caplet] Diltiazem HCl [Diltiazem 24Hr ER] 120 mg PO Q24HR 01/29/17 03/13/18 History Escitalopram [Lexapro] 10 mg PO HS 01/29/17 03/13/18 History Ipratropium-Albuterol Nebulize 3 ml INHALATION RT-QID PRN 01/29/17 03/13/18 History [Duoneb 0.5 mg-3 mg/3 ml Soln] Metoprolol Tartrate [Lopressor] 50 mg PO BID 01/29/17 03/13/18 History Montelukast [Singulair] 10 mg PO HS 01/29/17 03/13/18 History Multivitamins, Thera [Multivitamin 1 tab PO DAILY 01/29/17 03/13/18 History (formulary)] Terazosin HCl 5 mg PO BID 01/29/17 03/13/18 History Budesonide/Formoterol Fumarate 2 puff INHALATION RT-BID 12/06/17 03/13/18 History [Symbicort 80-4.5 Mcg Inhaler] EPINEPHrine (Auto Inject) [Epipen] 0.3 mg IM ONCE PRN 12/06/17 03/13/18 History ALPRAZolam [Xanax] 0.25 mg PO HS PRN 03/13/18 03/13/18 History Ascorbic Acid [Vitamin C] 500 mg PO DAILY 03/13/18 03/13/18 History Atorvastatin [Lipitor] 20 mg PO HS 03/13/18 03/13/18 History Prochlorperazine [Compazine] 10 mg PO Q6H PRN 03/13/18 03/13/18 History Vit C/E/Zn/Coppr/Lutein/Zeaxan 1 cap PO DAILY 03/13/18 03/13/18 History [Preservision Areds 2 Softgel] Warfarin [Coumadin] 4.5 mg PO SUTUTHSA 03/13/18 03/13/18 History Warfarin [Coumadin] 6 mg PO MOWEFR 03/13/18 03/13/18 History predniSONE 5 mg PO BID 03/13/18 03/13/18 History traMADol HCL [Ultram] 50 mg PO Q4HR PRN 03/13/18 03/13/18 History Allergies Allergy/AdvReac Type Severity Reaction Status Date / Time No Known Allergies Allergy Verified 03/13/18 15:54 Physical Examination - Vital Signs Vital Signs: Vital Signs Temp Pulse Pulse Resp BP BP Pulse Ox 03/13/18 20:00 97.3 F L 80 19 115/68 96 03/13/18 18:27 98.7 F 77 18 122/70 03/13/18 18:06 97.3 F L 80 19 115/68 96 03/13/18 17:40 79 18 112/55 03/13/18 17:10 76 18 102/65 96 03/13/18 16:41 76 18 101/60 95 03/13/18 16:25 75 18 100/60 97 03/13/18 16:10 80 18 166/119 97 03/13/18 15:52 98.2 F 83 20 100/58 99 Intake and Output 03/13/18 03/13/18 03/14/18 14:59 22:59 06:59 Other: Voiding Method Toilet Weight 94.4 kg - Constitutional General appearance: average body habitus, cooperative - EENT EENT: PERRL, mucous membranes moist - Respiratory Respiratory: lungs clear, normal breath sounds - Cardiovascular Cardiovascular: regular rate, normal S1, normal S2 Extremities: no peripheral edema bilaterally - Gastrointestinal Gastrointestinal: normoactive bowel sounds - Integumentary Integumentary: normal - Neurologic Cranial nerve examination: PERRL, EOMI, VFF, V1/V2/V3 grossly intact, tongue midline, intact gag reflex, intact corneal reflex, normal palatal elevation Speech examination: intact Sensorimotor examination: intact Motor examination - right side: 4/5: biceps, triceps, wrist flexion, wrist extension, reel assembler, hip flexors, knee extensors, dorsiflexion, toe extension (EHL) , plantarflexion Motor examination - left side: 4/5: biceps, triceps, wrist flexion, wrist extension, reel assembler, hip flexors, knee extensors, dorsiflexion, toe extension (EHL) , plantarflexion Detailed sensory examination: intact, light touch Reflex and gait examination: intact Reflexes: 1+: ankle, bicep, knee, tricep - Musculoskeletal Musculoskeletal: no pain - Psychiatric Psychiatric: mood/affect appropriate, cooperative Results - Laboratory Findings CBC and BMP: 03/13/18 16:25 03/13/18 16:25 Abnormal Lab Findings: Abnormal Labs 03/13/18 03/13/1803/13/18 16:00 16:25 16:25 WBC 2.0 L RBC 3.65 L Hgb 10.6 L Hct 32.4 L Plt Count 54 L Lymphocytes # 0.2 L PT INR Sodium 133 L Potassium 5.4 H Glucose 160 H POC Glucose (mg/dL) 170 H Total Creatine Kinase Total Protein 6.0 L Albumin 3.4 L 03/13/18 03/13/18 16:25 16:25 WBC RBC Hgb Hct Plt Count Lymphocytes # PT 16.3 H INR 1.8 H Sodium Potassium Glucose POC Glucose (mg/dL) Total Creatine Kinase 29 L Total Protein Albumin Assessment and Plan (1) Acute ischemic left MCA stroke Current Visit: Yes Status: Acute Code(s): I63.512 - CEREB INFRC D/T UNSP OCCLS OR STENOS OF LEFT MID CEREB ART SNOMED Code(s): 153980853 (2) Atrial fibrillation Current Visit: No Status: Acute Code(s): I48.91 - UNSPECIFIED ATRIAL FIBRILLATION SNOMED Code(s): 91331787 (3) Asthma Current Visit: Yes Status: Acute Code(s): J45.909 - UNSPECIFIED ASTHMA, UNCOMPLICATED SNOMED Code(s): 773157080 Plan: This patient is a 87-year-old male who was admitted hospital today with acute onset of right-sided facial droop and aphasia. He has a history of a previous old stroke a few months ago. The patient continued to show evidence of right facial droop in the ER. Code stroke was initiated but the patient was felt not to be a candidate for tPA as per Dr. Welsh. Since admission his speech is shown improvement. He does have evidence of a right facial droop. He is to be sent for MRI of the brain tomorrow and we will review the results. His overall prognosis at this time remains very guarded. We will give further recommendations depending on the results of his MRI of the brain. We will continue close neurological follow-up for the patient during this admission. Time with Patient: Greater than 30
[2018-03-14] MEDS: traMADol 50 MG TAB PO PRN (01:14)
[2018-03-14 01:18] LABS: Appearance,Urine Clear (Clear); Bilirubin,Urine Negative (Negative); Blood,Urine Negative (Negative); Color,Urine Yellow; Glucose,Urine (UA) Negative (Negative); Ketones,Urine Negative (Negative); Leukocyte Esterase,Urine Negative (Negative); Nitrite,Urine Negative (Negative); PH, Urine 5.5 (5.0-8.0); Protein,Urine Negative (Negative); Specific Gravity,Urine 1.024 (1.001-1.035); Urobilinogen,Urine <2.0 mg/dL (<2.0)
[2018-03-14] MEDS: PANTOPRAZOLE 40 MG TABLET PO SCH (06:02)
[2018-03-14] MEDS: SODIUM CHLORIDE 0.9% 1,000 ML IV SCH ×2 (06:03→22:01)
[2018-03-14 06:08] LABS: HCT 29.1 % (39.0-53.0); HGB 9.5 gm/dL (13.0-17.5); Hypochromasia Slight; MCH 29.5 pg (25.0-35.0); MCHC 32.5 g/dL (31.0-37.0); MCV 90.8 fL (80.0-100.0); Mean Platelet Volume 10.3; RBC 3.21 m/uL (4.30-5.90); RDW 14.6 % (11.5-15.5); WBC 2.5 k/uL (3.8-10.6)
[2018-03-14 06:18] LABS: Anion Gap 6 mmol/L; Blood Urea Nitrogen 17 mg/dL (9-20); Carbon Dioxide 26 mmol/L (22-30); Chloride 103 mmol/L (98-107); Cholesterol 126 mg/dL (<200); Glucose 95 mg/dL (74-99); HDL Cholesterol 39 mg/dL (40-60); LDL Cholesterol,Calculated 78 mg/dL (0-99); Potassium 4.5 mmol/L (3.5-5.1); Sodium 135 mmol/L (137-145); Triglycerides 45 mg/dL (<150)
[2018-03-14 06:23] LABS: INR 1.8 (<1.2); Prothrombin Time 16.7 sec (9.0-12.0)
[2018-03-14 06:53] LABS: Platelet Count 50 k/uL (150-450)
--- NOTE | 2018-03-14 07:18 | MR ---
EXAMINATION TYPE: MR brain wo/w con DATE OF EXAM: 03/14/2018 COMPARISON: Correlation CT brain 03/13/2018 HISTORY: 87-year-old male with weakness, Stroke TECHNIQUE: Multiplanar, multisequence images of the brain and brainstem were acquired before and aft er administration of 9 mL IV Gadavist. Diffusion weighted imaging is performed. FINDINGS: No evidence for acute infarction, hemorrhage, mass, mass effect, midline shift, herniation, effacemen t of basal cisterns, or extra-axial fluid collection. The ventricles and sulci are age-appropriate. There is [id number] generalized supratentorial vo lume loss. Major intracranial flow voids are intact. The left vertebral artery is dominant. T2/FLAIR weighted sequences show old area of encephalomalacia and gliosis within the left occipital l obe and mild confluent periventricular white white matter change as well as additional mild scattered deep white matter and subcortical foci of bright signal change also involving the bilateral basal ga nglia. Midline structures demonstrate normal morphology. The craniocervical junction is normal. Post contrast images demonstrate no evidence of pathologic enhancement. Dural venous sinuses are pat ent. There is moderate mucosal thickening within the ethmoid air cells and maxillary sinuses. 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 No evidence for acute or evolving infarct. Mild to moderate generalized atrophy and mild confluent changes of chronic small vessel ischemic disease.
[2018-03-14 08:29] LABS: Lymphocytes # (M) 0.45 k/uL (1.0-4.8); Neutrophils # (M) 1.95 k/uL (1.3-7.7); Neutrophils % (M) 78 %; Nucleated Red Blood Cells 0 /100 WBC (0-0); Total Cells Counted 100
[2018-03-14] MEDS: SYMBICORT 80-4.5 MCG INHALER INHALATION SCH ×2 (09:08→19:54)
[2018-03-14] MEDS: predniSONE 5 MG TAB PO SCH ×2 (09:41→21:31)
[2018-03-14] MEDS: DILTIAZEM CD 120 MG CAP.ER.24H PO SCH (09:41)
[2018-03-14] MEDS: ASPIRIN 325 MG TAB PO SCH (09:41)
[2018-03-14] MEDS: METOPROLOL TARTRATE 50 MG TAB PO SCH ×2 (09:41→21:31)
--- NOTE | 2018-03-14 10:55 | ECHOF ---
Referral Reason:Stroke MEASUREMENTS -------- HEIGHT: 180.3 cm WEIGHT: 94.3 kg BP: 111/66 RVIDd: 4.0 cm (< 3.3) IVSd: 1.4 cm (0.6 - 1.1) LVIDd: 4.9 cm (3.9 - 5.3) LVPWd: 1.3 cm (0.6 - 1.1) IVSs: 1.9 cm LVIDs: 2.4 cm LVPWs: 1.8 cm LA Diam: 4.1 cm (2.7 - 3.8) LAESV Index (A-L): 36.28 ml/m Ao Diam: 4.2 cm (2.0 - 3.7) AV Cusp: 1.3 cm (1.5 - 2.6) MV EXCURSION: 14.013 mm (> 18.000) MV EF SLOPE: 88 mm/s (70 - 150) EPSS: 0.6 cm MV E Matthew: 1.14 m/s MV DecT: 179 ms MV A Matthew: 0.30 m/s MV E/A Ratio: 3.80 AV maxP.64 mmHg AV meanP.52 mmHg RAP: 5.00 mmHg RVSP: 42.67 mmHg FINDINGS -------- Atrial fibrillation. This was a technically adequate study. The left ventricular size is normal. There is moderate concentric left ventricular hypertrophy. O verall left ventricular systolic function is low-normal with, an EF between 50 - 55 %. The right ventricle is moderately enlarged. LA is moderately dilated 34-39 ml/m2 The right atrium is normal in size. 3 ml of Lumason was utilized for enhancement of images. There is moderate aortic valve sclerosis. There is mild aortic stenosis present. Peak/mean gradie nt across the Aortic Valve is 15.64mmHg / 8.52mmHg. The mitral valve leaflets are mildly thickened. Mild mitral annular calcification present. Mild-t o-moderate mitral regurgitation is present. Mild tricuspid regurgitation present. There is mild pulmonary hypertension. The right ventricular systolic pressure, as measured by Doppler, is 42.67mmHg. There is no pulmonic regurgitation present. The aortic root is dilated measuring 4.2cm. Normal inferior vena cava with normal inspiratory collapse consistent with estimated right atrial pre ssure of 5 mmHg. The inferior vena cava is mildly dilated. There is no pericardial effusion. CONCLUSIONS -------- 1. Atrial fibrillation. 2. This was a technically adequate study. 3. The left ventricular size is normal. 4. There is moderate concentric left ventricular hypertrophy. 5. Overall left ventricular systolic function is low-normal with, an EF between 50 - 55 %. 6. The right ventricle is moderately enlarged. 7. LA is moderately dilated 34-39 ml/m2 8. The right atrium is normal in size. 9. 3 ml of Lumason was utilized for enhancement of images. 10. There is moderate aortic valve sclerosis. 11. There is mild aortic stenosis present. 12. Peak/mean gradient across the Aortic Valve is 15.64mmHg / 8.52mmHg. 13. The mitral valve leaflets are mildly thickened. 14. Mild mitral annular calcification present. 15. Nbqk-sh-uabmrofm mitral regurgitation is present. 16. Mild tricuspid regurgitation present. 17. There is mild pulmonary hypertension. 18. The right ventricular systolic pressure, as measured by Doppler, is 42.67mmHg. 19. There is no pulmonic regurgitation present. 20. The aortic root is dilated measuring 4.2cm. 21. Normal inferior vena cava with normal inspiratory collapse consistent with estimated right atrial pressure of 5 mmHg. 22. The inferior vena cava is mildly dilated. 23. There is no pericardial effusion. COTTON GRADER: Vanessa Ricci RDCS
[2018-03-14] MEDS: CALCIUM CARB-VIT D 500MG-200UN 1 EACH TAB PO SCH (11:22)
[2018-03-14] MEDS: ASCORBIC ACID 500 MG TAB PO SCH (11:22)
[2018-03-14] MEDS: MULTIVITAMINS, THERA 1 EACH TAB PO SCH (11:22)
[2018-03-14] MEDS: VIT A,C & E-LUTEIN-MINERALS 1 EACH TAB PO SCH (11:22)
--- NOTE | 2018-03-14 16:42 | CT ---
EXAMINATION TYPE: CT angio chest DATE OF EXAM: 03/14/2018 COMPARISON: CTA chest December 06, 2017 HISTORY: Hypoxia, R/O PE CT DLP: 493.7 mGycm. Automated Exposure Control for Dose Reduction was Utilized. CONTRAST: CTA scan of the thorax is performed with IV Contrast, patient injected with 80 mL of Isovue 370, pulm onary embolism protocol. MIP Images are created on CT scanner and reviewed. FINDINGS: LUNGS: Mild to moderate underlying emphysematous change is present. There is elevated left hemidiaphr agm seen. There is patchy left basilar residual infiltrate identified which is improved from prior st udy. There is linear scarring or atelectasis anteriorly in the inferior right upper lobe mid aspect n ear axial image 83 for reference more prominent versus prior. Patchy right basilar posterior atelecta tic change is present. No new suspicious infiltrate is seen. No pleural effusion or pneumothorax is n oted bilaterally. MEDIASTINUM: There is suboptimal bolus with near equal contrast seen in right and left heart systems but there is no CT evidence for pulmonary embolism. There are no greater than 1 cm hilar or mediasti nal lymph nodes. No significant pericardial effusion is seen. Cardiomegaly is present. There is cor onary artery calcification is seen which is noted marker for coronary artery disease. Main pulmonary artery measures 3.8 cm at bifurcation axial image 67. CT finding is consistent with underlying pulmon martha artery hypertension. Adjacent ascending aorta measures up to 4.0 cm in diameter. There is ectatic and atherotic change to the arch and descending aorta noted. OTHER: There is moderate to severe multilevel spurring in the thoracic spine redemonstrated. Exaggera mansoor thoracic kyphosis is again seen. There are a few simple appearing thin-walled cysts scattered thr oughout the visualized liver. Moderate to Severe fat replaced atrophy of pancreas is redemonstrated. 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 IMPRESSION: 1. Suboptimal study without CT evidence for acute pulmonary embolism. 2. Cardiomegaly with resolving left basilar acute infiltrate. No new infiltrate is evident. Backgroun d mild to moderate underlying emphysematous change is present.
--- NOTE | 2018-03-14 16:57 | PN ---
PROGRESS NOTE DATE OF SERVICE: 03/14/2018. INTERVAL HISTORY: This 87-year-old gentleman who was admitted with acute stroke involving the left hemisphere, also had right facial deviation which is persistent. MRI of the brain was done which showed old left occipital lobe cortical infarct. No evidence of acute stroke was noted. No chest pain. No palpitations. No fever. Cardiology now is following the patient closely. PHYSICAL EXAM: Alert and oriented times three. Pulse 62, blood pressure 100/79, respiration 18, temperature 97.2, pulse ox 98% on room air. HEENT: Conjunctivae normal. Oral mucosa is moist. Neck is no jugular venous distention. No carotid bruit. No lymph node enlargement. Cardiovascular system: S1, S2 muffled. Respirations: Breath sounds diminished in the bases. No rhonchi. No crackles. ABDOMEN: Soft. NERVOUS SYSTEM: Minimal right facial deviation. Otherwise no focal deficits. LABS: WBC 2.2, hemoglobin 10.5, platelets 50. Sodium 135. UA noted. ASSESSMENT: 1. Acute stroke involving the left causing dysphagia as well as right upper lobe motor neuron facial palsy with minimal right upper limb weakness present on admission. 2. Pancytopenia, possibly secondary to chemotherapy. 3. 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 4. Prostate cancer with metastatic on chemo. 5. Hyponatremia. 6. Hypokalemia, mild. 7. History of atrial fibrillation. 8. History of asthma. 9. Chronic obstructive pulmonary disease. 10.History of deep vein thrombosis. 11.History of gastrointestinal bleed. 12.Hypertension. 13.Hyperlipidemia. 14.History of memory impairment. 15.History of myocardial infarction. 16.History of degenerative joint disease. RECOMMENDATIONS AND DISCUSSION: Recommend to continue current management. Continue with monitoring. Symptomatic treatment. Otherwise, at this time antiplatelet agents. Closely follow with multiple consultants. Guarded prognosis. Further recommendations to follow. MMODL / IJN: [id number] /
[2018-03-14] MEDS: WARFARIN 3 MG TAB PO SCH (17:03)
--- NOTE | 2018-03-14 19:26 | P.CONS ---
History of Present Illness - Reason for Consult Consult date: 03/14/18 Metastatic Prostate Cancer on Chemotherapy Requesting physician: Ping Blankenship - Chief Complaint TIA/CVA symptoms - History of Present Illness Mr Calderon is a pleasant white male,initially seen by urology, Dr. Drake in 05/13 due to a rising PSA. The PSA had been 4.43 in 11/08, and had risen to 8.24 x . At that time TRUS was discussed several times, but the patient preferred observation. PSA continued to increase, up to 13.85 in 05/14 and then 25.36 in 10/13. He ultimately did have a TRUS on 01/12 with random biopsy showing multiple areas of cancer. At that time CT scan of the abdomen and pelvis and bone scan showed no evidence of metastatic disease. He had a 6 month Lupron injection on 01/18/15. He did note a response with the PSA down to 1.008 in . It was then up to 1.49 in 06/14. At that time we discussed radiation therapy with Dr. Hung, but could not decide for sure if he wanted to pursue it. By 09/13, PSA was 7.7. He resumed Lupron and did receive external beam radiation therapy between 10/14 and 12/14. His PSA fell to a low of 0.56 in . However by 03/17 it had risen again to 10.37 and was 15.8 on 04/15/17. Testosterone level was well suppressed at 4. Bone scan on 04/29/17 showed evidence of metastatic disease in the iliac bones, as well as the thoracic and lumbar spine. He was treated with Androgen blockers, Biphosphonates and oral therapies but unfortunetly his disease continued to progress requiring IV chemotherapy. He is status post his first round of IV chemotherapy on 03/07/18 with neulasta He was evaulated in clinic yesterday 03/13/18. His biggest complaint at that time was weakness (generalized) and fatigue. As well as SOB with minimal exertion. His neurological exam at 2pm was stable. ALthough after they left office and went out to eat with his daughter she states he became weaker, was slurring words, and had a drooping noted to his one side of face, therefore they brought him to ER. He is on Anticogulation for atrial fibrillation. [facility], his platlet count was just above 50K yesterday so he was scheduled to recheck platlets today in office. As if it drops below 50K recs would be to hold warfarin. Today during evaluation his symptoms have resolved, except he is requiring oxygen when ambulating. History of pulmonary edema, chest xray showed improvement from last. His platlets are stable, mildly subtherapeutic on warfarin today at 1.8. I have reviewed his MRI and CT scans of brain. Review of Systems a 14 point review of systems assessed and completed and all negative except HPI Past Medical History Past Medical History: Atrial Fibrillation, Asthma, Cancer, COPD, Deep Vein Thrombosis (DVT), GI Bleed, Hyperlipidemia, Hypertension, Memory Impairment, Myocardial Infarction (CA), Osteoarthritis (OA), Prostate Disorder Additional Past Medical History / Comment(s): prostate CA-HAD 46 RADIATION TX- had mets to bone currently taking oral chemo and hormone tx, MILD SHORT TERM MEMORY PROBLEMS, NAVEL HERNIA,SKIN CA basal cell(LT HAND-lip. back REMOVED. past gi bleed lower bowel pt stated it was from the past radiation tx- it was cauterized.. Last Myocardial Infarction Date:: UNK History of Any Multi-Drug Resistant Organisms: None Reported Past Surgical History: Heart Catheterization Additional Past Surgical History / Comment(s): VASECTOMY, PROSTATE BX TOMMY CATARACTS, RT EYE LASER SX, skin ca removed. Past Anesthesia/Blood Transfusion Reactions: No Reported Reaction Past Psychological History: No Psychological Hx Reported Additional Psychological History / Comment(s): pt lives alone. uses cane when up and has a walker to use if needed. Smoking Status: Former smoker Past Alcohol Use History: Rare Additional Past Alcohol Use History / Comment(s): STARTED SMOKING AT AGE 16(1945 ), WAS SMOKING 2 PPD. QUIT 1992 Past Drug Use History: None Reported - Past Family History Mother Additional Family Medical History / Comment(s): RHEUMATIC FEVER- HEART VALVE DAMAGE- AGE 45 Father Family Medical History: Coronary Artery Disease (CAD) Additional Family Medical History / Comment(s): AGE 93 HEART PROBLEMS Medications and Allergies Home Medications Medication Instructions Recorded Confirmed Type Calcium Carbonate/Vitamin D3 1 tab PO DAILY 01/29/17 03/13/18 History [Calcium 600-Vit D3 400 Caplet] Diltiazem HCl [Diltiazem 24Hr ER] 120 mg PO Q24HR 01/29/17 03/13/18 History Escitalopram [Lexapro] 10 mg PO HS 01/29/17 03/13/18 History Ipratropium-Albuterol Nebulize 3 ml INHALATION RT-QID PRN 01/29/17 03/13/18 History [Duoneb 0.5 mg-3 mg/3 ml Soln] Metoprolol Tartrate [Lopressor] 50 mg PO BID 01/29/17 03/13/18 History Montelukast [Singulair] 10 mg PO HS 01/29/17 03/13/18 History Multivitamins, Thera [Multivitamin 1 tab PO DAILY 01/29/17 03/13/18 History (formulary)] Terazosin HCl 5 mg PO BID 01/29/17 03/13/18 History Budesonide/Formoterol Fumarate 2 puff INHALATION RT-BID 12/06/17 03/13/18 History [Symbicort 80-4.5 Mcg Inhaler] EPINEPHrine (Auto Inject) [Epipen] 0.3 mg IM ONCE PRN 12/06/17 03/13/18 History ALPRAZolam [Xanax] 0.25 mg PO HS PRN 03/13/18 03/13/18 History Ascorbic Acid [Vitamin C] 500 mg PO DAILY 03/13/18 03/13/18 History Atorvastatin [Lipitor] 20 mg PO HS 03/13/18 03/13/18 History Prochlorperazine [Compazine] 10 mg PO Q6H PRN 03/13/18 03/13/18 History Vit C/E/Zn/Coppr/Lutein/Zeaxan 1 cap PO DAILY 03/13/18 03/13/18 History [Preservision Areds 2 Softgel] Warfarin [Coumadin] 4.5 mg PO SUTUTHSA 03/13/18 03/13/18 History Warfarin [Coumadin] 6 mg PO MOWEFR 03/13/18 03/13/18 History predniSONE 5 mg PO BID 03/13/18 03/13/18 History traMADol HCL [Ultram] 50 mg PO Q4HR PRN 03/13/18 03/13/18 History Allergies Allergy/AdvReac Type Severity Reaction Status Date / Time No Known Allergies Allergy Verified 03/13/18 15:54 Physical Exam Vitals: Vital Signs Temp Pulse Resp BP Pulse Ox 03/14/18 15:33 62 03/14/18 15:31 97.8 F 62 18 123/79 93 L 03/14/18 11:40 99 03/14/18 11:18 99 16 123/65 93 L 03/14/18 08:00 97.6 F 91 16 106/68 03/14/18 04:00 97.6 F 94 18 111/66 93 L 03/14/18 00:00 97.9 F 69 16 100/63 92 L 03/13/18 20:00 97.3 F L 80 19 115/68 96 Intake and Output 03/14/18 03/14/18 03/14/18 06:59 14:59 22:59 Intake Total 600 402 240 Output Total 425 350 500 Balance 175 52 -260 Intake: Intake, IV Titration 600 Amount Sodium Chloride 0.9% 1, 600 000 ml @ 75 mls/hr IV . [id number] [facility] Rx#:[id number] Oral 402 240 Output: Urine 425 350 500 Other: Voiding Method Toilet # Voids 1 Weight 94.4 kg - Constitutional General appearance: average body habitus, cooperative, no acute distress - EENT Eyes: EOMI, dentition normal ENT: hard of hearing, normal oropharynx - Neck Supple, trachea midline Neck: normal ROM - Respiratory Respiratory: bilateral: diminished, wheezing - Cardiovascular Rhythm: irregularly irregular - Gastrointestinal General gastrointestinal: normal bowel sounds, soft - Integumentary Integumentary: pale - Neurologic no focal defects - Musculoskeletal Musculoskeletal: generalized weakness - Psychiatric Psychiatric: A&O x's 3, appropriate affect, intact judgment & insight Results CBC & Chem 7: 03/14/18 05:15 03/14/18 05:15 Labs: Abnormal Lab Results - Last 24 Hours (Table) 03/14/18 03/14/18 03/14/18 Range/Units 05:15 05:15 05:15 WBC 2.5 L (3.8-10.6) k/uL RBC 3.21 L (4.30-5.90) m/uL Hgb 9.5 L (13.0-17.5) gm/dL Hct 29.1 L (39.0-53.0) % Plt Count 50 L (150-450) k/uL Lymphocytes # (Manual) 0.45 L (1.0-4.8) k/uL PT 16.7 H (9.0-12.0) sec INR 1.8 H (<1.2) Sodium 135 L (137-145) mmol/L Calcium 8.0 L (8.4-10.2) mg/dL HDL Cholesterol 39 L (40-60) mg/dL Assessment and Plan (1) TIA (transient ischemic attack) Narrative/Plan: - Reviewed MRI and CT Scan - Symptoms have returned to baseline - Neurology is following Current Visit: Yes Status: Acute Code(s): G45.9 - TRANSIENT CEREBRAL ISCHEMIC ATTACK, UNSPECIFIED SNOMED Code(s): 931913337 (2) Prostate carcinoma Narrative/Plan: - Status POst Cycle one of Taxotere with Neulasta on 03/18 - Will follow-up in office as scheculed next week - COntinue on same regimen lupron, XGEVA and Taxotere as out patient Current Visit: No Status: Acute Code(s): C61 - MALIGNANT NEOPLASM OF PROSTATE SNOMED Code(s): 694271028 (3) Atrial fibrillation Narrative/Plan: - On Warfarin [facility] Current Visit: No Status: Acute Code(s): I48.91 - UNSPECIFIED ATRIAL FIBRILLATION SNOMED Code(s): 54549628 (4) Thrombocytopenia Narrative/Plan: - Monitor Daily CBC and Transfuse platlets if count less than 50K as on anticoagulation Current Visit: Yes Status: Acute Code(s): D69.6 - THROMBOCYTOPENIA, UNSPECIFIED SNOMED Code(s): 974120065 Plan: Increased oxygen need and unable to ambulate without hypoxia - CTA ordered
[2018-03-14 19:51] LABS: Glucose,Whole Blood 120 mg/dL (75-99)
--- NOTE | 2018-03-14 20:22 | CT ---
EXAMINATION TYPE: CT brain wo con for TPA DATE OF EXAM: 03/14/2018 COMPARISON: 03/13/2018 HISTORY: Neuro deficits. CT DLP: 877.6 mGycm Automated exposure control for dose reduction was used. FINDINGS: There is cerebral cortical atrophy. There is no mass effect nor midline shift. There is no sign of in tracranial hemorrhage. The calvarium is intact. There is mild hypodensity in the periventricular whit e matter. IMPRESSION: CEREBRAL ATROPHY AND MILD CHRONIC SMALL VESSEL ISCHEMIA. NO ACUTE INTRACRANIAL ABNORMALITY. NO CHANGE .
--- NOTE | 2018-03-14 20:55 | CT ---
EXAMINATION TYPE: CODE STROKE: CTA head neck DATE OF EXAM: 03/14/2018 HISTORY: Neuro deficits. COMPARISON: None CT DLP: 382.6 mGycm. Automated Exposure Control for Dose Reduction was Utilized. TECHNIQUE: CTA scan of the neck is performed with IV Contrast, patient injected with 65ml mL of Isov ue 370, axial images are obtained, coronal and sagittal reformatted images are reviewed. Three-D kelvin nstructed images are created on an independent workstation and reviewed. FINDINGS: There is normal branching pattern of the great vessels on the aortic arch. There is atheromatous hernandez ge in the thoracic aorta. There is arterial flow in both vertebral arteries. There is narrowing of th e right vertebral artery. There is arterial flow in the common internal and external carotid arteries bilaterally. There is clarence e mild plaque at the carotid artery bifurcations and lumen narrowing less than 10%. There is no evide nce of carotid or vertebral artery aneurysm or dissection. Exam of the intracranial vessels is limited slightly by motion. There is arterial flow in the anteri or middle and posterior cerebral arteries. There is arterial flow in the vertebrobasilar artery syste m. Basilar artery fills more from the right side. There is normal contrast opacification of the venou s sinuses. There is no mass effect. There is no evidence of aneurysm or neovascularity. I see no evid ence of intracranial arterial stenosis. IMPRESSION: Minimal atherosclerotic plaque at the carotid artery bifurcations. No evidence of hemodynamically sig nificant stenosis. No demonstrated intracranial arterial abnormality.
[2018-03-14] MEDS ORDERED: LORazepam 2 MG/ML INJ IV STA (21:16)
[2018-03-14] MEDS: ESCITALOPRAM 10 MG TAB PO SCH (21:30)
[2018-03-14] MEDS: DOXAZOSIN 4 MG TAB PO SCH (21:30)
[2018-03-14] MEDS: ATORVASTATIN 20 MG TAB PO SCH (21:30)
[2018-03-14] MEDS: MONTELUKAST 10 MG TAB PO SCH (21:31)
[2018-03-14 21:49] LABS: HCT 30.8 % (39.0-53.0); Hypochromasia Slight; MCH 28.9 pg (25.0-35.0); MCHC 32.4 g/dL (31.0-37.0); MCV 89.2 fL (80.0-100.0); Mean Platelet Volume 10.2; Platelet Count 66 k/uL (150-450); RBC 3.45 m/uL (4.30-5.90); RDW 14.6 % (11.5-15.5); WBC 3.9 k/uL (3.8-10.6)
[2018-03-14 21:55] LABS: Partial Thromboplastin Time 28.7 sec (22.0-30.0); Prothrombin Time 18.3 sec (9.0-12.0)
[2018-03-14 21:56] LABS: ALT 31 U/L (21-72); AST 33 U/L (17-59); Albumin 3.2 g/dL (3.5-5.0); Alkaline Phosphatase 100 U/L (38-126); Anion Gap 10 mmol/L; Blood Urea Nitrogen 14 mg/dL (9-20); Calcium 8.3 mg/dL (8.4-10.2); Carbon Dioxide 26 mmol/L (22-30); Chloride 99 mmol/L (98-107); Glucose 134 mg/dL (74-99); Potassium 4.4 mmol/L (3.5-5.1); Sodium 135 mmol/L (137-145); Total Bilirubin 0.8 mg/dL (0.2-1.3); Total Protein 5.6 g/dL (6.3-8.2)
[2018-03-14 22:13] LABS: Band Neutrophils % 11 %; Eosinophils # (M) 0.04 k/uL (0-0.7); Lymphocytes # (M) 0.35 k/uL (1.0-4.8); Metamyelocytes # (M) 0.16 k/uL (0); Metamyelocytes % 4 %; Monocytes # (M) 0.27 k/uL (0-1.0); Myelocytes # (M) 0.98 k/uL (0); Myelocytes % 25 %; Neutrophils % (M) 45 %; Nucleated Red Blood Cells 0 /100 WBC (0-0); Total Cells Counted 200
[2018-03-14 22:17] LABS: Large Platelets Present; Ovalocytes Present
[2018-03-14 22:18] LABS: Polychromasia Present
[2018-03-15] MEDS ORDERED: LORazepam 2 MG/ML INJ IV PRN (01:02)
--- NOTE | 2018-03-15 01:13 | P.PN ---
Subjective Progress Note Date: 03/14/18 This patient is a 87-year-old right-handed white male who was seen in neurology consultation yesterday for right-sided facial droop and slurred speech. He underwent an initial computed tomography scan of the brain in the emergency room which revealed evidence of an old left occipital lobe infarct. He was essentially admitted to hospital for a complete stroke evaluation. The patient was recommended to complete MRI of the brain for further assessment of possible stroke. Patient completed MRI of the brain today and results were reviewed today with the patient. There was no evidence of any acute or new onset of stroke changes noted. MRI did reveal evidence of a old left occipital lobe infarct. Once again no evidence of acute stroke and diffusion weighted imaging. The patient was coming along fairly well until late this evening. At about 7:40 PM the patient developed increased confusion with slurring speech. According to the nursing staff he had left facial droop as well as pinpoint pupils. There is also felt he had blown pupil in his right eye. A code stroke was called on this patient at about 7:45 PM. His NIH stroke scale was noted by the nurse as being 21.0. Stroke robotic was activated and the neuro interventional is Dr. Irwin who reviewed his entire case in total. It was decided the patient was not a candidate for TPA and not a candidate for any surgical intervention. It was recommended to be admitted for further stroke evaluation. The patient is now resting comfortably this evening. He does follow some simple commands. His overall memory and intellectual functions remain impaired. Objective - Vital Signs Vital signs: Vital Signs Temp 98.9 F 03/15/18 00:00 Pulse 96 03/15/18 00:00 Resp 20 03/15/18 00:00 BP 132/90 03/15/18 00:00 Pulse Ox 95 03/15/18 00:00 Intake & Output 03/14/18 03/14/18 03/15/18 06:59 18:59 06:59 Intake Total 600 642 Output Total 425 850 Balance 175 -208 Weight 94.4 kg Intake: Intake, IV Titration 600 Amount Sodium Chloride 0.9% 1, 600 000 ml @ 75 mls/hr IV . [id number] [facility] Rx#:[id number] Oral 642 Output: Urine 425 850 Other: Voiding Method Toilet # Voids 1 - Exam Physical examination: PHYSICAL EXAMINATION: Patient is resting comfortably in bed. VITAL SIGNS: Blood pressure is [123/79]. Heart rate is [62. Respiration is [18] . Temperature is [97.8]. HEENT: Head is atraumatic, neck is supple, there were no carotid bruits. CHEST: Lungs are clear to auscultation and percussion. CARDIAC: S1, S2 normal rate and rhythm. There is no murmur. ABDOMEN: Soft and nontender. Bowel sounds are present. EXTREMITIES: There is no pedal edema. Peripheral pulses are present. Neurological examination: Outcome patient is examined at bedside. He is somewhat confused and having hallucinations. He appears to be slightly delirious. He does not follow simple commands. His memory and intellectual functions are impaired. Cranial nerve examination: Cranial nerves II through XII are grossly intact. Patient has a surgical pupil in the right eye. Motor examination: Patient is moving all 4 extremities. Sensory examination: The patient sensory examination is intact in all areas tested. Deep tendon reflexes: The DTRs are 1+ and symmetric. Plantar response is flexor bilaterally. Coordination gait cannot be assessed in this patient at this time. - Labs CBC & Chem 7: 03/14/18 21:21 03/14/18 21:21 Labs: Abnormal Lab Results - Last 24 Hours (Table) 03/14/18 03/14/18 03/14/18 Range/Units 05:15 05:15 05:15 WBC 2.5 L (3.8-10.6) k/uL RBC 3.21 L (4.30-5.90) m/uL Hgb 9.5 L (13.0-17.5) gm/dL Hct 29.1 L (39.0-53.0) % Plt Count 50 L (150-450) k/uL Lymphocytes # (Manual) 0.45 L (1.0-4.8) k/uL Metamyelocytes # (Man) (0) k/uL Myelocytes # (Manual) (0) k/uL PT 16.7 H (9.0-12.0) sec INR 1.8 H (<1.2) Sodium 135 L (137-145) mmol/L Glucose (74-99) mg/dL POC Glucose (mg/dL) (75-99) mg/dL Calcium 8.0 L (8.4-10.2) mg/dL Total Protein (6.3-8.2) g/dL Albumin (3.5-5.0) g/dL HDL Cholesterol 39 L (40-60) mg/dL 03/14/18 03/14/18 03/14/18 Range/Units 19:50 21:21 21:21 WBC (3.8-10.6) k/uL RBC 3.45 L (4.30-5.90) m/uL Hgb 10.0 L (13.0-17.5) gm/dL Hct 30.8 L (39.0-53.0) % Plt Count 66 L (150-450) k/uL Lymphocytes # (Manual) 0.35 L (1.0-4.8) k/uL Metamyelocytes # (Man) 0.16 H (0) k/uL Myelocytes # (Manual) 0.98 H (0) k/uL PT 18.3 H (9.0-12.0) sec INR 2.0 H (<1.2) Sodium (137-145) mmol/L Glucose (74-99) mg/dL POC Glucose (mg/dL) 120 H (75-99) mg/dL Calcium (8.4-10.2) mg/dL Total Protein (6.3-8.2) g/dL Albumin (3.5-5.0) g/dL HDL Cholesterol (40-60) mg/dL 03/14/18 Range/Units 21:21 WBC (3.8-10.6) k/uL RBC (4.30-5.90) m/uL Hgb (13.0-17.5) gm/dL Hct (39.0-53.0) % Plt Count (150-450) k/uL Lymphocytes # (Manual) (1.0-4.8) k/uL Metamyelocytes # (Man) (0) k/uL Myelocytes # (Manual) (0) k/uL PT (9.0-12.0) sec INR (<1.2) Sodium 135 L (137-145) mmol/L Glucose 134 H (74-99) mg/dL POC Glucose (mg/dL) (75-99) mg/dL Calcium 8.3 L (8.4-10.2) mg/dL Total Protein 5.6 L (6.3-8.2) g/dL Albumin 3.2 L (3.5-5.0) g/dL HDL Cholesterol (40-60) mg/dL Assessment and Plan (1) Acute ischemic left MCA stroke Current Visit: Yes Status: Acute Code(s): I63.512 - CEREB INFRC D/T UNSP OCCLS OR STENOS OF LEFT MID CEREB ART SNOMED Code(s): 267926005 (2) Atrial fibrillation Current Visit: No Status: Acute Code(s): I48.91 - UNSPECIFIED ATRIAL FIBRILLATION SNOMED Code(s): 27711844 (3) Asthma Current Visit: Yes Status: Acute Code(s): J45.909 - UNSPECIFIED ASTHMA, UNCOMPLICATED SNOMED Code(s): 140924725
[2018-03-15 03:55] LABS: Hemoglobin A1C 6.8 % (4.0-6.0)
[2018-03-15] MEDS: PANTOPRAZOLE 40 MG TABLET PO SCH (06:04)
[2018-03-15 06:13] LABS: HCT 28.7 % (39.0-53.0); HGB 9.3 gm/dL (13.0-17.5); MCH 28.8 pg (25.0-35.0); MCHC 32.4 g/dL (31.0-37.0); Mean Platelet Volume 10.6; RBC 3.23 m/uL (4.30-5.90); RDW 14.8 % (11.5-15.5); WBC 6.4 k/uL (3.8-10.6)
[2018-03-15 06:17] LABS: Platelet Count 66 k/uL (150-450)
[2018-03-15 06:18] LABS: INR 2.4 (<1.2); Prothrombin Time 21.2 sec (9.0-12.0)
[2018-03-15 06:24] LABS: Anion Gap 5 mmol/L; Blood Urea Nitrogen 16 mg/dL (9-20); Calcium 8.1 mg/dL (8.4-10.2); Carbon Dioxide 27 mmol/L (22-30); Chloride 99 mmol/L (98-107); Glucose 125 mg/dL (74-99); Potassium 4.3 mmol/L (3.5-5.1); Sodium 131 mmol/L (137-145)
[2018-03-15 07:11] LABS: Band Neutrophils % 6 %; Lymphocytes # (M) 0.58 k/uL (1.0-4.8); Monocytes # (M) 1.28 k/uL (0-1.0); Myelocytes # (M) 0.19 k/uL (0); Myelocytes % 3 %; Neutrophils % (M) 62 %; Nucleated Red Blood Cells 0 /100 WBC (0-0); Total Cells Counted 200
[2018-03-15 07:14] LABS: Polychromasia Present
[2018-03-15] MEDS: SYMBICORT 80-4.5 MCG INHALER INHALATION SCH ×2 (07:39→20:44)
--- NOTE | 2018-03-15 09:31 | P.PN ---
Subjective Progress Note Date: 03/15/18 And another episode of numbness of the left side of his face and neck. This has resolved completely. He was assessed by neurology today. He still has somewhat increased work of respiration. He denies any new areas of pain. No history of nausea/vomiting/fever/chills Objective - Vital Signs Vital signs: Vital Signs Temp 98.7 F 03/15/18 04:00 Pulse 106 H 03/15/18 04:00 Resp 20 03/15/18 04:00 BP 120/64 03/15/18 04:00 Pulse Ox 96 03/15/18 04:00 Intake & Output 03/14/18 03/15/18 03/15/18 18:59 06:59 18:59 Intake Total 642 600 Output Total 850 Balance -208 600 Weight 95 kg Intake: Intake, IV Titration 600 Amount Sodium Chloride 0.9% 1, 600 000 ml @ 75 mls/hr IV . [id number] [facility] Rx#:[id number] Oral 642 Output: Urine 850 Other: Voiding Method Urinal Incontinent # Voids 1 - Constitutional General appearance: Present: no acute distress - EENT Eyes: Present: EOMI ENT: Present: hearing grossly normal, normal oropharynx - Respiratory Respiratory: bilateral: CTA - Cardiovascular Details: Tachycardia Rhythm: irregularly irregular Heart sounds: normal: S1, S2 - Gastrointestinal General gastrointestinal: Present: normal bowel sounds, soft - Neurologic Neurologic: Present: CNII-XII intact - Musculoskeletal Musculoskeletal: Present: generalized weakness, strength equal bilaterally - Psychiatric Psychiatric: Present: A&O x's 3, appropriate affect - Labs CBC & Chem 7: 03/15/18 05:40 03/15/18 05:40 Labs: Abnormal Lab Results - Last 24 Hours (Table) 03/14/18 03/14/18 03/14/18 Range/Units 19:50 21:21 21:21 RBC 3.45 L (4.30-5.90) m/uL Hgb 10.0 L (13.0-17.5) gm/dL Hct 30.8 L (39.0-53.0) % Plt Count 66 L (150-450) k/uL Lymphocytes # (Manual) 0.35 L (1.0-4.8) k/uL Monocytes # (Manual) (0-1.0) k/uL Metamyelocytes # (Man) 0.16 H (0) k/uL Myelocytes # (Manual) 0.98 H (0) k/uL PT 18.3 H (9.0-12.0) sec INR 2.0 H (<1.2) Sodium (137-145) mmol/L Glucose (74-99) mg/dL POC Glucose (mg/dL) 120 H (75-99) mg/dL Hemoglobin A1c (4.0-6.0) % Calcium (8.4-10.2) mg/dL Total Protein (6.3-8.2) g/dL Albumin (3.5-5.0) g/dL 03/14/18 03/14/18 03/15/18 Range/Units 21:21 21:21 05:40 RBC 3.23 L (4.30-5.90) m/uL Hgb 9.3 L (13.0-17.5) gm/dL Hct 28.7 L (39.0-53.0) % Plt Count 66 L (150-450) k/uL Lymphocytes # (Manual) 0.58 L (1.0-4.8) k/uL Monocytes # (Manual) 1.28 H (0-1.0) k/uL Metamyelocytes # (Man) (0) k/uL Myelocytes # (Manual) 0.19 H (0) k/uL PT (9.0-12.0) sec INR (<1.2) Sodium 135 L (137-145) mmol/L Glucose 134 H (74-99) mg/dL POC Glucose (mg/dL) (75-99) mg/dL Hemoglobin A1c 6.8 H (4.0-6.0) % Calcium 8.3 L (8.4-10.2) mg/dL Total Protein 5.6 L (6.3-8.2) g/dL Albumin 3.2 L (3.5-5.0) g/dL 03/15/18 03/15/18 Range/Units 05:40 05:40 RBC (4.30-5.90) m/uL Hgb (13.0-17.5) gm/dL Hct (39.0-53.0) % Plt Count (150-450) k/uL Lymphocytes # (Manual) (1.0-4.8) k/uL Monocytes # (Manual) (0-1.0) k/uL Metamyelocytes # (Man) (0) k/uL Myelocytes # (Manual) (0) k/uL PT 21.2 H (9.0-12.0) sec INR 2.4 H (<1.2) Sodium 131 L (137-145) mmol/L Glucose 125 H (74-99) mg/dL POC Glucose (mg/dL) (75-99) mg/dL Hemoglobin A1c (4.0-6.0) % Calcium 8.1 L (8.4-10.2) mg/dL Total Protein (6.3-8.2) g/dL Albumin (3.5-5.0) g/dL Assessment and Plan (1) Acute ischemic left MCA stroke Narrative/Plan: The patient had another episode last evening, and was assessed by neurology. He was not felt to be a candidate for TPA. Symptoms have improved significantly. INR was mildly subtherapeutic on 03/13/18 but was 2 yesterday and is 2.4 today. Based on the clinical picture, it appears that the patient will need continued anticoagulation, as well as antiplatelet therapy. He is on aspirin and warfarin. Defer to neurology for continued management. A possible complication could be low platelet counts from his chemotherapy. Fortunately, his platelet counts did not go below 50,000 and are starting to recover. They were 66 today. Okay to continue anticoagulation and antiplatelet therapy as long as platelet counts are greater than 50,000 Current Visit: Yes Status: Acute Code(s): I63.512 - CEREB INFRC D/T UNSP OCCLS OR STENOS OF LEFT MID CEREB ART SNOMED Code(s): 344084863 (2) Thrombocytopenia Narrative/Plan: Due to chemotherapy. Platelets did not drop below 50,000 and are recovering. He will need close monitoring of his platelet count as an outpatient, while on chemotherapy Current Visit: Yes Status: Acute Code(s): D69.6 - THROMBOCYTOPENIA, UNSPECIFIED SNOMED Code(s): 905886863 (3) Prostate carcinoma Narrative/Plan: Status post-1 cycle of chemotherapy for hormone resistant disease. At this time the plan would be to continue chemotherapy as an outpatient, assuming that his acute condition is resolved and performance status is sufficient Current Visit: No Status: Acute Code(s): C61 - MALIGNANT NEOPLASM OF PROSTATE SNOMED Code(s): 090133900 Plan: His CTA did not show evidence of pulmonary embolus. Results were reviewed with him
[2018-03-15] MEDS: predniSONE 5 MG TAB PO SCH ×2 (10:52→20:55)
[2018-03-15] MEDS: METOPROLOL TARTRATE 50 MG TAB PO SCH ×2 (10:52→20:55)
[2018-03-15] MEDS: DILTIAZEM CD 120 MG CAP.ER.24H PO SCH (10:52)
[2018-03-15] MEDS: ASPIRIN 325 MG TAB PO SCH (10:52)
[2018-03-15] MEDS: SODIUM CHLORIDE 0.9% 1,000 ML IV SCH ×2 (10:53→23:46)
[2018-03-15] MEDS: ONDANSETRON 4 MG/2 ML VIAL IVP PRN (13:18)
--- NOTE | 2018-03-15 14:50 | CT ---
EXAMINATION TYPE: CT brain wo con DATE OF EXAM: 03/15/2018 COMPARISON: 03/14/2018 HISTORY: patient poor historian CT DLP: 1236 mGycm Automated exposure control for dose reduction was used. FINDINGS: There is cerebral cortical atrophy. There is no mass effect nor midline shift. There is no sign of in tracranial hemorrhage. There is some hypodensity around the frontal horns of the lateral ventricles. There is a 1 cm mucous retention cyst right maxillary sinus. The calvarium is intact. IMPRESSION: CEREBRAL ATROPHY. CHRONIC SMALL VESSEL ISCHEMIA. NO CHANGE.
--- NOTE | 2018-03-15 14:52 | PN ---
PROGRESS NOTE DATE OF SERVICE: 03/15/2018 This 87-year-old gentleman admitted with acute stroke involving the left hemisphere causing right facial droop and dysphasia is slightly more drowsy today. The patient is being closely monitored. The patient is running some mild fever, also. MRI of the brain was noted. Past medical history reviewed. REVIEW OF SYSTEMS: ENT: As mentioned earlier. CARDIOVASCULAR SYSTEM: No angina, palpitations. RESPIRATORY SYSTEM: Occasional cough. GI: As mentioned earlier. : No dysuria or retention. NERVOUS SYSTEM: As mentioned earlier. CURRENT MEDICATIONS: Reviewed. They include: 1. DuoNeb q.i.d. and p.r.n. 2. Xanax 0.25 at bedtime. 3. Vitamin C 500 mg daily. 4. Aspirin 325 mg daily. 5. Lipitor. 6. Symbicort 80/4.5 two puffs b.i.d. 7. Os-Valdemar with vitamin D. 8. Cardizem CD 120 mg b.i.d. 9. Cardura 8 mg p.o. at bedtime. 10.Lexapro 10 mg at bedtime. 11.Ativan 1 mg q.6 p.r.n. 12.Lopressor 50 mg p.o. b.i.d. 13.Singulair 10 mg at bedtime. 14.Multivitamins 1 p.o. daily. 15.Ivite daily. 16.Zofran 4 mg q.6 p.r.n. 17.Protonix 40 mg daily. 18.Prednisone 5 mg b.i.d. 19.Compazine. 20.Ultram 50 mg q.4 p.r.n. 21.Coumadin 4.5 mg and 6 mg. PHYSICAL EXAMINATION: Patient is alert and oriented x2. Pulse is 93, blood pressure 100/60, respiration 24, temperature 98.8, pulse ox 96% on 2 L. HEENT: Conjunctivae normal. Oral mucosa moist. NECK: No jugular venous distention. No carotid bruit. No lymph node enlargement. CARDIOVASCULAR SYSTEM: S1, S2 muffled. RESPIRATORY SYSTEM: Breath sounds diminished at the bases. No rhonchi. No crackles. ABDOMEN: Soft, non-tender. LEGS: No edema. No swelling. NERVOUS SYSTEM: Diffusely weak. LABS: WBC 6.2, hemoglobin 9.3, INR 2.4. ASSESSMENT: 1. Acute stroke involving the left hemisphere causing dysphasia as well as right upper motor neuron lesion facial palsy with minimal right upper limb weakness, present on admission. 2. Pancytopenia, possibly secondary to chemotherapy. 3. 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 4. Fever for evaluation. 5. Prostate cancer with metastatic cancer, on chemo. 6. Hyponatremia. 7. Hypokalemia, mild. 8. History of atrial fibrillation. 9. History of asthma. 10.Chronic obstructive pulmonary disease. 11.History of deep vein thrombosis. 12.History of gastrointestinal bleed. 13.Hypertension. 14.Hyperlipidemia. 15.History of memory impairment. 16.History of myocardial infarction. 17.History of degenerative joint disease. RECOMMENDATIONS AND DISCUSSION: I recommend to continue current medication, continue symptomatic treatment. I would recommend monitoring the patient closely. Continue with the neuro checks. Neurology evaluation. I also recommend broad-spectrum IV antibiotics. Follow the cultures. Guarded prognosis. Further recommendations to follow. See orders for further details. MMODL / IJN: [id number] /
--- NOTE | 2018-03-15 15:05 | XR ---
EXAMINATION TYPE: XR chest 1V portable DATE OF EXAM: 03/15/2018 COMPARISON: 03/13/2018 HISTORY: Sepsis TECHNIQUE: Single frontal view of the chest is obtained. FINDINGS: There is some pulmonary vascular congestion. There is slight blunting of costophrenic angl es. Thoracic aorta is atheromatous. There is increased patchy density at the right lung base. IMPRESSION: There is probably new heart failure compared to last exam. There is new infiltrate in th e right lower lobe.
[2018-03-15] MEDS: CALCIUM CARB-VIT D 500MG-200UN 1 EACH TAB PO SCH (15:56)
[2018-03-15] MEDS: ASCORBIC ACID 500 MG TAB PO SCH (15:56)
[2018-03-15] MEDS: MULTIVITAMINS, THERA 1 EACH TAB PO SCH (15:56)
[2018-03-15] MEDS: VIT A,C & E-LUTEIN-MINERALS 1 EACH TAB PO SCH (15:57)
[2018-03-15] MEDS ORDERED: CEFEPIME 2 GM in SODIUM CHLORIDE 0.9% 50 ML IVPB SCH (16:00)
[2018-03-15] MEDS ORDERED: VANCOMYCIN 1,500 MG in SODIUM CHLORIDE 0.9% 250 ML IVPB STA (16:16)
[2018-03-15] MEDS ORDERED: SODIUM CHLORIDE 0.9% 500 ML IV ONE ×2 (16:40→23:48)
[2018-03-15] MEDS: WARFARIN 3 MG TAB PO SCH (18:33)
[2018-03-15] MEDS: MONTELUKAST 10 MG TAB PO SCH (20:55)
[2018-03-15] MEDS: DOXAZOSIN 4 MG TAB PO SCH (20:55)
[2018-03-15] MEDS: ATORVASTATIN 20 MG TAB PO SCH (20:55)
[2018-03-15] MEDS: ESCITALOPRAM 10 MG TAB PO SCH (20:55)
[2018-03-15] MEDS: PIPERACILLIN-TAZOBACTAM 3.375 GM in DEXTROSE/WATER 1 50ML.BAG IVPB SCH (23:45)
[2018-03-16] MEDS: traMADol 50 MG TAB PO PRN (00:06)
[2018-03-16] MEDS: PANTOPRAZOLE 40 MG TABLET PO SCH (06:01)
[2018-03-16] MEDS: VANCOMYCIN 1,500 MG in SODIUM CHLORIDE 0.9% 250 ML IVPB SCH ×2 (06:01→18:02)
[2018-03-16 06:48] LABS: INR 2.5 (<1.2); Prothrombin Time 22.5 sec (9.0-12.0)
[2018-03-16 06:58] LABS: HCT 26.9 % (39.0-53.0); HGB 8.6 gm/dL (13.0-17.5); Hypochromasia Slight; MCH 28.8 pg (25.0-35.0); MCHC 32.1 g/dL (31.0-37.0); MCV 89.6 fL (80.0-100.0); Mean Platelet Volume 10.5; RBC 3.01 m/uL (4.30-5.90); RDW 14.9 % (11.5-15.5); WBC 10.4 k/uL (3.8-10.6)
[2018-03-16 07:00] LABS: Platelet Count 62 k/uL (150-450)
[2018-03-16 07:07] LABS: Anion Gap 7 mmol/L; Blood Urea Nitrogen 13 mg/dL (9-20); Calcium 7.1 mg/dL (8.4-10.2); Carbon Dioxide 24 mmol/L (22-30); Chloride 103 mmol/L (98-107); Glucose 88 mg/dL (74-99); Sodium 134 mmol/L (137-145)
[2018-03-16 07:47] LABS: Band Neutrophils % 8 %; Neutrophils % (M) 64 %; Nucleated Red Blood Cells 0 /100 WBC (0-0); Poikilocytosis (M) Present; Polychromasia Present; Promyelocytes % 1 %; Total Cells Counted 200; Toxic Granulation Present
[2018-03-16 07:48] LABS: Basophilic Stippling Present
[2018-03-16] MEDS: SYMBICORT 80-4.5 MCG INHALER INHALATION SCH ×2 (08:03→18:57)
--- NOTE | 2018-03-16 08:08 | CONS ---
CONSULTATION DATE OF SERVICE: 03/15/2018. REASON FOR CONSULTATION: Sepsis. HISTORY OF PRESENT ILLNESS: The patient is an 87-year-old male who was initially brought to the [facility] ER on 03/13/2018 with chief complaints of confusion, right-sided facial droop and slurred speech with concern for possible stroke. The patient did have initial CT scan of the brain which showed old left occipital lobe infarct. Subsequently did have MRA of the brain which confirmed the same finding, but no acute overt evolving stroke. The patient apparently was doing well. However, the last evening he had another episode of confusion and slurred speech and left facial droop. Apparently the patient has been evaluated by the and was not considered to be a candidate for tPA. The patient apparently has been running a low-grade fever and more labored breathing and congested cough has been noticed. A chest x-ray completed this morning is showing a new right lower lobe infiltrate concern for possible sepsis or pneumonia. The patient was started on cefepime and vancomycin. Infectious Disease was consulted for further recommendation of antibiotic therapy. Most of the information has been obtained from thorough review of the chart and talking to nursing staff, the patient currently is lethargic and was unable to provide reliable history making history limited. REVIEW OF SYSTEMS: Could not be reliably obtained. The positive points have been mentioned in the HPI. PAST MEDICAL HISTORY: Significant for the atrial fibrillation, DVT, myocardial infarction, hypertension, hyperlipidemia, prostate cancer with metastases to the bone on oral chemo . PAST SURGICAL HISTORY: Heart catheterization, vasectomy, prostate biopsy, bilateral cataract surgery, right surgery, removal. SOCIAL HISTORY: Remote history of smoking, smoked from 1947 until 1992, two packs per day, drug use. FAMILY HISTORY: Mother with history rheumatic fever. Father history of coronary artery disease. ALLERGIES: No known drug allergies. MEDICATIONS: Include the patient is currently on DuoNeb, Xanax, vitamin C, aspirin, Lipitor, Symbicort, Os-Valdemar D, diltiazem, Cardura, Lexapro, Ativan, Lopressor, Singulair, Theragran, Protonix, cefepime, prednisone, tramadol, and Vancomycin along with Coumadin. EXAMINATION: Blood pressure 106/65, pulse of 80, temperature of 99. He is 94% on 2 L nasal cannula. General description is an elderly male lying in bed in no distress. No tachypnea or accessory muscles for respiration use. HEENT: Shows slight pallor. No scleral icterus. Oral mucosa membranes are dry. Neck trachea central. No thyromegaly. Lungs: Unlabored breathing, coarse breath sounds in the bases bilaterally, no wheeze. Heart S1, S2. Irregular rhythm. ABDOMEN: Soft, no tenderness. No rigidity. EXTREMITIES: No edema of the feet. Skin examination: No rash or mass palpable. Neurologic: The patient is currently lethargic: no nuchal rigidity. LABS: Hemoglobin 9.2, white count 6.4 with a BUN of 16, creatinine 0.75, INR 2.4. Electrolytes have been normal. Urine has been negative. Chest x-ray with a new right lower lobe infiltrate. DIAGNOSTIC IMPRESSION AND PLAN: Patient admitted to the hospital with possible cerebrovascular accident for which the patient currently being evaluated by neurology service. The patient who seems to have increasing shortness of breath, did have a congested cough, low-grade fever with a new right lower lobe infiltrate concerning likely for aspiration pneumonia in a patient possible process started in the hospital. Will need to cover for the resistant gram- negative as well as gram-positive pathogen. PLAN: 1. We will try to obtain sputum for Gram stain culture and sensitivity. 2. Discontinue the cefepime. 3. We will start the patient on Zosyn 3.375 g q.8h and continue with vancomycin pharmacy to dose, however, watching kidney function closely. 4. We will follow up on his clinical condition and culture to further adjust medication if needed. Thank you for this consultation. We will follow this patient along with you. MMODL / IJN: [id number] /
--- NOTE | 2018-03-16 08:50 | P.PN ---
Subjective Progress Note Date: 03/15/18 This patient is a 87-year-old right-handed white male who was seen in neurology consultation yesterday for right-sided facial droop and slurred speech. He underwent an initial computed tomography scan of the brain in the emergency room which revealed evidence of an old left occipital lobe infarct. He was essentially admitted to hospital for a complete stroke evaluation. The patient was recommended to complete MRI of the brain for further assessment of possible stroke. Patient completed MRI of the brain today and results were reviewed today with the patient. There was no evidence of any acute or new onset of stroke changes noted. MRI did reveal evidence of a old left occipital lobe infarct. Once again no evidence of acute stroke and diffusion weighted imaging. The patient was coming along fairly well until late this evening. At about 7:40 PM the patient developed increased confusion with slurring speech. According to the nursing staff he had left facial droop as well as pinpoint pupils. There is also felt he had blown pupil in his right eye. A code stroke was called on this patient at about 7:45 PM. His NIH stroke scale was noted by the nurse as being 21.0. Stroke robotic was activated and the neuro interventional is Dr. Irwin who reviewed his entire case in total. It was decided the patient was not a candidate for TPA and not a candidate for any surgical intervention. It was recommended to be admitted for further stroke evaluation. The patient's neurological status as assessed yesterday by the neuro interventional S was not felt to be health and safety representative of an acute stroke. He did show significant improvement today in his mental status. Patient is to continue on anticoagulant therapy with Coumadin and aspirin. He does have evidence of low platelet counts secondary to his chemotherapy treatment for his prostate cancer. We are waiting further recommendations from Dr. Hamilton from oncology regarding his thrombocytopenia and history of prostate cancer. Patient was seen by infectious disease for possible aspiration pneumonia. He is currently on a combination of Zosyn and vancomycin. We will continue close neurological follow-up for the patient during this admission. The patient is now resting comfortably this evening. He does follow some simple commands. His overall memory and intellectual functions remain impaired. He continues to show evidence of mild respiratory distress and will need follow-up for his aspiration pneumonia involving the right lower lobe. His overall neurological status remains stable. His long-term prognosis however is guarded. Objective - Vital Signs Vital signs: Vital Signs Temp 98.8 F 03/15/18 11:57 Pulse 93 03/15/18 12:00 Resp 24 03/15/18 12:00 BP 100/67 03/15/18 11:57 Pulse Ox 96 03/15/18 11:57 Intake & Output 03/14/18 03/15/18 03/15/18 18:59 06:59 18:59 Intake Total 642 600 100 Output Total 850 700 Balance -208 600 -600 Weight 95 kg Intake: Intake, IV Titration 600 Amount Sodium Chloride 0.9% 1, 600 000 ml @ 75 mls/hr IV . [id number] MIKE Rx#:[id number] Oral 642 100 Output: Urine 850 700 Other: Voiding Method Urinal Urinal Incontinent Incontinent # Voids 1 - Exam Physical examination: PHYSICAL EXAMINATION: Patient is resting comfortably in bed. VITAL SIGNS: Blood pressure is [100/67]. Heart rate is [93]. Respiration is [24] . Temperature is [98.8]. HEENT: Head is atraumatic, neck is supple, there were no carotid bruits. CHEST: Lungs are clear to auscultation and percussion. CARDIAC: S1, S2 normal rate and rhythm. There is no murmur. ABDOMEN: Soft and nontender. Bowel sounds are present. EXTREMITIES: There is no pedal edema. Peripheral pulses are present. Neurological examination: Outcome patient is examined at bedside. He is somewhat confused and having hallucinations. He appears to be slightly delirious. He does not follow simple commands. His memory and intellectual functions are impaired. Cranial nerve examination: Cranial nerves II through XII are grossly intact. Patient has a surgical pupil in the right eye. Motor examination: Patient is moving all 4 extremities. Sensory examination: The patient sensory examination is intact in all areas tested. Deep tendon reflexes: The DTRs are 1+ and symmetric. Plantar response is flexor bilaterally. Coordination gait cannot be assessed in this patient at this time. - Labs CBC & Chem 7: 03/16/18 06:09 03/16/18 06:09 Labs: Abnormal Lab Results - Last 24 Hours (Table) 03/14/18 03/14/18 03/14/18 Range/Units 19:50 21:21 21:21 RBC 3.45 L (4.30-5.90) m/uL Hgb 10.0 L (13.0-17.5) gm/dL Hct 30.8 L (39.0-53.0) % Plt Count 66 L (150-450) k/uL Lymphocytes # (Manual) 0.35 L (1.0-4.8) k/uL Monocytes # (Manual) (0-1.0) k/uL Metamyelocytes # (Man) 0.16 H (0) k/uL Myelocytes # (Manual) 0.98 H (0) k/uL PT 18.3 H (9.0-12.0) sec INR 2.0 H (<1.2) Sodium (137-145) mmol/L Glucose (74-99) mg/dL POC Glucose (mg/dL) 120 H (75-99) mg/dL Hemoglobin A1c (4.0-6.0) % Calcium (8.4-10.2) mg/dL Total Protein (6.3-8.2) g/dL Albumin (3.5-5.0) g/dL 03/14/18 03/14/18 03/15/18 Range/Units 21:21 21:21 05:40 RBC 3.23 L (4.30-5.90) m/uL Hgb 9.3 L (13.0-17.5) gm/dL Hct 28.7 L (39.0-53.0) % Plt Count 66 L (150-450) k/uL Lymphocytes # (Manual) 0.58 L (1.0-4.8) k/uL Monocytes # (Manual) 1.28 H (0-1.0) k/uL Metamyelocytes # (Man) (0) k/uL Myelocytes # (Manual) 0.19 H (0) k/uL PT (9.0-12.0) sec INR (<1.2) Sodium 135 L (137-145) mmol/L Glucose 134 H (74-99) mg/dL POC Glucose (mg/dL) (75-99) mg/dL Hemoglobin A1c 6.8 H (4.0-6.0) % Calcium 8.3 L (8.4-10.2) mg/dL Total Protein 5.6 L (6.3-8.2) g/dL Albumin 3.2 L (3.5-5.0) g/dL 03/15/18 03/15/18 Range/Units 05:40 05:40 RBC (4.30-5.90) m/uL Hgb (13.0-17.5) gm/dL Hct (39.0-53.0) % Plt Count (150-450) k/uL Lymphocytes # (Manual) (1.0-4.8) k/uL Monocytes # (Manual) (0-1.0) k/uL Metamyelocytes # (Man) (0) k/uL Myelocytes # (Manual) (0) k/uL PT 21.2 H (9.0-12.0) sec INR 2.4 H (<1.2) Sodium 131 L (137-145) mmol/L Glucose 125 H (74-99) mg/dL POC Glucose (mg/dL) (75-99) mg/dL Hemoglobin A1c (4.0-6.0) % Calcium 8.1 L (8.4-10.2) mg/dL Total Protein (6.3-8.2) g/dL Albumin (3.5-5.0) g/dL Assessment and Plan (1) Acute ischemic left MCA stroke Current Visit: Yes Status: Acute Code(s): I63.512 - CEREB INFRC D/T UNSP OCCLS OR STENOS OF LEFT MID CEREB ART SNOMED Code(s): 924324070 (2) Atrial fibrillation Current Visit: No Status: Acute Code(s): I48.91 - UNSPECIFIED ATRIAL FIBRILLATION SNOMED Code(s): 59366761 (3) Asthma Current Visit: Yes Status: Acute Code(s): J45.909 - UNSPECIFIED ASTHMA, UNCOMPLICATED SNOMED Code(s): 458994118 Plan: This patient is a 87-year-old right-handed white male who was admitted to hospital with symptoms of acute TIA versus stroke. He was evaluated by the neuro interventional illness and was not felt to be a candidate for TPA. He underwent MRI of the brain on 03/14/2018 which revealed evidence of an old left occipital stroke. There was no evidence for acute or evolving stroke on the MRI. Patient had a recurrent bout of unresponsiveness and possible recurrent TIA and stroke yesterday evening. Code stroke was initiated but he was not a candidate for TPA intervention. Today he continues to show slight improvement in his overall neurological status. His symptoms suggest possibility of TIA. He is to continue on Coumadin and aspirin for long-term anticoagulation. We will continue to follow his progress closely during this admission. He will likely require ECF placement due to his multiple complex medical issues. His overall prognosis at this time remains guarded. We will await further recommendations from multiple specialists that her following this patient as well. As noted his overall prognosis remains guarded.
[2018-03-16] MEDS: predniSONE 5 MG TAB PO SCH ×2 (09:31→23:14)
[2018-03-16] MEDS: ASPIRIN 325 MG TAB PO SCH (09:31)
[2018-03-16] MEDS: PIPERACILLIN-TAZOBACTAM 3.375 GM in DEXTROSE/WATER 1 50ML.BAG IVPB SCH ×2 (09:31→16:32)
[2018-03-16] MEDS: DILTIAZEM CD 120 MG CAP.ER.24H PO SCH (09:31)
[2018-03-16] MEDS: METOPROLOL TARTRATE 50 MG TAB PO SCH ×2 (09:31→23:13)
[2018-03-16] MEDS: VIT A,C & E-LUTEIN-MINERALS 1 EACH TAB PO SCH (12:02)
[2018-03-16] MEDS: MULTIVITAMINS, THERA 1 EACH TAB PO SCH (12:02)
[2018-03-16] MEDS: CALCIUM CARB-VIT D 500MG-200UN 1 EACH TAB PO SCH (12:02)
[2018-03-16] MEDS: ASCORBIC ACID 500 MG TAB PO SCH (12:02)
[2018-03-16] MEDS ORDERED: FUROSEMIDE 10 MG/ML 2 ML VIAL IV ONE (13:15)
--- NOTE | 2018-03-16 15:23 | PN ---
PROGRESS NOTE DATE OF SERVICE: 03/16/2018. REASON FOR FOLLOWUP: 1. Aspiration pneumonia. 2. Bacteremia. INTERVAL HISTORY: The patient is afebrile. He seemed to be more awake and alert today. He is breathing comfortably. He still had some rattling of the lung and is coughing up some sputum. Did mention he provided sputum sample. The patient denies having any chest pain. No nausea, vomiting. No abdominal pain and no diarrhea. EXAMINATION: Blood pressure 102/63 with a pulse of 79, temperature 97.9. He is 94% on 2 L nasal cannula. General description is an elderly male lying in bed in no distress. RESPIRATORY SYSTEM: Unlabored breathing. The patient's wheezing was noted, but no crackles. HEART: S1, S2. Regular rate and rhythm. ABDOMEN: Soft, no tenderness. EXTREMITIES: No edema feet. LABS: Hemoglobin 8.6, white count 10.4, BUN of 13, creatinine 0.74. Blood cultures with gram- positive cocci. Sputum culture currently pending. DIAGNOSTIC IMPRESSION AND PLAN: Patient with sepsis with concern for possible aspiration pneumonia. The patient currently covered with Zosyn and the vancomycin that will be continued, waiting for the final ID of the gram-positive in the blood as well as sputum culture finalized. Blood culture has been repeated to document clearance of his bacteremia. Plan of care discussed with the family present at bedside. Their questions were answered. MMODL / IJN: [id number] /
[2018-03-16] MEDS: PROCHLORPERAZINE 10 MG TAB PO PRN (18:00)
[2018-03-16] MEDS: WARFARIN 3 MG TAB PO SCH (18:00)
--- NOTE | 2018-03-16 20:50 | PN ---
PROGRESS NOTE DATE OF SERVICE: 03/16/2018. INTERVAL HISTORY: This 87-year-old gentleman admitted with acute stroke also had features of sepsis. Infectious disease is following the patient closely. The possibility of aspiration pneumonia is suspected. The patient had preliminary blood culture growing gram- positive cocci. The patient also had tiredness and weakness and cough yesterday. Sputum was also noted. Chest x-ray also noted. PAST MEDICAL HISTORY: Reviewed. REVIEW OF SYSTEMS: CARDIOVASCULAR: No angina. RESPIRATORY: As mentioned earlier. GI: No nausea or vomiting. No dysuria. Central nervous system: As mentioned earlier. CURRENT MEDICATIONS: Reviewed and include: 1. DuoNeb q.i.d. and p.r.n. 2. Xanax 0.25 q.h.s. 3. Vitamin C 500 daily. 4. Aspirin 320 mg daily. 5. Lipitor 20 mg. 6. Symbicort 1 b.i.d. 7. Os-Valdemar with vitamin D 1 p.o. daily. 8. Cardizem CD 120 mg daily. 9. Cardura 8 mg p.o. daily. 10.Lexapro 10 mg. 11.Ativan 1 mg b.i.d. 12.Lopressor 50 mg p.o. b.i.d. 13.Vancomycin IV. 14.I-Kiki. 15.Zofran. 16.Protonix. 17.Zosyn IV. 18.Prednisone 5 mg p.o. b.i.d. 19.Compazine_. 20.Coumadin 4.25 mg Saturday, Saturday, , Saturday and 6 mg Saturday, Saturday, Saturday. PHYSICAL EXAMINATION: The patient is alert and oriented x3. Pulse is 79, blood pressure 108/60, respirations 18, temperature 97.2, pulse ox 94% on 2 L. HEENT is conjunctivae normal. Oral mucosa moist. Neck is no jugular venous distention. Cardiovascular: S1, S2 muffled. Respiratory: Breath sounds diminished in the bases. A few rhonchi. No crackles. ABDOMEN: Soft, nontender. No mass palpable. Legs: No edema and no swelling. NERVOUS SYSTEM: Higher functions as mentioned earlier. Diffuse weakness present. Skin: No ulcers, rashes or bleeding. Joints: No active deforming arthropathy. LABS: WBC 10.2, hemoglobin is 8.6, INR is 2.5. Sodium 134. Cultures are pending. Influenza is negative. ASSESSMENT: 1. Acute stroke involving the left hemisphere causing dysphagia as well as right upper lobe motor neuron facial droop, facial palsy with minimal right upper limb weakness, present on admission. 2. Possible sepsis with secondary from aspiration pneumonia. 3. Pancytopenia, possibly secondary to chemotherapy. 4. 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 5. Prostate cancer with metastatic cancer on chemo. 6. Hyponatremia. 7. Hypokalemia, mild. 8. History atrial fibrillation. 9. History of asthma. 10.History of chronic obstructive pulmonary disease. 11.History of deep vein thrombosis. 12.History of gastrointestinal bleed. 13.Hypertension. 14.Hyperlipidemia. 15.History of memory impairment. 16.History of myocardial infarction. 17.History degenerative joint disease. 18.Thrombocytopenia. RECOMMENDATIONS AND DISCUSSION: Recommend to continue current medications, management and symptomatic treatment. Otherwise, at this time, I recommend continue with broad-spectrum IV antibiotics. Continue with rest of the medications. DVT prophylaxis. Continue the bronchodilators. Closely follow with Infectious Disease. Guarded prognosis because of multiple complex medical issues. further recommendations to follow. See orders for details. INR is 2.5 today. MMODL / IJN: [id number] / BOWEN
[2018-03-16] MEDS: ESCITALOPRAM 10 MG TAB PO SCH (23:13)
[2018-03-16] MEDS: ATORVASTATIN 20 MG TAB PO SCH (23:13)
[2018-03-16] MEDS: MONTELUKAST 10 MG TAB PO SCH (23:13)
[2018-03-16] MEDS: DOXAZOSIN 4 MG TAB PO SCH (23:13)
[2018-03-16] MEDS: ALPRAZolam 0.25 MG TAB PO PRN (23:26)
[2018-03-17] MEDS: PIPERACILLIN-TAZOBACTAM 3.375 GM in DEXTROSE/WATER 1 50ML.BAG IVPB SCH ×3 (00:05→17:33)
[2018-03-17] MEDS ORDERED: VANCOMYCIN TROUGH DUE 1 EACH MISC MISCELLANE ONE (05:00)
[2018-03-17 06:04] LABS: HCT 28.2 % (39.0-53.0); Hypochromasia Slight; MCH 29.2 pg (25.0-35.0); MCV 91.1 fL (80.0-100.0); Mean Platelet Volume 9.4; RBC 3.09 m/uL (4.30-5.90); RDW 15.1 % (11.5-15.5); WBC 19.6 k/uL (3.8-10.6)
[2018-03-17 06:08] LABS: Platelet Count 64 k/uL (150-450)
[2018-03-17] MEDS: PANTOPRAZOLE 40 MG TABLET PO SCH (06:09)
[2018-03-17] MEDS: VANCOMYCIN 1,500 MG in SODIUM CHLORIDE 0.9% 250 ML IVPB SCH (06:12)
[2018-03-17 06:13] LABS: INR 3.4 (<1.2); Prothrombin Time 30.9 sec (9.0-12.0)
[2018-03-17 06:17] LABS: Anion Gap 5 mmol/L; Blood Urea Nitrogen 9 mg/dL (9-20); Calcium 7.5 mg/dL (8.4-10.2); Carbon Dioxide 28 mmol/L (22-30); Chloride 103 mmol/L (98-107); Glucose 106 mg/dL (74-99); Potassium 3.8 mmol/L (3.5-5.1); Sodium 136 mmol/L (137-145)
[2018-03-17 06:29] LABS: Nucleated Red Blood Cells 0 /100 WBC (0-0)
[2018-03-17 06:30] LABS: Large Platelets Present; Poikilocytosis (M) Present; Polychromasia Present
[2018-03-17 07:27] LABS: Band Neutrophils % 8 %; Lymphocytes # (M) 0.59 k/uL (1.0-4.8); Metamyelocytes # (M) 1.76 k/uL (0); Metamyelocytes % 9 %; Monocytes # (M) 1.57 k/uL (0-1.0); Myelocytes # (M) 2.16 k/uL (0); Myelocytes % 11 %; Neutrophils % (M) 62 %; Promyelocytes % 1 %; Total Cells Counted 200
[2018-03-17 07:41] LABS: Metamyelocytes # (M) 1.14 k/uL (0); Metamyelocytes % 11 %; Monocytes # (M) 0.31 k/uL (0-1.0); Myelocytes # (M) 1.46 k/uL (0); Myelocytes % 14 %
[2018-03-17] MEDS: SYMBICORT 80-4.5 MCG INHALER INHALATION SCH (07:59)
[2018-03-17] MEDS: DILTIAZEM CD 120 MG CAP.ER.24H PO SCH (08:25)
[2018-03-17] MEDS: ASPIRIN 325 MG TAB PO SCH (08:25)
[2018-03-17] MEDS: METOPROLOL TARTRATE 50 MG TAB PO SCH ×2 (08:25→22:06)
[2018-03-17] MEDS ORDERED: POLYETHYLENE GLYCOL 3350 17 GM POWD.PACK PO PRN (10:47)
--- NOTE | 2018-03-17 10:47 | P.PN ---
Subjective Progress Note Date: 03/17/18 Principal diagnosis: on treatment for prostate adenocarcinoma Pt seen in f/u, he can ambulate short distances, has no appetite, denies fever, nausea, dysphagia, he is SOB on exertion, thinks he may be constipated, no pain to report this AM. Objective - Vital Signs Vital signs: Vital Signs Temp 96.5 F L 03/17/18 08:00 Pulse 76 03/17/18 08:00 Resp 18 03/17/18 04:00 BP 127/75 03/17/18 08:00 Pulse Ox 97 03/17/18 08:00 Intake & Output 03/16/18 03/17/18 03/17/18 18:59 06:59 18:59 Intake Total 360 610 Output Total 900 200 Balance -540 -200 610 Weight 98.7 kg Intake: Intake, IV Titration 250 Amount Vancomycin 1,500 mg In 250 Sodium Chloride 0.9% 250 ml @ 125 mls/hr IVPB Q12H [facility] Rx#:[id number] Oral 360 360 Output: Urine 900 200 Other: Voiding Method Urinal Urinal Incontinent Incontinent # Voids 1 1 2 - Constitutional General appearance: Present: cooperative, no acute distress, obese - EENT Eyes: Present: anicteric sclerae ENT: Present: normal oropharynx - Respiratory Respiratory: bilateral: rales (end expiratory) - Cardiovascular Heart sounds: normal: S1, S2 - Peripheral edema leg Peripheral Edema: bilateral: 1+, Pitting - Gastrointestinal General gastrointestinal: Present: normal bowel sounds, soft - Integumentary Integumentary: Present: pale - Neurologic Neurologic: Present: CNII-XII intact - Musculoskeletal Musculoskeletal: Present: generalized weakness, strength equal bilaterally - Psychiatric Psychiatric: Present: A&O x's 3, appropriate affect, intact judgment & insight - Labs CBC & Chem 7: 03/17/18 05:50 03/17/18 05:50 Labs: Abnormal Lab Results - Last 24 Hours (Table) 03/16/18 03/17/18 03/17/18 Range/Units 06:09 05:50 05:50 WBC 19.6 H (3.8-10.6) k/uL RBC 3.09 L (4.30-5.90) m/uL Hgb 9.0 L (13.0-17.5) gm/dL Hct 28.2 L (39.0-53.0) % Plt Count 64 L (150-450) k/uL Neutrophils # (Manual) 13.70 H (1.3-7.7) k/uL Lymphocytes # (Manual) 0.10 L 0.59 L (1.0-4.8) k/uL Monocytes # (Manual) 1.57 H (0-1.0) k/uL Metamyelocytes # (Man) 1.14 H 1.76 H (0) k/uL Myelocytes # (Manual) 1.46 H 2.16 H (0) k/uL Promyelocytes # (Man) 0.10 H 0.20 H (0) k/uL Blast Cells # (Man) 0.20 H (0) k/uL PT 30.9 H (9.0-12.0) sec INR 3.4 H (<1.2) Sodium (137-145) mmol/L Glucose (74-99) mg/dL Calcium (8.4-10.2) mg/dL 03/17/18 Range/Units 05:50 WBC (3.8-10.6) k/uL RBC (4.30-5.90) m/uL Hgb (13.0-17.5) gm/dL Hct (39.0-53.0) % Plt Count (150-450) k/uL Neutrophils # (Manual) (1.3-7.7) k/uL Lymphocytes # (Manual) (1.0-4.8) k/uL Monocytes # (Manual) (0-1.0) k/uL Metamyelocytes # (Man) (0) k/uL Myelocytes # (Manual) (0) k/uL Promyelocytes # (Man) (0) k/uL Blast Cells # (Man) (0) k/uL PT (9.0-12.0) sec INR (<1.2) Sodium 136 L (137-145) mmol/L Glucose 106 H (74-99) mg/dL Calcium 7.5 L (8.4-10.2) mg/dL Microbiology - Last 24 Hours (Table) 03/15/18 13:59 Blood Culture Gram Stain - Preliminary Blood Blood Culture - Preliminary Presumptive Staph aureus 03/16/18 09:45 Urine Culture - Preliminary Urine,Voided 03/15/18 04:10 Gram Stain - Preliminary Sputum 03/15/18 13:59 Blood Culture - Final Blood - Imaging and Cardiology CT Scan - head: report reviewed Assessment and Plan (1) Prostate carcinoma Narrative/Plan: S/P chemotherapy. Dose may need to be adjusted to minimize hematological toxicities. This will be reviewed in the outpatient setting Current Visit: No Status: Acute Priority: High Code(s): C61 - MALIGNANT NEOPLASM OF PROSTATE SNOMED Code(s): 484932797 (2) Thrombocytopenia Narrative/Plan: Secondary to chemotherapy for prostate adeno. Close monitoring. Administer platelets if count is <50,000 as pt requires full dose anticoagulation and is on antiplatelet therapy. Current Visit: Yes Status: Acute Priority: High Code(s): D69.6 - THROMBOCYTOPENIA, UNSPECIFIED SNOMED Code(s): 441511498 (3) Anemia aplastic aregenerative Narrative/Plan: Secondary to chemo, no transfusion today, CBC daily. Current Visit: Yes Status: Acute Priority: High Code(s): D61.9 - APLASTIC ANEMIA, UNSPECIFIED SNOMED Code(s): 420870997 Plan: TIA-management per Neurology. Pt does not appear to have residual deficit. Pt has stool softeners and lax PRN
[2018-03-17] MEDS: ASCORBIC ACID 500 MG TAB PO SCH (12:37)
[2018-03-17] MEDS: CALCIUM CARB-VIT D 500MG-200UN 1 EACH TAB PO SCH (12:37)
[2018-03-17] MEDS: VIT A,C & E-LUTEIN-MINERALS 1 EACH TAB PO SCH (12:37)
[2018-03-17] MEDS: SENNOSIDES 8.6 MG TAB PO SCH (12:37)
[2018-03-17] MEDS: predniSONE 5 MG TAB PO SCH (12:37)
[2018-03-17] MEDS: MULTIVITAMINS, THERA 1 EACH TAB PO SCH (12:37)
--- NOTE | 2018-03-17 15:36 | PN ---
PROGRESS NOTE DATE OF SERVICE: 03/17/2018 This is an 87-year-old gentleman admitted with acute stroke, also had features of sepsis. Patient also had neutropenia, present on admission. Currently, patient 's WBC is increased. Patient also complaining of some cough and some hemoptysis also. No chest pain, no palpitation. Cough and sputum was also reported. Patient on broad spectrum IV antibiotics. Infectious Disease and Hematology/Oncology following the patient closely. PAST MEDICAL HISTORY: Reviewed. REVIEW OF SYSTEMS: CARDIOVASCULAR: No angina. RESPIRATION: As mentioned earlier. GI: As mentioned earlier. : No dysuria. NERVOUS SYSTEM: As mentioned earlier. CURRENT MEDICATIONS ARE REVIEWED/INCLUDE:: 1. DuoNeb q.i.d. and p.r.n. 2. Xanax 0.5 q.h.s. 3. Vitamin C 500 mg daily. 4. Aspirin 325 mg daily. 5. Lipitor 10 mg q.h.s. 6. Symbicort 80/4.5 two puffs b.i.d. 7. Os-Valdemar with vitamin D 1 p.o. daily. 8. Cardizem CD 120 mg p.o. daily. 9. Cardura 8 mg p.o. q.h.s. 10.Lexapro 10 mg q.h.s. 11.Ativan 1 mg p.r.n. 12.Lopressor 50 mg p.o. b.i.d. 13.Singular 10 mg q.h.s. 15.I-Kiki. 16.Zofran q.6 p.r.n. 17.Protonix 40 mg daily. 18.MiraLAX. 19.Prednisone 5 mg p.o. b.i.d. 20.Compazine. 21.Senokot 8.6 p.o. daily. 22.Ultram 50 mg q.4 p.r.n. 23.Coumadin 4.5 mg Saturday, Saturday, , Saturday. 24.Coumadin 6 mg p.o. Saturday, Saturday, Saturday. PHYSICAL EXAM: Patient is alert, oriented x3. blood pressure 130/78, respiration 18, temperature 97.9, pulse ox 94% on 2 L. HEENT: Conjunctivae normal, oral mucosa moist. Neck is no jugular venous distention. No carotid bruit, no lymph node enlargement. CARDIOVASCULAR SYSTEM: S1,S2, muffled. RESPIRATION: Breath sounds diminished at the bases., a few scattered rhonchi, no crackles. ABDOMEN: Soft, nontender. No mass palpable. LEGS: No edema, no swelling. NERVOUS SYSTEM: Higher functions as mentioned earlier. Moves all four limbs. No focal deficits. SKIN: No ulcers, rashes, bleeding. LABS: WBC is 19.2, hemoglobin is 9. Otherwise, sodium is 136. INR 1.3, negative. The blood cultures are presumptive Staph aureus. ASSESSMENT: 1. Acute stroke involving the left hemisphere causing dysphagia, as well as right upper lobe motor neuron lesion and facial droop on the right side with minimal right upper lobe weakness, present on admission. 2. Possible sepsis present on admission. 3. Possible aspiration pneumonia. 4. Staphylococcus aureus presumptively from the blood. 5. Pancytopenia, possibly secondary to chemotherapy. 6. Old left occipital infarct, cortical infarct, history of prostate cancer with metastatic cancer on chemotherapy. 7. Hyponatremia. 8. Hypokalemia, mild. 9. Atrial fibrillation. 10.History of asthma. 11.History of chronic obstructive pulmonary disease. 12.History of deep vein thrombosis. 13.History of gastrointestinal bleed. 14.Hypertension. 15.Hyperlipidemia. 16.Memory impairment. 17.History of myocardial infarction. 18.History of degenerative joint disease. 19.History of thrombocytopenia. RECOMMENDATION: Recommend to continue current medications and symptomatic treatment. Continue with the bronchodilators, continue empiric antibiotics. Continue with the vancomycin, otherwise pulmonary evaluation. Other than that, I would also recommend follow the cultures and evaluate the idea of final organisms. Prognosis guarded because of multiple complex medical issues. Further recommendations to follow. MMODL / IJN: [id number] / [facility] HOSPITALPedro
[2018-03-17] MEDS: IPRATROPIUM-ALBUTEROL 3 ML NEB INHALATION PRN ×2 (16:28→20:40)
[2018-03-17] MEDS: WARFARIN 3 MG TAB PO SCH (17:34)
--- NOTE | 2018-03-17 20:34 | CONS ---
CONSULTATION Rowan Calderon is an 87-year-old male who presented to the ED at [facility] with left-sided facial numbness and weakness. He also had some difficulty speaking. He denies any choking on any of his food. He was seen in the ER, admitted for further evaluation. He has a history of prostate cancer and had been undergoing chemotherapy. He denied any fever or chills. He has been having progressive worsening shortness of breath along with cough and some sputum production. Sputum does not have any color to it. He has had no fever while he was in the hospital. Pulmonary consultation is placed because of the possibility of aspiration pneumonia. PAST MEDICAL HISTORY: 1. Severe asthma. 2. COPD. 3. History of prostate cancer. 4. History of DVT. 5. GI bleed. 6. Hypertension. 7. Some memory impairment. 8. Hyperlipidemia. FAMILY HISTORY: Positive for coronary artery disease. SOCIAL HISTORY: Patient used to smoke in the past. Does not drink alcohol excessively. MEDICATIONS PRIOR TO ADMISSION: 1. Montelukast. 2. Lexapro. 3. Lipitor. 4. Coumadin. 5. Xanax. 6. Ultram. 7. Prednisone. 8. Terazosin. 9. Compazine. 10.Multivitamin. 11.Metoprolol. 12.Albuterol with ipratropium. 13.Diltiazem. 14.Budesonide with formoterol. 15.Ascorbic acid. 16.Calcium carbonate. REVIEW OF SYSTEMS: Noncontributory. PHYSICAL EXAMINATION: Patient is sitting in a chair. He is mildly short of breath. His oxygen saturation on room air is only 90%. Blood pressure is 119/69, respiratory rate of 26, pulse rate of 83, temperature 96.5 degrees Fahrenheit. HEENT reveals pupils that are equal. Chest reveals decreased breath sounds. Prolonged expiration with expiratory wheeze. Cardiovascular system is in S1, S2. No S3, no S4. ABDOMEN: Soft. There is no pedal edema. Patient has no focal neurological deficit. LABS/IMAGING: White count is 19.6, hemoglobin of 9, platelet count of 64,000. Chest x-ray from 03/15/2018 shows patchy density in the right lung base. IMPRESSION AT THIS TIME: 1. Severe asthma with acute exacerbation. 2. Chronic obstructive pulmonary disease. 3. Aspiration pneumonia with new infiltrate in the right lung base. 4. Cerebrovascular accident versus transient ischemic attack. 5. History of prostate cancer, status post chemotherapy. At this point in time from a pulmonary standpoint, would continue the patient on Zosyn and vancomycin. He did grow presumptive Staph aureus from blood culture from 03/15/2018. Would discontinue his prednisone and start him on IV Solu-Medrol 60 mg IV push q.6. Keep him on montelukast. Discontinue the Symbicort and start him on Pulmicort by aerosol. Have Physical Medicine and Rehab further evaluate the patient. Increase his activity level. We will follow him closely during his hospital stay and appreciate the opportunity to participate in his care. He was counseled regarding his condition in the presence of his family and has a fair understanding of our recommendations. I would like to thank you for allowing me the privilege of participating in his care. RALPH / ERIK: [id number] /
[2018-03-17] MEDS: BUDESONIDE 0.5 MG/2 ML NEBU INHALATION SCH (20:40)
[2018-03-17] MEDS ORDERED: MONTELUKAST 10 MG TAB PO SCH (21:00)
[2018-03-17] MEDS: traMADol 50 MG TAB PO PRN (22:03)
[2018-03-17] MEDS: VANCOMYCIN 1,750 MG in SODIUM CHLORIDE 0.9% 500 ML IVPB SCH (22:04)
[2018-03-17] MEDS: methylPREDNISolone SOD SUCCI 125 MG/2 ML VIAL IV SCH (22:05)
[2018-03-17] MEDS: DOXAZOSIN 4 MG TAB PO SCH (22:05)
[2018-03-17] MEDS: ATORVASTATIN 20 MG TAB PO SCH (22:05)
[2018-03-17] MEDS: ESCITALOPRAM 10 MG TAB PO SCH (22:06)
[2018-03-17] MEDS: MONTELUKAST 10 MG TAB PO SCH (22:07)
--- NOTE | 2018-03-17 22:42 | PN ---
PROGRESS NOTE DATE OF SERVICE: 03/17/2018. REASON FOR FOLLOWUP VISIT: Pneumonia and bacteremia. INTERVAL HISTORY: The patient is afebrile. He has been breathing more comfortably. Denies significant chest pain. He did have a cough, now decreased intensity. No nausea, vomiting. No abdominal pain, no diarrhea. EXAMINATION: Blood pressure is 127/75 with a pulse of 73, temperature 96.5, pulse ox 97% 2 L nasal cannula. General description is an elderly male lying in bed in no distress. RESPIRATORY SYSTEM: Unlabored breathing. Some coarse breath sounds at the bases. No wheeze. HEART: S1, S2. Regular rate and rhythm. ABDOMEN: Soft, no tenderness. LABS: His white count is slightly elevated at 19.6 today. Blood is Staph aureus sensitivities pending. Sputum culture currently pending. DIAGNOSTIC IMPRESSION AND PLAN: Patient with a component of sepsis and pneumonia likely aspiration etiology. Also with evidence of Staph aureus bacteremia. Repeat blood culture has been negative so far, although will keep the patient on vancomycin and Zosyn while waiting for the culture to finalize. Continue supportive care. MMODL / IJN: [id number] /
[2018-03-18] MEDS: PIPERACILLIN-TAZOBACTAM 3.375 GM in DEXTROSE/WATER 1 50ML.BAG IVPB SCH ×4 (00:30→19:28)
[2018-03-18] MEDS: methylPREDNISolone SOD SUCCI 125 MG/2 ML VIAL IV SCH ×3 (00:30→14:23)
[2018-03-18 05:54] LABS: INR 3.6 (<1.2); Prothrombin Time 32.4 sec (9.0-12.0)
[2018-03-18 05:58] LABS: Anion Gap 6 mmol/L; Blood Urea Nitrogen 7 mg/dL (9-20); Calcium 7.8 mg/dL (8.4-10.2); Carbon Dioxide 28 mmol/L (22-30); Chloride 103 mmol/L (98-107); Glucose 85 mg/dL (74-99); Potassium 3.5 mmol/L (3.5-5.1); Sodium 137 mmol/L (137-145)
[2018-03-18] MEDS: PANTOPRAZOLE 40 MG TABLET PO SCH (06:14)
--- NOTE | 2018-03-18 06:20 | P.CONS ---
History of Present Illness - Chief Complaint Gait disturbance - History of Present Illness I had the opportunity to see patient for inpatient rehab consultation with regard to gait disturbance. He was admitted to [facility] March 13 acute onset confusion and right-sided weakness. Seen by Dr. Pedro Toure for left-sided stroke with right hemiparesthesias. Seen by Dr. Hamilton for known prostate cancer. Head CT's angiogram CTs done and demonstrates atrophy as well as minimal atherosclerosis. Chest x-rays followed for CHF and an increasing right lower lobe infiltrate. PT reports supervision for mobility including 150 feet with roller walker. OT reports modified independent for upper dressing and supervision with bathing lower dressing and toileting. Previous functional history as elicited patient: 87-year-old right-handed white male who is lives in a first-floor of a 2 floor home. Retired. Describes independent with cooking, laundry, driving. Does eat out. Reports that standing shower and has a standard cane which is not used. Denies smoking in his trace alcohol. Should note that patient actually presented with to the emergency room. Patient reports his Drs. Brooklyn Wolf but chart indicates Dr. Presley. Family medical history father was a smoker. Review of Systems Review of systems: ENT: Denies sneezes or discharge. Eyes: Denies discharge or photophobia. Cardiac: Denies chest pain or palpitation. Pulmonary: Denies cough or shortness of breath. Gastrointestinal: Denies nausea, emesis, constipation, diarrhea. Genitourinary: Denies discharge or frequency. Musculoskeletal: Denies muscle or bone aches. Neurologic: Denies motor or sensory change. Endocrine: Denies shakes or sweats. Oncology: Denies cancers. Dermatologic: Denies rash, itching, pruritus. ALLERGY/immunology: Denies sneezes, rashes. 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 past gi bleed lower bowel pt stated it was from the past radiation tx- it was cauterized.. Last Myocardial Infarction Date:: UNK History of Any Multi-Drug Resistant Organisms: None Reported Past Surgical History: Heart Catheterization Additional Past Surgical History / Comment(s): VASECTOMY, PROSTATE BX TOMMY CATARACTS, RT EYE LASER SX, skin ca removed. Past Anesthesia/Blood Transfusion Reactions: No Reported Reaction Past Psychological History: No Psychological Hx Reported Additional Psychological History / Comment(s): pt lives alone. uses cane when up and has a walker to use if needed. Smoking Status: Former smoker Past Alcohol Use History: Rare Additional Past Alcohol Use History / Comment(s): STARTED SMOKING AT AGE 16(1945 ), WAS SMOKING 2 PPD. QUIT 1992 Past Drug Use History: None Reported - Past Family History Mother Additional Family Medical History / Comment(s): RHEUMATIC FEVER- HEART VALVE DAMAGE- AGE 45 Father Family Medical History: Coronary Artery Disease (CAD) Additional Family Medical History / Comment(s): AGE 93 HEART PROBLEMS Medications and Allergies Home Medications Medication Instructions Recorded Confirmed Type Calcium Carbonate/Vitamin D3 1 tab PO DAILY 01/29/17 03/13/18 History [Calcium 600-Vit D3 400 Caplet] Diltiazem HCl [Diltiazem 24Hr ER] 120 mg PO Q24HR 01/29/17 03/13/18 History Escitalopram [Lexapro] 10 mg PO HS 01/29/17 03/13/18 History Ipratropium-Albuterol Nebulize 3 ml INHALATION RT-QID PRN 01/29/17 03/13/18 History [Duoneb 0.5 mg-3 mg/3 ml Soln] Metoprolol Tartrate [Lopressor] 50 mg PO BID 01/29/17 03/13/18 History Montelukast [Singulair] 10 mg PO HS 01/29/17 03/13/18 History Multivitamins, Thera [Multivitamin 1 tab PO DAILY 01/29/17 03/13/18 History (formulary)] Terazosin HCl 5 mg PO BID 01/29/17 03/13/18 History Budesonide/Formoterol Fumarate 2 puff INHALATION RT-BID 12/06/17 03/13/18 History [Symbicort 80-4.5 Mcg Inhaler] EPINEPHrine (Auto Inject) [Epipen] 0.3 mg IM ONCE PRN 12/06/17 03/13/18 History ALPRAZolam [Xanax] 0.25 mg PO HS PRN 03/13/18 03/13/18 History Ascorbic Acid [Vitamin C] 500 mg PO DAILY 03/13/18 03/13/18 History Atorvastatin [Lipitor] 20 mg PO HS 03/13/18 03/13/18 History Prochlorperazine [Compazine] 10 mg PO Q6H PRN 03/13/18 03/13/18 History Vit C/E/Zn/Coppr/Lutein/Zeaxan 1 cap PO DAILY 03/13/18 03/13/18 History [Preservision Areds 2 Softgel] Warfarin [Coumadin] 4.5 mg PO SUTUTHSA 03/13/18 03/13/18 History Warfarin [Coumadin] 6 mg PO MOWEFR 03/13/18 03/13/18 History predniSONE 5 mg PO BID 03/13/18 03/13/18 History traMADol HCL [Ultram] 50 mg PO Q4HR PRN 03/13/18 03/13/18 History Allergies Allergy/AdvReac Type Severity Reaction Status Date / Time No Known Allergies Allergy Verified 03/13/18 15:54 Physical Exam Vitals: Vital Signs Temp Pulse Pulse Resp BP Pulse Ox 03/18/18 04:00 97.8 F 84 18 133/90 93 L 03/18/18 00:00 97.8 F 97 18 125/66 92 L 03/17/18 20:49 80 03/17/18 20:40 76 03/17/18 20:00 98.0 F 73 18 133/73 96 03/17/18 16:37 88 03/17/18 16:28 88 03/17/18 16:00 87 140/76 94 L 03/17/18 12:00 83 119/69 90 L 03/17/18 08:00 96.5 F L 76 127/75 97 Intake and Output 03/17/18 03/17/18 03/18/18 14:59 22:59 06:59 Intake Total 970 286 Output Total 300 600 Balance 670 286 -600 Intake: Intake, IV Titration 250 50 Amount Piperacillin-Tazobactam 3 50 .375 gm In Dextrose/Water 1 50ml.bag @ 12.5 mls/hr IVPB Q8HR [facility] Rx#: [id number] Vancomycin 1,500 mg In 250 Sodium Chloride 0.9% 250 ml @ 125 mls/hr IVPB Q12H [facility] Rx#:[id number] Oral 720 236 Output: Urine 300 600 Other: Voiding Method Urinal Urinal Incontinent Incontinent # Voids 2 2 Weight 99.6 kg Skin: Atrophic, intact. General: Overweight build and comfortable appearance. Head: Normocephalic, atraumatic. Eyes: Symmetric. Pupils equal round. Ears: Symmetric. Hearing within normal limits. Mouth: Clear. Neck: Supple. Carotid without bruit. Cardiac: Regular rate and rhythm. Lungs: Clear anteriorly and posteriorly. Abdomen: Soft active nontender. Extremities: Normal tone. Neurological: Mental status: Alert, cooperative, pleasant. Cranial nerves: Symmetric facial tone and trapezius. Motor: Normal strength and isolation all 4 limbs. I note 4+/5 left hand and ankle. Sensation: Intact throughout. DTRs: Symmetric and equal throughout. Mobility: Sits without assistance or loss of balance. Results CBC & Chem 7: 03/17/18 05:50 03/18/18 05:12 Labs: Abnormal Lab Results - Last 24 Hours (Table) 03/16/18 03/17/18 03/17/18 Range/Units 06:09 05:50 05:50 Neutrophils # (Manual) 13.70 H (1.3-7.7) k/uL Lymphocytes # (Manual) 0.10 L 0.59 L (1.0-4.8) k/uL Monocytes # (Manual) 1.57 H (0-1.0) k/uL Metamyelocytes # (Man) 1.14 H 1.76 H (0) k/uL Myelocytes # (Manual) 1.46 H 2.16 H (0) k/uL Promyelocytes # (Man) 0.10 H 0.20 H (0) k/uL Blast Cells # (Man) 0.20 H (0) k/uL PT (9.0-12.0) sec INR (<1.2) Sodium 136 L (137-145) mmol/L BUN (9-20) mg/dL Glucose 106 H (74-99) mg/dL Calcium 7.5 L (8.4-10.2) mg/dL 03/18/18 03/18/18 Range/Units 05:12 05:12 Neutrophils # (Manual) (1.3-7.7) k/uL Lymphocytes # (Manual) (1.0-4.8) k/uL Monocytes # (Manual) (0-1.0) k/uL Metamyelocytes # (Man) (0) k/uL Myelocytes # (Manual) (0) k/uL Promyelocytes # (Man) (0) k/uL Blast Cells # (Man) (0) k/uL PT 32.4 H (9.0-12.0) sec INR 3.6 H (<1.2) Sodium (137-145) mmol/L BUN 7 L (9-20) mg/dL Glucose (74-99) mg/dL Calcium 7.8 L (8.4-10.2) mg/dL Microbiology - Last 24 Hours (Table) 03/15/18 13:59 Blood Culture Gram Stain - Final Blood Blood Culture - Final Staphylococcus aureus 03/16/18 14:09 Blood Culture - Preliminary Blood No Growth after 24 hours 03/16/18 09:45 Urine Culture - Final Urine,Voided 03/15/18 04:10 Gram Stain - Preliminary Sputum Sputum Culture - Preliminary Assessment and Plan (1) Acute ischemic left MCA stroke Current Visit: Yes Status: Acute Code(s): I63.512 - CEREB INFRC D/T UNSP OCCLS OR STENOS OF LEFT MID CEREB ART SNOMED Code(s): 123500929 Plan: Impression: 1. Gait disturbance. 2. Left MCA stroke result in right hemiparesthesias. 3. Prostate cancer. 4. Active fibrillation. 5. Hypertension. 6. Dyslipidemia. 7. Osteoarthritis. 8. COPD/asthma. 9. History of AR, DVT, GI bleed. 10. Memory impairment. Comments and plan: At this time PT and OT are ongoing. Speech therapy ordered. PT and OT however reports the patient is supervision level for basic self- care tasks and mobility. This is technically too good for inpatient rehab. We' ll continue to follow with yourself.
[2018-03-18] MEDS: VANCOMYCIN 1,750 MG in SODIUM CHLORIDE 0.9% 500 ML IVPB SCH ×2 (08:41→18:23)
[2018-03-18] MEDS: ASPIRIN 325 MG TAB PO SCH (08:43)
[2018-03-18] MEDS: SENNOSIDES 8.6 MG TAB PO SCH (08:44)
[2018-03-18] MEDS: DILTIAZEM CD 120 MG CAP.ER.24H PO SCH (08:44)
[2018-03-18] MEDS: METOPROLOL TARTRATE 50 MG TAB PO SCH ×2 (08:44→21:25)
[2018-03-18] MEDS: IPRATROPIUM-ALBUTEROL 3 ML NEB INHALATION PRN (08:56)
[2018-03-18] MEDS: BUDESONIDE 0.5 MG/2 ML NEBU INHALATION SCH ×2 (08:56→19:40)
[2018-03-18 08:58] LABS: HCT 26.3 % (39.0-53.0); HGB 8.3 gm/dL (13.0-17.5); Hypochromasia Moderate; MCH 28.6 pg (25.0-35.0); MCHC 31.5 g/dL (31.0-37.0); MCV 90.7 fL (80.0-100.0); Mean Platelet Volume 10.9; RDW 15.4 % (11.5-15.5); WBC 23.3 k/uL (3.8-10.6)
[2018-03-18 09:04] LABS: Platelet Count 70 k/uL (150-450)
--- NOTE | 2018-03-18 10:11 | P.PN ---
<EmmaMarce E - Last Filed: 03/18/18 10:36> Subjective Progress Note Date: 03/18/18 HPI: Chun waldron is a 87-year-old male who presented to the ED at [facility] with left sided facial numbness and weakness. He also had some difficulty speaking. He denies any choking on any of his food. He was seen in the ER, admitted for further evaluation. He has a history of prostate cancer and has been undergoing chemotherapy. He denied any fevers or chills. He has been having progressive worsening shortness of breath along with cough and some sputum production. Sputum does not have any color to it. He has had no fever while he was in the hospital. Pulmonary consultation is placed because of the possibility of aspiration pneumonia. Interval history: 03/18/2018patient is being seen examined and evaluated today on rounds. Patient currently has a WBC count of 23.3 which could possibly be related to initiating Solu-Medrol yesterday. He continues and chemo precautions. He is resting up in bedside chair on room air. He states he does get short of breath with exertion. He also has a cough and has had some hemoptysis which he states has been intermittently ongoing for a few months now. He states the breathing treatments and steroids have been helping him. We will get a repeat sputum culture and initiate incentive spirometer. He denies any fevers or chills. Objective - Vital Signs Vital signs: Vital Signs Temp 97.8 F 03/18/18 04:00 Pulse 80 03/18/18 09:11 Resp 18 03/18/18 04:00 BP 133/90 03/18/18 04:00 Pulse Ox 93 L 03/18/18 04:00 Intake & Output 03/17/18 03/18/18 03/18/18 18:59 06:59 18:59 Intake Total 1256 Output Total 300 600 600 Balance 956 -600 -600 Weight 99.6 kg Intake: Intake, IV Titration 300 Amount Piperacillin-Tazobactam 3 50 .375 gm In Dextrose/Water 1 50ml.bag @ 12.5 mls/hr IVPB Q8HR MIKE Rx#: [id number] Vancomycin 1,500 mg In 250 Sodium Chloride 0.9% 250 ml @ 125 mls/hr IVPB Q12H MIKE Rx#:[id number] Oral 956 Output: Urine 300 600 600 Other: Voiding Method Urinal Incontinent # Voids 2 2 - Exam GENERAL EXAM: Alert, active, comfortable in no apparent distress. HEAD: Normocephalic. EYES: Normal reaction of pupils, equal size. NOSE: Clear with pink turbinates. THROAT: No erythema or exudates. NECK: No masses, no JVD. CHEST: No chest wall deformity. LUNGS: Chest reveals decreased breath sounds more so on the right. Prolonged expiration with expiratory wheeze. CVS: S1 and S2 normal with no audible mumurs, regular rhythm. ABDOMEN: No hepatosplenomegaly, normal bowel sounds, no guarding or rigidity. EXTREMITIES: +1 edema noted, pedal pulses palpable. CENTRAL NERVOUS SYSTEM: No focal deficits, tone is normal in all 4 extremities. - Labs CBC & Chem 7: 03/18/18 05:12 03/18/18 05:12 Labs: Abnormal Lab Results - Last 24 Hours (Table) 03/18/18 03/18/18 03/18/18 Range/Units 05:12 05:12 05:12 WBC 23.3 H (3.8-10.6) k/uL RBC 2.90 L (4.30-5.90) m/uL Hgb 8.3 L (13.0-17.5) gm/dL Hct 26.3 L (39.0-53.0) % Plt Count 70 L (150-450) k/uL PT 32.4 H (9.0-12.0) sec INR 3.6 H (<1.2) BUN 7 L (9-20) mg/dL Calcium 7.8 L (8.4-10.2) mg/dL Microbiology - Last 24 Hours (Table) 03/15/18 13:59 Blood Culture Gram Stain - Final Blood Blood Culture - Final Staphylococcus aureus 03/16/18 14:09 Blood Culture - Preliminary Blood No Growth after 24 hours 03/16/18 09:45 Urine Culture - Final Urine,Voided 03/15/18 04:10 Gram Stain - Preliminary Sputum Sputum Culture - Preliminary Assessment and Plan Assessment: Assessment Chronic severe persistent asthma with acute exacerbation COPD Aspiration pneumonia with new infiltrate in the right lung base CVA versus TIA History of prostate cancer status post chemotherapy Hemoptysisintermittent Plan Medications have been reviewed and will be continued as ordered. Continue on Zosyn and vancomycin, ID on consult Solu-Medrol taper Repeat sputum culture Initiate and encourage incentive spirometer Continue with pulmonary hygiene, coughing and deep breathing exercises, and supportive care. Supplemental oxygen to maintain oxygen saturations of 92% or better. Continue nebulizer treatments, DuoNeb and budesonide. GI and DVT prophylaxis. Heme/onc on consult Neuro on consult Increase activity as tolerated PT and OT, inpatient rehab on consult We will continue to monitor labs/results and adjust treatment as necessary. Further recommendations pending. I performed an examination of the patient and discussed their management with the nurse practitioner. I have reviewed the nurse practitioner's note and agree with the documented findings and plan of care. <Poornima Birch A - Last Filed: 03/18/18 13:13> Objective - Vital Signs Vital signs: Vital Signs Temp 97.1 F L 03/18/18 09:27 Pulse 88 03/18/18 12:57 Resp 17 03/18/18 09:36 BP 122/67 03/18/18 09:27 Pulse Ox 93 L 03/18/18 09:27 Intake & Output 03/17/18 03/18/18 03/18/18 18:59 06:59 18:59 Intake Total 1256 360 Output Total 300 600 600 Balance 956 -600 -240 Weight 99.6 kg Intake: Intake, IV Titration 300 Amount Piperacillin-Tazobactam 3 50 .375 gm In Dextrose/Water 1 50ml.bag @ 12.5 mls/hr IVPB Q8HR MIKE Rx#: [id number] Vancomycin 1,500 mg In 250 Sodium Chloride 0.9% 250 ml @ 125 mls/hr IVPB Q12H MIKE Rx#:[id number] Oral 956 360 Output: Urine 300 600 600 Other: Voiding Method Urinal Incontinent # Voids 2 2 - Labs CBC & Chem 7: 03/18/18 05:12 03/18/18 05:12 Labs: Abnormal Lab Results - Last 24 Hours (Table) 03/18/18 03/18/18 03/18/18 Range/Units 05:12 05:12 05:12 WBC 23.3 H (3.8-10.6) k/uL RBC 2.90 L (4.30-5.90) m/uL Hgb 8.3 L (13.0-17.5) gm/dL Hct 26.3 L (39.0-53.0) % Plt Count 70 L (150-450) k/uL Neutrophils # (Manual) 16.30 H (1.3-7.7) k/uL Lymphocytes # (Manual) 0.70 L (1.0-4.8) k/uL Metamyelocytes # (Man) 2.56 H (0) k/uL Myelocytes # (Manual) 3.50 H (0) k/uL Promyelocytes # (Man) 0.23 H (0) k/uL PT 32.4 H (9.0-12.0) sec INR 3.6 H (<1.2) BUN 7 L (9-20) mg/dL POC Glucose (mg/dL) (75-99) mg/dL Calcium 7.8 L (8.4-10.2) mg/dL 03/18/18 Range/Units 12:02 WBC (3.8-10.6) k/uL RBC (4.30-5.90) m/uL Hgb (13.0-17.5) gm/dL Hct (39.0-53.0) % Plt Count (150-450) k/uL Neutrophils # (Manual) (1.3-7.7) k/uL Lymphocytes # (Manual) (1.0-4.8) k/uL Metamyelocytes # (Man) (0) k/uL Myelocytes # (Manual) (0) k/uL Promyelocytes # (Man) (0) k/uL PT (9.0-12.0) sec INR (<1.2) BUN (9-20) mg/dL POC Glucose (mg/dL) 175 H (75-99) mg/dL Calcium (8.4-10.2) mg/dL Microbiology - Last 24 Hours (Table) 03/15/18 04:10 Gram Stain - Preliminary Sputum Sputum Culture - Preliminary Gram Neg Bacilli 03/15/18 13:59 Blood Culture Gram Stain - Final Blood Blood Culture - Final Staphylococcus aureus 03/16/18 14:09 Blood Culture - Preliminary Blood No Growth after 24 hours 03/16/18 09:45 Urine Culture - Final Urine,Voided Assessment and Plan Assessment: Patient seen and examined. Patient complaining of hemoptysis that comes and goes over the past few months. He states it will get better with steroids but it always comes back. CTA of the chest is reviewed. Will plan for bronchoscopy 03/20/2018 at 1400. Continue ABX, Duonebs, Pulmicort. Sputum culture pending. ~Poornima Birch,
[2018-03-18 11:28] LABS: Band Neutrophils % 7 %; Metamyelocytes # (M) 2.56 k/uL (0); Metamyelocytes % 11 %; Monocytes # (M) 0.47 k/uL (0-1.0); Myelocytes % 15 %; Neutrophils % (M) 63 %; Nucleated Red Blood Cells 0 /100 WBC (0-0); Promyelocytes # (M) 0.23 k/uL (0); Promyelocytes % 1 %; Total Cells Counted 200
[2018-03-18 11:30] LABS: Poikilocytosis (M) Present; Polychromasia Present
[2018-03-18 12:08] LABS: Glucose,Whole Blood 175 mg/dL (75-99)
[2018-03-18] MEDS: IPRATROPIUM-ALBUTEROL 3 ML NEB INHALATION SCH ×3 (12:41→19:39)
[2018-03-18] MEDS ORDERED: LIDOCAINE 2% (PF) 20 MG/ML 2 ML AMP INHALATION ONE (13:05)
[2018-03-18] MEDS: VIT A,C & E-LUTEIN-MINERALS 1 EACH TAB PO SCH (13:21)
[2018-03-18] MEDS: predniSONE 20 MG TAB PO SCH (13:21)
[2018-03-18] MEDS: CALCIUM CARB-VIT D 500MG-200UN 1 EACH TAB PO SCH (13:21)
[2018-03-18] MEDS: MULTIVITAMINS, THERA 1 EACH TAB PO SCH (13:43)
[2018-03-18] MEDS: ASCORBIC ACID 500 MG TAB PO SCH (13:43)
[2018-03-18 16:39] LABS: Glucose,Whole Blood 271 mg/dL (75-99)
[2018-03-18] MEDS: WARFARIN 3 MG TAB PO SCH (16:52)
--- NOTE | 2018-03-18 17:18 | P.PN ---
Subjective Progress Note Date: 03/18/18 Principal diagnosis: on treatment for prostate adenocarcinoma Patient seen in follow-up. He is due for cycle 2 of Taxotere next week for his prostate cancer. He does not appear to have any residual effects from CVA, he is on Zosyn and Vanco for positive blood cultures. Patient states he's had rather persistent cough/pneumonia, occasional small amounts of hemoptysis, no other bleeding to report. He thinks his breathing is getting a little better, cough a little less, no fevers, nausea, appetite is decent, he is getting back and forth to the bathroom with standby assist. He does tired easily, he is denying any pain. Objective - Vital Signs Vital signs: Vital Signs Temp 98.9 F 03/18/18 16:39 Pulse 77 03/18/18 16:39 Resp 17 03/18/18 16:39 BP 110/70 03/18/18 16:39 Pulse Ox 96 03/18/18 16:39 Intake & Output 03/17/18 03/18/18 03/18/18 18:59 06:59 18:59 Intake Total 1256 600 Output Total 300 600 600 Balance 956 -600 0 Weight 99.6 kg Intake: Intake, IV Titration 300 Amount Piperacillin-Tazobactam 3 50 .375 gm In Dextrose/Water 1 50ml.bag @ 12.5 mls/hr IVPB Q8HR MIKE Rx#: [id number] Vancomycin 1,500 mg In 250 Sodium Chloride 0.9% 250 ml @ 125 mls/hr IVPB Q12H MIKE Rx#:[id number] Oral 956 600 Output: Urine 300 600 600 Other: Voiding Method Urinal Incontinent # Voids 2 2 - Constitutional General appearance: Present: cooperative, no acute distress, obese - EENT Eyes: Present: EOMI ENT: Present: normal oropharynx - Respiratory Respiratory: bilateral: rales (anterior) - Cardiovascular Heart sounds: normal: S1, S2 - Peripheral edema leg Peripheral Edema: bilateral: Trace - Gastrointestinal General gastrointestinal: Present: normal bowel sounds, soft - Neurologic Neurologic Comment(s): mild unilateral weakness - Musculoskeletal Musculoskeletal: Present: strength equal bilaterally - Psychiatric Psychiatric: Present: A&O x's 3, appropriate affect, intact judgment & insight - Labs CBC & Chem 7: 03/18/18 05:12 03/18/18 05:12 Labs: Abnormal Lab Results - Last 24 Hours (Table) 03/18/18 03/18/18 03/18/18 Range/Units 05:12 05:12 05:12 WBC 23.3 H (3.8-10.6) k/uL RBC 2.90 L (4.30-5.90) m/uL Hgb 8.3 L (13.0-17.5) gm/dL Hct 26.3 L (39.0-53.0) % Plt Count 70 L (150-450) k/uL Neutrophils # (Manual) 16.30 H (1.3-7.7) k/uL Lymphocytes # (Manual) 0.70 L (1.0-4.8) k/uL Metamyelocytes # (Man) 2.56 H (0) k/uL Myelocytes # (Manual) 3.50 H (0) k/uL Promyelocytes # (Man) 0.23 H (0) k/uL PT 32.4 H (9.0-12.0) sec INR 3.6 H (<1.2) BUN 7 L (9-20) mg/dL POC Glucose (mg/dL) (75-99) mg/dL Calcium 7.8 L (8.4-10.2) mg/dL 03/18/18 03/18/18 Range/Units 12:02 16:37 WBC (3.8-10.6) k/uL RBC (4.30-5.90) m/uL Hgb (13.0-17.5) gm/dL Hct (39.0-53.0) % Plt Count (150-450) k/uL Neutrophils # (Manual) (1.3-7.7) k/uL Lymphocytes # (Manual) (1.0-4.8) k/uL Metamyelocytes # (Man) (0) k/uL Myelocytes # (Manual) (0) k/uL Promyelocytes # (Man) (0) k/uL PT (9.0-12.0) sec INR (<1.2) BUN (9-20) mg/dL POC Glucose (mg/dL) 175 H 271 H (75-99) mg/dL Calcium (8.4-10.2) mg/dL Microbiology - Last 24 Hours (Table) 03/16/18 14:09 Blood Culture - Preliminary Blood No Growth after 48 hours 03/15/18 04:10 Gram Stain - Preliminary Sputum Sputum Culture - Preliminary Gram Neg Bacilli 03/15/18 13:59 Blood Culture Gram Stain - Final Blood Blood Culture - Final Staphylococcus aureus 03/16/18 09:45 Urine Culture - Final Urine,Voided Assessment and Plan (1) Prostate carcinoma Narrative/Plan: S/P chemotherapy, first cycle of Taxotere with GCS-F on February 04. Dose will be adjusted to minimize hematological and physical toxicities. Patient was happy to hear this plan, he agrees. He is anxious to rehabilitate and move forward with treatment for his prostate cancer. Current Visit: No Status: Acute Priority: High Code(s): C61 - MALIGNANT NEOPLASM OF PROSTATE SNOMED Code(s): 707012424 (2) Thrombocytopenia Narrative/Plan: Patient's platelets have remained greater than 60,000 so, patient has remained on his antiplatelet therapy, anticoagulation was held due to supratherapeutic INR. Current Visit: Yes Status: Acute Priority: High Code(s): D69.6 - THROMBOCYTOPENIA, UNSPECIFIED SNOMED Code(s): 936811509 (3) Anemia aplastic aregenerative Narrative/Plan: Secondary to chemo. no transfusion today Did review patient's medical record here and from the office, I do not see iron studies, these will be ordered to further workup patient's anemia. Current Visit: Yes Status: Acute Priority: High Code(s): D61.9 - APLASTIC ANEMIA, UNSPECIFIED SNOMED Code(s): 612112483 (4) Neutrophilic leukocytosis Narrative/Plan: Patient received granulocyte colony-stimulating factor on the eighth, which today is just about perfect timing for the increase in neutrophils (10 days). No acute intervention, continue to monitor differential for persistent or progressive changes Current Visit: Yes Status: Acute Priority: High Code(s): D72.9 - DISORDER OF WHITE BLOOD CELLS, UNSPECIFIED SNOMED Code(s): 953740199 (5) Warfarin-induced coagulopathy Narrative/Plan: Reviewed medical record/reports. Plan is for pt to have bronchoscopy with pulmonary in 2 days to evaluate persistent hemoptysis. Discussed case with pulmonary ARMATURE TESTER. Communication order to hold aspirin and Coumadin until post bronchoscopy entered. INR in the a.m., vitamin K to be administered if INR not decreasing enough for prior to procedure. Discussed briefly with RN. Current Visit: Yes Status: Acute Priority: High Code(s): D68.9 - COAGULATION DEFECT, UNSPECIFIED; T45.515A - ADVERSE EFFECT OF ANTICOAGULANTS, INITIAL ENCOUNTER SNOMED Code(s): 94214076
[2018-03-18] MEDS: INSULIN ASPART 100 UNIT/ML 1 ML 10 ML VIAL SQ SCH ×3 (17:30→21:29)
[2018-03-18 20:25] LABS: Glucose,Whole Blood 214 mg/dL (75-99)
[2018-03-18] MEDS: ATORVASTATIN 20 MG TAB PO SCH (21:24)
[2018-03-18] MEDS: DOXAZOSIN 4 MG TAB PO SCH (21:24)
[2018-03-18] MEDS: ESCITALOPRAM 10 MG TAB PO SCH (21:25)
[2018-03-18] MEDS: MONTELUKAST 10 MG TAB PO SCH (21:26)
--- NOTE | 2018-03-18 23:00 | PN ---
PROGRESS NOTE DATE OF SERVICE: 03/18/2018. REASON FOR FOLLOWUP: 1. MSSA bacteremia. 2. Pneumonia with sputum showing gram-negative. INTERVAL HISTORY: The patient is afebrile. He is breathing comfortably, still has significant purulent secretions with hemoptysis. No chest pain. No nausea or vomiting. No abdominal pain and no diarrhea. EXAMINATION: Blood pressure 148/95 with pulse of 86, temperature 97.3. He is 93% on room air. General description is an elderly male up in the chair in no distress. RESPIRATORY SYSTEM: Unlabored breathing. Coarse breath sounds in the bases. No wheeze. HEART: S1, S2. Regular rate and rhythm. ABDOMEN: Soft. No tenderness. EXTREMITIES: No edema of feet. LABS: Hemoglobin 8.8, white count up to 23.3 with a BUN of 7, creatinine 0.73. Blood culture with MSSA repeat has been negative. Sputum, however, showing a gram-negative. DIAGNOSTIC IMPRESSION AND PLAN: Patient with Staphylococcus aureus bacteremia, concern for possible pneumonia with concern for aspiration pneumonia. However, sputum is showing gram-negative compared to blood, which is gram-positive. We are waiting for the final identification of the gram- negative to adjust the medication. Also noticed to have some jump in white count, which more likely due to steroids, which have been discontinued. Hopefully, white count should show a downward trend. Will re-evaluate the patient tomorrow. Continue with supportive care. RALPH / ERIK: [id number] /
[2018-03-19] MEDS: PIPERACILLIN-TAZOBACTAM 3.375 GM in DEXTROSE/WATER 1 50ML.BAG IVPB SCH ×2 (00:29→09:16)
[2018-03-19] MEDS ORDERED: VANCOMYCIN TROUGH DUE 1 EACH MISC MISCELLANE ONE (05:00)
[2018-03-19 06:25] LABS: Anion Gap 10 mmol/L; Blood Urea Nitrogen 10 mg/dL (9-20); Calcium 8.2 mg/dL (8.4-10.2); Carbon Dioxide 26 mmol/L (22-30); Chloride 104 mmol/L (98-107); Glucose 107 mg/dL (74-99); Potassium 4.1 mmol/L (3.5-5.1); Sodium 140 mmol/L (137-145)
[2018-03-19 06:26] LABS: INR 2.7 (<1.2); Prothrombin Time 24.6 sec (9.0-12.0)
[2018-03-19 06:58] LABS: Glucose,Whole Blood 117 mg/dL (75-99)
[2018-03-19] MEDS: INSULIN ASPART 100 UNIT/ML 1 ML 10 ML VIAL SQ SCH ×4 (08:31→22:39)
[2018-03-19] MEDS: BUDESONIDE 0.5 MG/2 ML NEBU INHALATION SCH ×2 (08:32→20:07)
[2018-03-19] MEDS: IPRATROPIUM-ALBUTEROL 3 ML NEB INHALATION SCH ×4 (08:32→20:07)
[2018-03-19] MEDS: VANCOMYCIN 1,750 MG in SODIUM CHLORIDE 0.9% 500 ML IVPB SCH (08:42)
[2018-03-19] MEDS ORDERED: LIDOCAINE 2% (PF) 20 MG/ML 2 ML AMP INHALATION ONE (09:00)
[2018-03-19] MEDS: SENNOSIDES 8.6 MG TAB PO SCH (09:17)
[2018-03-19] MEDS: PANTOPRAZOLE 40 MG TABLET PO SCH (09:17)
[2018-03-19] MEDS: DILTIAZEM CD 120 MG CAP.ER.24H PO SCH (09:18)
[2018-03-19] MEDS: predniSONE 20 MG TAB PO SCH (09:18)
[2018-03-19] MEDS: METOPROLOL TARTRATE 50 MG TAB PO SCH ×2 (09:18→22:41)
--- NOTE | 2018-03-19 09:58 | P.PN ---
<Marce Carter E - Last Filed: 03/19/18 09:55> Subjective Progress Note Date: 03/19/18 HPI: Chun waldron is a 87-year-old male who presented to the ED at [facility] with left sided facial numbness and weakness. He also had some difficulty speaking. He denies any choking on any of his food. He was seen in the ER, admitted for further evaluation. He has a history of prostate cancer and has been undergoing chemotherapy. He denied any fevers or chills. He has been having progressive worsening shortness of breath along with cough and some sputum production. Sputum does not have any color to it. He has had no fever while he was in the hospital. Pulmonary consultation is placed because of the possibility of aspiration pneumonia. Interval history: 03/18/2018patient is being seen examined and evaluated today on rounds. Patient currently has a WBC count of 23.3 which could possibly be related to initiating Solu-Medrol yesterday. He continues and chemo precautions. He is resting up in bedside chair on room air. He states he does get short of breath with exertion. He also has a cough and has had some hemoptysis which he states has been intermittently ongoing for a few months now. He states the breathing treatments and steroids have been helping him. We will get a repeat sputum culture and initiate incentive spirometer. He denies any fevers or chills. 03/19/2018patient is being seen examined and evaluated today on rounds. He continues on room air and still has hemoptysis. His INR today is 2.7. His Coumadin and aspirin were held yesterday. He is scheduled for a bronchoscopy tomorrow. They procedure risk class complications have been discussed with the patient's and all questions have been answered. He is willing to go forth with the procedure. He continues on prednisone 40 mg at this time. He states the breathing treatments are also helping him. He did have an EEG and those results are pending. He is afebrile and has no further complaints. Objective - Vital Signs Vital signs: Vital Signs Temp 97 F L 03/19/18 05:57 Pulse 77 03/19/18 08:46 Resp 18 03/19/18 05:57 BP 133/92 03/19/18 05:57 Pulse Ox 92 L 03/19/18 05:57 Intake & Output 03/18/18 03/19/18 03/19/18 18:59 06:59 18:59 Intake Total 840 500 Output Total 600 425 Balance 240 75 Weight 99.6 kg Intake: Intake, IV Titration 500 Amount Vancomycin 1,750 mg In 500 Sodium Chloride 0.9% 500 ml @ 166.667 mls/hr IVPB Q12H MIKE Rx#:[id number] Oral 840 Output: Urine 600 425 Other: Voiding Method Urinal # Voids 2 2 - Exam GENERAL EXAM: Alert, active, comfortable in no apparent distress. HEAD: Normocephalic. EYES: Normal reaction of pupils, equal size. NOSE: Clear with pink turbinates. THROAT: No erythema or exudates. NECK: No masses, no JVD. CHEST: No chest wall deformity. LUNGS: Chest reveals decreased breath sounds more so on the right. Prolonged expiration with expiratory wheeze. CVS: S1 and S2 normal with no audible mumurs, regular rhythm. ABDOMEN: No hepatosplenomegaly, normal bowel sounds, no guarding or rigidity. EXTREMITIES: +1 edema noted, pedal pulses palpable. CENTRAL NERVOUS SYSTEM: No focal deficits, tone is normal in all 4 extremities. - Labs CBC & Chem 7: 03/18/18 05:12 03/19/18 05:48 Labs: Abnormal Lab Results - Last 24 Hours (Table) 03/18/18 03/18/18 03/18/18 Range/Units 05:12 12:02 16:37 Neutrophils # (Manual) 16.30 H (1.3-7.7) k/uL Lymphocytes # (Manual) 0.70 L (1.0-4.8) k/uL Metamyelocytes # (Man) 2.56 H (0) k/uL Myelocytes # (Manual) 3.50 H (0) k/uL Promyelocytes # (Man) 0.23 H (0) k/uL PT (9.0-12.0) sec INR (<1.2) Glucose (74-99) mg/dL POC Glucose (mg/dL) 175 H 271 H (75-99) mg/dL Calcium (8.4-10.2) mg/dL 03/18/18 03/19/18 03/19/18 Range/Units 20:24 05:48 05:48 Neutrophils # (Manual) (1.3-7.7) k/uL Lymphocytes # (Manual) (1.0-4.8) k/uL Metamyelocytes # (Man) (0) k/uL Myelocytes # (Manual) (0) k/uL Promyelocytes # (Man) (0) k/uL PT 24.6 H (9.0-12.0) sec INR 2.7 H (<1.2) Glucose 107 H (74-99) mg/dL POC Glucose (mg/dL) 214 H (75-99) mg/dL Calcium 8.2 L (8.4-10.2) mg/dL 03/19/18 Range/Units 06:56 Neutrophils # (Manual) (1.3-7.7) k/uL Lymphocytes # (Manual) (1.0-4.8) k/uL Metamyelocytes # (Man) (0) k/uL Myelocytes # (Manual) (0) k/uL Promyelocytes # (Man) (0) k/uL PT (9.0-12.0) sec INR (<1.2) Glucose (74-99) mg/dL POC Glucose (mg/dL) 117 H (75-99) mg/dL Calcium (8.4-10.2) mg/dL Microbiology - Last 24 Hours (Table) 03/16/18 14:09 Blood Culture - Preliminary Blood No Growth after 48 hours 03/15/18 04:10 Gram Stain - Preliminary Sputum Sputum Culture - Preliminary Gram Neg Bacilli Assessment and Plan Assessment: Assessment Chronic severe persistent asthma with acute exacerbation COPD Aspiration pneumonia with new infiltrate in the right lung base CVA versus TIA History of prostate cancer status post chemotherapy Hemoptysisintermittent Plan Patient is scheduled for a bronchoscopy on 03/20/2018 Case is discussed with heme/onc FR[employer]ICE HELP Medications have been reviewed and will be continued as ordered. Continue on Zosyn and vancomycin, ID on consult Prednisone taper Repeat sputum culture Initiate and encourage incentive spirometer Continue with pulmonary hygiene, coughing and deep breathing exercises, and supportive care. Supplemental oxygen to maintain oxygen saturations of 92% or better. Continue nebulizer treatments, DuoNeb and budesonide. GI and DVT prophylaxis. Heme/onc on consult Neuro on consult Increase activity as tolerated PT and OT, inpatient rehab on consult We will continue to monitor labs/results and adjust treatment as necessary. Further recommendations pending. I performed an examination of the patient and discussed their management with the nurse practitioner. I have reviewed the nurse practitioner's note and agree with the documented findings and plan of care. <Poornima Birch A - Last Filed: 03/19/18 14:02> Objective - Vital Signs Vital signs: Vital Signs Temp 97.1 F L 03/19/18 12:11 Pulse 78 03/19/18 11:52 Resp 22 03/19/18 12:11 BP 135/78 03/19/18 12:11 Pulse Ox 99 03/19/18 12:11 Intake & Output 03/18/18 03/19/18 03/19/18 18:59 06:59 18:59 Intake Total 840 500 240 Output Total 600 425 275 Balance 240 75 -35 Weight 99.6 kg Intake: Intake, IV Titration 500 Amount Vancomycin 1,750 mg In 500 Sodium Chloride 0.9% 500 ml @ 166.667 mls/hr IVPB Q12H MIKE Rx#:[id number] Oral 840 240 Output: Urine 600 425 275 Other: Voiding Method Urinal Toilet Urinal # Voids 2 2 - Labs CBC & Chem 7: 03/19/18 05:48 03/19/18 05:48 Labs: Abnormal Lab Results - Last 24 Hours (Table) 03/18/18 03/18/18 03/19/18 Range/Units 16:37 20:24 05:48 WBC (3.8-10.6) k/uL RBC (4.30-5.90) m/uL Hgb (13.0-17.5) gm/dL Hct (39.0-53.0) % Plt Count (150-450) k/uL Neutrophils # (Manual) (1.3-7.7) k/uL Lymphocytes # (Manual) (1.0-4.8) k/uL Monocytes # (Manual) (0-1.0) k/uL Metamyelocytes # (Man) (0) k/uL Myelocytes # (Manual) (0) k/uL PT (9.0-12.0) sec INR (<1.2) Glucose (74-99) mg/dL POC Glucose (mg/dL) 271 H 214 H (75-99) mg/dL Calcium (8.4-10.2) mg/dL Ferritin 932.4 H (22.0-322.0) ng/mL Vitamin B12 3150.0 H (200.0-944.0) pg/mL 03/19/18 03/19/18 03/19/18 Range/Units 05:48 05:48 05:48 WBC 34.8 H (3.8-10.6) k/uL RBC 3.09 L (4.30-5.90) m/uL Hgb 8.7 L (13.0-17.5) gm/dL Hct 28.0 L (39.0-53.0) % Plt Count 80 L (150-450) k/uL Neutrophils # (Manual) 27.10 H (1.3-7.7) k/uL Lymphocytes # (Manual) 0.35 L (1.0-4.8) k/uL Monocytes # (Manual) 1.04 H (0-1.0) k/uL Metamyelocytes # (Man) 3.13 H (0) k/uL Myelocytes # (Manual) 3.48 H (0) k/uL PT 24.6 H (9.0-12.0) sec INR 2.7 H (<1.2) Glucose 107 H (74-99) mg/dL POC Glucose (mg/dL) (75-99) mg/dL Calcium 8.2 L (8.4-10.2) mg/dL Ferritin (22.0-322.0) ng/mL Vitamin B12 (200.0-944.0) pg/mL 03/19/18 03/19/18 Range/Units 06:56 11:40 WBC (3.8-10.6) k/uL RBC (4.30-5.90) m/uL Hgb (13.0-17.5) gm/dL Hct (39.0-53.0) % Plt Count (150-450) k/uL Neutrophils # (Manual) (1.3-7.7) k/uL Lymphocytes # (Manual) (1.0-4.8) k/uL Monocytes # (Manual) (0-1.0) k/uL Metamyelocytes # (Man) (0) k/uL Myelocytes # (Manual) (0) k/uL PT (9.0-12.0) sec INR (<1.2) Glucose (74-99) mg/dL POC Glucose (mg/dL) 117 H 163 H (75-99) mg/dL Calcium (8.4-10.2) mg/dL Ferritin (22.0-322.0) ng/mL Vitamin B12 (200.0-944.0) pg/mL Microbiology - Last 24 Hours (Table) 03/15/18 13:59 Blood Culture Gram Stain - Final Blood Blood Culture - Final Staphylococcus aureus 03/16/18 14:09 Blood Culture - Preliminary Blood No Growth after 48 hours 03/15/18 04:10 Gram Stain - Preliminary Sputum Sputum Culture - Preliminary Gram Neg Bacilli Assessment and Plan Assessment: Patient seen and examined. Patient is agreeable to proceed with bronchoscopy for recurrent hemoptysis. INR in AM. Will proceed with bronch if INR < or = 2.0. ABX per ID. Hold Coumadin and ASA. Monitor platelet count closely. ~Poornima Birch,
[2018-03-19 10:21] LABS: HGB 8.7 gm/dL (13.0-17.5); Hypochromasia Moderate; MCH 28.2 pg (25.0-35.0); MCHC 31.2 g/dL (31.0-37.0); MCV 90.6 fL (80.0-100.0); Mean Platelet Volume 10.3; RBC 3.09 m/uL (4.30-5.90); RDW 15.5 % (11.5-15.5); WBC 34.8 k/uL (3.8-10.6)
[2018-03-19 10:24] LABS: Platelet Count 80 k/uL (150-450)
[2018-03-19 10:46] LABS: Band Neutrophils % 10 %; Lymphocytes # (M) 0.35 k/uL (1.0-4.8); Metamyelocytes # (M) 3.13 k/uL (0); Metamyelocytes % 9 %; Monocytes # (M) 1.04 k/uL (0-1.0); Myelocytes # (M) 3.48 k/uL (0); Myelocytes % 10 %; Neutrophils % (M) 68 %; Nucleated Red Blood Cells 0 /100 WBC (0-0); Total Cells Counted 200
[2018-03-19 10:47] LABS: Polychromasia Present
[2018-03-19 10:48] LABS: Toxic Granulation Present
[2018-03-19 11:08] LABS: Iron Saturation 23.93 (15.00-50.00)
[2018-03-19 11:43] LABS: Glucose,Whole Blood 163 mg/dL (75-99)
[2018-03-19] MEDS: VIT A,C & E-LUTEIN-MINERALS 1 EACH TAB PO SCH (12:42)
[2018-03-19] MEDS: ASCORBIC ACID 500 MG TAB PO SCH (12:43)
[2018-03-19] MEDS: MULTIVITAMINS, THERA 1 EACH TAB PO SCH (12:43)
[2018-03-19] MEDS: CALCIUM CARB-VIT D 500MG-200UN 1 EACH TAB PO SCH (12:43)
--- NOTE | 2018-03-19 15:23 | PN ---
PROGRESS NOTE DATE OF SERVICE: 03/19/2018 REASON FOR FOLLOWUP: MSSA bacteremia and a gram-negative pneumonia. INTERVAL HISTORY: The patient is currently afebrile. He is breathing comfortably. The patient continued to have hemoptysis, but denies having any chest pain. No nausea, vomiting. No abdominal pain and no diarrhea. PHYSICAL EXAMINATION: Blood pressure is 135/78 with a pulse of 78, temperature 97.1. He is 99% on room air. General description is an elderly male, up in the bed in no distress. RESPIRATORY SYSTEM: Unlabored breathing with decreased breath sounds in the bases, no wheeze. HEART: S1, S2. Regular rate and rhythm. ABDOMEN: Soft, no tenderness. EXTREMITIES: No edema of the feet. LABS: Hemoglobin 8.7, white count of 24.8 with a BUN of 10, creatinine 0.77. DIAGNOSTIC IMPRESSION/PLAN: 1. Patient with a complaint of aspiration pneumonia, now with sputum showing a gram negative, ID sensitivities is pending. However, the blood culture has been finalized with methicillin-sensitive Staphylococcus aureus. Ideally would have used cefazolin 2 g q.8 hours for his bacteremia. However, in view of the concurrent gram-negative seen in the sputum that needs to be covered, will switch the antibiotic therapy to cefepime 2 g q.12 while waiting for the sputum culture to finalize. 2. Patient's jump in the white count more likely related to steroid which has been discontinued. The patient does not seem to have showing any worsening of his clinical condition. The patient will be monitored closely. Continue supportive care. MMODL / IJN: [id number] /
[2018-03-19] MEDS: CEFEPIME 2 GM in SODIUM CHLORIDE 0.9% 50 ML IVPB SCH ×2 (15:26→22:51)
--- NOTE | 2018-03-19 16:24 | P.PN ---
Subjective Progress Note Date: 03/18/18 Progress note being dictated for Dr. Hansen. Interval history: This a 87-year-old gentleman admitted with acute CVA, neutropenia, sepsis with MSSA bacteremia and multiple other medical issues. Maintained on vancomycin and Zosyn as per ID. Repeat blood cultures pending. Afebrile, increased WBC,23.3. Tenacious sputum with intermittent minimal hemoptysis reported. Sputum culture reporting gram-negative bacilli. INR 3.6. Hemoglobin 8.3. Denies nausea or vomiting. Ambulating in hallway, tolerated exertion well. Denies chest pain, palpitations. Objective - Vital Signs Vital signs: Vital Signs Temp 97.1 F L 03/18/18 09:27 Pulse 80 03/18/18 09:27 Resp 17 03/18/18 09:36 BP 122/67 03/18/18 09:27 Pulse Ox 93 L 03/18/18 09:27 Intake & Output 03/17/18 03/18/18 03/18/18 18:59 06:59 18:59 Intake Total 1256 360 Output Total 300 600 600 Balance 956 -600 -240 Weight 99.6 kg Intake: Intake, IV Titration 300 Amount Piperacillin-Tazobactam 3 50 .375 gm In Dextrose/Water 1 50ml.bag @ 12.5 mls/hr IVPB Q8HR [facility] Rx#: [id number] Vancomycin 1,500 mg In 250 Sodium Chloride 0.9% 250 ml @ 125 mls/hr IVPB Q12H [facility] Rx#:[id number] Oral 956 360 Output: Urine 300 600 600 Other: Voiding Method Urinal Incontinent # Voids 2 2 - Exam PHYSICAL EXAM: VITAL SIGNS: As above GENERAL: Sitting up in chair, no acute distress HEENT: Conjunctivae normal. eyes normal. Oral mucosa moist NECK: No JVD. No thyroid enlargement. No LNs CARDIOVASCULAR: S1, S2 muffled. No murmur RESPIRATION: Breath sounds diminished in the bases. Scattered coarse rhonchi , no crackles. Expiratory wheeze ABDOMEN: Soft, nontender . No guarding. no masses palpable.Bowel sounds heard. LEGS: No edema. no swelling PSYCHIATRY: Alert and oriented -3, mood and affect normal. NERVOUS SYSTEM: Cranial N 2-12 grossly normal. Moves all 4 limbs. Diffuse weakness No focal deficits. Skin: no ulcer no rash - Labs CBC & Chem 7: 03/19/18 05:48 03/19/18 05:48 Labs: Abnormal Lab Results - Last 24 Hours (Table) 03/18/18 03/18/18 03/18/18 Range/Units 05:12 05:12 05:12 WBC 23.3 H (3.8-10.6) k/uL RBC 2.90 L (4.30-5.90) m/uL Hgb 8.3 L (13.0-17.5) gm/dL Hct 26.3 L (39.0-53.0) % Plt Count 70 L (150-450) k/uL PT 32.4 H (9.0-12.0) sec INR 3.6 H (<1.2) BUN 7 L (9-20) mg/dL Calcium 7.8 L (8.4-10.2) mg/dL Microbiology - Last 24 Hours (Table) 03/15/18 04:10 Gram Stain - Preliminary Sputum Sputum Culture - Preliminary Gram Neg Bacilli 03/15/18 13:59 Blood Culture Gram Stain - Final Blood Blood Culture - Final Staphylococcus aureus 03/16/18 14:09 Blood Culture - Preliminary Blood No Growth after 24 hours 03/16/18 09:45 Urine Culture - Final Urine,Voided Assessment and Plan Assessment: -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, right upper lobe motor neuron lesion, right sided facial droop with minimal right upper lobe weakness, present on admission -Sepsis present on admission secondary to possible aspiration pneumonia, gram- negative bacilli -Bacteremia with MSSA , repeat cultures pending -Pancytopenia secondary to chemotherapy -Old left occipital infarct, cortical infarct, history of prostate cancer with metastatic cancer on chemotherapy -Chronic Atrial fibrillation with controlled ventricular rate -CAD, history of [place] -Degenerative joint disease -Warfarin induced coagulopathy -Anemia, secondary to chemo Plan: Continue on current medication regime ,monitoring and symptomatic treatment. Hold Coumadin and aspirin. Bronchoscopy pending .Repeat cultures pending. Aggressive pulmonary toileting. Elevated WBC, possibly steroid induced, reevaluate tomorrow. Iron studies ordered. The impression and plan of care has been dictated as directed. : I performed a history and examination of this patient, discussed the same with the dictator. I agree with the dictator's note ,documented as a scribe. Any additional findings or plans will be noted.
--- NOTE | 2018-03-19 16:34 | P.PN ---
Subjective Progress Note Date: 03/19/18 Progress note being dictated for Dr. Hansen. Interval history: This a 87-year-old gentleman admitted with acute CVA, neutropenia, sepsis with MSSA bacteremia and multiple other medical issues. Maintained on vancomycin and Zosyn as per ID. Repeat blood cultures pending. Afebrile, increased WBC,23.3. Tenacious sputum with intermittent minimal hemoptysis reported. Sputum culture reporting gram-negative bacilli. INR 3.6. Hemoglobin 8.3. Denies nausea or vomiting. Ambulating in hallway, tolerated exertion well. Denies chest pain, palpitations. 03/19/2018 ongoing hemoptysis, bronchoscopy scheduled for tomorrow. Hemoglobin 8.7. Denies nausea or vomiting. Coumadin on hold, INR 2.7. Afebrile. Antibiotics adjusted to cefepime as per ID. WBC 34.8, steroids discontinued. Afebrile. Objective - Vital Signs Vital signs: Vital Signs Temp 97.1 F L 03/19/18 12:11 Pulse 78 03/19/18 11:52 Resp 22 03/19/18 12:11 BP 135/78 03/19/18 12:11 Pulse Ox 99 03/19/18 12:11 Intake & Output 03/18/18 03/19/18 03/19/18 18:59 06:59 18:59 Intake Total 427 203 1208 Output Total 600 425 275 Balance 240 75 915 Weight 99.6 kg 99.6 kg Intake: Intake, IV Titration 500 550 Amount Piperacillin-Tazobactam 3 50 .375 gm In Dextrose/Water 1 50ml.bag @ 12.5 mls/hr IVPB Q8HR [facility] Rx#: [id number] Vancomycin 1,750 mg In 500 500 Sodium Chloride 0.9% 500 ml @ 166.667 mls/hr IVPB Q12H [facility] Rx#:[id number] Oral 840 640 Output: Urine 600 425 275 Other: Voiding Method Urinal Toilet Urinal # Voids 2 2 - Exam PHYSICAL EXAM: VITAL SIGNS: As above GENERAL: Sitting up in chair, no acute distress HEENT: Conjunctivae normal. eyes normal. Oral mucosa moist NECK: No JVD. No thyroid enlargement. No LNs CARDIOVASCULAR: S1, S2 muffled. No murmur RESPIRATION: Breath sounds diminished in the bases. Scattered coarse rhonchi , no crackles. ABDOMEN: Soft, nontender . No guarding. no masses palpable.Bowel sounds heard. LEGS: No edema. no swelling PSYCHIATRY: Alert and oriented -3, mood and affect normal. NERVOUS SYSTEM: Cranial N 2-12 grossly normal. Moves all 4 limbs. Diffuse weakness No focal deficits. Skin: no ulcer no rash Microbiology 03/16/18 14:09 Blood Blood Culture - Preliminary No Growth after 72 hours 03/15/18 13:59 Blood Blood Culture Gram Stain - Final 03/15/18 13:59 Blood Blood Culture - Final Staphylococcus aureus 03/15/18 04:10 Sputum Gram Stain - Preliminary 03/15/18 04:10 Sputum Sputum Culture - Preliminary Gram Neg Bacilli 03/16/18 09:45 Urine,Voided Urine Culture - Final 03/15/18 13:59 Blood Blood Culture - Final - Labs CBC & Chem 7: 03/19/18 05:48 03/19/18 05:48 Labs: Abnormal Lab Results - Last 24 Hours (Table) 03/18/18 03/18/18 03/19/18 Range/Units 16:37 20:24 05:48 WBC (3.8-10.6) k/uL RBC (4.30-5.90) m/uL Hgb (13.0-17.5) gm/dL Hct (39.0-53.0) % Plt Count (150-450) k/uL Neutrophils # (Manual) (1.3-7.7) k/uL Lymphocytes # (Manual) (1.0-4.8) k/uL Monocytes # (Manual) (0-1.0) k/uL Metamyelocytes # (Man) (0) k/uL Myelocytes # (Manual) (0) k/uL PT (9.0-12.0) sec INR (<1.2) Glucose (74-99) mg/dL POC Glucose (mg/dL) 271 H 214 H (75-99) mg/dL Calcium (8.4-10.2) mg/dL Ferritin 932.4 H (22.0-322.0) ng/mL Vitamin B12 3150.0 H (200.0-944.0) pg/mL 03/19/18 03/19/18 03/19/18 Range/Units 05:48 05:48 05:48 WBC 34.8 H (3.8-10.6) k/uL RBC 3.09 L (4.30-5.90) m/uL Hgb 8.7 L (13.0-17.5) gm/dL Hct 28.0 L (39.0-53.0) % Plt Count 80 L (150-450) k/uL Neutrophils # (Manual) 27.10 H (1.3-7.7) k/uL Lymphocytes # (Manual) 0.35 L (1.0-4.8) k/uL Monocytes # (Manual) 1.04 H (0-1.0) k/uL Metamyelocytes # (Man) 3.13 H (0) k/uL Myelocytes # (Manual) 3.48 H (0) k/uL PT 24.6 H (9.0-12.0) sec INR 2.7 H (<1.2) Glucose 107 H (74-99) mg/dL POC Glucose (mg/dL) (75-99) mg/dL Calcium 8.2 L (8.4-10.2) mg/dL Ferritin (22.0-322.0) ng/mL Vitamin B12 (200.0-944.0) pg/mL 03/19/18 03/19/18 Range/Units 06:56 11:40 WBC (3.8-10.6) k/uL RBC (4.30-5.90) m/uL Hgb (13.0-17.5) gm/dL Hct (39.0-53.0) % Plt Count (150-450) k/uL Neutrophils # (Manual) (1.3-7.7) k/uL Lymphocytes # (Manual) (1.0-4.8) k/uL Monocytes # (Manual) (0-1.0) k/uL Metamyelocytes # (Man) (0) k/uL Myelocytes # (Manual) (0) k/uL PT (9.0-12.0) sec INR (<1.2) Glucose (74-99) mg/dL POC Glucose (mg/dL) 117 H 163 H (75-99) mg/dL Calcium (8.4-10.2) mg/dL Ferritin (22.0-322.0) ng/mL Vitamin B12 (200.0-944.0) pg/mL Microbiology - Last 24 Hours (Table) 03/16/18 14:09 Blood Culture - Preliminary Blood No Growth after 72 hours 03/15/18 13:59 Blood Culture Gram Stain - Final Blood Blood Culture - Final Staphylococcus aureus Assessment and Plan Assessment: -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, right upper lobe motor neuron lesion, right sided facial droop with minimal right upper lobe weakness, present on admission -Sepsis present on admission secondary to possible aspiration pneumonia, gram- negative bacilli -Bacteremia with MSSA , repeat cultures pending -Pancytopenia secondary to chemotherapy -Old left occipital infarct, cortical infarct, 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 Coumadin and aspirin remain on hold. Bronchoscopy scheduled for tomorrow. Aggressive pulmonary toileting. Antibiotics as per ID, follow cultures closely. The impression and plan of care has been dictated as directed. : I performed a history and examination of this patient, discussed the same with the dictator. I agree with the dictator's note ,documented as a scribe. Any additional findings or plans will be noted.
[2018-03-19 17:13] LABS: Glucose,Whole Blood 182 mg/dL (75-99)
--- NOTE | 2018-03-19 17:29 | P.PN ---
Subjective Progress Note Date: 03/19/18 Principal diagnosis: on treatment for prostate adenocarcinoma Pt seen in f/u. He does state feeling much better today, he has been ambulating in the room independently, he feels a little stronger. He denies any bleeding, the hemoptysis is stable, he is having bronch for evaluation tomorrow. No fevers, nausea, indigestion, appetite is ok, no changes in bowel or bladder, no pain to report. Objective - Vital Signs Vital signs: Vital Signs Temp 97.1 F L 03/19/18 12:11 Pulse 76 03/19/18 16:18 Resp 22 03/19/18 12:11 BP 135/78 03/19/18 12:11 Pulse Ox 99 03/19/18 12:11 Intake & Output 03/18/18 03/19/18 03/19/18 18:59 06:59 18:59 Intake Total 643 356 1636 Output Total 600 425 275 Balance 240 75 915 Weight 99.6 kg 99.6 kg Intake: Intake, IV Titration 500 550 Amount Piperacillin-Tazobactam 3 50 .375 gm In Dextrose/Water 1 50ml.bag @ 12.5 mls/hr IVPB Q8HR [facility] Rx#: [id number] Vancomycin 1,750 mg In 500 500 Sodium Chloride 0.9% 500 ml @ 166.667 mls/hr IVPB Q12H [facility] Rx#:[id number] Oral 840 640 Output: Urine 600 425 275 Other: Voiding Method Urinal Toilet Urinal # Voids 2 2 - Constitutional General appearance: Present: cooperative, no acute distress, obese - EENT Eyes: Present: anicteric sclerae ENT: Present: normal oropharynx - Respiratory Respiratory: bilateral: rales (expiratory) - Cardiovascular Heart sounds: normal: S1, S2 - Gastrointestinal General gastrointestinal: Present: normal bowel sounds, soft - Integumentary Integumentary Comment(s): better color today, pink cheeks - Musculoskeletal Musculoskeletal: Present: generalized weakness, strength equal bilaterally - Psychiatric Psychiatric: Present: A&O x's 3, appropriate affect, intact judgment & insight - Labs CBC & Chem 7: 03/19/18 05:48 03/19/18 05:48 Labs: Abnormal Lab Results - Last 24 Hours (Table) 03/18/18 03/19/18 03/19/18 Range/Units 20:24 05:48 05:48 WBC (3.8-10.6) k/uL RBC (4.30-5.90) m/uL Hgb (13.0-17.5) gm/dL Hct (39.0-53.0) % Plt Count (150-450) k/uL Neutrophils # (Manual) (1.3-7.7) k/uL Lymphocytes # (Manual) (1.0-4.8) k/uL Monocytes # (Manual) (0-1.0) k/uL Metamyelocytes # (Man) (0) k/uL Myelocytes # (Manual) (0) k/uL PT (9.0-12.0) sec INR (<1.2) Glucose 107 H (74-99) mg/dL POC Glucose (mg/dL) 214 H (75-99) mg/dL Calcium 8.2 L (8.4-10.2) mg/dL Ferritin 932.4 H (22.0-322.0) ng/mL Vitamin B12 3150.0 H (200.0-944.0) pg/mL 03/19/18 03/19/18 03/19/18 Range/Units 05:48 05:48 06:56 WBC 34.8 H (3.8-10.6) k/uL RBC 3.09 L (4.30-5.90) m/uL Hgb 8.7 L (13.0-17.5) gm/dL Hct 28.0 L (39.0-53.0) % Plt Count 80 L (150-450) k/uL Neutrophils # (Manual) 27.10 H (1.3-7.7) k/uL Lymphocytes # (Manual) 0.35 L (1.0-4.8) k/uL Monocytes # (Manual) 1.04 H (0-1.0) k/uL Metamyelocytes # (Man) 3.13 H (0) k/uL Myelocytes # (Manual) 3.48 H (0) k/uL PT 24.6 H (9.0-12.0) sec INR 2.7 H (<1.2) Glucose (74-99) mg/dL POC Glucose (mg/dL) 117 H (75-99) mg/dL Calcium (8.4-10.2) mg/dL Ferritin (22.0-322.0) ng/mL Vitamin B12 (200.0-944.0) pg/mL 03/19/18 03/19/18 Range/Units 11:40 17:11 WBC (3.8-10.6) k/uL RBC (4.30-5.90) m/uL Hgb (13.0-17.5) gm/dL Hct (39.0-53.0) % Plt Count (150-450) k/uL Neutrophils # (Manual) (1.3-7.7) k/uL Lymphocytes # (Manual) (1.0-4.8) k/uL Monocytes # (Manual) (0-1.0) k/uL Metamyelocytes # (Man) (0) k/uL Myelocytes # (Manual) (0) k/uL PT (9.0-12.0) sec INR (<1.2) Glucose (74-99) mg/dL POC Glucose (mg/dL) 163 H 182 H (75-99) mg/dL Calcium (8.4-10.2) mg/dL Ferritin (22.0-322.0) ng/mL Vitamin B12 (200.0-944.0) pg/mL Microbiology - Last 24 Hours (Table) 03/16/18 14:09 Blood Culture - Preliminary Blood No Growth after 72 hours 03/15/18 13:59 Blood Culture Gram Stain - Final Blood Blood Culture - Final Staphylococcus aureus Assessment and Plan (1) Prostate carcinoma Narrative/Plan: S/P chemotherapy, first cycle of Taxotere with GCS-F on February 04. Plan is for rehabilitation then proceed with treatment for his prostate cancer. Current Visit: No Status: Acute Priority: High Code(s): C61 - MALIGNANT NEOPLASM OF PROSTATE SNOMED Code(s): 103787579 (2) Thrombocytopenia Narrative/Plan: Multifacotrial, including chemo and bactremia. Stable and improving each day. Current Visit: Yes Status: Acute Priority: High Code(s): D69.6 - THROMBOCYTOPENIA, UNSPECIFIED SNOMED Code(s): 890368357 (3) Anemia aplastic aregenerative Narrative/Plan: Multifactorial, chemo and bactremia, anemia work up pending. No transfusion today, Hgb is stable Current Visit: Yes Status: Acute Priority: High Code(s): D61.9 - APLASTIC ANEMIA, UNSPECIFIED SNOMED Code(s): 506524114 (4) Neutrophilic leukocytosis Narrative/Plan: R/T GCS-F. No acute intervention Current Visit: Yes Status: Acute Priority: High Code(s): D72.9 - DISORDER OF WHITE BLOOD CELLS, UNSPECIFIED SNOMED Code(s): 827800635 (5) Warfarin-induced coagulopathy Narrative/Plan: INR is decreasing, today will be his 3rd day without a dose. Pt is eating much better now too. Cont to hold coumadin, as pt is having bronchoscopy tomorrow. INR in AM. Anticipate INR around 1.5 tomorrow. f still too high for procedure then administer vit K. Current Visit: Yes Status: Acute Priority: High Code(s): D68.9 - COAGULATION DEFECT, UNSPECIFIED; T45.515A - ADVERSE EFFECT OF ANTICOAGULANTS, INITIAL ENCOUNTER SNOMED Code(s): 74565890 Plan: TIA-management per Neurology. Pt does not appear to have residual deficit. Pt has stool softeners and lax PRN
[2018-03-19] MEDS ORDERED: MIDAZOLAM 2 MG/2 ML VIAL IV PRN (21:25)
[2018-03-19] MEDS ORDERED: LIDOCAINE 1% 20 ML VIAL (10MG/ML) FOR IV START INTRADERMA PRN (21:25)
[2018-03-19 22:00] LABS: Glucose,Whole Blood 146 mg/dL (75-99)
[2018-03-19] MEDS: ALPRAZolam 0.25 MG TAB PO PRN (22:40)
[2018-03-19] MEDS: traMADol 50 MG TAB PO PRN (22:40)
[2018-03-19] MEDS: ATORVASTATIN 20 MG TAB PO SCH (22:41)
[2018-03-19] MEDS: DOXAZOSIN 4 MG TAB PO SCH (22:41)
[2018-03-19] MEDS: MONTELUKAST 10 MG TAB PO SCH (22:41)
[2018-03-19] MEDS: ESCITALOPRAM 10 MG TAB PO SCH (22:41)
[2018-03-19] MEDS: LACTATED RINGERS 1,000 ML IV SCH (22:42)
[2018-03-20] MEDS: SENNOSIDES 8.6 MG TAB PO SCH (07:25)
[2018-03-20] MEDS: PANTOPRAZOLE 40 MG TABLET PO SCH (07:25)
[2018-03-20] MEDS: INSULIN ASPART 100 UNIT/ML 1 ML 10 ML VIAL SQ SCH ×4 (07:26→20:35)
[2018-03-20] MEDS: BUDESONIDE 0.5 MG/2 ML NEBU INHALATION SCH ×2 (07:29→19:30)
[2018-03-20] MEDS: IPRATROPIUM-ALBUTEROL 3 ML NEB INHALATION SCH ×4 (07:32→19:30)
[2018-03-20 07:44] LABS: Prothrombin Time 17.9 sec (9.0-12.0)
[2018-03-20 07:49] LABS: Anisocytosis Slight; HCT 25.4 % (39.0-53.0); HGB 8.1 gm/dL (13.0-17.5); Hypochromasia Slight; MCV 90.5 fL (80.0-100.0); Mean Platelet Volume 9.1; RDW 16.2 % (11.5-15.5)
[2018-03-20 07:54] LABS: Anion Gap 8 mmol/L; Blood Urea Nitrogen 13 mg/dL (9-20); Carbon Dioxide 27 mmol/L (22-30); Chloride 105 mmol/L (98-107); Glucose 82 mg/dL (74-99); Potassium 3.9 mmol/L (3.5-5.1); Sodium 140 mmol/L (137-145)
[2018-03-20 08:15] LABS: Platelet Count 68 k/uL (150-450)
[2018-03-20] MEDS: DILTIAZEM CD 120 MG CAP.ER.24H PO SCH (08:42)
[2018-03-20] MEDS: predniSONE 20 MG TAB PO SCH (08:42)
[2018-03-20] MEDS: METOPROLOL TARTRATE 50 MG TAB PO SCH ×2 (08:42→21:30)
[2018-03-20] MEDS: ASCORBIC ACID 500 MG TAB PO SCH (08:44)
[2018-03-20] MEDS: MULTIVITAMINS, THERA 1 EACH TAB PO SCH (08:45)
[2018-03-20] MEDS: CALCIUM CARB-VIT D 500MG-200UN 1 EACH TAB PO SCH (08:45)
[2018-03-20] MEDS: VIT A,C & E-LUTEIN-MINERALS 1 EACH TAB PO SCH (08:45)
[2018-03-20] MEDS ORDERED: LIDOCAINE 2% (PF) 20 MG/ML 2 ML AMP INHALATION ONE (09:00)
--- NOTE | 2018-03-20 10:18 | P.PN ---
Subjective Progress Note Date: 03/20/18 HPI: Chun waldron is a 87-year-old male who presented to the ED at [facility] with left sided facial numbness and weakness. He also had some difficulty speaking. He denies any choking on any of his food. He was seen in the ER, admitted for further evaluation. He has a history of prostate cancer and has been undergoing chemotherapy. He denied any fevers or chills. He has been having progressive worsening shortness of breath along with cough and some sputum production. Sputum does not have any color to it. He has had no fever while he was in the hospital. Pulmonary consultation is placed because of the possibility of aspiration pneumonia. Interval history: 03/18/2018patient is being seen examined and evaluated today on rounds. Patient currently has a WBC count of 23.3 which could possibly be related to initiating Solu-Medrol yesterday. He continues and chemo precautions. He is resting up in bedside chair on room air. He states he does get short of breath with exertion. He also has a cough and has had some hemoptysis which he states has been intermittently ongoing for a few months now. He states the breathing treatments and steroids have been helping him. We will get a repeat sputum culture and initiate incentive spirometer. He denies any fevers or chills. 03/19/2018patient is being seen examined and evaluated today on rounds. He continues on room air and still has hemoptysis. His INR today is 2.7. His Coumadin and aspirin were held yesterday. He is scheduled for a bronchoscopy tomorrow. They procedure risk class complications have been discussed with the patient's and all questions have been answered. He is willing to go forth with the procedure. He continues on prednisone 40 mg at this time. He states the breathing treatments are also helping him. He did have an EEG and those results are pending. He is afebrile and has no further complaints. 03/20/2018patient is being seen examined and evaluated today on rounds. He is resting in bed on room air. Still has intermittent hemoptysis. His hemoglobin today is 8.1, his INR is 2.0, platelets 68. Patient is scheduled to go for a bronchoscopy this afternoon. Sputum showing Pseudomonas stutzeri, ID is on consult. He is afebrile no further complaints. Objective - Vital Signs Vital signs: Vital Signs Temp 94.4 F L 03/20/18 07:39 Pulse 72 03/20/18 07:43 Resp 17 03/20/18 07:39 BP 137/84 03/20/18 07:39 Pulse Ox 99 03/20/18 07:39 Intake & Output 03/19/18 03/20/18 03/20/18 18:59 06:59 18:59 Intake Total 1190 160 Output Total 275 850 Balance 915 -690 Weight 99.6 kg 99.6 kg Intake: Intake, IV Titration 550 160 Amount Lactated Ringers 1,000 ml 160 @ 20 mls/hr IV .Q24H [facility] Rx#:[id number] Piperacillin-Tazobactam 3 50 .375 gm In Dextrose/Water 1 50ml.bag @ 12.5 mls/hr IVPB Q8HR [facility] Rx#: [id number] Vancomycin 1,750 mg In 500 Sodium Chloride 0.9% 500 ml @ 166.667 mls/hr IVPB Q12H [facility] Rx#:[id number] Oral 640 Output: Urine 275 850 Other: Voiding Method Toilet Toilet Urinal Urinal # Voids 2 - Exam GENERAL EXAM: Alert, active, comfortable in no apparent distress. HEAD: Normocephalic. EYES: Normal reaction of pupils, equal size. NOSE: Clear with pink turbinates. THROAT: No erythema or exudates. NECK: No masses, no JVD. CHEST: No chest wall deformity. LUNGS: Chest reveals decreased breath sounds more so on the right. Prolonged expiration with expiratory wheeze. CVS: S1 and S2 normal with no audible mumurs, regular rhythm. ABDOMEN: No hepatosplenomegaly, normal bowel sounds, no guarding or rigidity. EXTREMITIES: +1 edema noted, pedal pulses palpable. CENTRAL NERVOUS SYSTEM: No focal deficits, tone is normal in all 4 extremities. - Labs CBC & Chem 7: 03/20/18 07:07 03/20/18 07:07 Labs: Abnormal Lab Results - Last 24 Hours (Table) 03/19/18 03/19/18 03/19/18 Range/Units 05:48 05:48 05:48 WBC 34.8 H (3.8-10.6) k/uL RBC 3.09 L (4.30-5.90) m/uL Hgb 8.7 L (13.0-17.5) gm/dL Hct 28.0 L (39.0-53.0) % RDW (11.5-15.5) % Plt Count 80 L (150-450) k/uL Neutrophils # (Manual) 27.10 H (1.3-7.7) k/uL Lymphocytes # (Manual) 0.35 L (1.0-4.8) k/uL Monocytes # (Manual) 1.04 H (0-1.0) k/uL Metamyelocytes # (Man) 3.13 H (0) k/uL Myelocytes # (Manual) 3.48 H (0) k/uL PT (9.0-12.0) sec INR (<1.2) POC Glucose (mg/dL) (75-99) mg/dL Calcium (8.4-10.2) mg/dL Ferritin 932.4 H (22.0-322.0) ng/mL Vitamin B12 3150.0 H (200.0-944.0) pg/mL RBC Folate 1,365 H (280 - 791) ng/mL 03/19/18 03/19/18 03/19/18 Range/Units 11:40 17:11 21:59 WBC (3.8-10.6) k/uL RBC (4.30-5.90) m/uL Hgb (13.0-17.5) gm/dL Hct (39.0-53.0) % RDW (11.5-15.5) % Plt Count (150-450) k/uL Neutrophils # (Manual) (1.3-7.7) k/uL Lymphocytes # (Manual) (1.0-4.8) k/uL Monocytes # (Manual) (0-1.0) k/uL Metamyelocytes # (Man) (0) k/uL Myelocytes # (Manual) (0) k/uL PT (9.0-12.0) sec INR (<1.2) POC Glucose (mg/dL) 163 H 182 H 146 H (75-99) mg/dL Calcium (8.4-10.2) mg/dL Ferritin (22.0-322.0) ng/mL Vitamin B12 (200.0-944.0) pg/mL RBC Folate (280 - 791) ng/mL 03/20/18 03/20/18 03/20/18 Range/Units 07:07 07:07 07:07 WBC 30.7 H (3.8-10.6) k/uL RBC 2.80 L (4.30-5.90) m/uL Hgb 8.1 L (13.0-17.5) gm/dL Hct 25.4 L (39.0-53.0) % RDW 16.2 H (11.5-15.5) % Plt Count 68 L (150-450) k/uL Neutrophils # (Manual) (1.3-7.7) k/uL Lymphocytes # (Manual) (1.0-4.8) k/uL Monocytes # (Manual) (0-1.0) k/uL Metamyelocytes # (Man) (0) k/uL Myelocytes # (Manual) (0) k/uL PT 17.9 H (9.0-12.0) sec INR 2.0 H (<1.2) POC Glucose (mg/dL) (75-99) mg/dL Calcium 8.0 L (8.4-10.2) mg/dL Ferritin (22.0-322.0) ng/mL Vitamin B12 (200.0-944.0) pg/mL RBC Folate (280 - 791) ng/mL Microbiology - Last 24 Hours (Table) 03/15/18 04:10 Gram Stain - Final Sputum Sputum Culture - Final Pseudomonas stutzeri 03/19/18 15:30 Gram Stain - Final Sputum Sputum Culture - Final 03/16/18 14:09 Blood Culture - Preliminary Blood No Growth after 72 hours 03/15/18 13:59 Blood Culture Gram Stain - Final Blood Blood Culture - Final Staphylococcus aureus Assessment and Plan Assessment: Assessment Chronic severe persistent asthma with acute exacerbation COPD Aspiration pneumonia with new infiltrate in the right lung base CVA versus TIA History of prostate cancer status post chemotherapy Hemoptysisintermittent Plan Patient is scheduled for a bronchoscopy today Case is discussed with heme/onc [employer] Medications have been reviewed and will be continued as ordered. Continue on antibiotics, ID on consult, sputum positive with pseudomonas stutzeri Prednisone taper Initiate and encourage incentive spirometer Continue with pulmonary hygiene, coughing and deep breathing exercises, and supportive care. Supplemental oxygen to maintain oxygen saturations of 92% or better. Continue nebulizer treatments, DuoNeb and budesonide. GI and DVT prophylaxis. Heme/onc on consult Neuro on consult Increase activity as tolerated PT and OT, inpatient rehab on consult We will continue to monitor labs/results and adjust treatment as necessary. Further recommendations pending. I performed an examination of the patient and discussed their management with the nurse practitioner. I have reviewed the nurse practitioner's note and agree with the documented findings and plan of care.
[2018-03-20 10:40] LABS: Band Neutrophils % 5 %; Lymphocytes # (M) 0.61 k/uL (1.0-4.8); Metamyelocytes % 8 %; Myelocytes % 10 %; Neutrophils % (M) 73 %; Nucleated Red Blood Cells 1 /100 WBC (0-0); Total Cells Counted 200
[2018-03-20 10:41] LABS: Metamyelocytes # (M) 2.43 k/uL (0); Monocytes # (M) 0.91 k/uL (0-1.0); Myelocytes # (M) 3.04 k/uL (0); WBC 30.4 k/uL (3.8-10.6)
[2018-03-20 10:42] LABS: Poikilocytosis (M) Present; Polychromasia Present
[2018-03-20] MEDS: CEFEPIME 2 GM in SODIUM CHLORIDE 0.9% 50 ML IVPB SCH (12:38)
[2018-03-20 12:44] LABS: Glucose,Whole Blood 125 mg/dL (75-99)
[2018-03-20 13:09] VITALS: BMI 30.6
[2018-03-20] MEDS ORDERED: fentaNYL (PF) 50 MCG/ML 2 ML AMP ONE (14:02)
[2018-03-20] MEDS ORDERED: PROPOFOL 10 MG/ML 20 ML VIAL IV ONE (14:02)
[2018-03-20] MEDS ORDERED: IV FLUID CONTINUATION 1,000 ML IV ONE (14:08)
[2018-03-20] MEDS ORDERED: LIDOCAINE 2% INJ 20 MG/ML INTRATRACH ONE (14:19)
--- NOTE | 2018-03-20 14:44 | P.PN ---
Progress Note - Text Progress Note Date: 03/20/18 After review of risks and benefits and discussion of alternative methods of diagnosis, the patient provided informed consent and is willing to proceed with evaluation is recommended. The patient, in endoscopy suite, was placed on continuous electrocardiogram, noninvasive blood pressure monitoring, and SpO2 monitoring. He was administered supplemental oxygen via Ventimask and given IV sedation by the Department of anesthesia. The video bronchoscope was passed through the right nare and carried down to the level of the vocal cords the vocal cords were seen to be moving freely and phonation and respiration. The right and left nare were both noted to have blood clots mixed with bright red blood. The larynx is normal. The trachea was noted to have erythema and petechiae. The christine is sharp. The right mainstem bronchus was entered first where the right upper lobe , right middle lobe, and right lower lobe were identified. The patient was found to have pooling of bright red blood with erythematous mucosa. Saline was instilled and suctioned until clear. The bronchoscope was then directed into the left mainstem bronchus. The left upper lobe and lingula appeared somewhat edematous. Small amount of bright red blood was noted and saline was instilled and suctioned. BAL was obtained from the left lower lobe. The bronchoscope was then retracted and the procedure was terminated. The patient tolerated the procedure well. He was discharged to the recovery suite in stable and satisfactory position. BAL fluid will be sent for several studies.
--- NOTE | 2018-03-20 16:34 | P.PN ---
Subjective Progress Note Date: 03/20/18 Progress note being dictated for Dr. Hansen. Interval history: This a 87-year-old gentleman admitted with acute CVA, neutropenia, sepsis with MSSA bacteremia and multiple other medical issues. Maintained on vancomycin and Zosyn as per ID. Repeat blood cultures pending. Afebrile, increased WBC,23.3. Tenacious sputum with intermittent minimal hemoptysis reported. Sputum culture reporting gram-negative bacilli. INR 3.6. Hemoglobin 8.3. Denies nausea or vomiting. Ambulating in hallway, tolerated exertion well. Denies chest pain, palpitations. 03/19/2018 ongoing hemoptysis, bronchoscopy scheduled for tomorrow. Hemoglobin 8.7. Denies nausea or vomiting. Coumadin on hold, INR 2.7. Afebrile. Antibiotics adjusted to cefepime as per ID. WBC 34.8, steroids discontinued. Afebrile. 03/20/2018 NPO, awaiting bronchoscopy. Reports dark hemoptysis this morning. Hemoglobin currently 8.1, INR 2. Initial sputum culture reporting Pseudomonas stutzeri and initial blood culture MSSA. Repeat sputum culture contaminated and repeat blood culture. Afebrile. Maintaining O2 sats in the mid 90s on room air. Objective - Vital Signs Vital signs: Vital Signs Temp 96.9 F L 03/20/18 14:38 Pulse 76 03/20/18 15:31 Resp 16 03/20/18 14:58 BP 111/60 03/20/18 14:58 Pulse Ox 95 03/20/18 14:58 Intake & Output 03/19/18 03/20/18 03/20/18 18:59 06:59 18:59 Intake Total 1190 160 615 Output Total 275 850 Balance 915 -690 615 Weight 99.6 kg 99.6 kg 99.6 kg Intake: IV 425 Intake, IV Titration 550 160 190 Amount Cefepime 2 gm In Sodium 50 Chloride 0.9% 50 ml @ 100 mls/hr IVPB Q12H [facility] Rx# :[id number] Lactated Ringers 1,000 ml 160 140 @ 20 mls/hr IV .Q24H [facility] Rx#:[id number] Piperacillin-Tazobactam 3 50 .375 gm In Dextrose/Water 1 50ml.bag @ 12.5 mls/hr IVPB Q8HR [facility] Rx#: [id number] Vancomycin 1,750 mg In 500 Sodium Chloride 0.9% 500 ml @ 166.667 mls/hr IVPB Q12H [facility] Rx#:[id number] Oral 640 Output: Urine 275 850 Other: Voiding Method Toilet Toilet Toilet Urinal Urinal Urinal # Voids 2 - Exam PHYSICAL EXAM: VITAL SIGNS: As above GENERAL: Sitting up in bed, no acute distress HEENT: Conjunctivae normal. eyes normal. Oral mucosa moist NECK: No JVD. No thyroid enlargement. No LNs CARDIOVASCULAR: S1, S2 muffled. No murmur RESPIRATION: Breath sounds diminished in the bases. Scattered coarse rhonchi , no crackles. Expiratory wheezing ABDOMEN: Soft, nontender . No guarding. no masses palpable.Bowel sounds heard. LEGS: No edema. no swelling PSYCHIATRY: Alert and oriented -3, mood and affect normal. NERVOUS SYSTEM: Cranial N 2-12 grossly normal. Moves all 4 limbs. Diffuse weakness No focal deficits. Skin: no ulcer no rash Microbiology 03/16/18 14:09 Blood Blood Culture - Preliminary No Growth after 96 hours 03/15/18 04:10 Sputum Gram Stain - Final 03/15/18 04:10 Sputum Sputum Culture - Final Pseudomonas stutzeri 03/19/18 15:30 Sputum Gram Stain - Final 03/19/18 15:30 Sputum Sputum Culture - Final 03/15/18 13:59 Blood Blood Culture Gram Stain - Final 03/15/18 13:59 Blood Blood Culture - Final Staphylococcus aureus 03/16/18 09:45 Urine,Voided Urine Culture - Final 03/15/18 13:59 Blood Blood Culture - Final - Labs CBC & Chem 7: 03/20/18 07:07 03/20/18 07:07 Labs: Abnormal Lab Results - Last 24 Hours (Table) 03/19/18 03/19/18 03/19/18 Range/Units 05:48 17:11 21:59 WBC (3.8-10.6) k/uL RBC (4.30-5.90) m/uL Hgb (13.0-17.5) gm/dL Hct (39.0-53.0) % RDW (11.5-15.5) % Plt Count (150-450) k/uL Neutrophils # (Manual) (1.3-7.7) k/uL Lymphocytes # (Manual) (1.0-4.8) k/uL Metamyelocytes # (Man) (0) k/uL Myelocytes # (Manual) (0) k/uL Nucleated RBCs (0-0) /100 WBC PT (9.0-12.0) sec INR (<1.2) POC Glucose (mg/dL) 182 H 146 H (75-99) mg/dL Calcium (8.4-10.2) mg/dL RBC Folate 1,365 H (280 - 791) ng/mL 03/20/18 03/20/18 03/20/18 Range/Units 07:07 07:07 07:07 WBC 30.4 H (3.8-10.6) k/uL RBC 2.80 L (4.30-5.90) m/uL Hgb 8.1 L (13.0-17.5) gm/dL Hct 25.4 L (39.0-53.0) % RDW 16.2 H (11.5-15.5) % Plt Count 68 L (150-450) k/uL Neutrophils # (Manual) 23.70 H (1.3-7.7) k/uL Lymphocytes # (Manual) 0.61 L (1.0-4.8) k/uL Metamyelocytes # (Man) 2.43 H (0) k/uL Myelocytes # (Manual) 3.04 H (0) k/uL Nucleated RBCs 1 H (0-0) /100 WBC PT 17.9 H (9.0-12.0) sec INR 2.0 H (<1.2) POC Glucose (mg/dL) (75-99) mg/dL Calcium 8.0 L (8.4-10.2) mg/dL RBC Folate (280 - 791) ng/mL 03/20/18 Range/Units 12:36 WBC (3.8-10.6) k/uL RBC (4.30-5.90) m/uL Hgb (13.0-17.5) gm/dL Hct (39.0-53.0) % RDW (11.5-15.5) % Plt Count (150-450) k/uL Neutrophils # (Manual) (1.3-7.7) k/uL Lymphocytes # (Manual) (1.0-4.8) k/uL Metamyelocytes # (Man) (0) k/uL Myelocytes # (Manual) (0) k/uL Nucleated RBCs (0-0) /100 WBC PT (9.0-12.0) sec INR (<1.2) POC Glucose (mg/dL) 125 H (75-99) mg/dL Calcium (8.4-10.2) mg/dL RBC Folate (280 - 791) ng/mL Microbiology - Last 24 Hours (Table) 03/16/18 14:09 Blood Culture - Preliminary Blood No Growth after 96 hours 03/15/18 04:10 Gram Stain - Final Sputum Sputum Culture - Final Pseudomonas stutzeri 03/19/18 15:30 Gram Stain - Final Sputum Sputum Culture - Final Assessment and Plan Assessment: -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, right upper lobe motor neuron lesion, right sided facial droop with minimal right upper lobe weakness, present on admission -Sepsis present on admission secondary to possible aspiration pneumonia, Pseudomonas stutzeri -Bacteremia with MSSA , repeat cultures negative -Pancytopenia secondary to chemotherapy -Old left occipital infarct, cortical infarct, history of prostate cancer with metastatic cancer on chemotherapy -Chronic Atrial fibrillation with controlled ventricular rate -CAD, history of HI -Degenerative joint disease -Warfarin induced coagulopathy -Anemia, secondary to chemo Plan: Continue on current medication regime ,monitoring and symptomatic treatment. Coumadin and aspirin on hold, Bronchoscopy pending.Antibiotics as per ID. The impression and plan of care has been dictated as directed. : I performed a history and examination of this patient, discussed the same with the dictator. I agree with the dictator's note ,documented as a scribe. Any additional findings or plans will be noted.
[2018-03-20 17:09] LABS: Glucose,Whole Blood 206 mg/dL (75-99)
[2018-03-20 20:32] LABS: Glucose,Whole Blood 120 mg/dL (75-99)
[2018-03-20] MEDS: MONTELUKAST 10 MG TAB PO SCH (21:30)
[2018-03-20] MEDS: ESCITALOPRAM 10 MG TAB PO SCH (21:30)
[2018-03-20] MEDS: DOXAZOSIN 4 MG TAB PO SCH (21:30)
[2018-03-20] MEDS: ATORVASTATIN 20 MG TAB PO SCH (21:30)
--- NOTE | 2018-03-20 22:48 | PN ---
PROGRESS NOTE DATE OF SERVICE: 03/20/2018 REASON FOR FOLLOWUP: MSSA bacteremia and pneumonia. INTERVAL HISTORY: The patient is currently afebrile, has been breathing comfortably. Denies significant chest pain. Continues to have some hemoptysis. No nausea or vomiting. No abdominal pain or diarrhea. PHYSICAL EXAMINATION: Blood pressure is 146/82 with a pulse of 94, temperature 96.9. He is 93% on room air. General description is an elderly male lying in bed in no distress. RESPIRATORY SYSTEM: Unlabored breathing. Some coarse breath sounds at the bases. No wheeze. HEART: S1, S2. Regular rate and rhythm. ABDOMEN: Soft. No tenderness. LABS: Hemoglobin 8.1, white count 30,000 with a BUN of 13, creatinine 0.74. Blood culture repeat has been negative. Sputum with Pseudomonas stutzeri, which is a sensitive pathogen. DIAGNOSTIC IMPRESSION AND PLAN: Patient with methicillin-susceptible Staphylococcus aeruginosa bacteremia with concern about left lobe pneumonia; however, the sputum has been negative for the same pathogen and is showing gram-negative. Patient is currently on cefepime 2 grams at least 2 weeks of antibiotic from a negative blood culture, for which a midline will be placed. Continue with supportive care. MMODL / IJN: [id number] /
[2018-03-21] MEDS: CEFEPIME 2 GM in SODIUM CHLORIDE 0.9% 50 ML IVPB SCH ×3 (00:30→23:43)
[2018-03-21] MEDS: LACTATED RINGERS 1,000 ML IV SCH (04:19)
[2018-03-21 07:07] LABS: Glucose,Whole Blood 92 mg/dL (75-99)
[2018-03-21 07:31] LABS: INR 1.6 (<1.2); Prothrombin Time 14.6 sec (9.0-12.0)
[2018-03-21] MEDS: BUDESONIDE 0.5 MG/2 ML NEBU INHALATION SCH ×2 (07:36→19:49)
[2018-03-21] MEDS: IPRATROPIUM-ALBUTEROL 3 ML NEB INHALATION SCH ×4 (07:38→19:49)
[2018-03-21 07:46] LABS: Anion Gap 7 mmol/L; Blood Urea Nitrogen 15 mg/dL (9-20); Calcium 8.2 mg/dL (8.4-10.2); Carbon Dioxide 28 mmol/L (22-30); Chloride 105 mmol/L (98-107); Glucose 83 mg/dL (74-99); Potassium 3.8 mmol/L (3.5-5.1); Sodium 140 mmol/L (137-145)
[2018-03-21] MEDS: INSULIN ASPART 100 UNIT/ML 1 ML 10 ML VIAL SQ SCH ×4 (09:00→20:58)
[2018-03-21] MEDS: METOPROLOL TARTRATE 50 MG TAB PO SCH ×2 (09:07→20:58)
[2018-03-21] MEDS: PANTOPRAZOLE 40 MG TABLET PO SCH (09:07)
[2018-03-21] MEDS: DILTIAZEM CD 120 MG CAP.ER.24H PO SCH (09:07)
[2018-03-21] MEDS: predniSONE 20 MG TAB PO SCH (09:08)
[2018-03-21] MEDS: SENNOSIDES 8.6 MG TAB PO SCH (09:08)
--- NOTE | 2018-03-21 10:24 | P.PN ---
<Marce Carter E - Last Filed: 03/21/18 10:20> Subjective Progress Note Date: 03/21/18 HPI: Chun waldron is a 87-year-old male who presented to the ED at [facility] with left sided facial numbness and weakness. He also had some difficulty speaking. He denies any choking on any of his food. He was seen in the ER, admitted for further evaluation. He has a history of prostate cancer and has been undergoing chemotherapy. He denied any fevers or chills. He has been having progressive worsening shortness of breath along with cough and some sputum production. Sputum does not have any color to it. He has had no fever while he was in the hospital. Pulmonary consultation is placed because of the possibility of aspiration pneumonia. Interval history: 03/18/2018patient is being seen examined and evaluated today on rounds. Patient currently has a WBC count of 23.3 which could possibly be related to initiating Solu-Medrol yesterday. He continues and chemo precautions. He is resting up in bedside chair on room air. He states he does get short of breath with exertion. He also has a cough and has had some hemoptysis which he states has been intermittently ongoing for a few months now. He states the breathing treatments and steroids have been helping him. We will get a repeat sputum culture and initiate incentive spirometer. He denies any fevers or chills. 03/19/2018patient is being seen examined and evaluated today on rounds. He continues on room air and still has hemoptysis. His INR today is 2.7. His Coumadin and aspirin were held yesterday. He is scheduled for a bronchoscopy tomorrow. They procedure risk class complications have been discussed with the patient's and all questions have been answered. He is willing to go forth with the procedure. He continues on prednisone 40 mg at this time. He states the breathing treatments are also helping him. He did have an EEG and those results are pending. He is afebrile and has no further complaints. 03/20/2018patient is being seen examined and evaluated today on rounds. He is resting in bed on room air. Still has intermittent hemoptysis. His hemoglobin today is 8.1, his INR is 2.0, platelets 68. Patient is scheduled to go for a bronchoscopy this afternoon. Sputum showing Pseudomonas stutzeri, ID is on consult. He is afebrile no further complaints. 03/21/18- patient is being seen examined and evaluated today on rounds. He is resting up in bed on 3 L of supplemental oxygen via nasal cannula. He is states he has had some small amount of hemoptysis today however it has improved since he did undergo the bronchoscopy yesterday. Bronchoscopy washings were sent for studies and those are pending. His INR today is 1.6. He did undergo a PICC line insertion and does have infectious diseases following closely due to his Pseudomonas stutzeri. Objective - Vital Signs Vital signs: Vital Signs Temp 97.5 F L 03/21/18 05:00 Pulse 80 03/21/18 07:52 Resp 17 03/21/18 05:00 BP 114/59 03/21/18 05:00 Pulse Ox 92 L 03/21/18 07:43 Intake & Output 03/20/18 03/21/18 03/21/18 18:59 06:59 18:59 Intake Total 615 Balance 615 Weight 99.6 kg 99.6 kg Intake: IV 425 Intake, IV Titration 190 Amount Cefepime 2 gm In Sodium 50 Chloride 0.9% 50 ml @ 100 mls/hr IVPB Q12H [facility] Rx# :[id number] Lactated Ringers 1,000 ml 140 @ 20 mls/hr IV .Q24H [facility] Rx#:[id number] Other: Voiding Method Toilet Toilet Urinal Urinal # Voids 1 - Exam GENERAL EXAM: Alert, active, comfortable in no apparent distress. HEAD: Normocephalic. EYES: Normal reaction of pupils, equal size. NOSE: Clear with pink turbinates. THROAT: No erythema or exudates. NECK: No masses, no JVD. CHEST: No chest wall deformity. LUNGS: Chest to be slightly coarse today with prolonged expiration and expiratory wheeze. CVS: S1 and S2 normal with no audible mumurs, regular rhythm. ABDOMEN: No hepatosplenomegaly, normal bowel sounds, no guarding or rigidity. EXTREMITIES: +1 edema noted, pedal pulses palpable. CENTRAL NERVOUS SYSTEM: No focal deficits, tone is normal in all 4 extremities. - Labs CBC & Chem 7: 03/20/18 07:07 03/21/18 07:12 Labs: Abnormal Lab Results - Last 24 Hours (Table) 03/20/18 03/20/18 03/20/18 Range/Units 07:07 12:36 17:07 WBC 30.4 H (3.8-10.6) k/uL Neutrophils # (Manual) 23.70 H (1.3-7.7) k/uL Lymphocytes # (Manual) 0.61 L (1.0-4.8) k/uL Metamyelocytes # (Man) 2.43 H (0) k/uL Myelocytes # (Manual) 3.04 H (0) k/uL Nucleated RBCs 1 H (0-0) /100 WBC PT (9.0-12.0) sec INR (<1.2) POC Glucose (mg/dL) 125 H 206 H (75-99) mg/dL Calcium (8.4-10.2) mg/dL 03/20/18 03/21/18 03/21/18 Range/Units 20:28 07:12 07:12 WBC (3.8-10.6) k/uL Neutrophils # (Manual) (1.3-7.7) k/uL Lymphocytes # (Manual) (1.0-4.8) k/uL Metamyelocytes # (Man) (0) k/uL Myelocytes # (Manual) (0) k/uL Nucleated RBCs (0-0) /100 WBC PT 14.6 H (9.0-12.0) sec INR 1.6 H (<1.2) POC Glucose (mg/dL) 120 H (75-99) mg/dL Calcium 8.2 L (8.4-10.2) mg/dL Microbiology - Last 24 Hours (Table) 03/16/18 14:09 Blood Culture - Preliminary Blood No Growth after 96 hours 03/15/18 04:10 Gram Stain - Final Sputum Sputum Culture - Final Pseudomonas stutzeri 03/19/18 15:30 Gram Stain - Final Sputum Sputum Culture - Final Assessment and Plan Assessment: Assessment Chronic severe persistent asthma with acute exacerbation COPD Aspiration pneumonia with new infiltrate in the right lung base CVA versus TIA History of prostate cancer status post chemotherapy Hemoptysisintermittent Plan s/p bronchoscopy please see procedure notes Status post PICC line insertion Case is discussed with heme/onc [employer] O[employer]ATOR Medications have been reviewed and will be continued as ordered. Continue on antibiotics, ID on consult, sputum positive with pseudomonas stutzeri Prednisone taper Initiate and encourage incentive spirometer Continue with pulmonary hygiene, coughing and deep breathing exercises, and supportive care. Supplemental oxygen to maintain oxygen saturations of 92% or better. Continue nebulizer treatments, DuoNeb and budesonide. GI and DVT prophylaxis. Heme/onc on consult Neuro on consult Increase activity as tolerated PT and OT, inpatient rehab on consult We will continue to monitor labs/results and adjust treatment as necessary. Discharge planning I performed an examination of the patient and discussed their management with the nurse practitioner. I have reviewed the nurse practitioner's note and agree with the documented findings and plan of care. <Poornima Birch - Last Filed: 03/21/18 13:35> Objective - Vital Signs Vital signs: Vital Signs Temp 96.7 F L 03/21/18 13:00 Pulse 92 03/21/18 13:00 Resp 16 03/21/18 13:00 BP 131/74 03/21/18 13:00 Pulse Ox 92 L 03/21/18 13:00 Intake & Output 03/20/18 03/21/18 03/21/18 18:59 06:59 18:59 Intake Total 615 Balance 615 Weight 99.6 kg 99.6 kg Intake: IV 425 Intake, IV Titration 190 Amount Cefepime 2 gm In Sodium 50 Chloride 0.9% 50 ml @ 100 mls/hr IVPB Q12H [facility] Rx# :[id number] Lactated Ringers 1,000 ml 140 @ 20 mls/hr IV .Q24H [facility] Rx#:[id number] Other: Voiding Method Toilet Toilet Urinal Urinal # Voids 1 - Labs CBC & Chem 7: 03/20/18 07:07 03/21/18 07:12 Labs: Abnormal Lab Results - Last 24 Hours (Table) 03/20/18 03/20/18 03/21/18 Range/Units 17:07 20:28 07:12 PT (9.0-12.0) sec INR (<1.2) POC Glucose (mg/dL) 206 H 120 H (75-99) mg/dL Calcium 8.2 L (8.4-10.2) mg/dL 03/21/18 03/21/18 Range/Units 07:12 11:28 PT 14.6 H (9.0-12.0) sec INR 1.6 H (<1.2) POC Glucose (mg/dL) 109 H (75-99) mg/dL Calcium (8.4-10.2) mg/dL Microbiology - Last 24 Hours (Table) 03/21/18 07:39 Gram Stain - Preliminary Sputum Sputum Culture - Preliminary 03/16/18 14:09 Blood Culture - Preliminary Blood No Growth after 96 hours 03/15/18 04:10 Gram Stain - Final Sputum Sputum Culture - Final Pseudomonas stutzeri Assessment and Plan Assessment: Patient seen and examined with his daughter at bedside. The results of bronchoscopy are discussed - inflammed, irritated mucosa likely secondary to pseudomonas and asthmatic inflammation. Sputum has grown Pseudomonas. Bronchoscopy cultures are pending. Patient had midline placed for longer term antibiotics. Continue breathing treatments and steroids. Antibiotics per ID. ~Poornima Birch DO
[2018-03-21] MEDS: CALCIUM CARB-VIT D 500MG-200UN 1 EACH TAB PO SCH (11:11)
[2018-03-21] MEDS: VIT A,C & E-LUTEIN-MINERALS 1 EACH TAB PO SCH (11:12)
[2018-03-21] MEDS: MULTIVITAMINS, THERA 1 EACH TAB PO SCH (11:12)
[2018-03-21] MEDS: ASCORBIC ACID 500 MG TAB PO SCH (11:12)
[2018-03-21 11:29] LABS: Glucose,Whole Blood 109 mg/dL (75-99)
--- NOTE | 2018-03-21 13:32 | P.CONS ---
History of Present Illness - Reason for Consult Consult date: 03/21/18 Past Medical History Past Medical History: Atrial Fibrillation, Asthma, Cancer, COPD, Deep Vein Thrombosis (DVT), GI Bleed, Hyperlipidemia, Hypertension, Memory Impairment, Myocardial Infarction (VA), Osteoarthritis (OA), Prostate Disorder Additional Past Medical History / Comment(s): prostate CA-HAD 46 RADIATION TX- had mets to bone currently taking oral chemo and hormone tx, MILD SHORT TERM MEMORY PROBLEMS, NAVEL HERNIA,SKIN CA basal cell(LT HAND-lip. back REMOVED. past gi bleed lower bowel pt stated it was from the past radiation tx- it was cauterized.. Last Myocardial Infarction Date:: UNK History of Any Multi-Drug Resistant Organisms: None Reported Past Surgical History: Heart Catheterization Additional Past Surgical History / Comment(s): VASECTOMY, PROSTATE BX TOMMY CATARACTS, RT EYE LASER SX, skin ca removed. Past Anesthesia/Blood Transfusion Reactions: No Reported Reaction Past Psychological History: No Psychological Hx Reported Additional Psychological History / Comment(s): pt lives alone. uses cane when up and has a walker to use if needed. Smoking Status: Former smoker Past Alcohol Use History: Rare Additional Past Alcohol Use History / Comment(s): STARTED SMOKING AT AGE 16(1945 ), WAS SMOKING 2 PPD. QUIT 1992 Past Drug Use History: None Reported - Past Family History Mother Additional Family Medical History / Comment(s): RHEUMATIC FEVER- HEART VALVE DAMAGE- AGE 45 Father Family Medical History: Coronary Artery Disease (CAD) Additional Family Medical History / Comment(s): AGE 93 HEART PROBLEMS Medications and Allergies Home Medications Medication Instructions Recorded Confirmed Type Calcium Carbonate/Vitamin D3 1 tab PO DAILY 01/29/17 03/13/18 History [Calcium 600-Vit D3 400 Caplet] Diltiazem HCl [Diltiazem 24Hr ER] 120 mg PO Q24HR 01/29/17 03/13/18 History Escitalopram [Lexapro] 10 mg PO HS 01/29/17 03/13/18 History Ipratropium-Albuterol Nebulize 3 ml INHALATION RT-QID PRN 01/29/17 03/13/18 History [Duoneb 0.5 mg-3 mg/3 ml Soln] Metoprolol Tartrate [Lopressor] 50 mg PO BID 01/29/17 03/13/18 History Montelukast [Singulair] 10 mg PO HS 01/29/17 03/13/18 History Multivitamins, Thera [Multivitamin 1 tab PO DAILY 01/29/17 03/13/18 History (formulary)] Terazosin HCl 5 mg PO BID 01/29/17 03/13/18 History Budesonide/Formoterol Fumarate 2 puff INHALATION RT-BID 12/06/17 03/13/18 History [Symbicort 80-4.5 Mcg Inhaler] EPINEPHrine (Auto Inject) [Epipen] 0.3 mg IM ONCE PRN 12/06/17 03/13/18 History ALPRAZolam [Xanax] 0.25 mg PO HS PRN 03/13/18 03/13/18 History Ascorbic Acid [Vitamin C] 500 mg PO DAILY 03/13/18 03/13/18 History Atorvastatin [Lipitor] 20 mg PO HS 03/13/18 03/13/18 History Prochlorperazine [Compazine] 10 mg PO Q6H PRN 03/13/18 03/13/18 History Vit C/E/Zn/Coppr/Lutein/Zeaxan 1 cap PO DAILY 03/13/18 03/13/18 History [Preservision Areds 2 Softgel] Warfarin [Coumadin] 4.5 mg PO SUTUTHSA 03/13/18 03/13/18 History Warfarin [Coumadin] 6 mg PO MOWEFR 03/13/18 03/13/18 History predniSONE 5 mg PO BID 03/13/18 03/13/18 History traMADol HCL [Ultram] 50 mg PO Q4HR PRN 03/13/18 03/13/18 History Allergies Allergy/AdvReac Type Severity Reaction Status Date / Time No Known Allergies Allergy Verified 03/13/18 15:54 Physical Exam Vitals: Vital Signs Temp Pulse Pulse Resp BP Pulse Ox 03/21/18 13:00 96.7 F L 92 16 131/74 92 L 03/21/18 11:21 84 03/21/18 11:13 76 03/21/18 07:52 80 03/21/18 07:43 92 L 03/21/18 07:40 80 03/21/18 05:00 97.5 F L 90 17 114/59 92 L 03/20/18 20:27 96.9 F L 94 24 146/82 93 L 03/20/18 19:45 88 03/20/18 19:30 86 03/20/18 18:02 87 16 03/20/18 15:31 76 03/20/18 15:22 76 03/20/18 14:58 87 16 111/60 95 03/20/18 14:38 96.9 F L 78 16 141/85 99 Intake and Output 03/20/18 03/21/18 03/21/18 22:59 06:59 14:59 Intake Total 125 Balance 125 Intake: IV 125 Other: Voiding Method Toilet Toilet Urinal Urinal # Voids 2 1 Weight 99.6 kg 99.6 kg Results CBC & Chem 7: 03/20/18 07:07 03/21/18 07:12 Labs: Abnormal Lab Results - Last 24 Hours (Table) 03/20/18 03/20/18 03/21/18 Range/Units 17:07 20:28 07:12 PT (9.0-12.0) sec INR (<1.2) POC Glucose (mg/dL) 206 H 120 H (75-99) mg/dL Calcium 8.2 L (8.4-10.2) mg/dL 03/21/18 03/21/18 Range/Units 07:12 11:28 PT 14.6 H (9.0-12.0) sec INR 1.6 H (<1.2) POC Glucose (mg/dL) 109 H (75-99) mg/dL Calcium (8.4-10.2) mg/dL Microbiology - Last 24 Hours (Table) 03/21/18 07:39 Gram Stain - Preliminary Sputum Sputum Culture - Preliminary 03/16/18 14:09 Blood Culture - Preliminary Blood No Growth after 96 hours 03/15/18 04:10 Gram Stain - Final Sputum Sputum Culture - Final Pseudomonas stutzeri Assessment and Plan (1) TIA (transient ischemic attack) Current Visit: Yes Status: Acute Code(s): G45.9 - TRANSIENT CEREBRAL ISCHEMIC ATTACK, UNSPECIFIED SNOMED Code(s): 318690443 (2) Prostate carcinoma Current Visit: No Status: Acute Priority: High Code(s): C61 - MALIGNANT NEOPLASM OF PROSTATE SNOMED Code(s): 058320539 (3) Atrial fibrillation Current Visit: No Status: Acute Code(s): I48.91 - UNSPECIFIED ATRIAL FIBRILLATION SNOMED Code(s): 02519658 (4) Thrombocytopenia Current Visit: Yes Status: Acute Priority: High Code(s): D69.6 - THROMBOCYTOPENIA, UNSPECIFIED SNOMED Code(s): 559570411
--- NOTE | 2018-03-21 13:33 | P.PN ---
Subjective Progress Note Date: 03/21/18 Principal diagnosis: Acute Hypoxic Respiratory failure, TIA Patient seen and evaluated in follow-up no acute events overnight Objective - Vital Signs Vital signs: Vital Signs Temp 96.7 F L 03/21/18 13:00 Pulse 92 03/21/18 13:00 Resp 16 03/21/18 13:00 BP 131/74 03/21/18 13:00 Pulse Ox 92 L 03/21/18 13:00 Intake & Output 03/20/18 03/21/18 03/21/18 18:59 06:59 18:59 Intake Total 615 Balance 615 Weight 99.6 kg 99.6 kg Intake: IV 425 Intake, IV Titration 190 Amount Cefepime 2 gm In Sodium 50 Chloride 0.9% 50 ml @ 100 mls/hr IVPB Q12H [facility] Rx# :[id number] Lactated Ringers 1,000 ml 140 @ 20 mls/hr IV .Q24H [facility] Rx#:[id number] Other: Voiding Method Toilet Toilet Urinal Urinal # Voids 1 - Exam Constitutional General appearance: Present: cooperative, no acute distress, obese - EENT Eyes: Present: anicteric sclerae ENT: Present: normal oropharynx - Respiratory Respiratory: bilateral: rales (expiratory) - Cardiovascular Heart sounds: normal: S1, S2 - Gastrointestinal General gastrointestinal: Present: normal bowel sounds, soft - Integumentary Integumentary Comment(s): Pale - Musculoskeletal Musculoskeletal: Present: generalized weakness, strength equal bilaterally - Psychiatric Psychiatric: Present: A&O x's 3, appropriate affect, intact judgment & insight - Labs CBC & Chem 7: 03/21/18 07:12 03/21/18 07:12 Labs: Abnormal Lab Results - Last 24 Hours (Table) 03/20/18 03/20/18 03/21/18 Range/Units 17:07 20:28 07:12 PT (9.0-12.0) sec INR (<1.2) POC Glucose (mg/dL) 206 H 120 H (75-99) mg/dL Calcium 8.2 L (8.4-10.2) mg/dL 03/21/18 03/21/18 Range/Units 07:12 11:28 PT 14.6 H (9.0-12.0) sec INR 1.6 H (<1.2) POC Glucose (mg/dL) 109 H (75-99) mg/dL Calcium (8.4-10.2) mg/dL Microbiology - Last 24 Hours (Table) 03/21/18 07:39 Gram Stain - Preliminary Sputum Sputum Culture - Preliminary 03/16/18 14:09 Blood Culture - Preliminary Blood No Growth after 96 hours 03/15/18 04:10 Gram Stain - Final Sputum Sputum Culture - Final Pseudomonas stutzeri Assessment and Plan (1) TIA (transient ischemic attack) Narrative/Plan: - Reviewed MRI and CT Scan - Symptoms have returned to baseline - Neurology is following Current Visit: Yes Status: Acute Code(s): G45.9 - TRANSIENT CEREBRAL ISCHEMIC ATTACK, UNSPECIFIED SNOMED Code(s): 789909386 (2) Prostate carcinoma Narrative/Plan: - Status POst Cycle one of Taxotere with Neulasta on 03/18 - Will follow-up in office as scheculed next week - COntinue on same regimen lupron, XGEVA and Taxotere as out patient Current Visit: No Status: Acute Priority: High Code(s): C61 - MALIGNANT NEOPLASM OF PROSTATE SNOMED Code(s): 406642203 (3) Atrial fibrillation Current Visit: No Status: Acute Code(s): I48.91 - UNSPECIFIED ATRIAL FIBRILLATION SNOMED Code(s): 15937810 (4) Thrombocytopenia Current Visit: Yes Status: Acute Priority: High Code(s): D69.6 - THROMBOCYTOPENIA, UNSPECIFIED SNOMED Code(s): 291685052 Plan: Assessment and Plan (1) Prostate carcinoma Narrative/Plan: S/P chemotherapy, first cycle of Taxotere with GCS-F on February 04. Plan is for rehabilitation then proceed with treatment for his prostate cancer. Current Visit: No Status: Acute Priority: High Code(s): C61 - MALIGNANT NEOPLASM OF PROSTATE SNOMED Code(s): 850144394 (2) Thrombocytopenia Narrative/Plan: Multifacotrial, including chemo and bactremia. Stable and improving each day. Current Visit: Yes Status: Acute Priority: High Code(s): D69.6 - THROMBOCYTOPENIA, UNSPECIFIED SNOMED Code(s): 791060007 (3) Anemia aplastic aregenerative Narrative/Plan: Multifactorial, chemo and bactremia, anemia work up . No transfusion today, Hgb is stable Current Visit: Yes Status: Acute Priority: High Code(s): D61.9 - APLASTIC ANEMIA, UNSPECIFIED SNOMED Code(s): 616280035 (4) Neutrophilic leukocytosis Narrative/Plan: R/T GCS-F. No acute intervention Current Visit: Yes Status: Acute Priority: High Code(s): D72.9 - DISORDER OF WHITE BLOOD CELLS, UNSPECIFIED SNOMED Code(s): 866167883 (5) Warfarin-induced coagulopathy Narrative/Plan: INR is decreasing, today will be his 3rd day without a dose. Pt is eating much better now too. INR in AM. Current Visit: Yes Status: Acute Priority: High Code(s): D68.9 - COAGULATION DEFECT, UNSPECIFIED; T45.515A - ADVERSE EFFECT OF ANTICOAGULANTS, INITIAL ENCOUNTER SNOMED Code(s): 80288970 Plan: TIA-management per Neurology. Pt does not appear to have residual deficit. Pt has stool softeners and lax PRN Bronchoscopy Today Warfarin to restart likely after after close monitoring NR and Platlets to ensure greater than 50K
--- NOTE | 2018-03-21 15:13 | P.PN ---
Subjective Progress note being dictated for Dr. Hansen. Interval history: This a 87-year-old gentleman admitted with acute CVA, neutropenia, sepsis with MSSA bacteremia and multiple other medical issues. Maintained on vancomycin and Zosyn as per ID. Repeat blood cultures pending. Afebrile, increased WBC,23.3. Tenacious sputum with intermittent minimal hemoptysis reported. Sputum culture reporting gram-negative bacilli. INR 3.6. Hemoglobin 8.3. Denies nausea or vomiting. Ambulating in hallway, tolerated exertion well. Denies chest pain, palpitations. 03/19/2018 ongoing hemoptysis, bronchoscopy scheduled for tomorrow. Hemoglobin 8.7. Denies nausea or vomiting. Coumadin on hold, INR 2.7. Afebrile. Antibiotics adjusted to cefepime as per ID. WBC 34.8, steroids discontinued. Afebrile. 03/20/2018 NPO, awaiting bronchoscopy. Reports dark hemoptysis this morning. Hemoglobin currently 8.1, INR 2. Initial sputum culture reporting Pseudomonas stutzeri and initial blood culture MSSA. Repeat sputum culture contaminated and repeat blood culture. Afebrile. Maintaining O2 sats in the mid 90s on room air. 03/21/2018 complains of constipation, abdominal hernia released upon straining, not strangulated, minimal pain. Continues to have hemoptysis, bright red. CBC pending. Status post bronchoscopy, cultures/pathology pending. Cleared by pulmonary for discharge. Midline placed today. Patient has no coverage for IV antibiotics at home and therefore social work arranging subacute rehab. Objective - Vital Signs Vital signs: Vital Signs Temp 96.7 F L 03/21/18 13:00 Pulse 92 03/21/18 13:00 Resp 16 03/21/18 13:00 BP 131/74 03/21/18 13:00 Pulse Ox 92 L 03/21/18 13:00 Intake & Output 03/20/18 03/21/18 03/21/18 18:59 06:59 18:59 Intake Total 615 50 Output Total 400 Balance 615 -350 Weight 99.6 kg 99.6 kg Intake: IV 425 50 Cefepime 2 gm In Sodium 50 Chloride 0.9% 50 ml @ 100 mls/hr IVPB Q12H [facility] Rx# :[id number] Intake, IV Titration 190 Amount Cefepime 2 gm In Sodium 50 Chloride 0.9% 50 ml @ 100 mls/hr IVPB Q12H [facility] Rx# :[id number] Lactated Ringers 1,000 ml 140 @ 20 mls/hr IV .Q24H [facility] Rx#:[id number] Output: Urine 400 Other: Voiding Method Toilet Toilet Urinal Urinal # Voids 1 - Labs CBC & Chem 7: 03/20/18 07:07 03/21/18 07:12 Labs: Abnormal Lab Results - Last 24 Hours (Table) 03/20/18 03/20/18 03/21/18 Range/Units 17:07 20:28 07:12 PT (9.0-12.0) sec INR (<1.2) POC Glucose (mg/dL) 206 H 120 H (75-99) mg/dL Calcium 8.2 L (8.4-10.2) mg/dL 03/21/18 03/21/18 Range/Units 07:12 11:28 PT 14.6 H (9.0-12.0) sec INR 1.6 H (<1.2) POC Glucose (mg/dL) 109 H (75-99) mg/dL Calcium (8.4-10.2) mg/dL Microbiology - Last 24 Hours (Table) 03/21/18 07:39 Gram Stain - Preliminary Sputum Sputum Culture - Preliminary 03/16/18 14:09 Blood Culture - Preliminary Blood No Growth after 96 hours Assessment and Plan Assessment: -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, right upper lobe motor neuron lesion, right sided facial droop with minimal right upper lobe weakness, present on admission -Sepsis present on admission secondary to possible aspiration pneumonia, Pseudomonas stutzeri -Bacteremia with MSSA , repeat cultures negative -Pancytopenia secondary to chemotherapy -Old left occipital infarct, cortical infarct, 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 CBC pending. Bronchoscopy cultures last pathology pending .discharge planning in progress , social media assistant assisting with ECF placement-as patient has no coverage for IV antibiotics at home. The impression and plan of care has been dictated as directed. : I performed a history and examination of this patient, discussed the same with the dictator. I agree with the dictator's note ,documented as a scribe. Any additional findings or plans will be noted.
--- NOTE | 2018-03-21 15:52 | PN ---
PROGRESS NOTE DATE OF SERVICE: 03/21/2018 REASON FOR FOLLOWUP: 1. MSSA bacteremia. 2. Pneumonia. INTERVAL HISTORY: The patient is currently afebrile. He seems to be breathing comfortably. The patient continues to have a problem with hemoptysis and the patient says that his Coumadin has been put on hold. No nausea, no vomiting. No abdominal pain or any diarrhea. PHYSICAL EXAMINATION: Blood pressure is 131/74 with a pulse of 92, temperature 96.7. He is 92% on 2 L nasal cannula. General description is an elderly male up in the bed in no distress. RESPIRATORY SYSTEM: Unlabored breathing with decreased intensity of breath sounds. No wheeze. HEART: S1, S2. Regular rate and rhythm. ABDOMEN: Soft. No tenderness. EXTREMITIES: No edema of feet. LABS: BUN of 15, creatinine 0.74. INR is 1.6. DIAGNOSTIC IMPRESSION AND PLAN: Patient with methicillin-susceptible Staphylococcus aeruginosa bacteremia. Source is likely pneumonia. However, the sputum is showing Pseudomonas stutzeri and the patient is status post bronch yesterday. Those cultures have been negative. The patient continues to have a problem with hemoptysis. The patient's Coumadin has been put on hold. Will be able to switch him over to cefazolin 2 grams along with oral Cipro with no concern about interaction between antibiotic and the Coumadin. He will need at least 2 weeks of antibiotics from his negative blood culture for his bacteremia with close outpatient followup. Blood cultures repeat 03/16 have all been negative. MMODL / IJN: [id number] /
[2018-03-21] MEDS: SENNOSIDES-DOCUSATE SODIUM 1 EACH TAB PO SCH ×2 (15:59→20:58)
[2018-03-21] MEDS: DOCUSATE 100 MG CAP PO SCH ×2 (16:00→20:56)
[2018-03-21 16:01] LABS: Anisocytosis Slight; HGB 8.2 gm/dL (13.0-17.5); Hypochromasia Moderate; MCH 28.9 pg (25.0-35.0); MCHC 31.5 g/dL (31.0-37.0); MCV 91.8 fL (80.0-100.0); Mean Platelet Volume 11.9; RBC 2.84 m/uL (4.30-5.90); RDW 16.7 % (11.5-15.5)
[2018-03-21 16:03] LABS: Platelet Count 62 k/uL (150-450)
[2018-03-21 16:34] LABS: Band Neutrophils % 8 %; Lymphocytes # (M) 4.02 k/uL (1.0-4.8); Metamyelocytes % 4 %; Monocytes # (M) 0.25 k/uL (0-1.0); Myelocytes % 2 %; Neutrophils % (M) 70 %; Nucleated Red Blood Cells 1 /100 WBC (0-0); Total Cells Counted 200; WBC 25.1 k/uL (3.8-10.6)
[2018-03-21 16:35] LABS: Poikilocytosis (M) Present
[2018-03-21 17:14] LABS: Glucose,Whole Blood 190 mg/dL (75-99)
[2018-03-21 20:09] LABS: Glucose,Whole Blood 140 mg/dL (75-99)
[2018-03-21] MEDS: ESCITALOPRAM 10 MG TAB PO SCH (20:56)
[2018-03-21] MEDS: DOXAZOSIN 4 MG TAB PO SCH (20:57)
[2018-03-21] MEDS: ALPRAZolam 0.25 MG TAB PO PRN (20:58)
[2018-03-21] MEDS: ATORVASTATIN 20 MG TAB PO SCH (20:58)
[2018-03-21] MEDS: MONTELUKAST 10 MG TAB PO SCH (20:58)
[2018-03-22 06:54] LABS: INR 1.5 (<1.2); Prothrombin Time 13.8 sec (9.0-12.0)
[2018-03-22 07:07] LABS: Anion Gap 9 mmol/L; Blood Urea Nitrogen 13 mg/dL (9-20); Calcium 8.6 mg/dL (8.4-10.2); Carbon Dioxide 27 mmol/L (22-30); Chloride 100 mmol/L (98-107); Glucose 89 mg/dL (74-99); Potassium 3.8 mmol/L (3.5-5.1); Sodium 136 mmol/L (137-145)
[2018-03-22 07:31] LABS: Glucose,Whole Blood 106 mg/dL (75-99)
[2018-03-22] MEDS: DILTIAZEM CD 120 MG CAP.ER.24H PO SCH (08:11)
[2018-03-22] MEDS: predniSONE 20 MG TAB PO SCH (08:11)
[2018-03-22] MEDS: METOPROLOL TARTRATE 50 MG TAB PO SCH ×2 (08:11→20:41)
[2018-03-22] MEDS: SENNOSIDES-DOCUSATE SODIUM 1 EACH TAB PO SCH ×2 (08:11→20:40)
[2018-03-22] MEDS: DOCUSATE 100 MG CAP PO SCH ×2 (08:11→20:40)
[2018-03-22] MEDS: LACTATED RINGERS 1,000 ML IV SCH ×2 (08:12→22:11)
[2018-03-22] MEDS: SENNOSIDES 8.6 MG TAB PO SCH (08:12)
[2018-03-22] MEDS: PANTOPRAZOLE 40 MG TABLET PO SCH (08:12)
[2018-03-22] MEDS: INSULIN ASPART 100 UNIT/ML 1 ML 10 ML VIAL SQ SCH ×4 (08:12→22:10)
[2018-03-22] MEDS: IPRATROPIUM-ALBUTEROL 3 ML NEB INHALATION SCH ×4 (08:17→19:35)
[2018-03-22] MEDS: BUDESONIDE 0.5 MG/2 ML NEBU INHALATION SCH ×2 (08:17→19:35)
--- NOTE | 2018-03-22 11:15 | P.PN ---
Subjective 87-year-old gentleman admitted with acute CVA, neutropenia, sepsis with MSSA bacteremia and multiple other medical issues. Maintained on vancomycin and Zosyn as per ID. Repeat blood cultures pending. Afebrile, increased WBC, 23.3. Tenacious sputum with intermittent minimal hemoptysis reported. Sputum culture reporting gram-negative bacilli. INR 3.6. Hemoglobin 8.3. Denies nausea or vomiting. Ambulating in hallway, tolerated exertion well. Denies chest pain, palpitations. 03/19/2018 ongoing hemoptysis, bronchoscopy scheduled for tomorrow. Hemoglobin 8.7. Denies nausea or vomiting. Coumadin on hold, INR 2.7. Afebrile. Antibiotics adjusted to cefepime as per ID. WBC 34.8, steroids discontinued. Afebrile. 03/20/2018 NPO, awaiting bronchoscopy. Reports dark hemoptysis this morning. Hemoglobin currently 8.1, INR 2. Initial sputum culture reporting Pseudomonas stutzeri and initial blood culture MSSA. Repeat sputum culture contaminated and repeat blood culture. Afebrile. Maintaining O2 sats in the mid 90s on room air. 03/21/2018 complains of constipation, abdominal hernia released upon straining, not strangulated, minimal pain. Continues to have hemoptysis, bright red. CBC pending. Status post bronchoscopy, cultures/pathology pending. Cleared by pulmonary for discharge. Midline placed today. Patient has no coverage for IV antibiotics at home and therefore social work arranging subacute rehab. 03/22/2018 Patient's hemoptysis is better patient will be started back on Coumadin we'll recheck the INR tomorrow patient is feeling bit better but will need to go to rehabilitation patient is willing to submit go to subacute rehab Objective - Vital Signs Vital signs: Vital Signs Temp 97.1 F L 03/22/18 05:00 Pulse 91 03/22/18 05:00 Resp 18 03/22/18 05:00 BP 128/78 03/22/18 05:00 Pulse Ox 95 03/21/18 20:26 Intake & Output 03/21/18 03/22/18 03/22/18 18:59 06:59 18:59 Intake Total 50 1570 Output Total 400 Balance -350 1570 Intake: IV 50 Cefepime 2 gm In Sodium 50 Chloride 0.9% 50 ml @ 100 mls/hr IVPB Q12H [facility] Rx# :[id number] Intake, IV Titration 370 Amount Cefepime 2 gm In Sodium 50 Chloride 0.9% 50 ml @ 100 mls/hr IVPB Q12H [facility] Rx# :[id number] Lactated Ringers 1,000 ml 320 @ 20 mls/hr IV .Q24H [facility] Rx#:[id number] Oral 1200 Output: Urine 400 Other: Voiding Method Toilet Toilet Urinal Urinal # Voids 1 - Exam PHYSICAL EXAMINATION: GENERAL: The patient is alert and oriented x3, not in any acute distress. Well developed, well nourished. HEENT: Pupils are round and equally reacting to light. EOMI. No scleral icterus. No conjunctival pallor. Normocephalic, atraumatic. No pharyngeal erythema. No thyromegaly. CARDIOVASCULAR: S1 and S2 present. No murmurs, rubs, or gallops. PULMONARY: Rhonchus breath sounds were normal expiratory wheezing. ABDOMEN: Soft, nontender, nondistended, normoactive bowel sounds. No palpable organomegaly. MUSCULOSKELETAL: No joint swelling or deformity. EXTREMITIES: No cyanosis, clubbing, or pedal edema. NEUROLOGICAL: Gross neurological examination did not reveal any focal deficits. SKIN: No rashes. - Labs CBC & Chem 7: 03/21/18 07:12 03/22/18 06:29 Labs: Abnormal Lab Results - Last 24 Hours (Table) 03/21/18 03/21/18 03/21/18 Range/Units 07:12 11:28 17:13 WBC 25.1 H (3.8-10.6) k/uL RBC 2.84 L (4.30-5.90) m/uL Hgb 8.2 L (13.0-17.5) gm/dL Hct 26.0 L (39.0-53.0) % RDW 16.7 H (11.5-15.5) % Plt Count 62 L (150-450) k/uL Neutrophils # (Manual) 19.50 H (1.3-7.7) k/uL Metamyelocytes # (Man) 1.00 H (0) k/uL Myelocytes # (Manual) 0.50 H (0) k/uL Nucleated RBCs 1 H (0-0) /100 WBC PT (9.0-12.0) sec INR (<1.2) Sodium (137-145) mmol/L POC Glucose (mg/dL) 109 H 190 H (75-99) mg/dL 03/21/18 03/22/18 03/22/18 Range/Units 20:08 06:29 06:29 WBC (3.8-10.6) k/uL RBC (4.30-5.90) m/uL Hgb (13.0-17.5) gm/dL Hct (39.0-53.0) % RDW (11.5-15.5) % Plt Count (150-450) k/uL Neutrophils # (Manual) (1.3-7.7) k/uL Metamyelocytes # (Man) (0) k/uL Myelocytes # (Manual) (0) k/uL Nucleated RBCs (0-0) /100 WBC PT 13.8 H (9.0-12.0) sec INR 1.5 H (<1.2) Sodium 136 L (137-145) mmol/L POC Glucose (mg/dL) 140 H (75-99) mg/dL 03/22/18 Range/Units 07:03 WBC (3.8-10.6) k/uL RBC (4.30-5.90) m/uL Hgb (13.0-17.5) gm/dL Hct (39.0-53.0) % RDW (11.5-15.5) % Plt Count (150-450) k/uL Neutrophils # (Manual) (1.3-7.7) k/uL Metamyelocytes # (Man) (0) k/uL Myelocytes # (Manual) (0) k/uL Nucleated RBCs (0-0) /100 WBC PT (9.0-12.0) sec INR (<1.2) Sodium (137-145) mmol/L POC Glucose (mg/dL) 106 H (75-99) mg/dL Microbiology - Last 24 Hours (Table) 03/16/18 14:09 Blood Culture - Preliminary Blood No Growth after 120 hours 03/21/18 07:39 Gram Stain - Preliminary Sputum Sputum Culture - Preliminary Assessment and Plan Plan: Assessment and Plan Assessment: -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 -Anemia, secondary to chemo for prostate cancer
[2018-03-22 11:48] LABS: Glucose,Whole Blood 152 mg/dL (75-99)
[2018-03-22] MEDS: CEFEPIME 2 GM in SODIUM CHLORIDE 0.9% 50 ML IVPB SCH ×2 (12:58→23:46)
[2018-03-22] MEDS: LACTULOSE 20 GM/30 ML CUP PO SCH ×2 (12:58→20:41)
[2018-03-22] MEDS: CALCIUM CARB-VIT D 500MG-200UN 1 EACH TAB PO SCH (12:59)
[2018-03-22] MEDS: VIT A,C & E-LUTEIN-MINERALS 1 EACH TAB PO SCH (12:59)
[2018-03-22] MEDS: ASCORBIC ACID 500 MG TAB PO SCH (12:59)
[2018-03-22] MEDS: MULTIVITAMINS, THERA 1 EACH TAB PO SCH (12:59)
--- NOTE | 2018-03-22 16:14 | PN ---
PROGRESS NOTE He was seen again on 03/22/2018. He has been hemodynamically stable. He is less short of breath. Continues to bring up some blood, but it is less. On physical examination, blood pressure is 128/70, respiratory rate 18, pulse are 91, temperature 97.1, O2 saturation on 2 L by nasal cannula is 94%. HEENT reveals no new changes. Chest reveals decreased breath sounds, prolonged expiration with no wheeze. Cardiovascular system reveals an S1, S2. Abdomen is soft. There is no pedal edema. IMPRESSION AT THIS TIME: 1. Hemoptysis secondary to airway inflammation, status post bronchoscopy. 2. Chronic obstructive pulmonary disease. 3. Severe asthma with acute exacerbation. 4. Aspiration pneumonia. 5. Prostate cancer. Continue prednisone. Continue antibiotics for Pseudomonas. Increase his activity level. Agree with possible discharge planning to subacute rehab in the next day or 2. RAPLH / TELLYN: [id number] /
[2018-03-22 17:16] LABS: Glucose,Whole Blood 160 mg/dL (75-99)
[2018-03-22] MEDS: ESCITALOPRAM 10 MG TAB PO SCH (20:40)
[2018-03-22] MEDS: ATORVASTATIN 20 MG TAB PO SCH (20:40)
[2018-03-22] MEDS: DOXAZOSIN 4 MG TAB PO SCH (20:40)
[2018-03-22] MEDS: MONTELUKAST 10 MG TAB PO SCH (20:41)
[2018-03-22] MEDS: ALPRAZolam 0.25 MG TAB PO PRN (20:44)
[2018-03-22 21:17] LABS: Glucose,Whole Blood 155 mg/dL (75-99)
[2018-03-23 07:03] LABS: Glucose,Whole Blood 92 mg/dL (75-99)
[2018-03-23 07:43] LABS: Anisocytosis Slight; HCT 23.6 % (39.0-53.0); HGB 7.4 gm/dL (13.0-17.5); Hypochromasia Slight; MCH 28.5 pg (25.0-35.0); MCHC 31.3 g/dL (31.0-37.0); Mean Platelet Volume 9.4; RBC 2.59 m/uL (4.30-5.90); RDW 17.9 % (11.5-15.5); WBC 13.2 k/uL (3.8-10.6)
[2018-03-23 07:44] LABS: Platelet Count 96 k/uL (150-450)
[2018-03-23] MEDS: DILTIAZEM CD 120 MG CAP.ER.24H PO SCH (08:05)
[2018-03-23] MEDS: METOPROLOL TARTRATE 50 MG TAB PO SCH ×2 (08:05→20:57)
[2018-03-23] MEDS: predniSONE 20 MG TAB PO SCH (08:05)
[2018-03-23] MEDS: INSULIN ASPART 100 UNIT/ML 1 ML 10 ML VIAL SQ SCH ×4 (08:06→20:58)
[2018-03-23] MEDS: LACTULOSE 20 GM/30 ML CUP PO SCH ×2 (08:06→21:09)
[2018-03-23] MEDS: SENNOSIDES-DOCUSATE SODIUM 1 EACH TAB PO SCH ×2 (08:06→20:56)
[2018-03-23] MEDS: DOCUSATE 100 MG CAP PO SCH ×2 (08:06→20:57)
[2018-03-23] MEDS: PANTOPRAZOLE 40 MG TABLET PO SCH (08:06)
[2018-03-23] MEDS: SENNOSIDES 8.6 MG TAB PO SCH (08:06)
[2018-03-23] MEDS: BUDESONIDE 0.5 MG/2 ML NEBU INHALATION SCH ×2 (08:42→19:00)
[2018-03-23] MEDS: IPRATROPIUM-ALBUTEROL 3 ML NEB INHALATION SCH ×4 (08:42→18:51)
[2018-03-23 08:45] LABS: Anion Gap 7 mmol/L; Blood Urea Nitrogen 15 mg/dL (9-20); Calcium 8.6 mg/dL (8.4-10.2); Carbon Dioxide 29 mmol/L (22-30); Chloride 100 mmol/L (98-107); Glucose 81 mg/dL (74-99); Sodium 136 mmol/L (137-145)
[2018-03-23 11:23] LABS: Glucose,Whole Blood 112 mg/dL (75-99)
[2018-03-23] MEDS: ASCORBIC ACID 500 MG TAB PO SCH (12:27)
[2018-03-23] MEDS: VIT A,C & E-LUTEIN-MINERALS 1 EACH TAB PO SCH (12:27)
[2018-03-23] MEDS: CEFEPIME 2 GM in SODIUM CHLORIDE 0.9% 50 ML IVPB SCH ×2 (12:27→23:35)
[2018-03-23] MEDS: CALCIUM CARB-VIT D 500MG-200UN 1 EACH TAB PO SCH (12:28)
[2018-03-23] MEDS: MULTIVITAMINS, THERA 1 EACH TAB PO SCH (12:28)
--- NOTE | 2018-03-23 13:24 | PN ---
PROGRESS NOTE He has hemoptysis but it is doing less at this time. He has some increase in his shortness of breath. On physical examination, he was sitting in a chair. His respiratory rate was 20, pulse rate 99, temperature 98, blood pressure 110/74, O2 saturation on 3 L by nasal cannula is 92%. HEENT reveals pupils are equal. Chest reveals occasional wheeze on forced expiration. Cardiovascular system reveals an S1, S2. Abdomen is soft. There is trace pedal edema. IMPRESSION: 1. Hemoptysis that is multifactorial, including due to airway inflammation. 2. Pseudomonas pneumonia for which the patient is on antibiotics per ID. 3. Prostate cancer, metastatic with recent chemotherapy. At this point in time, would increase his systemic steroids. Would continue the prednisone, but increase it to 60 mg and give him 2 extra doses of Solu-Medrol. Depending on how he does, we should make further changes to his care. MMCARINL / IJN: [id number] /
--- NOTE | 2018-03-23 13:48 | P.PN ---
Subjective 87-year-old gentleman admitted with acute CVA, neutropenia, sepsis with MSSA bacteremia and multiple other medical issues. Maintained on vancomycin and Zosyn as per ID. Repeat blood cultures pending. Afebrile, increased WBC, 23.3. Tenacious sputum with intermittent minimal hemoptysis reported. Sputum culture reporting gram-negative bacilli. INR 3.6. Hemoglobin 8.3. Denies nausea or vomiting. Ambulating in hallway, tolerated exertion well. Denies chest pain, palpitations. 03/19/2018 ongoing hemoptysis, bronchoscopy scheduled for tomorrow. Hemoglobin 8.7. Denies nausea or vomiting. Coumadin on hold, INR 2.7. Afebrile. Antibiotics adjusted to cefepime as per ID. WBC 34.8, steroids discontinued. Afebrile. 03/20/2018 NPO, awaiting bronchoscopy. Reports dark hemoptysis this morning. Hemoglobin currently 8.1, INR 2. Initial sputum culture reporting Pseudomonas stutzeri and initial blood culture MSSA. Repeat sputum culture contaminated and repeat blood culture. Afebrile. Maintaining O2 sats in the mid 90s on room air. 03/21/2018 complains of constipation, abdominal hernia released upon straining, not strangulated, minimal pain. Continues to have hemoptysis, bright red. CBC pending. Status post bronchoscopy, cultures/pathology pending. Cleared by pulmonary for discharge. Midline placed today. Patient has no coverage for IV antibiotics at home and therefore social work arranging subacute rehab. 03/22/2018 Patient's hemoptysis is better patient will be started back on Coumadin we'll recheck the INR tomorrow patient is feeling bit better but will need to go to rehabilitation patient is willing to submit go to subacute rehab 03/23/2018 Patient is still with hemoptysis, his hemoglobin today is down from 8.2 to 7.4. Vital stable.he has been wheezing a little bit more this morning. his steroid dose is increased by pulmonary team and now he feels better. pt was asking about when to be discharge tomorrow. pt and neville at bed side with all their questions has been answered to their satisfaction Objective - Vital Signs Vital signs: Vital Signs Temp 98 F 03/23/18 05:00 Pulse 88 03/23/18 12:28 Resp 20 03/23/18 05:00 BP 110/74 03/23/18 05:00 Pulse Ox 92 L 03/23/18 05:00 Intake & Output 03/22/18 03/23/18 03/23/18 18:59 06:59 18:59 Intake Total 1120 Output Total 300 Balance -300 1120 Intake: Intake, IV Titration 320 Amount Lactated Ringers 1,000 ml 320 @ 20 mls/hr IV .Q24H [facility] Rx#:[id number] Oral 800 Output: Urine 300 Other: Voiding Method Toilet Toilet Toilet Urinal Urinal Urinal # Voids 1 2 # Bowel Movements 3 - Exam GENERAL: The patient is alert and oriented x3, not in any acute distress. Well developed, well nourished. HEENT: Pupils are round and equally reacting to light. EOMI. No scleral icterus. No conjunctival pallor. Normocephalic, atraumatic. No pharyngeal erythema. No thyromegaly. CARDIOVASCULAR: S1 and S2 present. No murmurs, rubs, or gallops. -PULMONARY: Rhonchus breath sounds were normal with expiratory wheezing. ABDOMEN: Soft, nontender, nondistended, normoactive bowel sounds. No palpable organomegaly. MUSCULOSKELETAL: No joint swelling or deformity. EXTREMITIES: No cyanosis, clubbing, or pedal edema. NEUROLOGICAL: Gross neurological examination did not reveal any focal deficits. SKIN: No rashes. - Labs CBC & Chem 7: 03/23/18 07:04 03/23/18 07:04 Labs: Abnormal Lab Results - Last 24 Hours (Table) 03/20/18 03/22/18 03/22/18 Range/Units 07:07 17:15 21:15 WBC (3.8-10.6) k/uL RBC (4.30-5.90) m/uL Hgb (13.0-17.5) gm/dL Hct (39.0-53.0) % RDW (11.5-15.5) % Plt Count (150-450) k/uL Sodium (137-145) mmol/L POC Glucose (mg/dL) 160 H 155 H (75-99) mg/dL T-Suppressor Cells 157 L (190-832) cell/ul Absolute CD4 [place] 308 L (443-1471) cell/ul 03/23/18 03/23/18 03/23/18 Range/Units 07:04 07:04 11:22 WBC 13.2 H (3.8-10.6) k/uL RBC 2.59 L (4.30-5.90) m/uL Hgb 7.4 L (13.0-17.5) gm/dL Hct 23.6 L (39.0-53.0) % RDW 17.9 H (11.5-15.5) % Plt Count 96 L D (150-450) k/uL Sodium 136 L (137-145) mmol/L POC Glucose (mg/dL) 112 H (75-99) mg/dL T-Suppressor Cells (190-832) cell/ul Absolute CD4 [place] (443-1471) cell/ul Microbiology - Last 24 Hours (Table) 03/16/18 14:09 Blood Culture - Final Blood No Growth after 144 hours Assessment and Plan Plan: -Acute CVA involving the left hemisphere present on admission, c/w statin, and other treatment . f/u as outpt -Sepsis present on admission secondary to possible aspiration pneumonia, ID are following the case , c/w same antibiotics. Leukocytosis is improving -Pancytopenia secondary to chemotherapy, -Old left occipital infarct, cortical infarct, history of prostate cancer with metastatic cancer on chemotherapy -Chronic Atrial fibrillation with controlled ventricular rate -CAD, history of [place] -Degenerative joint disease -Atrial fibrillation: Patient will be started back on Coumadin which is being temporally held because of hemoptysis. -Anemia, secondary to chemo for prostate cancer prognosis is guarded
[2018-03-23 17:13] LABS: Glucose,Whole Blood 153 mg/dL (75-99)
[2018-03-23] MEDS: LACTATED RINGERS 1,000 ML IV SCH (17:47)
[2018-03-23] MEDS: methylPREDNISolone SOD SUCCI 125 MG/2 ML VIAL IV SCH ×2 (17:47→23:35)
[2018-03-23 20:29] LABS: Glucose,Whole Blood 166 mg/dL (75-99)
[2018-03-23] MEDS: ALPRAZolam 0.25 MG TAB PO PRN (20:56)
[2018-03-23] MEDS: ATORVASTATIN 20 MG TAB PO SCH (20:57)
[2018-03-23] MEDS: ESCITALOPRAM 10 MG TAB PO SCH (20:57)
[2018-03-23] MEDS: DOXAZOSIN 4 MG TAB PO SCH (20:57)
[2018-03-23] MEDS: MONTELUKAST 10 MG TAB PO SCH (20:58)
[2018-03-23 22:00] LABS: Anisocytosis Slight; HCT 25.9 % (39.0-53.0); HGB 8.4 gm/dL (13.0-17.5); Hypochromasia Slight; MCH 28.9 pg (25.0-35.0); MCHC 32.2 g/dL (31.0-37.0); MCV 89.7 fL (80.0-100.0); Mean Platelet Volume 9.8; Platelet Count 106 k/uL (150-450); RBC 2.89 m/uL (4.30-5.90); RDW 17.5 % (11.5-15.5); WBC 14.1 k/uL (3.8-10.6)
[2018-03-23 22:04] LABS: INR 1.3 (<1.2); Prothrombin Time 12.3 sec (9.0-12.0)
[2018-03-23 22:17] LABS: Band Neutrophils % 9 %; Lymphocytes # (M) 0.14 k/uL (1.0-4.8); Metamyelocytes # (M) 0.56 k/uL (0); Metamyelocytes % 4 %; Neutrophils % (M) 87 %; Nucleated Red Blood Cells 0 /100 WBC (0-0); Total Cells Counted 200
[2018-03-23 22:18] LABS: Ovalocytes Present; Polychromasia Present
--- NOTE | 2018-03-24 00:18 | PN ---
PROGRESS NOTE DATE OF SERVICE: 03/23/2018. REASON FOR FOLLOWUP: MSSA bacteremia, source likely pneumonia with evidence of positive culture. INTERVAL HISTORY: The patient is currently afebrile. He has been breathing more comfortably. Denies significant chest pain. The patient hemoptysis has resolved. No nausea. No vomiting and no diarrhea. EXAMINATION: Blood pressure 116/76 with a pulse of 96, temperature 97.8. He is 92% on 2 L nasal cannula. General description is an elderly male up in the chair in no distress. Respiratory system: Unlabored breathing with decreased breath sounds in the bases. No wheeze. Heart S1, S2. Regular rate and rhythm. ABDOMEN: Soft, no tenderness. EXTREMITIES: No edema of the feet. LABS: Hemoglobin is 8.4 with white count 14.1. DIAGNOSTIC IMPRESSION AND PLAN: Patient with MSSA bacteremia in a patient follow up blood cultures has been negative. Sputum has been positive for Pseudomonas hence the patient is currently on cefepime 2 g q.12 hours for with addition antibiotic should be at least 2 weeks. Discuss further with Pulmonary tomorrow to see if the patient will be started back on Coumadin or not to determine the discharge antibiotics. Continue supportive care. MMODL / IJN: [id number] /
[2018-03-24 06:59] LABS: Glucose,Whole Blood 154 mg/dL (75-99)
[2018-03-24] MEDS: BUDESONIDE 0.5 MG/2 ML NEBU INHALATION SCH ×2 (07:31→19:07)
[2018-03-24] MEDS: IPRATROPIUM-ALBUTEROL 3 ML NEB INHALATION SCH ×4 (07:31→19:07)
[2018-03-24] MEDS: PANTOPRAZOLE 40 MG TABLET PO SCH (08:55)
[2018-03-24] MEDS: INSULIN ASPART 100 UNIT/ML 1 ML 10 ML VIAL SQ SCH ×4 (08:55→22:59)
[2018-03-24] MEDS: DOCUSATE 100 MG CAP PO SCH ×2 (08:55→22:59)
[2018-03-24] MEDS: METOPROLOL TARTRATE 50 MG TAB PO SCH ×2 (08:55→23:01)
[2018-03-24] MEDS: DILTIAZEM CD 120 MG CAP.ER.24H PO SCH (08:55)
[2018-03-24] MEDS: predniSONE 20 MG TAB PO SCH (08:56)
[2018-03-24] MEDS: LACTULOSE 20 GM/30 ML CUP PO SCH ×2 (08:56→23:00)
[2018-03-24] MEDS: SENNOSIDES-DOCUSATE SODIUM 1 EACH TAB PO SCH ×2 (09:02→23:01)
[2018-03-24 10:34] LABS: Anisocytosis Slight; HCT 25.5 % (39.0-53.0); HGB 8.2 gm/dL (13.0-17.5); Hypochromasia Slight; MCHC 32.3 g/dL (31.0-37.0); MCV 89.9 fL (80.0-100.0); Mean Platelet Volume 10.4; Platelet Count 114 k/uL (150-450); RBC 2.84 m/uL (4.30-5.90); RDW 17.6 % (11.5-15.5); WBC 13.8 k/uL (3.8-10.6)
--- NOTE | 2018-03-24 10:34 | P.PN ---
<Marce Carter E - Last Filed: 03/24/18 10:30> Subjective Progress Note Date: 03/24/18 HPI: Chun waldron is a 87-year-old male who presented to the ED at [facility] with left sided facial numbness and weakness. He also had some difficulty speaking. He denies any choking on any of his food. He was seen in the ER, admitted for further evaluation. He has a history of prostate cancer and has been undergoing chemotherapy. He denied any fevers or chills. He has been having progressive worsening shortness of breath along with cough and some sputum production. Sputum does not have any color to it. He has had no fever while he was in the hospital. Pulmonary consultation is placed because of the possibility of aspiration pneumonia. Interval history: 03/18/2018patient is being seen examined and evaluated today on rounds. Patient currently has a WBC count of 23.3 which could possibly be related to initiating Solu-Medrol yesterday. He continues and chemo precautions. He is resting up in bedside chair on room air. He states he does get short of breath with exertion. He also has a cough and has had some hemoptysis which he states has been intermittently ongoing for a few months now. He states the breathing treatments and steroids have been helping him. We will get a repeat sputum culture and initiate incentive spirometer. He denies any fevers or chills. 03/19/2018patient is being seen examined and evaluated today on rounds. He continues on room air and still has hemoptysis. His INR today is 2.7. His Coumadin and aspirin were held yesterday. He is scheduled for a bronchoscopy tomorrow. They procedure risk class complications have been discussed with the patient's and all questions have been answered. He is willing to go forth with the procedure. He continues on prednisone 40 mg at this time. He states the breathing treatments are also helping him. He did have an EEG and those results are pending. He is afebrile and has no further complaints. 03/20/2018patient is being seen examined and evaluated today on rounds. He is resting in bed on room air. Still has intermittent hemoptysis. His hemoglobin today is 8.1, his INR is 2.0, platelets 68. Patient is scheduled to go for a bronchoscopy this afternoon. Sputum showing Pseudomonas stutzeri, ID is on consult. He is afebrile no further complaints. 03/21/18- patient is being seen examined and evaluated today on rounds. He is resting up in bed on 3 L of supplemental oxygen via nasal cannula. He is states he has had some small amount of hemoptysis today however it has improved since he did undergo the bronchoscopy yesterday. Bronchoscopy washings were sent for studies and those are pending. His INR today is 1.6. He did undergo a PICC line insertion and does have infectious diseases following closely due to his Pseudomonas stutzeri. 03/22/18-03/23/18- Please see Dr BEN Marcus notes 03/24/18- patient is being seen examined and evaluated today on rounds. He is resting up in bed on supplemental oxygen via nasal cannula. He is being prepared for discharge will have a home oxygen evaluation. It appears he will be going to [facility] for rehab. His Coumadin has been restarted. He has an INR 1.3. He does have some occasional hemoptysis however it is improving and decreasing in amount. Infectious disease has recommended her antibiotics upon discharge. His hemoglobin has been stable. He is afebrile no further complaints. Objective - Vital Signs Vital signs: Vital Signs Temp 97.6 F 03/24/18 05:00 Pulse 97 03/24/18 05:00 Resp 18 03/24/18 05:00 BP 140/93 03/24/18 05:00 Pulse Ox 96 03/24/18 05:00 Intake & Output 03/23/18 03/24/18 03/24/18 18:59 06:59 18:59 Intake Total 280 Output Total 950 Balance 280 -950 Intake: IV 50 Cefepime 2 gm In Sodium 50 Chloride 0.9% 50 ml @ 100 mls/hr IVPB Q12H [facility] Rx# :[id number] Intake, IV Titration 230 Amount Lactated Ringers 1,000 ml 230 @ 20 mls/hr IV .Q24H MIKE Rx#:[id number] Output: Urine 950 Other: Voiding Method Toilet Toilet Toilet Urinal Urinal Urinal # Voids 5 1 - Exam GENERAL EXAM: Alert, active, comfortable in no apparent distress. HEAD: Normocephalic. EYES: Normal reaction of pupils, equal size. NOSE: Clear with pink turbinates. THROAT: No erythema or exudates. NECK: No masses, no JVD. CHEST: No chest wall deformity. LUNGS: Chest to be slightly coarse today with prolonged expiration and expiratory wheeze. CVS: S1 and S2 normal with no audible mumurs, regular rhythm. ABDOMEN: No hepatosplenomegaly, normal bowel sounds, no guarding or rigidity. EXTREMITIES: +1 edema noted, pedal pulses palpable. CENTRAL NERVOUS SYSTEM: No focal deficits, tone is normal in all 4 extremities. - Labs CBC & Chem 7: 03/23/18 21:35 03/23/18 07:04 Labs: Abnormal Lab Results - Last 24 Hours (Table) 03/23/18 03/23/18 03/23/18 Range/Units 11:22 17:11 20:27 WBC (3.8-10.6) k/uL RBC (4.30-5.90) m/uL Hgb (13.0-17.5) gm/dL Hct (39.0-53.0) % RDW (11.5-15.5) % Plt Count (150-450) k/uL Neutrophils # (Manual) (1.3-7.7) k/uL Lymphocytes # (Manual) (1.0-4.8) k/uL Metamyelocytes # (Man) (0) k/uL PT (9.0-12.0) sec INR (<1.2) POC Glucose (mg/dL) 112 H 153 H 166 H (75-99) mg/dL 03/23/18 03/23/18 03/24/18 Range/Units 21:35 21:35 06:58 WBC 14.1 H (3.8-10.6) k/uL RBC 2.89 L (4.30-5.90) m/uL Hgb 8.4 L (13.0-17.5) gm/dL Hct 25.9 L (39.0-53.0) % RDW 17.5 H (11.5-15.5) % Plt Count 106 L (150-450) k/uL Neutrophils # (Manual) 13.50 H (1.3-7.7) k/uL Lymphocytes # (Manual) 0.14 L (1.0-4.8) k/uL Metamyelocytes # (Man) 0.56 H (0) k/uL PT 12.3 H (9.0-12.0) sec INR 1.3 H (<1.2) POC Glucose (mg/dL) 154 H (75-99) mg/dL Microbiology - Last 24 Hours (Table) 03/23/18 12:20 Gram Stain - Preliminary Sputum Assessment and Plan Assessment: Assessment Chronic severe persistent asthma with acute exacerbation COPD Aspiration pneumonia with new infiltrate in the right lung base CVA versus TIA History of prostate cancer status post chemotherapy Hemoptysisintermittent Plan Agree with discharge planning to ECF/rehab Prescription for steroids has been e-prescribed s/p bronchoscopy please see procedure notes Status post PICC line insertion Case is discussed with heme/onc NEUROLOGICAL PHYSIOTHERAPIST Medications have been reviewed and will be continued as ordered. Continue on antibiotics, ID on consult, sputum positive with pseudomonas stutzeri Prednisone taper Initiate and encourage incentive spirometer Continue with pulmonary hygiene, coughing and deep breathing exercises, and supportive care. Supplemental oxygen to maintain oxygen saturations of 92% or better. Continue nebulizer treatments, DuoNeb and budesonide. GI and DVT prophylaxis. Heme/onc on consult Neuro on consult Increase activity as tolerated PT and OT, inpatient rehab on consult We will continue to monitor labs/results and adjust treatment as necessary. Discharge planning I performed an examination of the patient and discussed their management with the nurse practitioner. I have reviewed the nurse practitioner's note and agree with the documented findings and plan of care. <Poornima Birch A - Last Filed: 03/24/18 14:01> Objective - Vital Signs Vital signs: Vital Signs Temp 97.6 F 03/24/18 05:00 Pulse 82 03/24/18 11:14 Resp 18 03/24/18 05:00 BP 140/93 03/24/18 05:00 Pulse Ox 96 03/24/18 05:00 Intake & Output 03/23/18 03/24/18 03/24/18 18:59 06:59 18:59 Intake Total 280 Output Total 950 Balance 280 -950 Intake: IV 50 Cefepime 2 gm In Sodium 50 Chloride 0.9% 50 ml @ 100 mls/hr IVPB Q12H [facility] Rx# :[id number] Intake, IV Titration 230 Amount Lactated Ringers 1,000 ml 230 @ 20 mls/hr IV .Q24H MIKE Rx#:[id number] Output: Urine 950 Other: Voiding Method Toilet Toilet Toilet Urinal Urinal Urinal # Voids 5 1 - Labs CBC & Chem 7: 03/24/18 09:58 03/23/18 07:04 Labs: Abnormal Lab Results - Last 24 Hours (Table) 03/23/18 03/23/18 03/23/18 Range/Units 17:11 20:27 21:35 WBC 14.1 H (3.8-10.6) k/uL RBC 2.89 L (4.30-5.90) m/uL Hgb 8.4 L (13.0-17.5) gm/dL Hct 25.9 L (39.0-53.0) % RDW 17.5 H (11.5-15.5) % Plt Count 106 L (150-450) k/uL Neutrophils # (Manual) 13.50 H (1.3-7.7) k/uL Lymphocytes # (Manual) 0.14 L (1.0-4.8) k/uL Metamyelocytes # (Man) 0.56 H (0) k/uL Myelocytes # (Manual) (0) k/uL PT (9.0-12.0) sec INR (<1.2) POC Glucose (mg/dL) 153 H 166 H (75-99) mg/dL 03/23/18 03/24/18 03/24/18 Range/Units 21:35 06:58 09:58 WBC 13.8 H (3.8-10.6) k/uL RBC 2.84 L (4.30-5.90) m/uL Hgb 8.2 L (13.0-17.5) gm/dL Hct 25.5 L (39.0-53.0) % RDW 17.6 H (11.5-15.5) % Plt Count 114 L (150-450) k/uL Neutrophils # (Manual) 12.90 H (1.3-7.7) k/uL Lymphocytes # (Manual) 0.28 L (1.0-4.8) k/uL Metamyelocytes # (Man) 0.14 H (0) k/uL Myelocytes # (Manual) 0.14 H (0) k/uL PT 12.3 H (9.0-12.0) sec INR 1.3 H (<1.2) POC Glucose (mg/dL) 154 H (75-99) mg/dL 03/24/18 Range/Units 11:20 WBC (3.8-10.6) k/uL RBC (4.30-5.90) m/uL Hgb (13.0-17.5) gm/dL Hct (39.0-53.0) % RDW (11.5-15.5) % Plt Count (150-450) k/uL Neutrophils # (Manual) (1.3-7.7) k/uL Lymphocytes # (Manual) (1.0-4.8) k/uL Metamyelocytes # (Man) (0) k/uL Myelocytes # (Manual) (0) k/uL PT (9.0-12.0) sec INR (<1.2) POC Glucose (mg/dL) 109 H (75-99) mg/dL Microbiology - Last 24 Hours (Table) 03/23/18 12:20 Gram Stain - Preliminary Sputum Sputum Culture - Preliminary Rae albicans Assessment and Plan Assessment: Patient seen and examined. Patient is still coughing up blood. It appears to be dark blood at this time. His hemoglobin has been stable. Discharge planning is in progress. Would hold off on Coumadin for now. Platelets have improved to 114. Patient will need home oxygen evaluation. ~Poornima Birch DO
[2018-03-24 11:22] LABS: Glucose,Whole Blood 109 mg/dL (75-99)
--- NOTE | 2018-03-24 11:44 | P.PN ---
Subjective Progress Note Date: 03/24/18 Principal diagnosis: Acute Hypoxic Respiratory failure, TIA Patient seen and evaluated in follow-up no acute events overnight Objective - Vital Signs Vital signs: Vital Signs Temp 97.6 F 03/24/18 05:00 Pulse 82 03/24/18 11:14 Resp 18 03/24/18 05:00 BP 140/93 03/24/18 05:00 Pulse Ox 96 03/24/18 05:00 Intake & Output 03/23/18 03/24/18 03/24/18 18:59 06:59 18:59 Intake Total 280 Output Total 950 Balance 280 -950 Intake: IV 50 Cefepime 2 gm In Sodium 50 Chloride 0.9% 50 ml @ 100 mls/hr IVPB Q12H [facility] Rx# :[id number] Intake, IV Titration 230 Amount Lactated Ringers 1,000 ml 230 @ 20 mls/hr IV .Q24H MIKE Rx#:[id number] Output: Urine 950 Other: Voiding Method Toilet Toilet Toilet Urinal Urinal Urinal # Voids 5 1 - Exam Constitutional General appearance: Present: cooperative, no acute distress, obese - EENT Eyes: Present: anicteric sclerae ENT: Present: normal oropharynx - Respiratory Respiratory: bilateral: rales (expiratory) - Cardiovascular Heart sounds: normal: S1, S2 - Gastrointestinal General gastrointestinal: Present: normal bowel sounds, soft - Integumentary Integumentary Comment(s): Pale - Musculoskeletal Musculoskeletal: Present: generalized weakness, strength equal bilaterally - Psychiatric Psychiatric: Present: A&O x's 3, appropriate affect, intact judgment & insight - Labs CBC & Chem 7: 03/24/18 09:58 03/23/18 07:04 Labs: Abnormal Lab Results - Last 24 Hours (Table) 03/23/18 03/23/18 03/23/18 Range/Units 17:11 20:27 21:35 WBC 14.1 H (3.8-10.6) k/uL RBC 2.89 L (4.30-5.90) m/uL Hgb 8.4 L (13.0-17.5) gm/dL Hct 25.9 L (39.0-53.0) % RDW 17.5 H (11.5-15.5) % Plt Count 106 L (150-450) k/uL Neutrophils # (Manual) 13.50 H (1.3-7.7) k/uL Lymphocytes # (Manual) 0.14 L (1.0-4.8) k/uL Metamyelocytes # (Man) 0.56 H (0) k/uL PT (9.0-12.0) sec INR (<1.2) POC Glucose (mg/dL) 153 H 166 H (75-99) mg/dL 03/23/18 03/24/18 03/24/18 Range/Units 21:35 06:58 09:58 WBC 13.8 H (3.8-10.6) k/uL RBC 2.84 L (4.30-5.90) m/uL Hgb 8.2 L (13.0-17.5) gm/dL Hct 25.5 L (39.0-53.0) % RDW 17.6 H (11.5-15.5) % Plt Count 114 L (150-450) k/uL Neutrophils # (Manual) (1.3-7.7) k/uL Lymphocytes # (Manual) (1.0-4.8) k/uL Metamyelocytes # (Man) (0) k/uL PT 12.3 H (9.0-12.0) sec INR 1.3 H (<1.2) POC Glucose (mg/dL) 154 H (75-99) mg/dL 03/24/18 Range/Units 11:20 WBC (3.8-10.6) k/uL RBC (4.30-5.90) m/uL Hgb (13.0-17.5) gm/dL Hct (39.0-53.0) % RDW (11.5-15.5) % Plt Count (150-450) k/uL Neutrophils # (Manual) (1.3-7.7) k/uL Lymphocytes # (Manual) (1.0-4.8) k/uL Metamyelocytes # (Man) (0) k/uL PT (9.0-12.0) sec INR (<1.2) POC Glucose (mg/dL) 109 H (75-99) mg/dL Microbiology - Last 24 Hours (Table) 03/23/18 12:20 Gram Stain - Preliminary Sputum Assessment and Plan (1) TIA (transient ischemic attack) Current Visit: Yes Status: Acute Code(s): G45.9 - TRANSIENT CEREBRAL ISCHEMIC ATTACK, UNSPECIFIED SNOMED Code(s): 302811140 (2) Prostate carcinoma Narrative/Plan: - Status POst Cycle one of Taxotere with Neulasta on 03/18 - Will follow-up in office as scheculed next week - COntinue on same regimen lupron, XGEVA and Taxotere as out patient Current Visit: No Status: Acute Priority: High Code(s): C61 - MALIGNANT NEOPLASM OF PROSTATE SNOMED Code(s): 485131813 (3) Atrial fibrillation Current Visit: No Status: Acute Code(s): I48.91 - UNSPECIFIED ATRIAL FIBRILLATION SNOMED Code(s): 23715950 (4) Thrombocytopenia Current Visit: Yes Status: Acute Priority: High Code(s): D69.6 - THROMBOCYTOPENIA, UNSPECIFIED SNOMED Code(s): 693261635 Plan: Assessment and Plan (1) Prostate carcinoma Narrative/Plan: S/P chemotherapy, first cycle of Taxotere with GCS-F on February 04. Plan is for rehabilitation then proceed with treatment for his prostate cancer. Current Visit: No Status: Acute Priority: High Code(s): C61 - MALIGNANT NEOPLASM OF PROSTATE SNOMED Code(s): 534823435 (2) Thrombocytopenia Narrative/Plan: Multifacotrial, including chemo and bactremia. Stable and improving each day. - OK to restart Warfarin since platlet count greater than 50K Current Visit: Yes Status: Acute Priority: High Code(s): D69.6 - THROMBOCYTOPENIA, UNSPECIFIED SNOMED Code(s): 360846888 (3) Anemia aplastic aregenerative Narrative/Plan: Multifactorial, chemo and bactremia, anemia work up . No transfusion today, Hgb is stable Current Visit: Yes Status: Acute Priority: High Code(s): D61.9 - APLASTIC ANEMIA, UNSPECIFIED SNOMED Code(s): 675015776 (4) Neutrophilic leukocytosis Narrative/Plan: R/T GCS-F. No acute intervention Current Visit: Yes Status: Acute Priority: High Code(s): D72.9 - DISORDER OF WHITE BLOOD CELLS, UNSPECIFIED SNOMED Code(s): 974243129 (5) Warfarin-induced coagulopathy Narrative/Plan: Improved, Restart Warfarin Current Visit: Yes Status: Acute Priority: High Code(s): D68.9 - COAGULATION DEFECT, UNSPECIFIED; T45.515A - ADVERSE EFFECT OF ANTICOAGULANTS, INITIAL ENCOUNTER SNOMED Code(s): 45789472 Plan: TIA-management per Neurology. Pt does not appear to have residual deficit. Pt has stool softeners and lax PRN Restart Warfarin.
[2018-03-24 11:54] LABS: Band Neutrophils % 3 %; Eosinophils # (M) 0.14 k/uL (0-0.7); Lymphocytes # (M) 0.28 k/uL (1.0-4.8); Metamyelocytes # (M) 0.14 k/uL (0); Metamyelocytes % 1 %; Monocytes # (M) 0.41 k/uL (0-1.0); Myelocytes # (M) 0.14 k/uL (0); Myelocytes % 1 %; Neutrophils % (M) 91 %; Nucleated Red Blood Cells 0 /100 WBC (0-0); Total Cells Counted 200
[2018-03-24 12:01] LABS: Polychromasia Present
[2018-03-24] MEDS: VIT A,C & E-LUTEIN-MINERALS 1 EACH TAB PO SCH (13:22)
[2018-03-24] MEDS: MULTIVITAMINS, THERA 1 EACH TAB PO SCH (13:22)
[2018-03-24] MEDS: ASCORBIC ACID 500 MG TAB PO SCH (13:23)
[2018-03-24] MEDS: CEFEPIME 2 GM in SODIUM CHLORIDE 0.9% 50 ML IVPB SCH (13:23)
[2018-03-24] MEDS: CALCIUM CARB-VIT D 500MG-200UN 1 EACH TAB PO SCH (13:23)
[2018-03-24] MEDS ORDERED: ALPRAZolam 0.25 MG TAB PO STA (13:47)
[2018-03-24] MEDS: ONDANSETRON 4 MG/2 ML VIAL IVP PRN (15:21)
[2018-03-24] MEDS: ENOXAPARIN 100 MG/ML SYRINGE SQ SCH (15:22)
[2018-03-24 17:01] LABS: Glucose,Whole Blood 172 mg/dL (75-99)
[2018-03-24] MEDS: ceFAZolin IN SWFI 2 GM/20 ML SYRINGE IVP SCH (17:48)
[2018-03-24] MEDS: PROCHLORPERAZINE 10 MG TAB PO PRN (18:31)
--- NOTE | 2018-03-24 20:00 | P.PN ---
Subjective 87-year-old gentleman admitted with acute CVA, neutropenia, sepsis with MSSA bacteremia and multiple other medical issues. Maintained on vancomycin and Zosyn as per ID. Repeat blood cultures pending. Afebrile, increased WBC, 23.3. Tenacious sputum with intermittent minimal hemoptysis reported. Sputum culture reporting gram-negative bacilli. INR 3.6. Hemoglobin 8.3. Denies nausea or vomiting. Ambulating in hallway, tolerated exertion well. Denies chest pain, palpitations. 03/19/2018 ongoing hemoptysis, bronchoscopy scheduled for tomorrow. Hemoglobin 8.7. Denies nausea or vomiting. Coumadin on hold, INR 2.7. Afebrile. Antibiotics adjusted to cefepime as per ID. WBC 34.8, steroids discontinued. Afebrile. 03/20/2018 NPO, awaiting bronchoscopy. Reports dark hemoptysis this morning. Hemoglobin currently 8.1, INR 2. Initial sputum culture reporting Pseudomonas stutzeri and initial blood culture MSSA. Repeat sputum culture contaminated and repeat blood culture. Afebrile. Maintaining O2 sats in the mid 90s on room air. 03/21/2018 complains of constipation, abdominal hernia released upon straining, not strangulated, minimal pain. Continues to have hemoptysis, bright red. CBC pending. Status post bronchoscopy, cultures/pathology pending. Cleared by pulmonary for discharge. Midline placed today. Patient has no coverage for IV antibiotics at home and therefore social work arranging subacute rehab. 03/22/2018 Patient's hemoptysis is better patient will be started back on Coumadin we'll recheck the INR tomorrow patient is feeling bit better but will need to go to rehabilitation patient is willing to submit go to subacute rehab 03/23/2018 Patient is still with hemoptysis, his hemoglobin today is down from 8.2 to 7.4. Vital stable.he has been wheezing a little bit more this morning. his steroid dose is increased by pulmonary team and now he feels better. pt was asking about when to be discharge tomorrow. pt and neville at bed side with all their questions has been answered to their satisfaction 03/24/2018 Patient seen and examined by me this morning he was complaining of from pain at the umbilical hernia. Examination was mildly tender reproducible with no signs symptoms of inflammation. No swelling. No rebound tenderness. Patient he feels his breathing is better little phlegm with blood in it. Hemoglobin is been stable and accreditation manager team think this is more related to his Pseudomonas pneumonia infection. No chest pain. He is making some, with phlegm. However he doesn't have any more slurred speech or right facial droop. No diarrhea. Some constipation. Repeat hemoglobin from this morning is been stable at 8.4 and 8.2. Platelets are trending up from 96 to 114. INR is 1.3, we will start pt on lovenox and keep monitor pt and his Hb discharge planing in 24-48 hrs Objective - Vital Signs Vital signs: Vital Signs Temp 97.6 F 03/24/18 05:00 Pulse 97 03/24/18 05:00 Resp 18 03/24/18 05:00 BP 140/93 03/24/18 05:00 Pulse Ox 96 03/24/18 05:00 Intake & Output 03/23/18 03/24/18 03/24/18 18:59 06:59 18:59 Intake Total 280 Output Total 950 Balance 280 -950 Intake: IV 50 Cefepime 2 gm In Sodium 50 Chloride 0.9% 50 ml @ 100 mls/hr IVPB Q12H [facility] Rx# :[id number] Intake, IV Titration 230 Amount Lactated Ringers 1,000 ml 230 @ 20 mls/hr IV .Q24H [facility]KE Rx#:[id number] Output: Urine 950 Other: Voiding Method Toilet Toilet Toilet Urinal Urinal Urinal # Voids 5 1 - Exam GENERAL: The patient is alert and oriented x3, not in any acute distress. Well developed, well nourished. HEENT: Pupils are round and equally reacting to light. EOMI. No scleral icterus. No conjunctival pallor. Normocephalic, atraumatic. No pharyngeal erythema. No thyromegaly. CARDIOVASCULAR: S1 and S2 present. No murmurs, rubs, or gallops. -PULMONARY: Rhonchus breath sounds were normal with expiratory wheezing. ABDOMEN: Soft, nontender, nondistended, normoactive bowel sounds. No palpable organomegaly. MUSCULOSKELETAL: No joint swelling or deformity. EXTREMITIES: No cyanosis, clubbing, or pedal edema. NEUROLOGICAL: Gross neurological examination did not reveal any focal deficits. SKIN: No rashes. - Labs CBC & Chem 7: 03/24/18 09:58 03/23/18 07:04 Labs: Abnormal Lab Results - Last 24 Hours (Table) 03/23/18 03/23/18 03/23/18 Range/Units 11:22 17:11 20:27 WBC (3.8-10.6) k/uL RBC (4.30-5.90) m/uL Hgb (13.0-17.5) gm/dL Hct (39.0-53.0) % RDW (11.5-15.5) % Plt Count (150-450) k/uL Neutrophils # (Manual) (1.3-7.7) k/uL Lymphocytes # (Manual) (1.0-4.8) k/uL Metamyelocytes # (Man) (0) k/uL PT (9.0-12.0) sec INR (<1.2) POC Glucose (mg/dL) 112 H 153 H 166 H (75-99) mg/dL 03/23/18 03/23/18 03/24/18 Range/Units 21:35 21:35 06:58 WBC 14.1 H (3.8-10.6) k/uL RBC 2.89 L (4.30-5.90) m/uL Hgb 8.4 L (13.0-17.5) gm/dL Hct 25.9 L (39.0-53.0) % RDW 17.5 H (11.5-15.5) % Plt Count 106 L (150-450) k/uL Neutrophils # (Manual) 13.50 H (1.3-7.7) k/uL Lymphocytes # (Manual) 0.14 L (1.0-4.8) k/uL Metamyelocytes # (Man) 0.56 H (0) k/uL PT 12.3 H (9.0-12.0) sec INR 1.3 H (<1.2) POC Glucose (mg/dL) 154 H (75-99) mg/dL Microbiology - Last 24 Hours (Table) 03/23/18 12:20 Gram Stain - Preliminary Sputum Assessment and Plan Plan: -Acute CVA involving the left hemisphere present on admission, c/w statin, and other treatment . f/u as outpt -Sepsis present on admission secondary to possible aspiration pneumonia, ID are following the case , c/w same antibiotics. 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 -Anemia, secondary to chemo for prostate cancer prognosis is guarded
[2018-03-24 20:03] LABS: Glucose,Whole Blood 154 mg/dL (75-99)
[2018-03-24] MEDS: IOPAMIDOL-300 CONTRAST 30 ML VIAL (ORAL USE) PO PRN ×2 (20:15→21:15)
--- NOTE | 2018-03-24 22:35 | CT ---
EXAMINATION TYPE: CT abdomen pelvis wo/w con DATE OF EXAM: 03/24/2018 COMPARISON: None HISTORY: Umbilical hernia and abdominal pain. CT DLP: 2494 mGycm Automated exposure control for dose reduction was used. TECHNIQUE: Helical acquisition of images was performed from the lung bases through the pelvis. CONTRAST: Performed with Oral Contrast and without and with IV Contrast, patient injected with 100ml mL of Isov ue M300. FINDINGS: There is some patchy infiltrate and atelectasis at the posterior lung bases. Heart is enlarged. There is some contrast in the distal esophagus. This probably relates to reflux. There is 6 cm cyst in the anterior liver. There are smaller hepatic cysts. Bile ducts are not dilated. Spleen appears normal. There is no evidence of a pancreatic mass. Gallbladder appears normal. Stomach is large. There is bulky left adrenal gland and 1.5 cm hypodense area consistent with benign disease. Right adr enal gland appears normal. Kidneys have normal size. There is no hydronephrosis. There is 4.5 cm bel ical cyst anterior left kidney. There are multiple dilated fluid-filled loops of small bowel in the m id abdomen. There is incarcerated umbilical hernia. This contains small bowel. This appears to be the transition point. Abdominal aorta is atheromatous. There is no retroperitoneal adenopathy. There is no mesenteric adeno michelle. Abdominal aorta measures up to 3.4 cm. Large bowel gas pattern appears normal. There is no asc ites. Bladder distends smoothly. There are prostatic implants. There are spondylotic changes in the l umbar spine. There is 20% wedging of T12 vertebra. This is probably old. There is no inguinal hernia. The abdominal soft tissues appear normal. IMPRESSION: INCARCERATED UMBILICAL HERNIA APPEARS TO CONTAIN SMALL BOWEL. THERE IS EVIDENCE OF A MECHANICAL SMALL BOWEL OBSTRUCTION PROBABLY DUE TO THE HERNIA. BASILAR PULMONARY INFILTRATES AND ATELECTASIS. SMALL RIGHT PLEURAL EFFUSION.
[2018-03-24] MEDS: ATORVASTATIN 20 MG TAB PO SCH (22:58)
[2018-03-24] MEDS: ESCITALOPRAM 10 MG TAB PO SCH (22:59)
[2018-03-24] MEDS: DOXAZOSIN 4 MG TAB PO SCH (22:59)
[2018-03-24] MEDS: MONTELUKAST 10 MG TAB PO SCH (23:01)
[2018-03-24] MEDS: CIPROFLOXACIN HCL 500 MG TAB PO SCH (23:01)
[2018-03-24] MEDS: MORPHINE SULFATE 4 MG/ML SYRINGE IVP PRN (23:02)
[2018-03-24] MEDS: LACTATED RINGERS 1,000 ML IV SCH (23:13)
[2018-03-25] MEDS: ceFAZolin IN SWFI 2 GM/20 ML SYRINGE IVP SCH ×3 (00:47→17:42)
[2018-03-25] MEDS: MORPHINE SULFATE 4 MG/ML SYRINGE IVP PRN (03:08)
[2018-03-25] MEDS: ENOXAPARIN 100 MG/ML SYRINGE SQ SCH ×3 (03:11→21:11)
[2018-03-25 07:02] LABS: Glucose,Whole Blood 95 mg/dL (75-99)
[2018-03-25] MEDS: IPRATROPIUM-ALBUTEROL 3 ML NEB INHALATION SCH ×4 (07:15→20:44)
[2018-03-25] MEDS: BUDESONIDE 0.5 MG/2 ML NEBU INHALATION SCH ×2 (07:15→20:48)
[2018-03-25] MEDS: INSULIN ASPART 100 UNIT/ML 1 ML 10 ML VIAL SQ SCH ×4 (07:32→21:11)
--- NOTE | 2018-03-25 07:37 | PN ---
PROGRESS NOTE DATE OF SERVICE: 03/24/2018 REASON FOR FOLLOWUP: Pneumonia and bacteremia. INTERVAL HISTORY: The patient is currently afebrile. He is breathing comfortably. He still has some occasional hemoptysis, though no chest pain. No nausea, vomiting. No abdominal pain, no diarrhea. PHYSICAL EXAMINATION: Blood pressure 151/96, pulse of 91, temperature 97.7, he is 95% on 2 L nasal cannula. General description is an elderly male, up in the bed in no distress. RESPIRATORY SYSTEM: Unlabored breathing with decreased breath sounds in the base, no wheeze. HEART: S1, S2. Regular rate and rhythm. ABDOMEN: Soft, no tenderness. LABS: Hemoglobin 8.8, white count of 13.8. Bronch culture currently showing Rae albicans. DIAGNOSTIC IMPRESSION AND PLAN: Patient with a bacteremia, source initial concern for pneumonia. Repeat blood culture has been negative. However, the sputum did show gram-negative, hence the patient is currently on cefepime. Unfortunately, we cannot use the Cefazolin simple combination outpatient because of the Lexapro. The patient is on high risk of QTc prolongation. Hence, the patient will be discharging to the assisted on cefepime 2 g q.12 for another 10 days to finish a course of therapy with close outpatient followup. MMODL / IJN: [id number] /
--- NOTE | 2018-03-25 08:21 | XR ---
EXAMINATION TYPE: XR abdomen acute w cxr DATE OF EXAM: 03/25/2018 COMPARISON: Prior CT abdomen pelvis 03/24/2018 and chest x-ray 03/15/2018 HISTORY: Small bowel obstruction TECHNIQUE: Frontal view of the chest, 3 views the abdomen submitted FINDINGS: Chest x-ray shows a similar appearance, interstitium is somewhat increased, patchy basilar density is noted. No evident pneumothorax. NG tube is in place. Heart remains enlarged. Contrast material is co arse to the level of the right colon. Contrast also present within the bladder. No evident pneumoperi toneum. No pleural effusion. Small bowel loop is distended in the mid abdomen on supine view. Abdomin al aorta is ectatic. IMPRESSION: Findings could be indicative of partial obstruction. There are interstitial changes persisting within the lungs.
[2018-03-25 08:33] LABS: Anisocytosis Slight; HCT 23.9 % (39.0-53.0); HGB 7.8 gm/dL (13.0-17.5); Hypochromasia Slight; MCH 29.5 pg (25.0-35.0); MCHC 32.7 g/dL (31.0-37.0); MCV 90.3 fL (80.0-100.0); Mean Platelet Volume 9.5; Platelet Count 126 k/uL (150-450); RBC 2.64 m/uL (4.30-5.90); RDW 18.2 % (11.5-15.5)
[2018-03-25 08:46] LABS: Anion Gap 8 mmol/L; Blood Urea Nitrogen 21 mg/dL (9-20); Calcium 8.4 mg/dL (8.4-10.2); Carbon Dioxide 31 mmol/L (22-30); Chloride 96 mmol/L (98-107); Glucose 72 mg/dL (74-99); Potassium 4.3 mmol/L (3.5-5.1); Sodium 135 mmol/L (137-145)
[2018-03-25] MEDS: SENNOSIDES-DOCUSATE SODIUM 1 EACH TAB PO SCH ×2 (09:25→21:14)
[2018-03-25] MEDS: PANTOPRAZOLE 40 MG TABLET PO SCH (09:26)
[2018-03-25] MEDS: DILTIAZEM CD 120 MG CAP.ER.24H PO SCH (09:26)
[2018-03-25] MEDS: METOPROLOL TARTRATE 50 MG TAB PO SCH ×2 (09:26→21:12)
[2018-03-25] MEDS: predniSONE 20 MG TAB PO SCH (09:26)
[2018-03-25] MEDS: DOCUSATE 100 MG CAP PO SCH ×2 (09:26→21:11)
[2018-03-25] MEDS: CIPROFLOXACIN HCL 500 MG TAB PO SCH ×2 (09:26→21:11)
[2018-03-25] MEDS: LACTULOSE 20 GM/30 ML CUP PO SCH ×2 (09:27→21:12)
[2018-03-25 09:52] LABS: Band Neutrophils % 1 %; Myelocytes # (M) 0.13 k/uL (0); Myelocytes % 1 %; Neutrophils % (M) 87 %; Nucleated Red Blood Cells 1 /100 WBC (0-0); Total Cells Counted 200
[2018-03-25 09:53] LABS: Lymphocytes # (M) 0.78 k/uL (1.0-4.8); Monocytes # (M) 0.91 k/uL (0-1.0)
[2018-03-25 09:54] LABS: Poikilocytosis (M) Present
--- NOTE | 2018-03-25 10:10 | P.GSCN ---
History of Present Illness Consult date: 03/25/18 History of present illness: Mr. Calderon is an 87yo male with multiple medical comorbidities. He does have a history of atrial fibrillation, asthma, hyperlipidemia, hypertension, DVT, GI bleed, metastatic prostate cancer and is currently undergoing chemotherapy. He was admitted on 03/13/2018 due to CVA. He has been treated by medical and neurology team for this. Over the past day, he has been complaining of some abdominal pain and distention. He does have a history of a umbilical hernia, that the patient states he has reduced on his own for many years. He has not seeked any surgical care in the past. On workup with CT of the abdomen and pelvis, there was concern for small bowel obstruction with transition point in the umbilical hernia due to the umbilical hernia containing small bowel. Nasogastric tube was placed for decompression and the patient states he immediately felt better. Abdominal x-ray was then performed the next morning and contrast was noted to be within the colon, showing improvement of any small bowel obstruction. The patient also states he is having flatus. He states his bowel function has not been regular since his admission to the hospital. Review of Systems All systems: negative Past Medical History Past Medical History: Atrial Fibrillation, Asthma, Cancer, COPD, Deep Vein Thrombosis (DVT), GI Bleed, Hyperlipidemia, Hypertension, Memory Impairment, Myocardial Infarction (LA), Osteoarthritis (OA), Prostate Disorder Additional Past Medical History / Comment(s): prostate CA-HAD 46 RADIATION TX- had mets to bone currently taking oral chemo and hormone tx, MILD SHORT TERM MEMORY PROBLEMS, NAVEL HERNIA,SKIN CA basal cell(LT HAND-lip. back REMOVED. past gi bleed lower bowel pt stated it was from the past radiation tx- it was cauterized.. Last Myocardial Infarction Date:: UNK History of Any Multi-Drug Resistant Organisms: None Reported Past Surgical History: Heart Catheterization Additional Past Surgical History / Comment(s): VASECTOMY, PROSTATE BX TOMMY CATARACTS, RT EYE LASER SX, skin ca removed. Past Anesthesia/Blood Transfusion Reactions: No Reported Reaction Past Psychological History: No Psychological Hx Reported Additional Psychological History / Comment(s): pt lives alone. uses cane when up and has a walker to use if needed. Smoking Status: Former smoker Past Alcohol Use History: Rare Additional Past Alcohol Use History / Comment(s): STARTED SMOKING AT AGE 16(1945 ), WAS SMOKING 2 PPD. QUIT 1992 Past Drug Use History: None Reported - Past Family History Mother Additional Family Medical History / Comment(s): RHEUMATIC FEVER- HEART VALVE DAMAGE- AGE 45 Father Family Medical History: Coronary Artery Disease (CAD) Additional Family Medical History / Comment(s): AGE 93 HEART PROBLEMS Medications and Allergies Home Medications Medication Instructions Recorded Confirmed Type Calcium Carbonate/Vitamin D3 1 tab PO DAILY 01/29/17 03/13/18 History [Calcium 600-Vit D3 400 Caplet] Diltiazem HCl [Diltiazem 24Hr ER] 120 mg PO Q24HR 01/29/17 03/13/18 History Escitalopram [Lexapro] 10 mg PO HS 01/29/17 03/13/18 History Ipratropium-Albuterol Nebulize 3 ml INHALATION RT-QID PRN 01/29/17 03/13/18 History [Duoneb 0.5 mg-3 mg/3 ml Soln] Metoprolol Tartrate [Lopressor] 50 mg PO BID 01/29/17 03/13/18 History Montelukast [Singulair] 10 mg PO HS 01/29/17 03/13/18 History Multivitamins, Thera [Multivitamin 1 tab PO DAILY 01/29/17 03/13/18 History (formulary)] Terazosin HCl 5 mg PO BID 01/29/17 03/13/18 History Budesonide/Formoterol Fumarate 2 puff INHALATION RT-BID 12/06/17 03/13/18 History [Symbicort 80-4.5 Mcg Inhaler] EPINEPHrine (Auto Inject) [Epipen] 0.3 mg IM ONCE PRN 12/06/17 03/13/18 History ALPRAZolam [Xanax] 0.25 mg PO HS PRN 03/13/18 03/13/18 History Ascorbic Acid [Vitamin C] 500 mg PO DAILY 03/13/18 03/13/18 History Atorvastatin [Lipitor] 20 mg PO HS 03/13/18 03/13/18 History Prochlorperazine [Compazine] 10 mg PO Q6H PRN 03/13/18 03/13/18 History Vit C/E/Zn/Coppr/Lutein/Zeaxan 1 cap PO DAILY 03/13/18 03/13/18 History [Preservision Areds 2 Softgel] Warfarin [Coumadin] 4.5 mg PO SUTUTHSA 03/13/18 03/13/18 History Warfarin [Coumadin] 6 mg PO MOWEFR 03/13/18 03/13/18 History predniSONE 5 mg PO BID 03/13/18 03/13/18 History traMADol HCL [Ultram] 50 mg PO Q4HR PRN 03/13/18 03/13/18 History Cefepime HCl [Maxipime] 2 gm IV Q12H #20 vial 03/24/18 Rx Ipratropium-Albuterol Nebulize 3 ml INHALATION RT-QID #120 03/24/18 Rx [Duoneb 0.5 mg-3 mg/3 ml Soln] ampul.neb predniSONE 10 mg PO DIRECTED #30 tab 03/24/18 Rx Allergies Allergy/AdvReac Type Severity Reaction Status Date / Time No Known Allergies Allergy Verified 03/13/18 15:54 Surgical - Exam Osteopathic Statement: *. No significant issues noted on an osteopathic structural exam other than those noted in the History and Physical/Consult. Vital Signs Temp Pulse Resp BP Pulse Ox 98.2 F 83 20 100/58 99 03/13/18 15:52 03/13/18 15:52 03/13/18 15:52 03/13/18 15:52 03/13/18 15:52 - General no distress - ENT normal mucosa, decreased hearing - Neck trachea midline - Respiratory normal respiratory effort - Abdomen Soft, nontender, nondistended, no rebound, guarding, umbilical hernia is present and easily reducible, not painful to the touch, no skin changes - Psychiatric oriented to time, oriented to person, oriented to place Results - Labs 03/25/18 07:42 03/25/18 07:42 Abnormal Lab Results - Last 24 Hours (Table) 03/24/18 03/24/18 03/24/18 Range/Units 09:58 11:20 16:59 WBC 13.8 H (3.8-10.6) k/uL RBC 2.84 L (4.30-5.90) m/uL Hgb 8.2 L (13.0-17.5) gm/dL Hct 25.5 L (39.0-53.0) % RDW 17.6 H (11.5-15.5) % Plt Count 114 L (150-450) k/uL Neutrophils # (Manual) 12.90 H (1.3-7.7) k/uL Lymphocytes # (Manual) 0.28 L (1.0-4.8) k/uL Metamyelocytes # (Man) 0.14 H (0) k/uL Myelocytes # (Manual) 0.14 H (0) k/uL Sodium (137-145) mmol/L Chloride (98-107) mmol/L Carbon Dioxide (22-30) mmol/L BUN (9-20) mg/dL Glucose (74-99) mg/dL POC Glucose (mg/dL) 109 H 172 H (75-99) mg/dL 03/24/18 03/25/18 03/25/18 Range/Units 19:59 07:42 07:42 WBC 13.1 H (3.8-10.6) k/uL RBC 2.64 L (4.30-5.90) m/uL Hgb 7.8 L (13.0-17.5) gm/dL Hct 23.9 L (39.0-53.0) % RDW 18.2 H (11.5-15.5) % Plt Count 126 L (150-450) k/uL Neutrophils # (Manual) (1.3-7.7) k/uL Lymphocytes # (Manual) (1.0-4.8) k/uL Metamyelocytes # (Man) (0) k/uL Myelocytes # (Manual) (0) k/uL Sodium 135 L (137-145) mmol/L Chloride 96 L (98-107) mmol/L Carbon Dioxide 31 H (22-30) mmol/L BUN 21 H (9-20) mg/dL Glucose 72 L (74-99) mg/dL POC Glucose (mg/dL) 154 H (75-99) mg/dL Microbiology - Last 24 Hours (Table) 03/23/18 12:20 Gram Stain - Final Sputum Sputum Culture - Final Rae albicans Diabetes panel 03/25/18 Range/Units 07:42 Sodium 135 L (137-145) mmol/L Potassium 4.3 (3.5-5.1) mmol/L Chloride 96 L (98-107) mmol/L Carbon Dioxide 31 H (22-30) mmol/L BUN 21 H (9-20) mg/dL Creatinine 0.81 (0.66-1.25) mg/dL Glucose 72 L (74-99) mg/dL Calcium 8.4 (8.4-10.2) mg/dL Calcium panel 03/25/18 Range/Units 07:42 Calcium 8.4 (8.4-10.2) mg/dL Pituitary panel 03/25/18 Range/Units 07:42 Sodium 135 L (137-145) mmol/L Potassium 4.3 (3.5-5.1) mmol/L Chloride 96 L (98-107) mmol/L Carbon Dioxide 31 H (22-30) mmol/L BUN 21 H (9-20) mg/dL Creatinine 0.81 (0.66-1.25) mg/dL Glucose 72 L (74-99) mg/dL Calcium 8.4 (8.4-10.2) mg/dL Adrenal panel 03/25/18 Range/Units 07:42 Sodium 135 L (137-145) mmol/L Potassium 4.3 (3.5-5.1) mmol/L Chloride 96 L (98-107) mmol/L Carbon Dioxide 31 H (22-30) mmol/L BUN 21 H (9-20) mg/dL Creatinine 0.81 (0.66-1.25) mg/dL Glucose 72 L (74-99) mg/dL Calcium 8.4 (8.4-10.2) mg/dL Assessment and Plan (1) Small bowel obstruction Narrative/Plan: 87-year-old male with concern for small bowel obstruction. I spent a lengthy amount of time with the patient to discuss the umbilical hernia. The patient does state that he has had this for many years and has easily reduce this on his own. Due to multiple current comorbidities including recent CVA, MSSA bacteremia and I'm going chemotherapy treatment, the patient is wary of any surgical intervention. He is uncertain whether his body would be able to tolerate it. Due to resolution of the small bowel obstruction and beginning of flatus and contrast noted in the colon on imaging, we will remove the NG tube and begin clear liquid diet. Continue medical management. I did discuss appropriate hernia care with the patient. I did state to the patient that hernia repair should be performed, however he would like to wait. We will advance his diet as tolerated. Thank you for this consultation, I look forward in providing in this patient's care. Current Visit: Yes Status: Acute Code(s): K56.609 - UNSP INTESTNL OBST, UNSP TO PARTIAL VERSUS COMPLETE OBST SNOMED Code(s): 667287629
[2018-03-25 11:12] LABS: Glucose,Whole Blood 103 mg/dL (75-99)
--- NOTE | 2018-03-25 11:14 | P.PN ---
Subjective 87-year-old gentleman admitted with acute CVA, neutropenia, sepsis with MSSA bacteremia and multiple other medical issues. Maintained on vancomycin and Zosyn as per ID. Repeat blood cultures pending. Afebrile, increased WBC, 23.3. Tenacious sputum with intermittent minimal hemoptysis reported. Sputum culture reporting gram-negative bacilli. INR 3.6. Hemoglobin 8.3. Denies nausea or vomiting. Ambulating in hallway, tolerated exertion well. Denies chest pain, palpitations. 03/19/2018 ongoing hemoptysis, bronchoscopy scheduled for tomorrow. Hemoglobin 8.7. Denies nausea or vomiting. Coumadin on hold, INR 2.7. Afebrile. Antibiotics adjusted to cefepime as per ID. WBC 34.8, steroids discontinued. Afebrile. 03/20/2018 NPO, awaiting bronchoscopy. Reports dark hemoptysis this morning. Hemoglobin currently 8.1, INR 2. Initial sputum culture reporting Pseudomonas stutzeri and initial blood culture MSSA. Repeat sputum culture contaminated and repeat blood culture. Afebrile. Maintaining O2 sats in the mid 90s on room air. 03/21/2018 complains of constipation, abdominal hernia released upon straining, not strangulated, minimal pain. Continues to have hemoptysis, bright red. CBC pending. Status post bronchoscopy, cultures/pathology pending. Cleared by pulmonary for discharge. Midline placed today. Patient has no coverage for IV antibiotics at home and therefore social work arranging subacute rehab. 03/22/2018 Patient's hemoptysis is better patient will be started back on Coumadin we'll recheck the INR tomorrow patient is feeling bit better but will need to go to rehabilitation patient is willing to submit go to subacute rehab 03/23/2018 Patient is still with hemoptysis, his hemoglobin today is down from 8.2 to 7.4. Vital stable.he has been wheezing a little bit more this morning. his steroid dose is increased by pulmonary team and now he feels better. pt was asking about when to be discharge tomorrow. pt and neville at bed side with all their questions has been answered to their satisfaction 03/24/2018 Patient seen and examined by me this morning he was complaining of from pain at the umbilical hernia. Examination was mildly tender reproducible with no signs symptoms of inflammation. No swelling. No rebound tenderness. Patient he feels his breathing is better little phlegm with blood in it. Hemoglobin is been stable and pharmacology associate team think this is more related to his Pseudomonas pneumonia infection. No chest pain. He is making some, with phlegm. However he doesn't have any more slurred speech or right facial droop. No diarrhea. Some constipation. Repeat hemoglobin from this morning is been stable at 8.4 and 8.2. Platelets are trending up from 96 to 114. INR is 1.3, we will start pt on lovenox and keep monitor pt and his Hb discharge planing in 24-48 hrs 03/25/2018 Patient was complaining of from pain at the umbilical hernia yesterday morning, which become more severe during the night associated with frequent nausea and vomiting. Patient told the staff yesterday "I don't think am going to make it " from his severe pain. CT of the abdomen and pelvis with IV and by mouth contrast was ordered by the on-call hospitalist showing incarcerated hernia with bowel obstruction. However patient from yesterday told me he prefers not to do surgery because of his age and comorbidities. This morning patient was lying in bed with NG tube output. Not in distress. He has minimal or no pain at the umbilicus site. The umbilicus IS distended with no tenderness but it's readily reproducible. No more nausea vomiting. And patient is passing flatus. Surgical evaluation is appreciated and they recommended monitoring the patient and restart Lovenox for now. Patient told the surgeon also he prefers not to do the surgery during this hospitalization of his possible. No surgery is indicated currently as per surgical team. CONSTITUTIONAL: No fever, no malaise, no fatigue. HEENT: No recent visual problems or hearing problems. Denied any sore throat. CARDIOVASCULAR: No orthopnea, PND, no palpitations, no syncope. PULMONARY: No shortness of breath, no cough, no hemoptysis. GASTROINTESTINAL: No diarrhea, no nausea, no vomiting, no abdominal pain. Normoactive bowel sounds. NEUROLOGICAL: No headaches, no weakness, no numbness. HEMATOLOGICAL: Denies any bleeding or petechiae. GENITOURINARY: Denies any burning micturition, frequency, or urgency. MUSCULOSKELETAL/RHEUMATOLOGICAL: Denies any joint pain, swelling, or any muscle pain. ENDOCRINE: Denies any polyuria or polydipsia. Medications with dosages were reviewed as follows: Duoneb 0.5-3 mg Xanax 0.25 mg , vitamin C 500 mg, Lipitor 20 mg, Pulmicort, calcium carbonate 1 tab, cefazolin 2 g IV, Cardura 8 mg, Colace 100 mg, Cardizem 120 mg, Ringer lactate at 1 mL/h, lactulose 20 gm, Cipro 500 mg, Lexapro 10 mg, insulin sliding scale, lidocaine 1%, Lopressor 50 mg, Singulair 10 mg, morphine sulfate 3 mg IV, multivitamin, Zofran 4 mg, Protonix 40 mg, MiraLAX 17 g, prednisone 16 mg, Compazine 10 mg, Senokot 2 tablets. Objective - Vital Signs Vital signs: Vital Signs Temp 97.3 F L 03/25/18 05:00 Pulse 78 03/25/18 09:28 Resp 16 03/25/18 05:00 BP 128/74 03/25/18 09:28 Pulse Ox 95 03/25/18 09:28 Intake & Output 03/24/18 03/25/18 03/25/18 18:59 06:59 18:59 Output Total 1850 900 Balance -1850 -900 Weight 99.6 kg Output: Urine 1850 900 Other: Voiding Method Toilet Toilet Urinal Urinal # Voids 2 # Emeses 1 - Exam GENERAL: The patient is alert and oriented x3, not in any acute distress. Well developed, well nourished. HEENT: Pupils are round and equally reacting to light. EOMI. No scleral icterus. No conjunctival pallor. Normocephalic, atraumatic. No pharyngeal erythema. No thyromegaly. CARDIOVASCULAR: S1 and S2 present. No murmurs, rubs, or gallops. -PULMONARY: Rhonchus breath sounds were normal with expiratory wheezing. ABDOMEN: Soft, nontender, nondistended, normoactive bowel sounds. No palpable organomegaly. MUSCULOSKELETAL: No joint swelling or deformity. EXTREMITIES: No cyanosis, clubbing, or pedal edema. NEUROLOGICAL: Gross neurological examination did not reveal any focal deficits. SKIN: No rashes. - Labs CBC & Chem 7: 03/25/18 07:42 03/25/18 07:42 Labs: Abnormal Lab Results - Last 24 Hours (Table) 03/24/18 03/24/18 03/24/18 Range/Units 09:58 11:20 16:59 WBC (3.8-10.6) k/uL RBC (4.30-5.90) m/uL Hgb (13.0-17.5) gm/dL Hct (39.0-53.0) % RDW (11.5-15.5) % Plt Count (150-450) k/uL Neutrophils # (Manual) 12.90 H (1.3-7.7) k/uL Lymphocytes # (Manual) 0.28 L (1.0-4.8) k/uL Metamyelocytes # (Man) 0.14 H (0) k/uL Myelocytes # (Manual) 0.14 H (0) k/uL Nucleated RBCs (0-0) /100 WBC Sodium (137-145) mmol/L Chloride (98-107) mmol/L Carbon Dioxide (22-30) mmol/L BUN (9-20) mg/dL Glucose (74-99) mg/dL POC Glucose (mg/dL) 109 H 172 H (75-99) mg/dL 03/24/18 03/25/18 03/25/18 Range/Units 19:59 07:42 07:42 WBC 13.0 H (3.8-10.6) k/uL RBC 2.64 L (4.30-5.90) m/uL Hgb 7.8 L (13.0-17.5) gm/dL Hct 23.9 L (39.0-53.0) % RDW 18.2 H (11.5-15.5) % Plt Count 126 L (150-450) k/uL Neutrophils # (Manual) 11.40 H (1.3-7.7) k/uL Lymphocytes # (Manual) 0.78 L (1.0-4.8) k/uL Metamyelocytes # (Man) (0) k/uL Myelocytes # (Manual) 0.13 H (0) k/uL Nucleated RBCs 1 H (0-0) /100 WBC Sodium 135 L (137-145) mmol/L Chloride 96 L (98-107) mmol/L Carbon Dioxide 31 H (22-30) mmol/L BUN 21 H (9-20) mg/dL Glucose 72 L (74-99) mg/dL POC Glucose (mg/dL) 154 H (75-99) mg/dL Microbiology - Last 24 Hours (Table) 03/23/18 12:20 Gram Stain - Final Sputum Sputum Culture - Final Rae albicans Assessment and Plan Plan: - incarcerated hernia with bowel obstruction. Its resolving now. Patient has been evaluated by surgical team. NG tube was taken off. Patient was started on clear liquid diet. keep monitoring -Acute CVA involving the left hemisphere present on admission, c/w statin, and other treatment . f/u as outpt -Sepsis present on admission secondary to possible aspiration pneumonia, ID are following the case , c/w same antibiotics. Leukocytosis is improving -Pancytopenia secondary to chemotherapy, -Old left occipital infarct, cortical infarct, history of prostate cancer with metastatic cancer on chemotherapy -Chronic Atrial fibrillation with controlled ventricular rate -CAD, history of [place] -Degenerative joint disease -Atrial fibrillation: Patient will be started back on Coumadin which is being temporally held because of hemoptysis. -Anemia, secondary to chemo for prostate cancer prognosis is guarded
--- NOTE | 2018-03-25 12:25 | P.PN ---
<Marce Carter E - Last Filed: 03/25/18 12:20> Subjective Progress Note Date: 03/25/18 HPI: Chun waldron is a 87-year-old male who presented to the ED at [facility] with left sided facial numbness and weakness. He also had some difficulty speaking. He denies any choking on any of his food. He was seen in the ER, admitted for further evaluation. He has a history of prostate cancer and has been undergoing chemotherapy. He denied any fevers or chills. He has been having progressive worsening shortness of breath along with cough and some sputum production. Sputum does not have any color to it. He has had no fever while he was in the hospital. Pulmonary consultation is placed because of the possibility of aspiration pneumonia. Interval history: 03/18/2018patient is being seen examined and evaluated today on rounds. Patient currently has a WBC count of 23.3 which could possibly be related to initiating Solu-Medrol yesterday. He continues and chemo precautions. He is resting up in bedside chair on room air. He states he does get short of breath with exertion. He also has a cough and has had some hemoptysis which he states has been intermittently ongoing for a few months now. He states the breathing treatments and steroids have been helping him. We will get a repeat sputum culture and initiate incentive spirometer. He denies any fevers or chills. 03/19/2018patient is being seen examined and evaluated today on rounds. He continues on room air and still has hemoptysis. His INR today is 2.7. His Coumadin and aspirin were held yesterday. He is scheduled for a bronchoscopy tomorrow. They procedure risk class complications have been discussed with the patient's and all questions have been answered. He is willing to go forth with the procedure. He continues on prednisone 40 mg at this time. He states the breathing treatments are also helping him. He did have an EEG and those results are pending. He is afebrile and has no further complaints. 03/20/2018patient is being seen examined and evaluated today on rounds. He is resting in bed on room air. Still has intermittent hemoptysis. His hemoglobin today is 8.1, his INR is 2.0, platelets 68. Patient is scheduled to go for a bronchoscopy this afternoon. Sputum showing Pseudomonas stutzeri, ID is on consult. He is afebrile no further complaints. 03/21/18- patient is being seen examined and evaluated today on rounds. He is resting up in bed on 3 L of supplemental oxygen via nasal cannula. He is states he has had some small amount of hemoptysis today however it has improved since he did undergo the bronchoscopy yesterday. Bronchoscopy washings were sent for studies and those are pending. His INR today is 1.6. He did undergo a PICC line insertion and does have infectious diseases following closely due to his Pseudomonas stutzeri. 03/22/18-03/23/18- Please see Dr BEN Marcus notes 03/24/18- patient is being seen examined and evaluated today on rounds. He is resting up in bed on supplemental oxygen via nasal cannula. He is being prepared for discharge will have a home oxygen evaluation. It appears he will be going to ECF for rehab. His Coumadin has been restarted. He has an INR 1.3. He does have some occasional hemoptysis however it is improving and decreasing in amount. Infectious disease has recommended her antibiotics upon discharge. His hemoglobin has been stable. He is afebrile no further complaints. 03/25/2018patient is being seen examined and evaluated today on rounds. He is resting up in bed on nasal cannula. He feels his breathing is improving. He has less hemoptysis today. CT of the abdomen and pelvis with IV and by mouth contrast was ordered yesterday, showing incarcerated hernia with bowel obstruction. Patient declines any intervention at this time. Surgery is on consult appreciate recommendations, currently they state no surgical intervention at this time. Patient is passing flatus, denies any nausea vomiting. He is tolerating his diet. Discharge planning underway for possible ECF. Objective - Vital Signs Vital signs: Vital Signs Temp 97.3 F L 03/25/18 05:00 Pulse 78 03/25/18 09:28 Resp 16 03/25/18 05:00 BP 128/74 03/25/18 09:28 Pulse Ox 95 03/25/18 09:28 Intake & Output 03/24/18 03/25/18 03/25/18 18:59 06:59 18:59 Output Total 1850 900 Balance -1850 -900 Weight 99.6 kg Output: Urine 1850 900 Other: Voiding Method Toilet Toilet Urinal Urinal # Voids 2 # Emeses 1 - Exam GENERAL EXAM: Alert, active, comfortable in no apparent distress. HEAD: Normocephalic. EYES: Normal reaction of pupils, equal size. NOSE: Clear with pink turbinates. THROAT: No erythema or exudates. NECK: No masses, no JVD. CHEST: No chest wall deformity. LUNGS: Chest to be slightly coarse today with prolonged expiration and expiratory wheeze. CVS: S1 and S2 normal with no audible mumurs, regular rhythm. ABDOMEN: No hepatosplenomegaly, normal bowel sounds, no guarding or rigidity. EXTREMITIES: +1 edema noted, pedal pulses palpable. CENTRAL NERVOUS SYSTEM: No focal deficits, tone is normal in all 4 extremities. - Labs CBC & Chem 7: 03/25/18 07:42 03/25/18 07:42 Labs: Abnormal Lab Results - Last 24 Hours (Table) 03/24/18 03/24/18 03/25/18 Range/Units 16:59 19:59 07:42 WBC 13.0 H (3.8-10.6) k/uL RBC 2.64 L (4.30-5.90) m/uL Hgb 7.8 L (13.0-17.5) gm/dL Hct 23.9 L (39.0-53.0) % RDW 18.2 H (11.5-15.5) % Plt Count 126 L (150-450) k/uL Neutrophils # (Manual) 11.40 H (1.3-7.7) k/uL Lymphocytes # (Manual) 0.78 L (1.0-4.8) k/uL Myelocytes # (Manual) 0.13 H (0) k/uL Nucleated RBCs 1 H (0-0) /100 WBC Sodium (137-145) mmol/L Chloride (98-107) mmol/L Carbon Dioxide (22-30) mmol/L BUN (9-20) mg/dL Glucose (74-99) mg/dL POC Glucose (mg/dL) 172 H 154 H (75-99) mg/dL 03/25/18 03/25/18 Range/Units 07:42 11:11 WBC (3.8-10.6) k/uL RBC (4.30-5.90) m/uL Hgb (13.0-17.5) gm/dL Hct (39.0-53.0) % RDW (11.5-15.5) % Plt Count (150-450) k/uL Neutrophils # (Manual) (1.3-7.7) k/uL Lymphocytes # (Manual) (1.0-4.8) k/uL Myelocytes # (Manual) (0) k/uL Nucleated RBCs (0-0) /100 WBC Sodium 135 L (137-145) mmol/L Chloride 96 L (98-107) mmol/L Carbon Dioxide 31 H (22-30) mmol/L BUN 21 H (9-20) mg/dL Glucose 72 L (74-99) mg/dL POC Glucose (mg/dL) 103 H (75-99) mg/dL Microbiology - Last 24 Hours (Table) 03/23/18 12:20 Gram Stain - Final Sputum Sputum Culture - Final Rae albicans Assessment and Plan Assessment: Assessment Chronic severe persistent asthma with acute exacerbation COPD Aspiration pneumonia with new infiltrate in the right lung base CVA versus TIA History of prostate cancer status post chemotherapy Hemoptysisintermittent Incarcerated hernia with bowel obstruction on CT of ABD Plan Agree with discharge planning to ECF/rehab Prescription for steroids has been e-prescribed s/p bronchoscopy please see procedure notes Status post PICC line insertion 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 Continue on antibiotics, ID on consult, sputum positive with pseudomonas stutzeri Prednisone taper Initiate and encourage incentive spirometer Continue with pulmonary hygiene, coughing and deep breathing exercises, and supportive care. Supplemental oxygen to maintain oxygen saturations of 92% or better. Continue nebulizer treatments, DuoNeb and budesonide. GI and DVT prophylaxis. Heme/onc on consult Neuro on consult Surgical services on consult no plan for intervention at this time Increase activity as tolerated PT and OT, inpatient rehab on consult We will continue to monitor labs/results and adjust treatment as necessary. Discharge planning I performed an examination of the patient and discussed their management with the nurse practitioner. I have reviewed the nurse practitioner's note and agree with the documented findings and plan of care. <Poornima Birch - Last Filed: 03/25/18 12:36> Objective - Vital Signs Vital signs: Vital Signs Temp 97.3 F L 03/25/18 05:00 Pulse 78 03/25/18 09:28 Resp 16 03/25/18 05:00 BP 128/74 03/25/18 09:28 Pulse Ox 95 03/25/18 09:28 Intake & Output 03/24/18 03/25/18 03/25/18 18:59 06:59 18:59 Output Total 1850 900 Balance -1850 -900 Weight 99.6 kg Output: Urine 1850 900 Other: Voiding Method Toilet Toilet Urinal Urinal # Voids 2 # Emeses 1 - Labs CBC & Chem 7: 03/25/18 07:42 03/25/18 07:42 Labs: Abnormal Lab Results - Last 24 Hours (Table) 03/24/18 03/24/18 03/25/18 Range/Units 16:59 19:59 07:42 WBC 13.0 H (3.8-10.6) k/uL RBC 2.64 L (4.30-5.90) m/uL Hgb 7.8 L (13.0-17.5) gm/dL Hct 23.9 L (39.0-53.0) % RDW 18.2 H (11.5-15.5) % Plt Count 126 L (150-450) k/uL Neutrophils # (Manual) 11.40 H (1.3-7.7) k/uL Lymphocytes # (Manual) 0.78 L (1.0-4.8) k/uL Myelocytes # (Manual) 0.13 H (0) k/uL Nucleated RBCs 1 H (0-0) /100 WBC Sodium (137-145) mmol/L Chloride (98-107) mmol/L Carbon Dioxide (22-30) mmol/L BUN (9-20) mg/dL Glucose (74-99) mg/dL POC Glucose (mg/dL) 172 H 154 H (75-99) mg/dL 03/25/18 03/25/18 Range/Units 07:42 11:11 WBC (3.8-10.6) k/uL RBC (4.30-5.90) m/uL Hgb (13.0-17.5) gm/dL Hct (39.0-53.0) % RDW (11.5-15.5) % Plt Count (150-450) k/uL Neutrophils # (Manual) (1.3-7.7) k/uL Lymphocytes # (Manual) (1.0-4.8) k/uL Myelocytes # (Manual) (0) k/uL Nucleated RBCs (0-0) /100 WBC Sodium 135 L (137-145) mmol/L Chloride 96 L (98-107) mmol/L Carbon Dioxide 31 H (22-30) mmol/L BUN 21 H (9-20) mg/dL Glucose 72 L (74-99) mg/dL POC Glucose (mg/dL) 103 H (75-99) mg/dL Microbiology - Last 24 Hours (Table) 03/23/18 12:20 Gram Stain - Final Sputum Sputum Culture - Final Rae albicans Assessment and Plan Assessment: patient seen and examined. Patient states his hemopytsis is improving somewhat. His breathing is better. He did have pain overnight from his hernia. This is now resolved. Prednisone taper. ABX per ID. Discharge planning. ~Poornima Birch DO
[2018-03-25] MEDS: MULTIVITAMINS, THERA 1 EACH TAB PO SCH (13:42)
[2018-03-25] MEDS: VIT A,C & E-LUTEIN-MINERALS 1 EACH TAB PO SCH (13:42)
[2018-03-25] MEDS: ASCORBIC ACID 500 MG TAB PO SCH (13:42)
[2018-03-25] MEDS: CALCIUM CARB-VIT D 500MG-200UN 1 EACH TAB PO SCH (13:42)
[2018-03-25 17:12] LABS: Glucose,Whole Blood 168 mg/dL (75-99)
[2018-03-25 20:49] LABS: Glucose,Whole Blood 151 mg/dL (75-99)
[2018-03-25] MEDS: DOXAZOSIN 4 MG TAB PO SCH (21:11)
[2018-03-25] MEDS: ESCITALOPRAM 10 MG TAB PO SCH (21:11)
[2018-03-25] MEDS: ATORVASTATIN 20 MG TAB PO SCH (21:11)
[2018-03-25] MEDS: MONTELUKAST 10 MG TAB PO SCH (21:12)
[2018-03-25] MEDS: LACTATED RINGERS 1,000 ML IV SCH (21:14)
--- NOTE | 2018-03-25 22:44 | PN ---
PROGRESS NOTE DATE OF SERVICE: 03/25/2018 REASON FOR FOLLOWUP: MSSA bacteremia and pseudomonas pneumonia. INTERVAL HISTORY: The patient is afebrile. He seemed to have a problem with abdominal pain last night, for which a CT was completed with concern about possible incarcerated hernia. Surgery has seen the patient and currently conservative treatment has been recommended. The patient himself denies having any fever or any chills. His breathing has improved. He has occasional cough. No diarrhea. PHYSICAL EXAMINATION: Blood pressure 123/70 with a pulse of 75, temperature 97.7. He is 91% on 2 L nasal cannula. General description is an elderly male up in the bed in no distress. RESPIRATORY SYSTEM: Unlabored breathing. Decreased intensity of breath sounds but no wheeze. HEART: S1, S2. Regular rate and rhythm. ABDOMEN: Soft. He did have periumbilical hernia which was easily reducible. EXTREMITIES: No edema of the feet. LABS: Hemoglobin 7.9, white count 13,000 with BUN of 21, creatinine 0.81. Blood culture repeat on 03/16 has been negative. DIAGNOSTIC IMPRESSION AND PLAN: Patient with methicillin-susceptible Staphylococcus aeruginosa bacteremia with a follow-up blood culture that has been negative. The patient also has evidence of pseudomonas pneumonia. For that reason, the patient has been on cefepime that was transitioned to cefazolin and Cipro. However, with the patient being on Lexapro and the high risk of QTc prolongation with Cipro exposure in the outpatient setting where the patient cannot be monitored, hence will recommend switching over to cefepime 2 grams q.12 to finish a course of therapy for another 7 days. Continue with supportive care. MMODL / IJN: [id number] /
[2018-03-26] MEDS: ceFAZolin IN SWFI 2 GM/20 ML SYRINGE IVP SCH ×2 (00:06→09:04)
[2018-03-26 05:17] VITALS: RESP 16
[2018-03-26 06:56] LABS: Glucose,Whole Blood 105 mg/dL (75-99)
[2018-03-26] MEDS: INSULIN ASPART 100 UNIT/ML 1 ML 10 ML VIAL SQ SCH ×2 (07:15→13:46)
[2018-03-26] MEDS: BUDESONIDE 0.5 MG/2 ML NEBU INHALATION SCH (07:28)
[2018-03-26] MEDS: IPRATROPIUM-ALBUTEROL 3 ML NEB INHALATION SCH ×2 (07:28→11:22)
[2018-03-26] MEDS: LACTULOSE 20 GM/30 ML CUP PO SCH ×2 (08:22→08:34)
[2018-03-26] MEDS: DILTIAZEM CD 120 MG CAP.ER.24H PO SCH (08:22)
[2018-03-26] MEDS: CIPROFLOXACIN HCL 500 MG TAB PO SCH (08:22)
[2018-03-26] MEDS: ENOXAPARIN 100 MG/ML SYRINGE SQ SCH (08:22)
[2018-03-26] MEDS: DOCUSATE 100 MG CAP PO SCH (08:22)
[2018-03-26] MEDS: PANTOPRAZOLE 40 MG TABLET PO SCH (08:22)
[2018-03-26] MEDS: predniSONE 20 MG TAB PO SCH (08:22)
[2018-03-26] MEDS: METOPROLOL TARTRATE 50 MG TAB PO SCH (08:22)
[2018-03-26 08:30] LABS: Anisocytosis Slight; HCT 25.5 % (39.0-53.0); Hypochromasia Moderate; MCH 28.9 pg (25.0-35.0); MCHC 31.6 g/dL (31.0-37.0); MCV 91.6 fL (80.0-100.0); Mean Platelet Volume 9.3; Platelet Count 130 k/uL (150-450); RBC 2.78 m/uL (4.30-5.90); RDW 18.1 % (11.5-15.5)
[2018-03-26] MEDS: SENNOSIDES-DOCUSATE SODIUM 1 EACH TAB PO SCH ×2 (08:30→08:34)
[2018-03-26 08:32] LABS: Anion Gap 6 mmol/L; Blood Urea Nitrogen 18 mg/dL (9-20); Calcium 8.5 mg/dL (8.4-10.2); Carbon Dioxide 32 mmol/L (22-30); Chloride 98 mmol/L (98-107); Glucose 79 mg/dL (74-99); Potassium 3.8 mmol/L (3.5-5.1); Sodium 136 mmol/L (137-145)
[2018-03-26 10:12] LABS: Metamyelocytes % 3 %; Myelocytes % 4 %; Neutrophils % (M) 83 %; Nucleated Red Blood Cells 0 /100 WBC (0-0); Total Cells Counted 200
[2018-03-26 10:13] LABS: Poikilocytosis (M) Present; Polychromasia Present
--- NOTE | 2018-03-26 10:20 | P.PN ---
<Marce Carter E - Last Filed: 03/26/18 10:18> Subjective Progress Note Date: 03/26/18 HPI: Chun waldron is a 87-year-old male who presented to the ED at [facility] with left sided facial numbness and weakness. He also had some difficulty speaking. He denies any choking on any of his food. He was seen in the ER, admitted for further evaluation. He has a history of prostate cancer and has been undergoing chemotherapy. He denied any fevers or chills. He has been having progressive worsening shortness of breath along with cough and some sputum production. Sputum does not have any color to it. He has had no fever while he was in the hospital. Pulmonary consultation is placed because of the possibility of aspiration pneumonia. Interval history: 03/18/2018patient is being seen examined and evaluated today on rounds. Patient currently has a WBC count of 23.3 which could possibly be related to initiating Solu-Medrol yesterday. He continues and chemo precautions. He is resting up in bedside chair on room air. He states he does get short of breath with exertion. He also has a cough and has had some hemoptysis which he states has been intermittently ongoing for a few months now. He states the breathing treatments and steroids have been helping him. We will get a repeat sputum culture and initiate incentive spirometer. He denies any fevers or chills. 03/19/2018patient is being seen examined and evaluated today on rounds. He continues on room air and still has hemoptysis. His INR today is 2.7. His Coumadin and aspirin were held yesterday. He is scheduled for a bronchoscopy tomorrow. They procedure risk class complications have been discussed with the patient's and all questions have been answered. He is willing to go forth with the procedure. He continues on prednisone 40 mg at this time. He states the breathing treatments are also helping him. He did have an EEG and those results are pending. He is afebrile and has no further complaints. 03/20/2018patient is being seen examined and evaluated today on rounds. He is resting in bed on room air. Still has intermittent hemoptysis. His hemoglobin today is 8.1, his INR is 2.0, platelets 68. Patient is scheduled to go for a bronchoscopy this afternoon. Sputum showing Pseudomonas stutzeri, ID is on consult. He is afebrile no further complaints. 03/21/18- patient is being seen examined and evaluated today on rounds. He is resting up in bed on 3 L of supplemental oxygen via nasal cannula. He is states he has had some small amount of hemoptysis today however it has improved since he did undergo the bronchoscopy yesterday. Bronchoscopy washings were sent for studies and those are pending. His INR today is 1.6. He did undergo a PICC line insertion and does have infectious diseases following closely due to his Pseudomonas stutzeri. 03/22/18-03/23/18- Please see Dr BEN Marcus notes 03/24/18- patient is being seen examined and evaluated today on rounds. He is resting up in bed on supplemental oxygen via nasal cannula. He is being prepared for discharge will have a home oxygen evaluation. It appears he will be going to ECF for rehab. His Coumadin has been restarted. He has an INR 1.3. He does have some occasional hemoptysis however it is improving and decreasing in amount. Infectious disease has recommended her antibiotics upon discharge. His hemoglobin has been stable. He is afebrile no further complaints. 03/25/2018patient is being seen examined and evaluated today on rounds. He is resting up in bed on nasal cannula. He feels his breathing is improving. He has less hemoptysis today. CT of the abdomen and pelvis with IV and by mouth contrast was ordered yesterday, showing incarcerated hernia with bowel obstruction. Patient declines any intervention at this time. Surgery is on consult appreciate recommendations, currently they state no surgical intervention at this time. Patient is passing flatus, denies any nausea vomiting. He is tolerating his diet. Discharge planning underway for possible ECF. 03/26/2018patient is being seen examined and evaluated today on rounds. He is resting up in bed on 2 L of supplemental oxygen via nasal cannula. He has had some hemoptysis today but continues to decrease in severity. Patient is off of the Coumadin for now until his hemoptysis resolves. Currently he is being bridged with Lovenox injections. Discharge planning underway. Afebrile no further complaints. Objective - Vital Signs Vital signs: Vital Signs Temp 97.4 F L 03/26/18 05:00 Pulse 88 03/26/18 07:40 Resp 16 03/26/18 05:00 BP 138/84 03/26/18 05:00 Pulse Ox 93 L 03/26/18 05:00 Intake & Output 03/25/18 03/26/18 03/26/18 18:59 06:59 18:59 Intake Total 1360 2160 Output Total 900 Balance 460 2160 Weight 99.6 kg Intake: Intake, IV Titration 160 240 Amount Lactated Ringers 1,000 ml 160 240 @ 20 mls/hr IV .Q24H [facility] Rx#:[id number] Oral 1200 1920 Output: Urine 900 Other: Voiding Method Toilet Toilet Urinal Urinal # Voids 5 2 # Bowel Movements 1 - Exam GENERAL EXAM: Alert, active, comfortable in no apparent distress. HEAD: Normocephalic. EYES: Normal reaction of pupils, equal size. NOSE: Clear with pink turbinates. THROAT: No erythema or exudates. NECK: No masses, no JVD. CHEST: No chest wall deformity. LUNGS: Chest to be slightly coarse today with prolonged expiration and expiratory wheeze, improving aeration. CVS: S1 and S2 normal with no audible mumurs, regular rhythm. ABDOMEN: No hepatosplenomegaly, normal bowel sounds, no guarding or rigidity. EXTREMITIES: +1 edema noted, pedal pulses palpable. CENTRAL NERVOUS SYSTEM: No focal deficits, tone is normal in all 4 extremities. - Labs CBC & Chem 7: 03/26/18 07:52 03/26/18 07:52 Labs: Abnormal Lab Results - Last 24 Hours (Table) 03/25/18 03/25/18 03/25/18 Range/Units 11:11 17:10 20:40 RBC (4.30-5.90) m/uL Hgb (13.0-17.5) gm/dL Hct (39.0-53.0) % RDW (11.5-15.5) % Plt Count (150-450) k/uL Neutrophils # (Manual) (1.3-7.7) k/uL Lymphocytes # (Manual) (1.0-4.8) k/uL Metamyelocytes # (Man) (0) k/uL Myelocytes # (Manual) (0) k/uL Sodium (137-145) mmol/L Carbon Dioxide (22-30) mmol/L POC Glucose (mg/dL) 103 H 168 H 151 H (75-99) mg/dL 03/26/18 03/26/18 03/26/18 Range/Units 06:55 07:52 07:52 RBC 2.78 L (4.30-5.90) m/uL Hgb 8.0 L (13.0-17.5) gm/dL Hct 25.5 L (39.0-53.0) % RDW 18.1 H (11.5-15.5) % Plt Count 130 L (150-450) k/uL Neutrophils # (Manual) 8.30 H (1.3-7.7) k/uL Lymphocytes # (Manual) 0.40 L (1.0-4.8) k/uL Metamyelocytes # (Man) 0.30 H (0) k/uL Myelocytes # (Manual) 0.40 H (0) k/uL Sodium 136 L (137-145) mmol/L Carbon Dioxide 32 H (22-30) mmol/L POC Glucose (mg/dL) 105 H (75-99) mg/dL Microbiology - Last 24 Hours (Table) 03/23/18 12:20 Gram Stain - Final Sputum Sputum Culture - Final Rae albicans Assessment and Plan Assessment: Assessment Chronic severe persistent asthma with acute exacerbation COPD Aspiration pneumonia with new infiltrate in the right lung base CVA versus TIA History of prostate cancer status post chemotherapy Hemoptysisintermittent Incarcerated hernia with bowel obstruction on CT of ABD Plan Agree with discharge planning to ECF/rehab Coumadin on hold until hemoptysis resolves will bridge with Lovenox Prescription for steroids has been e-prescribed s/p bronchoscopy please see procedure notes Status post PICC line insertion 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 Continue on antibiotics, ID on consult, sputum positive with pseudomonas stutzeri Prednisone taper Initiate and encourage incentive spirometer Continue with pulmonary hygiene, coughing and deep breathing exercises, and supportive care. Supplemental oxygen to maintain oxygen saturations of 92% or better. Continue nebulizer treatments, DuoNeb and budesonide. GI and DVT prophylaxis. Heme/onc on consult Neuro on consult Surgical services on consult no plan for intervention at this time Increase activity as tolerated PT and OT, inpatient rehab on consult We will continue to monitor labs/results and adjust treatment as necessary. Discharge planning I performed an examination of the patient and discussed their management with the nurse practitioner. I have reviewed the nurse practitioner's note and agree with the documented findings and plan of care. <Poornima Birch A - Last Filed: 03/26/18 13:28> Objective - Vital Signs Vital signs: Vital Signs Temp 97.9 F 03/26/18 12:07 Pulse 74 03/26/18 12:07 Resp 16 03/26/18 12:07 BP 138/81 03/26/18 12:07 Pulse Ox 92 L 03/26/18 12:07 Intake & Output 03/25/18 03/26/18 03/26/18 18:59 06:59 18:59 Intake Total 1360 2160 Output Total 900 Balance 460 2160 Weight 99.6 kg Intake: Intake, IV Titration 160 240 Amount Lactated Ringers 1,000 ml 160 240 @ 20 mls/hr IV .Q24H [facility] Rx#:[id number] Oral 1200 1920 Output: Urine 900 Other: Voiding Method Toilet Toilet Urinal Urinal # Voids 5 2 # Bowel Movements 1 - Labs CBC & Chem 7: 03/26/18 07:52 03/26/18 07:52 Labs: Abnormal Lab Results - Last 24 Hours (Table) 03/25/18 03/25/18 03/26/18 Range/Units 17:10 20:40 06:55 RBC (4.30-5.90) m/uL Hgb (13.0-17.5) gm/dL Hct (39.0-53.0) % RDW (11.5-15.5) % Plt Count (150-450) k/uL Neutrophils # (Manual) (1.3-7.7) k/uL Lymphocytes # (Manual) (1.0-4.8) k/uL Metamyelocytes # (Man) (0) k/uL Myelocytes # (Manual) (0) k/uL Sodium (137-145) mmol/L Carbon Dioxide (22-30) mmol/L POC Glucose (mg/dL) 168 H 151 H 105 H (75-99) mg/dL 03/26/18 03/26/18 03/26/18 Range/Units 07:52 07:52 11:35 RBC 2.78 L (4.30-5.90) m/uL Hgb 8.0 L (13.0-17.5) gm/dL Hct 25.5 L (39.0-53.0) % RDW 18.1 H (11.5-15.5) % Plt Count 130 L (150-450) k/uL Neutrophils # (Manual) 8.30 H (1.3-7.7) k/uL Lymphocytes # (Manual) 0.40 L (1.0-4.8) k/uL Metamyelocytes # (Man) 0.30 H (0) k/uL Myelocytes # (Manual) 0.40 H (0) k/uL Sodium 136 L (137-145) mmol/L Carbon Dioxide 32 H (22-30) mmol/L POC Glucose (mg/dL) 132 H (75-99) mg/dL Assessment and Plan Assessment: Ok to DC from pulmonary standpoint. Decrease Prednisone to 50 mg daily. Patient to follow up with me in the office next week. Hold coumadin, initiate Lovenox per primary team. Patient has ongoing hemoptysis. Continue Duonebs and Pulmicort. ABX per ID. Patient on Xolair as outpatient, this should be restarted. ~Poornima Birch DO
[2018-03-26 11:36] LABS: Glucose,Whole Blood 132 mg/dL (75-99)
--- NOTE | 2018-03-26 12:23 | P.PN ---
Subjective Progress Note Date: 03/26/18 Patient seen and examined at bedside. Denies abdominal pain. Had bowel movement. Denies nausea vomiting. Tolerating diet. Objective - Vital Signs Vital signs: Vital Signs Temp 97.4 F L 03/26/18 05:00 Pulse 72 03/26/18 11:33 Resp 16 03/26/18 05:00 BP 138/84 03/26/18 05:00 Pulse Ox 93 L 03/26/18 05:00 Intake & Output 03/25/18 03/26/18 03/26/18 18:59 06:59 18:59 Intake Total 1360 2160 Output Total 900 Balance 460 2160 Weight 99.6 kg Intake: Intake, IV Titration 160 240 Amount Lactated Ringers 1,000 ml 160 240 @ 20 mls/hr IV .Q24H [facility] Rx#:[id number] Oral 1200 1920 Output: Urine 900 Other: Voiding Method Toilet Toilet Urinal Urinal # Voids 5 2 # Bowel Movements 1 - Constitutional General appearance: Present: cooperative, no acute distress - Respiratory Details: No difficulty with respiration - Gastrointestinal Gastrointestinal Comment(s): Soft, nontender, nondistended, no rebound, no guarding, umbilical hernia site unchanged from previous exam, soft and reducible - Labs CBC & Chem 7: 03/26/18 07:52 03/26/18 07:52 Labs: Abnormal Lab Results - Last 24 Hours (Table) 03/25/18 03/25/18 03/26/18 Range/Units 17:10 20:40 06:55 RBC (4.30-5.90) m/uL Hgb (13.0-17.5) gm/dL Hct (39.0-53.0) % RDW (11.5-15.5) % Plt Count (150-450) k/uL Neutrophils # (Manual) (1.3-7.7) k/uL Lymphocytes # (Manual) (1.0-4.8) k/uL Metamyelocytes # (Man) (0) k/uL Myelocytes # (Manual) (0) k/uL Sodium (137-145) mmol/L Carbon Dioxide (22-30) mmol/L POC Glucose (mg/dL) 168 H 151 H 105 H (75-99) mg/dL 03/26/18 03/26/18 03/26/18 Range/Units 07:52 07:52 11:35 RBC 2.78 L (4.30-5.90) m/uL Hgb 8.0 L (13.0-17.5) gm/dL Hct 25.5 L (39.0-53.0) % RDW 18.1 H (11.5-15.5) % Plt Count 130 L (150-450) k/uL Neutrophils # (Manual) 8.30 H (1.3-7.7) k/uL Lymphocytes # (Manual) 0.40 L (1.0-4.8) k/uL Metamyelocytes # (Man) 0.30 H (0) k/uL Myelocytes # (Manual) 0.40 H (0) k/uL Sodium 136 L (137-145) mmol/L Carbon Dioxide 32 H (22-30) mmol/L POC Glucose (mg/dL) 132 H (75-99) mg/dL Microbiology - Last 24 Hours (Table) 03/23/18 12:20 Gram Stain - Final Sputum Sputum Culture - Final Rae albicans Assessment and Plan (1) Small bowel obstruction Narrative/Plan: 87-year-old male with umbilical hernia that likely was cause of resolved small bowel obstruction. I did discuss the case with the patient in depth again today. He continues to be wary of any surgical intervention. We will continue medical management and I did state to the patient that hernia repair should be performed as soon as possible to decrease chance of recurrent small bowel obstruction. The patient did state that he understood but would like to monitor medically at this time. Continue diet. Current Visit: Yes Status: Acute Code(s): K56.609 - UNSP INTESTNL OBST, UNSP TO PARTIAL VERSUS COMPLETE OBST SNOMED Code(s): 648225639
[2018-03-26 12:59] VITALS: BP 138/81; PULSE 74; TEMP 97.9
[2018-03-26] MEDS: CALCIUM CARB-VIT D 500MG-200UN 1 EACH TAB PO SCH (13:02)
[2018-03-26] MEDS: VIT A,C & E-LUTEIN-MINERALS 1 EACH TAB PO SCH (13:02)
[2018-03-26] MEDS: MULTIVITAMINS, THERA 1 EACH TAB PO SCH (13:02)
[2018-03-26] MEDS: ASCORBIC ACID 500 MG TAB PO SCH (13:02)
--- NOTE | 2018-03-26 14:06 | PN ---
PROGRESS NOTE DATE OF SERVICE: 03/26/2028 REASON FOR FOLLOWUP: MSSA bacteremia and gram-negative Pseudomonas pneumonia. INTERVAL HISTORY: The patient is afebrile. He is breathing comfortably. He is still complaining of some hemoptysis. Denies having any chest pain. No abdominal pain. No nausea, vomiting and no diarrhea. PHYSICAL EXAMINATION: Blood pressure 138/81 with a pulse of 74, temperature is 97.9. He is 92% on 2 L nasal cannula. General description is a elderly male, lying in bed in no distress. RESPIRATORY SYSTEM: Unlabored breathing, clear to auscultation anteriorly. HEART: S1, S2. Regular rate and rhythm. ABDOMEN: Soft, no tenderness. LABS: BUN of 18, creatinine 0.7, white count normalized to 10. DIAGNOSTIC IMPRESSION/PLAN: Patient with methicillin-sensitive Staphylococcus aureus bacteremia. Repeat blood culture has been negative, source likely pneumonia. However, sputum did show Pseudomonas and currently patient is on cefazolin and Cipro that can be transitioned to cefepime 2 g q.12. The patient is on Lexapro with concern for QT prolongation with outpatient Cipro use. This should cover both the Pseudomonas as well as the MSSA with close outpatient followup. Continue supportive care. MMODL / IJN: [id number] /
--- NOTE | 2018-03-26 14:12 | P.DS ---
Providers Date of admission: 03/13/18 17:42 Attending physician: Ping Blankenship Consults: 03/13/18 17:42 Consult Physician Routine Consulting Provider: Heather Zuniga Consult Reason/Comments: CVA Do you want consulting provider notified?: Yes 03/13/18 21:59 Consult Physician Routine Consulting Provider: Jose R Hamilton Consult Reason/Comments: malignancy Do you want consulting provider notified?: Yes 03/15/18 16:15 Consult Physician Urgent Consulting Provider: Efrain Posada Consult Reason/Comments: Sepsis Do you want consulting provider notified?: Yes 03/17/18 14:49 Consult Physician Routine Consulting Provider: Heath Joy Consult Reason/Comments: pneumonia?? Do you want consulting provider notified?: Yes 03/17/18 17:12 Consult Physician Routine Consulting Provider: David Concepcion Consult Reason/Comments: cva medical debility Do you want consulting provider notified?: Yes 03/24/18 23:54 Consult Physician Stat Consulting Provider: Janae Hester Consult Reason/Comments: incarcerated hernia Do you want consulting provider notified?: Yes Primary care physician: [place] [facility] Course: 87-year-old gentleman admitted with acute CVA, neutropenia, sepsis with MSSA bacteremia and multiple other medical issues. The patient had come this time after he is been seen by his oncologist Dr. Hamilton at the [facility]. The patient has a history of prostate cancer and is being closely followed for this condition. After completing his initial laboratory testing and follow-up visit he was on his way home with his . Apparently she noticed that he was having sudden onset of confusion and slurring of his speech. He then seemed to have great difficulty getting his words out. Patient was admitted for left facial drop speech. Patient has been evaluated by neurologist and he has negative MRI of the brain for acute stroke. Patient was diagnosed of TIA secondary to atrial fibrillation and he was on Coumadin for prophylaxis. The patient has been having progressive worsening shortness of breath along with cough and some sputum production. Patient has found to have pneumonia. Sputum culture was positive for Pseudomonas while blood culture was positive for staph aureus. Patient has been started on antibiotics as per infectious disease recommendation and patient showed interval improvement and on the day of discharge patient has been afebrile and his leukocytosis has resolved with WBCs down to 10 K (WNL), however patient has been having several bouts of hemoptysis and coughing up blood for about 2 weeks but has been gradually improving, and less severe in density. Pulmonary team did bronchoscopy for the patient shows signs and symptoms of inflammation (see full report). However patient's blood pressure, vitals and hemoglobin remained stable and on the day of discharge his hemoglobin was 8.0, compared to 77.8. Despite been patient is started on Lovenox 100 mg twice a day for the last 2 days with no change in hemoglobin or blood pressure. Therefore it has been placed on hold for now because of his hemoptysis and the planned for him to go see a flyer repairer. Benefits Lovenox is more than the risk, as he'll be at high risk of stroke/TIA which is similar to his presentation. Discussed with the patient including risks, benefits and alternatives details and he agrees to continue with Lovenox to protect him for his A. fib and from recurrent strokes/TIA. He understands he 'll be at higher risk of bleeding including but not limited to bleeding into the brain GI, ORGAN DYSFUNCTION AND OR . UPON MY EVALUATION PATIENT HAS CAPACITY TO MAKE MEDICAL DECISION On admission patient thrombocytopenia at 62k improved with therapy and now is up to 130k upon discharge. His hospital course was complicated by umbilical pain at the umbilical hernia site, associated with strangulated hernia and dilated bowel loops suspicious for bowel obstruction. Has been treated conservatively with NG tube. Surgical team evaluated the patient and since his symptoms has resolved and he is passing flatus followed bowel movement no surgical intervention is indicated while in-house, however patient was instructed to follow up with the surgeon as an outpatient to treat his hernia surgically to prevent recurrent SBO, however patient told me he does not want any surgery currently. Detailed discharge patient symptoms are significantly improved including his breathing and no chest or abdominal pain. Umbilical hernia is reproducible with no tenderness. And his Slurred speech and right facial drop has resolved. He still have some hemoptysis which, less and less, for example last month he had only one or twice however his hemoglobin is stable. He said that his breathing is good, had no chest pain. And his cough with phlegm is improving. He had one large bowel movement yesterday. With no nausea vomiting. No abdominal pain Patient has been cleared for discharge by the surgical team, pulmonology team, hematology/oncology team and infectious disease team who recommended to be discharged on cefepime for 7 more days Problems and management plan were discussed with the patient and he verbalized understanding and acceptance Patient is found stable and can be discharged to rehab and guarded prognosis however he needs follow-up as an outpatient GENERAL: The patient is alert and oriented x3, not in any acute distress. Well developed, well nourished. Nasal cannula in place HEENT: Pupils are round and equally reacting to light. EOMI. No scleral icterus. No conjunctival pallor. Normocephalic, atraumatic. No pharyngeal erythema. No thyromegaly. CARDIOVASCULAR: S1 and S2 present. No murmurs, rubs, or gallops. PULMONARY: Bilaterally clear to auscultation. No wheezing or crepitations ABDOMEN: Soft, nontender, nondistended, normoactive bowel sounds. No palpable organomegaly. Umbilical hernia: Nontender and reproducible, with no signs symptoms of inflammation MUSCULOSKELETAL: No joint swelling or deformity. EXTREMITIES: No cyanosis, clubbing, or pedal edema. NEUROLOGICAL: Gross neurological examination did not reveal any focal deficits. SKIN: No rashes. Time spent more than 35 minutes Patient Condition at Discharge: Good Plan - Discharge Summary Discharge Rx Participant: No New Discharge Prescriptions: New Ipratropium-Albuterol Nebulize [Duoneb 0.5 mg-3 mg/3 ml Soln] 3 ml INHALATION RT-QID #120 ampul.neb Cefepime HCl [Maxipime] 2 gm IV Q12H #20 vial predniSONE 50 mg PO DAILY tab Budesonide [Pulmicort] 0.5 mg INHALATION RT-BID nebu ceFAZolin [Kefzol] 2 gm IVP Q8HR syringe Enoxaparin [Lovenox] 100 mg SQ Q12HR syringe Insulin Aspart [NovoLOG (formulary)] 0 unit SQ ACHS vial Pantoprazole [Protonix] 40 mg PO DAILY@0700 tablet. Sennosidevanessa-Docusate Sodium [Senokot-S] 2 each PO BID tab Continue Escitalopram [Lexapro] 10 mg PO HS Multivitamins, Thera [Multivitamin (formulary)] 1 tab PO DAILY Montelukast [Singulair] 10 mg PO HS Calcium Carbonate/Vitamin D3 [Calcium 600-Vit D3 400 Caplet] 1 tab PO DAILY Terazosin HCl 5 mg PO BID Ipratropium-Albuterol Nebulize [Duoneb 0.5 mg-3 mg/3 ml Soln] 3 ml INHALATION RT-QID PRN PRN Reason: Shortness Of Breath Diltiazem HCl [Diltiazem 24Hr ER] 120 mg PO Q24HR Metoprolol Tartrate [Lopressor] 50 mg PO BID EPINEPHrine (Auto Inject) [Epipen] 0.3 mg IM ONCE PRN PRN Reason: Anaphylaxis Budesonide/Formoterol Fumarate [Symbicort 80-4.5 Mcg Inhaler] 2 puff INHALATION RT-BID Ascorbic Acid [Vitamin C] 500 mg PO DAILY traMADol HCL [Ultram] 50 mg PO Q4HR PRN PRN Reason: Pain Prochlorperazine [Compazine] 10 mg PO Q6H PRN PRN Reason: Nausea Atorvastatin [Lipitor] 20 mg PO HS Vit C/E/Zn/Coppr/Lutein/Zeaxan [Preservision Areds 2 Softgel] 1 cap PO DAILY ALPRAZolam [Xanax] 0.25 mg PO HS PRN PRN Reason: Anxiety Discontinued predniSONE 5 mg PO BID Warfarin [Coumadin] 4.5 mg PO SUTUTHSA Warfarin [Coumadin] 6 mg PO MOWEFR Discharge Medication List Calcium Carbonate/Vitamin D3 [Calcium 600-Vit D3 400 Caplet] 1 tab PO DAILY 07/17 [History] Diltiazem HCl [Diltiazem 24Hr ER] 120 mg PO Q24HR 01/29/17 [History] Escitalopram [Lexapro] 10 mg PO HS 01/29/17 [History] Ipratropium-Albuterol Nebulize [Duoneb 0.5 mg-3 mg/3 ml Soln] 3 ml INHALATION RT -QID PRN 01/29/17 [History] Metoprolol Tartrate [Lopressor] 50 mg PO BID 01/29/17 [History] Montelukast [Singulair] 10 mg PO HS 01/29/17 [History] Multivitamins, Thera [Multivitamin (formulary)] 1 tab PO DAILY 01/29/17 [History ] Terazosin HCl 5 mg PO BID 01/29/17 [History] Budesonide/Formoterol Fumarate [Symbicort 80-4.5 Mcg Inhaler] 2 puff INHALATION RT-BID 12/06/17 [History] EPINEPHrine (Auto Inject) [Epipen] 0.3 mg IM ONCE PRN 12/06/17 [History] ALPRAZolam [Xanax] 0.25 mg PO HS PRN 03/13/18 [History] Ascorbic Acid [Vitamin C] 500 mg PO DAILY 03/13/18 [History] Atorvastatin [Lipitor] 20 mg PO HS 03/13/18 [History] Prochlorperazine [Compazine] 10 mg PO Q6H PRN 03/13/18 [History] Vit C/E/Zn/Coppr/Lutein/Zeaxan [Preservision Areds 2 Softgel] 1 cap PO DAILY [History] traMADol HCL [Ultram] 50 mg PO Q4HR PRN 03/13/18 [History] Cefepime HCl [Maxipime] 2 gm IV Q12H #20 vial 03/24/18 [Rx] Ipratropium-Albuterol Nebulize [Duoneb 0.5 mg-3 mg/3 ml Soln] 3 ml INHALATION RT -QID #120 ampul.neb 03/24/18 [Rx] Budesonide [Pulmicort] 0.5 mg INHALATION RT-BID nebu 03/26/18 [Rx] Enoxaparin [Lovenox] 100 mg SQ Q12HR syringe 03/26/18 [Rx] Insulin Aspart [NovoLOG (formulary)] 0 unit SQ ACHS vial 03/26/18 [Rx] Pantoprazole [Protonix] 40 mg PO DAILY@0700 tablet. 03/26/18 [Rx] Sennosides-Docusate Sodium [Senokot-S] 2 each PO BID tab 03/26/18 [Rx] ceFAZolin [Kefzol] 2 gm IVP Q8HR syringe 03/26/18 [Rx] predniSONE 50 mg PO DAILY tab 03/26/18 [Rx] Follow up Appointment(s)/Referral(s): Marni Carlin NPC [Nurse Practitioner] - 04/03/18 1:15 pm [place] Wolf PAC [REFERRING] - 03/27/18 3:00 pm (With Eleanor CUNNINGHAM. [place] is unavailable until March.) Poornima Birch DO [Doctor of Osteopathic Medicine] - 03/31/18 10:30 am ( APPOINTMENT WILL BE AT: [address] [place] [address] ) Janae Hester DO [Doctor of Osteopathic Medicine] - 04/23/18 9:00 am Patient Instructions/Handouts: Ischemic Stroke (DC), Thrombocytopenia (DC) Activity/Diet/Wound Care/Special Instructions: Cardiac diet Activity: Limited to Shiv Pugh Discharge Disposition: TRANSFER TO SNF/ECF
[2018-03-27] MEDS ORDERED: predniSONE 50 MG TAB PO SCH (09:00)
== END 2018-03-26 15:35 | DRG 853 ==
LOC: EC 15:49 → 6SEL 17:42 → 5MS5E 03-19 00:11
PROVIDERS: ADMIT Hospitalist; ATTEND Hospitalist
PROC: 0B9L8ZZ Drainage of Left Lung, Via Natural or Artificial Opening Endoscopic (ICD-10-PCS; principal; 2018-03-20 14:00)
PROC: 05HC33Z Insertion of Infusion Device into Left Basilic Vein, Percutaneous Approach (ICD-10-PCS; 2018-03-21 08:00)
DX: A41.01 Sepsis due to Methicillin susceptible Staphylococcus aureus (principal); D61.810 Antineoplastic chemotherapy induced pancytopenia; J69.0 Pneumonitis due to inhalation of food and vomit; J96.01 Acute respiratory failure with hypoxia; C79.51 Secondary malignant neoplasm of bone; D68.9 Coagulation defect, unspecified; E87.1 Hypo-osmolality and hyponatremia; G45.9 Transient cerebral ischemic attack, unspecified; J44.0 Chronic obstructive pulmonary disease with (acute) lower respiratory infection; J44.1 Chronic obstructive pulmonary disease with (acute) exacerbation; J45.51 Severe persistent asthma with (acute) exacerbation; K56.609 Unspecified intestinal obstruction, unspecified as to partial versus complete obstruction; K42.0 Umbilical hernia with obstruction, without gangrene; R47.01 Aphasia; R04.2 Hemoptysis; C61 Malignant neoplasm of prostate; E78.5 Hyperlipidemia, unspecified; E87.5 Hyperkalemia; E87.6 Hypokalemia; G51.0 Bell's palsy; I11.0 Hypertensive heart disease with heart failure; I25.10 Atherosclerotic heart disease of native coronary artery without angina pectoris; I25.2 Old myocardial infarction; I48.2 Chronic atrial fibrillation; I50.9 Heart failure, unspecified; R29.703 NIHSS score 3; Z87.891 Personal history of nicotine dependence; M19.90 Unspecified osteoarthritis, unspecified site; R13.10 Dysphagia, unspecified; T38.0X5A Adverse effect of glucocorticoids and synthetic analogues, initial encounter; T45.1X5A Adverse effect of antineoplastic and immunosuppressive drugs, initial encounter; T45.515A Adverse effect of anticoagulants, initial encounter; Z79.01 Long term (current) use of anticoagulants; Z79.82 Long term (current) use of aspirin; Z79.899 Other long term (current) drug therapy; Z82.49 Family history of ischemic heart disease and other diseases of the circulatory system; Z85.828 Personal history of other malignant neoplasm of skin; Z86.718 Personal history of other venous thrombosis and embolism; Z86.73 Personal history of transient ischemic attack (TIA), and cerebral infarction without residual deficits; Z92.3 Personal history of irradiation; Z79.890 Hormone replacement therapy; K59.00 Constipation, unspecified; D72.828 Other elevated white blood cell count
CPT/HCPCS: 31624; 36415; 36569; 70450; 70496; 70498; 70553; 71045; 71046; 71275; 74022; 74178; 76937; 80048; 80053; 80061; 80202; 81003; 82272; 82533; 82550; 82553; 82607; 82728; 82747; 83036; 83540; 83550; 83605; 83880; 84484; 85025; 85027; 85610; 85730; 86360; 87040; 87070; 87077; 87086; 87186; 87205; 87502; 88108; 88305; 93005; 93306; 94640; 94760; 95819; 96360; 99291

== ENCOUNTER 2018-06-17 17:45 | Inpatient (IN) | payer MEDICARE, BC ==
--- NOTE | 2018-06-17 17:57 | ED ---
General Adult HPI - General Stated complaint: blood in stool Time Seen by Provider: 06/17/18 17:45 Source: RN notes reviewed - History of Present Illness Initial comments: This is an 87-year-old male who presents emergency Department stating he is on a blood thinner but he does know the name of it. Patient has paperwork that indicates Xarelto. Patient states he believes his cousin a regular heart rate. Patient was sent in because relatives noticed blood in the stool. Patient states it was bright red and quite a bit it started today as far she knows. Patient states the last few days she's noticed she's been more short of breath and a little bit lightheaded. Patient denies any palpitations or chest pain. Patient denies any abdominal pain patient denies any nausea vomiting diarrhea. Patient denies any back pain. Patient denies any recent injury or trauma. Patient denies any calf tenderness or increased edema to the legs. - Related Data Home Medications Medication Instructions Recorded Confirmed Calcium Carbonate/Vitamin D3 1 tab PO DAILY 01/29/17 03/13/18 [Calcium 600-Vit D3 400 Caplet] Diltiazem HCl [Diltiazem 24Hr ER] 120 mg PO Q24HR 01/29/17 03/13/18 Escitalopram [Lexapro] 10 mg PO HS 01/29/17 03/13/18 Ipratropium-Albuterol Nebulize 3 ml INHALATION RT-QID PRN 01/29/17 03/13/18 [Duoneb 0.5 mg-3 mg/3 ml Soln] Metoprolol Tartrate [Lopressor] 50 mg PO BID 01/29/17 03/13/18 Montelukast [Singulair] 10 mg PO HS 01/29/17 03/13/18 Multivitamins, Thera [Multivitamin 1 tab PO DAILY 01/29/17 03/13/18 (formulary)] Terazosin HCl 5 mg PO BID 01/29/17 03/13/18 Budesonide/Formoterol Fumarate 2 puff INHALATION RT-BID 12/06/17 03/13/18 [Symbicort 80-4.5 Mcg Inhaler] EPINEPHrine (Auto Inject) [Epipen] 0.3 mg IM ONCE PRN 12/06/17 03/13/18 ALPRAZolam [Xanax] 0.25 mg PO HS PRN 03/13/18 03/13/18 Ascorbic Acid [Vitamin C] 500 mg PO DAILY 03/13/18 03/13/18 Atorvastatin [Lipitor] 20 mg PO HS 03/13/18 03/13/18 Prochlorperazine [Compazine] 10 mg PO Q6H PRN 03/13/18 03/13/18 Vit C/E/Zn/Coppr/Lutein/Zeaxan 1 cap PO DAILY 03/13/18 03/13/18 [Preservision Areds 2 Softgel] traMADol HCL [Ultram] 50 mg PO Q4HR PRN 03/13/18 03/13/18 Previous Rx's Medication Instructions Recorded Cefepime HCl [Maxipime] 2 gm IV Q12H #20 vial 03/24/18 Ipratropium-Albuterol Nebulize 3 ml INHALATION RT-QID #120 03/24/18 [Duoneb 0.5 mg-3 mg/3 ml Soln] ampul.neb Budesonide [Pulmicort] 0.5 mg INHALATION RT-BID nebu 03/26/18 Enoxaparin [Lovenox] 100 mg SQ Q12HR syringe 03/26/18 Insulin Aspart [NovoLOG 0 unit SQ ACHS vial 03/26/18 (formulary)] Pantoprazole [Protonix] 40 mg PO DAILY@0700 tablet. 03/26/18 Sennosides-Docusate Sodium 2 each PO BID tab 03/26/18 [Senokot-S] predniSONE 50 mg PO DAILY tab 03/26/18 Allergies Allergy/AdvReac Type Severity Reaction Status Date / Time No Known Allergies Allergy Verified 06/17/18 19:02 Review of Systems ROS Statement: Those systems with pertinent positive or pertinent negative responses have been documented in the HPI. ROS Other: All systems not noted in ROS Statement are negative. 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 back REMOVED. past gi bleed lower bowel pt stated it was from the past radiation tx- it was cauterized.. Last Myocardial Infarction Date:: UNK History of Any Multi-Drug Resistant Organisms: None Reported Past Surgical History: Heart Catheterization Additional Past Surgical History / Comment(s): VASECTOMY, PROSTATE BX TOMMY CATARACTS, RT EYE LASER SX, skin ca removed. Past Anesthesia/Blood Transfusion Reactions: No Reported Reaction Past Psychological History: No Psychological Hx Reported Additional Psychological History / Comment(s): pt lives alone. uses cane when up and has a walker to use if needed. Smoking Status: Former smoker Past Alcohol Use History: Rare Additional Past Alcohol Use History / Comment(s): STARTED SMOKING AT AGE 16(1945 ), WAS SMOKING 2 PPD. QUIT 1992 Past Drug Use History: None Reported - Past Family History Mother Additional Family Medical History / Comment(s): RHEUMATIC FEVER- HEART VALVE DAMAGE- AGE 45 Father Family Medical History: Coronary Artery Disease (CAD) Additional Family Medical History / Comment(s): AGE 93 HEART PROBLEMS General Exam - General Exam Comments Initial Comments: GENERAL: Patient is well-developed and well-nourished. Patient is nontoxic and well- hydrated and is in no acute distress. ENT: Neck is soft and supple. No significant lymphadenopathy is noted. Patient's tongue is pale. Neck has full range of motion without eliciting any pain. There is no thyroid enlargement and no masses were felt. EYES: The sclera were anicteric and conjunctiva are very pale. Extraocular movements were intact and pupils were equal round and reactive to light. Eyelids were unremarkable. PULMONARY: Unlabored respirations. Good breath sounds bilaterally. No audible rales rhonchi or wheezing was noted. CARDIOVASCULAR: Patient has an irregular heartbeat at about 80 beats a minute DP pulses are equal bilaterally ABDOMEN: Soft and nontender with normal bowel sounds. No palpable organomegaly was noted. There is no palpable pulsatile mass. SKIN: Skin is pale consistent with anemia NEUROLOGIC: Patient is alert and oriented x3. Cranial nerves II through XII are grossly intact. Motor and sensory are also intact. Normal speech, volume and content. Symmetrical smile. MUSCULOSKELETAL: Normal extremities with adequate strength and full range of motion. No lower extremity swelling or edema. No calf tenderness. LYMPHATICS: No significant lymphadenopathy is noted PSYCHIATRIC: Normal psychiatric evaluation. Course Vital Signs 06/17/18 18:10 Temperature 98.4 F Pulse Rate 78 Respiratory 20 Rate Blood Pressure 103/70 O2 Sat by Pulse 98 Oximetry Medical Decision Making - Medical Decision Making EKG shows atrial fibrillation at 73 bpm QRS 76 QT interval 420 QTC is 462. Patient's hemoglobin was 4.4 slightly the patient 2 units of packed red blood cells. I spoke with Dr. Blankenship he agreed to admit the patient admitted the patient wrote a minute orders. I spoke Dr. Parra admit the patient in ICU patient. I consulted GI and wrote admitting orders. - Lab Data Result diagrams: 06/17/18 18:10 06/17/18 18:10 Lab Results 06/17/18 06/17/18 06/17/18 Range/Units 18:10 18:10 18:10 WBC 3.9 (3.8-10.6) k/uL RBC 1.54 L (4.30-5.90) m/uL Hgb 4.4 L* (13.0-17.5) gm/dL Hct 14.0 L* (39.0-53.0) % MCV 91.4 (80.0-100.0) fL MCH 28.8 (25.0-35.0) pg MCHC 31.5 (31.0-37.0) g/dL RDW 21.5 H (11.5-15.5) % Plt Count 32 L (150-450) k/uL Neutrophils % (Manual) 62 % Band Neutrophils % 11 % Lymphocytes % (Manual) 18 % Monocytes % (Manual) 4 % Metamyelocytes % 7 % Neutrophils # (Manual) 2.80 (1.3-7.7) k/uL Lymphocytes # (Manual) 0.70 L (1.0-4.8) k/uL Monocytes # (Manual) 0.16 (0-1.0) k/uL Metamyelocytes # (Man) 0.27 H (0) k/uL Nucleated RBCs 2 H (0-0) /100 WBC Manual Slide Review Performed Polychromasia Present Hypochromasia Moderate Poikilocytosis Moderate Poikilocytosis (manual Present Anisocytosis Moderate Anisocytosis (manual) Present Macrocytosis Slight Tear Drop Cells Present Ovalocytes Present PT (9.0-12.0) sec INR (<1.2) APTT (22.0-30.0) sec Sodium (137-145) mmol/L Potassium (3.5-5.1) mmol/L Chloride (98-107) mmol/L Carbon Dioxide (22-30) mmol/L Anion Gap mmol/L BUN (9-20) mg/dL Creatinine (0.66-1.25) mg/dL Est GFR (CKD-EPI)AfAm (>60 ml/min/1.73 sqM) Est GFR (CKD-EPI)NonAf (>60 ml/min/1.73 sqM) Glucose (74-99) mg/dL Calcium (8.4-10.2) mg/dL Total Bilirubin (0.2-1.3) mg/dL AST (17-59) U/L ALT (21-72) U/L Alkaline Phosphatase (38-126) U/L Total Creatine Kinase 64 (55-170) U/L CK-MB (CK-2) 0.9 (0.0-2.4) ng/mL CK-MB (CK-2) Rel Index 1.4 Troponin I <0.012 (0.000-0.034) ng/mL Total Protein (6.3-8.2) g/dL Albumin (3.5-5.0) g/dL Blood Type A Positive Blood Type Recheck No Antibody Screen NEGATIVE Crossmatch See Detail Spec Expiration Date 06/20/2018 - 230906/17/18 06/17/18 Range/Units 18:10 18:10 WBC (3.8-10.6) k/uL RBC (4.30-5.90) m/uL Hgb (13.0-17.5) gm/dL Hct (39.0-53.0) % MCV (80.0-100.0) fL MCH (25.0-35.0) pg MCHC (31.0-37.0) g/dL RDW (11.5-15.5) % Plt Count (150-450) k/uL Neutrophils % (Manual) % Band Neutrophils % % Lymphocytes % (Manual) % Monocytes % (Manual) % Metamyelocytes % % Neutrophils # (Manual) (1.3-7.7) k/uL Lymphocytes # (Manual) (1.0-4.8) k/uL Monocytes # (Manual) (0-1.0) k/uL Metamyelocytes # (Man) (0) k/uL Nucleated RBCs (0-0) /100 WBC Manual Slide Review Polychromasia Hypochromasia Poikilocytosis Poikilocytosis (manual Anisocytosis Anisocytosis (manual) Macrocytosis Tear Drop Cells Ovalocytes PT 13.2 H (9.0-12.0) sec INR 1.3 H (<1.2) APTT 25.9 (22.0-30.0) sec Sodium 130 L (137-145) mmol/L Potassium 4.5 (3.5-5.1) mmol/L Chloride 100 (98-107) mmol/L Carbon Dioxide 21 L (22-30) mmol/L Anion Gap 9 mmol/L BUN 10 (9-20) mg/dL Creatinine 0.73 (0.66-1.25) mg/dL Est GFR (CKD-EPI)AfAm >90 (>60 ml/min/1.73 sqM) Est GFR (CKD-EPI)NonAf 85 (>60 ml/min/1.73 sqM) Glucose 133 H (74-99) mg/dL Calcium 8.1 L (8.4-10.2) mg/dL Total Bilirubin 1.5 H (0.2-1.3) mg/dL AST 71 H (17-59) U/L ALT 28 (21-72) U/L Alkaline Phosphatase 135 H (38-126) U/L Total Creatine Kinase (55-170) U/L CK-MB (CK-2) (0.0-2.4) ng/mL CK-MB (CK-2) Rel Index Troponin I (0.000-0.034) ng/mL Total Protein 5.4 L (6.3-8.2) g/dL Albumin 2.9 L (3.5-5.0) g/dL Blood Type Blood Type Recheck Antibody Screen Crossmatch Spec Expiration Date Critical Care Time Critical Care Time: Yes Total Critical Care Time: 35 Disposition Clinical Impression: Lower gastrointestinal hemorrhage, Anemia Disposition: ADMITTED IP TO THIS HOSP Referrals: Rafael Presley DO [Primary Care Provider] - 1-2 days Time of Disposition: 19:27
[2018-06-17 18:27] LABS: Anisocytosis Moderate; Hypochromasia Moderate; MCH 28.8 pg (25.0-35.0); MCHC 31.5 g/dL (31.0-37.0); MCV 91.4 fL (80.0-100.0); Macrocytosis Slight; Mean Platelet Volume 9.6; Poikilocytosis Moderate; RBC 1.54 m/uL (4.30-5.90); RDW 21.5 % (11.5-15.5)
[2018-06-17 18:30] LABS: INR 1.3 (<1.2); Partial Thromboplastin Time 25.9 sec (22.0-30.0); Prothrombin Time 13.2 sec (9.0-12.0)
[2018-06-17 18:33] LABS: HGB 4.4 gm/dL (13.0-17.5)
[2018-06-17 18:35] LABS: ALT 28 U/L (21-72); AST 71 U/L (17-59); Albumin 2.9 g/dL (3.5-5.0); Alkaline Phosphatase 135 U/L (38-126); Anion Gap 9 mmol/L; Blood Urea Nitrogen 10 mg/dL (9-20); Calcium 8.1 mg/dL (8.4-10.2); Carbon Dioxide 21 mmol/L (22-30); Chloride 100 mmol/L (98-107); Glucose 133 mg/dL (74-99); Potassium 4.5 mmol/L (3.5-5.1); Sodium 130 mmol/L (137-145); Total Bilirubin 1.5 mg/dL (0.2-1.3); Total Protein 5.4 g/dL (6.3-8.2)
[2018-06-17 18:37] LABS: Creatine Kinase 64 U/L (55-170)
[2018-06-17 18:42] LABS: Platelet Count 32 k/uL (150-450)
[2018-06-17 18:50] LABS: Creatine Kinase MB 0.9 ng/mL (0.0-2.4); Troponin I <0.012 ng/mL (0.000-0.034)
[2018-06-17 18:51] LABS: Anisocytosis (M) Present; Band Neutrophils % 11 %; Metamyelocytes # (M) 0.27 k/uL (0); Metamyelocytes % 7 %; Monocytes # (M) 0.16 k/uL (0-1.0); Neutrophils % (M) 62 %; Nucleated Red Blood Cells 2 /100 WBC (0-0); Ovalocytes Present; Poikilocytosis (M) Present; Polychromasia Present; Tear Drop Cells Present; Total Cells Counted 200; WBC 3.9 k/uL (3.8-10.6)
[2018-06-17] MEDS ORDERED: NALOXONE 0.4 MG/ML 1 ML VIAL IV PRN (19:27)
[2018-06-17 20:44] LABS: Glucose,Whole Blood 147 mg/dL (75-99)
[2018-06-18] MEDS ORDERED: ALPRAZolam 0.25 MG TAB PO PRN (02:52)
[2018-06-18 03:10] LABS: Anisocytosis Slight; HCT 23.6 % (39.0-53.0); Hypochromasia Slight; MCH 29.3 pg (25.0-35.0); MCV 88.7 fL (80.0-100.0); Mean Platelet Volume 10.2; Poikilocytosis Slight; RBC 2.66 m/uL (4.30-5.90); RDW 19.5 % (11.5-15.5)
[2018-06-18 03:15] LABS: HGB 7.8 gm/dL (13.0-17.5); Platelet Count 26 k/uL (150-450)
[2018-06-18 04:16] LABS: RBC Fragments Present
[2018-06-18 04:17] LABS: Ovalocytes Present; Polychromasia Present
[2018-06-18 04:22] LABS: Band Neutrophils % 10 %; Eosinophils # (M) 0.04 k/uL (0-0.7); Metamyelocytes # (M) 0.15 k/uL (0); Metamyelocytes % 4 %; Myelocytes % 6 %; Neutrophils % (M) 55 %; Nucleated Red Blood Cells 2 /100 WBC (0-0); Total Cells Counted 200
[2018-06-18 04:23] LABS: Lymphocytes # (M) 0.48 k/uL (1.0-4.8); Monocytes # (M) 0.44 k/uL (0-1.0); Myelocytes # (M) 0.22 k/uL (0); WBC 3.7 k/uL (3.8-10.6)
[2018-06-18 05:39] LABS: Anion Gap 8 mmol/L; Blood Urea Nitrogen 11 mg/dL (9-20); Carbon Dioxide 23 mmol/L (22-30); Chloride 101 mmol/L (98-107); Glucose 118 mg/dL (74-99); Magnesium 2.2 mg/dL (1.6-2.3); Potassium 4.3 mmol/L (3.5-5.1); Sodium 132 mmol/L (137-145)
--- NOTE | 2018-06-18 07:00 | XR ---
EXAMINATION TYPE: XR chest 1V DATE OF EXAM: 06/18/2018 CLINICAL HISTORY: Difficulty breathing progress study. CVA and sepsis risk. TECHNIQUE: Single AP portable upright view of the chest is obtained. COMPARISON: Chest x-ray from March 15, 2018 FINDINGS: There is stable mild cardiomegaly with atherosclerotic and ectatic thoracic aorta. There i s chronic parenchymal change with elevated left hemidiaphragm and chronic left basilar opacity. Right lung remains clear. Osseous structures are demineralized. Multilevel spurring and disc space narrowi ng in the lower thoracic spine is redemonstrated. IMPRESSION: Chronic parenchymal change and cardiomegaly with stable small left pleural effusion or pl eural thickening and associated left basilar scarring and/or atelectasis. No new infiltrate is seen.
[2018-06-18] MEDS: PANTOPRAZOLE 40 MG/10 ML VIAL IV SCH (07:52)
--- NOTE | 2018-06-18 09:29 | P.CONS ---
History of Present Illness - Reason for Consult Consult date: 06/18/18 GI bleeding Requesting physician: Ping Blankenship - Chief Complaint Rectal bleeding - History of Present Illness 87-year-old gentleman with a history of atrial fibrillation maintained on anticoagulation, hyperlipidemia, hypertension, DVT, metastatic prostate cancer chemoradiation admitted with acute painless rectal bleeding lightheadedness times one day. Past several burgundy maroon colored bowel movements yesterday. Admission hemoglobin 4.4 previously 8 in March 2018. Received 2 units of blood. Current hemoglobin is 7.8. Platelets 26,000. INR 1.3. BUN 10. Creatinine 0.7. Patient underwent EGD colonoscopy January 2017 for anus rectal bleeding with findings of a small hiatal hernia no evidence of upper GI bleed. Colonoscopy revealed radiation proctitis with active oozing distal rectum multiple telangiectasias 2 of which were bleeding status post APC with moderate sigmoid diverticulosis. Nursing reports 2 episodes of brighter red bowel movements last night and another episode this morning but very small in nature. He denies abdominal pain. No fevers. Unsure last dose of Xarelto; possibly yesterday. Review of Systems Constitutional: Denies fever, chills, sweats, weight gain, or loss. Lightheadedness. Weakness. HEENT: Negative for migraines, blurred vision or loss, earaches, drainage, tinnitus, oral mucosal lesions, dysphagia, or odynophagia. Cardiac: Negative for chest pain, arrhythmias, or palpitation. Respiratory: Negative for shortness of breath, hemoptysis, cough, or sputum production. Gastrointestinal: See HPI for pertinent findings. Genitourinary: Negative for hematuria, urgency, frequency, polyuria, dysuria, or penile discharge. Musculoskeletal: Negative for muscle aches, swelling, arthritis, and arthralgias. Neurologic: Negative for stroke or TIA. Endocrine: Negative for thyroid problems. Skin: Negative for rash or itching. Psychiatric: Negative history for depression and anxiety Past Medical History Past Medical History: Atrial Fibrillation, Asthma, Cancer, COPD, CVA/TIA, Deep Vein Thrombosis (DVT), GI Bleed, Hyperlipidemia, Hypertension, Memory Impairment , Myocardial Infarction ([place]), Osteoarthritis (OA), Prostate Disorder Additional Past Medical History / Comment(s): prostate CA-HAD 44 RADIATION [place]- had mets to bone currently taking oral chemo and hormone tx, MILD SHORT TERM MEMORY PROBLEMS, NAVEL HERNIA,SKIN CA basal cell(LT HAND-lip. back REMOVED. past gi bleed lower bowel pt stated it was from the past radiation tx- it was cauterized.. Last Myocardial Infarction Date:: UNK History of Any Multi-Drug Resistant Organisms: None Reported Past Surgical History: Heart Catheterization Additional Past Surgical History / Comment(s): VASECTOMY, PROSTATE BX OTMMY CATARACTS, RT EYE LASER SX, skin ca removed. Past Anesthesia/Blood Transfusion Reactions: No Reported Reaction Past Psychological History: No Psychological Hx Reported Additional Psychological History / Comment(s): pt lives alone. uses cane when up and has a walker to use if needed. Smoking Status: Former smoker Past Alcohol Use History: Rare Additional Past Alcohol Use History / Comment(s): STARTED SMOKING AT AGE 16(1945 ), WAS SMOKING 2 PPD. QUIT 1992 Past Drug Use History: None Reported - Past Family History Mother Additional Family Medical History / Comment(s): RHEUMATIC FEVER- HEART VALVE DAMAGE- AGE 45 Father Family Medical History: Coronary Artery Disease (CAD) Additional Family Medical History / Comment(s): AGE 93 HEART PROBLEMS Medications and Allergies Home Medications Medication Instructions Recorded Confirmed Type Calcium Carbonate/Vitamin D3 1 tab PO DAILY 01/29/17 06/18/18 History [Calcium 600-Vit D3 400 Caplet] Diltiazem HCl [Diltiazem 24Hr ER] 120 mg PO Q24HR 01/29/17 06/18/18 History Escitalopram [Lexapro] 10 mg PO HS 01/29/17 06/18/18 History Metoprolol Tartrate [Lopressor] 50 mg PO BID 01/29/17 06/18/18 History Montelukast [Singulair] 10 mg PO HS 01/29/17 06/18/18 History Multivitamins, Thera [Multivitamin 1 tab PO DAILY 01/29/17 06/18/18 History (formulary)] Terazosin HCl 5 mg PO BID 01/29/17 06/18/18 History EPINEPHrine (Auto Inject) [Epipen] 0.3 mg IM ONCE PRN 12/06/17 06/18/18 History ALPRAZolam [Xanax] 0.25 mg PO HS PRN 03/13/18 06/18/18 History Ascorbic Acid [Vitamin C] 500 mg PO DAILY 03/13/18 06/18/18 History Prochlorperazine [Compazine] 10 mg PO Q6H PRN 03/13/18 06/18/18 History Ipratropium-Albuterol Nebulize 3 ml INHALATION RT-QID #120 03/24/18 06/18/18 Rx [Duoneb 0.5 mg-3 mg/3 ml Soln] ampul.neb Budesonide [Pulmicort] 0.5 mg INHALATION RT-BID nebu 03/26/18 06/18/18 Rx Atorvastatin [Lipitor] 20 mg PO HS 06/18/18 06/18/18 History Budesonide/Formoterol Fumarate 2 puff INHALATION RT-BID 06/18/18 06/18/18 History [Symbicort 160-4.5 Mcg Inhaler] Cholecalciferol [Vitamin D3] 400 unit PO DAILY 06/18/18 06/18/18 History Enzalutamide [Xtandi] 40 mg PO QID 06/18/18 06/18/18 History Insulin Aspart [NovoLOG See Protocol SQ ACHS 06/18/18 06/18/18 History (formulary)] Pantoprazole Sodium 20 mg PO DAILY 06/18/18 06/18/18 History Rivaroxaban [Xarelto] 20 mg PO DAILY 06/18/18 06/18/18 History Allergies Allergy/AdvReac Type Severity Reaction Status Date / Time simvastatin [From Zocor] AdvReac MUSCLE PAIN Verified 06/18/18 08:49 Physical Exam Vitals: Vital Signs Temp Pulse Resp BP Pulse Ox 06/18/18 08:00 97.6 F 80 18 116/79 98 06/18/18 07:00 73 14 107/68 97 06/18/18 06:00 75 14 116/78 99 06/18/18 05:00 70 25 H 98/60 100 06/18/18 04:00 97.9 F 75 9 L 114/92 96 06/18/18 03:00 65 20 117/80 98 06/18/18 02:00 71 10 L 115/75 95 06/18/18 01:42 97.4 F L 71 23 115/75 98 06/18/18 01:00 68 18 113/81 99 06/18/18 00:00 69 15 110/79 98 06/17/18 23:10 97.4 F L 65 18 110/79 99 06/17/18 23:00 67 15 111/64 100 06/17/18 22:40 97.4 F L 72 18 111/64 06/17/18 22:30 97.6 F 71 18 108/73 98 06/17/18 22:20 97.5 F L 74 16 126/79 99 06/17/18 22:00 76 28 H 113/74 92 L 06/17/18 21:00 68 30 H 110/70 99 06/17/18 20:32 97.6 F 65 16 110/70 96 06/17/18 20:02 97.8 F 66 16 110/72 06/17/18 20:00 72 18 97/60 100 06/17/18 19:52 97.8 F 67 16 97/60 06/17/18 19:00 72 23 104/59 99 06/17/18 18:15 79 23 98 06/17/18 18:10 98.4 F 78 20 103/70 98 Intake and Output 06/17/18 06/18/18 06/18/18 22:59 06:59 14:59 Intake Total 310 310 Output Total 575 475 0 Balance -265 -165 0 Intake: Blood Product 310 310 Rc As-1 Unit 0 310 [id number] Rc As-1 Unit 310 [id number] Output: Urine 475 425 0 Stool 100 50 Other: Weight 90.718 kg 87.1 kg General appearance: The patient is alert, oriented, in no acute distress. HET: Head is normocephalic and atraumatic. Pupils are equal and reactive. Oropharynx is clear without lesions. Neck: Supple without lymphadenopathy. Trachea midline. Heart: S1 S2. Lungs: No crackles or wheezes are heard. Abdomen: Soft, nontender, nondistended with bowel sounds. No peritoneal signs. No palpable organomegaly or masses. Extremities: Normal skin color and turgor. No cyanosis, rash, ulceration, clubbing, or edema. Radial and pedal pulses are 2/4 bilaterally. Neurological: No focal deficits. Strength and sensation are grossly intact. Results CBC & Chem 7: 06/18/18 02:10 06/18/18 02:10 Labs: Abnormal Lab Results - Last 24 Hours (Table) 06/17/18 06/17/18 06/17/18 Range/Units 18:10 18:10 18:10 WBC (3.8-10.6) k/uL RBC 1.54 L (4.30-5.90) m/uL Hgb 4.4 L* (13.0-17.5) gm/dL Hct 14.0 L* (39.0-53.0) % RDW 21.5 H (11.5-15.5) % Plt Count 32 L (150-450) k/uL Lymphocytes # (Manual) 0.70 L (1.0-4.8) k/uL Metamyelocytes # (Man) 0.27 H (0) k/uL Myelocytes # (Manual) (0) k/uL Nucleated RBCs 2 H (0-0) /100 WBC PT (9.0-12.0) sec INR (<1.2) Sodium 130 L (137-145) mmol/L Carbon Dioxide 21 L (22-30) mmol/L Glucose 133 H (74-99) mg/dL POC Glucose (mg/dL) (75-99) mg/dL Calcium 8.1 L (8.4-10.2) mg/dL Total Bilirubin 1.5 H (0.2-1.3) mg/dL AST 71 H (17-59) U/L Alkaline Phosphatase 135 H (38-126) U/L Total Protein 5.4 L (6.3-8.2) g/dL Albumin 2.9 L (3.5-5.0) g/dL Crossmatch See Detail 06/17/18 06/17/18 06/18/18 Range/Units 18:10 20:39 02:10 WBC 3.7 L (3.8-10.6) k/uL RBC 2.66 L (4.30-5.90) m/uL Hgb 7.8 L D (13.0-17.5) gm/dL Hct 23.6 L (39.0-53.0) % RDW 19.5 H (11.5-15.5) % Plt Count 26 L (150-450) k/uL Lymphocytes # (Manual) 0.48 L (1.0-4.8) k/uL Metamyelocytes # (Man) 0.15 H (0) k/uL Myelocytes # (Manual) 0.22 H (0) k/uL Nucleated RBCs 2 H (0-0) /100 WBC PT 13.2 H (9.0-12.0) sec INR 1.3 H (<1.2) Sodium (137-145) mmol/L Carbon Dioxide (22-30) mmol/L Glucose (74-99) mg/dL POC Glucose (mg/dL) 147 H (75-99) mg/dL Calcium (8.4-10.2) mg/dL Total Bilirubin (0.2-1.3) mg/dL AST (17-59) U/L Alkaline Phosphatase (38-126) U/L Total Protein (6.3-8.2) g/dL Albumin (3.5-5.0) g/dL Crossmatch 06/18/18 Range/Units 02:10 WBC (3.8-10.6) k/uL RBC (4.30-5.90) m/uL Hgb (13.0-17.5) gm/dL Hct (39.0-53.0) % RDW (11.5-15.5) % Plt Count (150-450) k/uL Lymphocytes # (Manual) (1.0-4.8) k/uL Metamyelocytes # (Man) (0) k/uL Myelocytes # (Manual) (0) k/uL Nucleated RBCs (0-0) /100 WBC PT (9.0-12.0) sec INR (<1.2) Sodium 132 L (137-145) mmol/L Carbon Dioxide (22-30) mmol/L Glucose 118 H (74-99) mg/dL POC Glucose (mg/dL) (75-99) mg/dL Calcium 8.0 L (8.4-10.2) mg/dL Total Bilirubin (0.2-1.3) mg/dL AST (17-59) U/L Alkaline Phosphatase (38-126) U/L Total Protein (6.3-8.2) g/dL Albumin (3.5-5.0) g/dL Crossmatch Assessment and Plan (1) Acute GI bleeding Narrative/Plan: 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 History of metastatic prostate cancer atrial fibrillation maintained on anticoagulation. 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 Current Visit: Yes Status: Acute Code(s): K92.2 - GASTROINTESTINAL HEMORRHAGE, UNSPECIFIED SNOMED Code(s): 32330322 (2) Prostate cancer metastatic to bone Current Visit: Yes Status: Acute Code(s): C61 - MALIGNANT NEOPLASM OF PROSTATE; C79.51 - SECONDARY MALIGNANT NEOPLASM OF BONE SNOMED Code(s): 67363534 (3) Acute blood loss anemia Current Visit: Yes Status: Acute Code(s): D62 - ACUTE POSTHEMORRHAGIC ANEMIA SNOMED Code(s): 872738767 (4) Thrombocytopenia Current Visit: Yes Status: Acute Code(s): D69.6 - THROMBOCYTOPENIA, UNSPECIFIED SNOMED Code(s): 549571470 Plan: 1. CBC at noon. GI prophylaxis. Hold anticoagulation. Will allow sips of clears. Inpatient endoscopy discussed per clinical course but platlets would have to improve and or receive transfusion. Oncology consult. Will follow closely with you. Thank you for this kind referral and the opportunity to participate in the care of your patient. This consultation was discussed with Dr. Castillo. The impression and plan of care have been directed as dictated.
--- NOTE | 2018-06-18 11:17 | P.HPIM ---
History of Present Illness H&P Date: 06/18/18 By pleasant 87-year-old gentleman with a history of A. fib on Xarelto, hyperlipidemia history of metastatic prostate cancer. Previous issues with thrombocytopenia comes in with the above-mentioned complaints. Patient says that he's been having blood in his stools since the past 2 days initially it was noticed by his relatives and lately he's been noticing and himself. He says it is also lightheaded for the past 2 days. He otherwise does not complain of any chest pain or racing heart, he does not complain of any cough or shortness of breath, he does not complain of any abdominal pain, no nausea and vomiting, no tingling numbness on the extremities, no itch or rash. ER course-patient's vitals were stable. Labwork was done which showed WBC 3.9 hemoglobin 4.4 platelets 32,000 INR was 1.3 sodium 1:30 potassium 4.5 BUN/ creatinine 10 creatinine 0.73 GFR more than 90 troponin less than 0.012 alk phos 135 AST 71 ALT 28 total bili 1.5. Patient was given 2 units of blood transfusion after his hemoglobin came up to 7.8. GI was consulted and patient was admitted to ICU for further monitoring and care. Past Medical History Past Medical History: Atrial Fibrillation, Asthma, Cancer, COPD, CVA/TIA, Deep Vein Thrombosis (DVT), GI Bleed, Hyperlipidemia, Hypertension, Memory Impairment , Myocardial Infarction ([place]), Osteoarthritis (OA), Prostate Disorder Additional Past Medical History / Comment(s): prostate CA-HAD 46 RADIATION TX- had mets to bone currently taking oral chemo and hormone tx, MILD SHORT TERM MEMORY PROBLEMS, NAVEL HERNIA,SKIN CA basal cell(LT HAND-lip. back REMOVED. past gi bleed lower bowel pt stated it was from the past radiation tx- it was cauterized.. Last Myocardial Infarction Date:: UNK History of Any Multi-Drug Resistant Organisms: None Reported Past Surgical History: Heart Catheterization Additional Past Surgical History / Comment(s): VASECTOMY, PROSTATE BX TOMMY CATARACTS, RT EYE LASER SX, skin ca removed. Past Anesthesia/Blood Transfusion Reactions: No Reported Reaction Past Psychological History: No Psychological Hx Reported Additional Psychological History / Comment(s): pt lives alone. uses cane when up and has a walker to use if needed. Smoking Status: Former smoker Past Alcohol Use History: Rare Additional Past Alcohol Use History / Comment(s): STARTED SMOKING AT AGE 16(1945 ), WAS SMOKING 2 PPD. QUIT 1992 Past Drug Use History: None Reported - Past Family History Mother Additional Family Medical History / Comment(s): RHEUMATIC FEVER- HEART VALVE DAMAGE- AGE 45 Father Family Medical History: Coronary Artery Disease (CAD) Additional Family Medical History / Comment(s): AGE 93 HEART PROBLEMS Medications and Allergies Home Medications Medication Instructions Recorded Confirmed Type Calcium Carbonate/Vitamin D3 1 tab PO DAILY 01/29/17 06/18/18 History [Calcium 600-Vit D3 400 Caplet] Diltiazem HCl [Diltiazem 24Hr ER] 120 mg PO Q24HR 01/29/17 06/18/18 History Escitalopram [Lexapro] 10 mg PO HS 01/29/17 06/18/18 History Metoprolol Tartrate [Lopressor] 50 mg PO BID 01/29/17 06/18/18 History Montelukast [Singulair] 10 mg PO HS 01/29/17 06/18/18 History Multivitamins, Thera [Multivitamin 1 tab PO DAILY 01/29/17 06/18/18 History (formulary)] Terazosin HCl 5 mg PO BID 01/29/17 06/18/18 History EPINEPHrine (Auto Inject) [Epipen] 0.3 mg IM ONCE PRN 12/06/17 06/18/18 History ALPRAZolam [Xanax] 0.25 mg PO HS PRN 03/13/18 06/18/18 History Ascorbic Acid [Vitamin C] 500 mg PO DAILY 03/13/18 06/18/18 History Prochlorperazine [Compazine] 10 mg PO Q6H PRN 03/13/18 06/18/18 History Ipratropium-Albuterol Nebulize 3 ml INHALATION RT-QID #120 03/24/18 06/18/18 Rx [Duoneb 0.5 mg-3 mg/3 ml Soln] ampul.neb Budesonide [Pulmicort] 0.5 mg INHALATION RT-BID nebu 03/26/18 06/18/18 Rx Atorvastatin [Lipitor] 20 mg PO HS 06/18/18 06/18/18 History Budesonide/Formoterol Fumarate 2 puff INHALATION RT-BID 06/18/18 06/18/18 History [Symbicort 160-4.5 Mcg Inhaler] Cholecalciferol [Vitamin D3] 400 unit PO DAILY 06/18/18 06/18/18 History Enzalutamide [Xtandi] 40 mg PO QID 06/18/18 06/18/18 History Insulin Aspart [NovoLOG See Protocol SQ ACHS 06/18/18 06/18/18 History (formulary)] Pantoprazole Sodium 20 mg PO DAILY 06/18/18 06/18/18 History Rivaroxaban [Xarelto] 20 mg PO DAILY 06/18/18 06/18/18 History Allergies Allergy/AdvReac Type Severity Reaction Status Date / Time simvastatin [From Zocor] AdvReac MUSCLE PAIN Verified 06/18/18 08:49 Physical Exam Vitals: Vital Signs Temp Pulse Resp BP Pulse Ox 06/18/18 10:00 75 26 H 133/71 98 06/18/18 09:00 81 23 119/87 90 L 06/18/18 08:00 97.6 F 80 18 116/79 98 06/18/18 07:00 73 14 107/68 97 06/18/18 06:00 75 14 116/78 99 06/18/18 05:00 70 25 H 98/60 100 06/18/18 04:00 97.9 F 75 9 L 114/92 96 06/18/18 03:00 65 20 117/80 98 06/18/18 02:00 71 10 L 115/75 95 06/18/18 01:42 97.4 F L 71 23 115/75 98 06/18/18 01:00 68 18 113/81 99 06/18/18 00:00 69 15 110/79 98 06/17/18 23:10 97.4 F L 65 18 110/79 99 06/17/18 23:00 67 15 111/64 100 06/17/18 22:40 97.4 F L 72 18 111/64 06/17/18 22:30 97.6 F 71 18 108/73 98 06/17/18 22:20 97.5 F L 74 16 126/79 99 06/17/18 22:00 76 28 H 113/74 92 L 06/17/18 21:00 68 30 H 110/70 99 06/17/18 20:32 97.6 F 65 16 110/70 96 06/17/18 20:02 97.8 F 66 16 110/72 06/17/18 20:00 72 18 97/60 100 18 19:52 97.8 F 67 16 97/60 06/17/18 19:00 72 23 104/59 99 06/17/18 18:15 79 23 98 06/17/18 18:10 98.4 F 78 20 103/70 98 Intake and Output 06/17/18 06/18/18 06/18/18 22:59 06:59 14:59 Intake Total 310 310 Output Total 575 475 400 Balance -265 165 400 Intake: Blood Product 310 310 Rc As-1 Unit 0 310 [id number] Rc As-1 Unit 310 [id number] Output: Urine 475 425 350 Stool 100 50 50 Other: Voiding Method Bedside Commode Weight 90.718 kg 87.1 kg General exam-patient is alert oriented he doesn't look to be in distress HEENT: Head atraumatic normocephalic, pupils equally reactive to light and accommodation. No pain or discharge from the EAR or nose Throat : No erythema or exudate Neck: No neck nodes enlargement, no thyroid enlargement CVS: S1-S2 positive Abdomen: Soft nontender bowel sounds present, I was not able to appreciate any organomegaly Neuro: Patient alert oriented, reflexes 2 positive all extremities strength 5 over 5-positive all extremities Extremities: No edema pulses positive Skin: Patient is having petechie and ecchymotic spot on his extremities Results CBC & Chem 7: 06/18/18 02:10 06/18/18 02:10 Labs: Abnormal Lab Results - Last 24 Hours (Table) 06/17/18 06/17/18 06/17/18 Range/Units 18:10 18:10 18:10 WBC (3.8-10.6) k/uL RBC 1.54 L (4.30-5.90) m/uL Hgb 4.4 L* (13.0-17.5) gm/dL Hct 14.0 L* (39.0-53.0) % RDW 21.5 H (11.5-15.5) % Plt Count 32 L (150-450) k/uL Lymphocytes # (Manual) 0.70 L (1.0-4.8) k/uL Metamyelocytes # (Man) 0.27 H (0) k/uL Myelocytes # (Manual) (0) k/uL Nucleated RBCs 2 H (0-0) /100 WBC PT (9.0-12.0) sec INR (<1.2) Sodium 130 L (137-145) mmol/L Carbon Dioxide 21 L (22-30) mmol/L Glucose 133 H (74-99) mg/dL POC Glucose (mg/dL) (75-99) mg/dL Calcium 8.1 L (8.4-10.2) mg/dL Total Bilirubin 1.5 H (0.2-1.3) mg/dL AST 71 H (17-59) U/L Alkaline Phosphatase 135 H (38-126) U/L Total Protein 5.4 L (6.3-8.2) g/dL Albumin 2.9 L (3.5-5.0) g/dL Crossmatch See Detail 06/17/18 06/17/18 06/18/18 Range/Units 18:10 20:39 02:10 WBC 3.7 L (3.8-10.6) k/uL RBC 2.66 L (4.30-5.90) m/uL Hgb 7.8 L D (13.0-17.5) gm/dL Hct 23.6 L (39.0-53.0) % RDW 19.5 H (11.5-15.5) % Plt Count 26 L (150-450) k/uL Lymphocytes # (Manual) 0.48 L (1.0-4.8) k/uL Metamyelocytes # (Man) 0.15 H (0) k/uL Myelocytes # (Manual) 0.22 H (0) k/uL Nucleated RBCs 2 H (0-0) /100 WBC PT 13.2 H (9.0-12.0) sec INR 1.3 H (<1.2) Sodium (137-145) mmol/L Carbon Dioxide (22-30) mmol/L Glucose (74-99) mg/dL POC Glucose (mg/dL) 147 H (75-99) mg/dL Calcium (8.4-10.2) mg/dL Total Bilirubin (0.2-1.3) mg/dL AST (17-59) U/L Alkaline Phosphatase (38-126) U/L Total Protein (6.3-8.2) g/dL Albumin (3.5-5.0) g/dL Crossmatch 06/18/18 Range/Units 02:10 WBC (3.8-10.6) k/uL RBC (4.30-5.90) m/uL Hgb (13.0-17.5) gm/dL Hct (39.0-53.0) % RDW (11.5-15.5) % Plt Count (150-450) k/uL Lymphocytes # (Manual) (1.0-4.8) k/uL Metamyelocytes # (Man) (0) k/uL Myelocytes # (Manual) (0) k/uL Nucleated RBCs (0-0) /100 WBC PT (9.0-12.0) sec INR (<1.2) Sodium 132 L (137-145) mmol/L Carbon Dioxide (22-30) mmol/L Glucose 118 H (74-99) mg/dL POC Glucose (mg/dL) (75-99) mg/dL Calcium 8.0 L (8.4-10.2) mg/dL Total Bilirubin (0.2-1.3) mg/dL AST (17-59) U/L Alkaline Phosphatase (38-126) U/L Total Protein (6.3-8.2) g/dL Albumin (3.5-5.0) g/dL Crossmatch Thrombosis Risk Factor Assmnt - DVT/VTE Prophylaxis DVT/VTE Prophylaxis: Contraindicated - See note Assessment and Plan Assessment: 1. Acute GI bleed 2. Acute blood loss anemia 3. History of A. fib was on Xarelto which is on hold as of now 4. Thrombocytopenia 5. History of metastatic prostate cancer 6. History of CVA/TIA 7. History of DVT 8. History of GI bleed previously 9. Hypertension 10. Hyperlipidemia Plan: - Patient is admitted to ICU for close monitoring - Patient is status post 2 units of blood transfusion. Patient's hemoglobin) 7.8. We'll monitor H&H every 6 hours - GI consulted. Possible scope tomorrow - We'll consult hematology oncology as the patient has thrombo-cytopenia. He is known to Dr. Hamilton - DVT prophylaxis SCDs as of now - GI prophylaxis with Prilosec - We'll continue to hold Xarelto - We will order for lab work in the morning - Expected length of stay is more than 2 midnights - Patient's daughter wishes him to be DO NOT RESUSCITATE limited. This was discussed with the patient's daughter Linda harman Time with Patient: Greater than 30
--- NOTE | 2018-06-18 12:42 | PN ---
PROGRESS NOTE This is an 87-year-old patient who was admitted through the emergency department with acute GI bleed. 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 The patient is on Xarelto therapy for his atrial fibrillation. He was brought in because of relatives noticed blood in the stool. The stool was bright red. I was called by the ER doctor, Dr. Finnegan, who stated that the patient should probably be observed in the ICU. He was quite pale on admission. His hemoglobin was down in the 4.4 range. He received 2 units of PRBCs and his hemoglobin came up to 7.8. He apparently was also a bit short of breath and a bit lightheaded. He denied any chest pain or chest pressure. Was coughing a bit but not producing any phlegm. Denied any nausea, vomiting or diarrhea. Denied any back pain or any other complaints like that. Not a particularly good historian. He apparently sees a nurse practitioner over the [place], [place] by the name of Brooklyn Wolf. HOME MEDICATIONS: Include vitamin D3, Cardizem, Lexapro, DuoNeb nebs, metoprolol, Singulair, multiple vitamins, terazosin, Symbicort, EpiPen, Xanax, ascorbic acid, Lipitor, Compazine, eye vitamins, tramadol. ALLERGIES: Include no major drug allergies. MEDICAL HISTORY: Includes chronic atrial fibrillation, COPD/asthma, deep venous thrombosis, prostate cancer with previous radiation treatments, DVT, previous history of GI bleed. Presumed secondary to either diverticular disease or radiation colitis, hyperlipidemia, hypertension, memory impairment, myocardial infarction, DJD, as mentioned prior prostate cancer. The patient has also had skin cancer as well. SURGICAL HISTORY: Includes among other things, heart catheterization, vasectomy, prostate biopsy, cataract surgery, skin cancer removal and some other minor procedures. SOCIAL HISTORY: Positive for previous tobacco use. Does not smoke currently. He does drink alcohol rarely. Illicit drug use is not noted. FAMILY HISTORY: Positive for rheumatic fever with heart valve disease, CAD and heart failure. REVIEW OF SYSTEMS: CONSTITUTIONAL: Negative. NEUROLOGIC: Negative. HEENT: Negative. CARDIOVASCULAR: Negative. PULMONARY: Mild shortness of breath, cough, chest congestion. GI: Acute GI bleed with bright red blood per rectum as well as maroon stools. : Negative. RHEUMATOLOGIC: Negative. HEMATOLOGIC: Negative. ENDOCRINOLOGIC: Negative. DERMATOLOGIC: Negative. Current vital signs are reviewed. They include a temperature which is 97.6, heart rate 80 and irregular, respiratory rate 18, blood pressure 116/79, mean 91, 2 L saturation 98%. Currently appears in no acute distress. Lying flat in bed. Does have a raspy quite congested cough. Does not appear to be in any respiratory distress. HEENT examination is grossly unremarkable. NECK: Supple. Full range of motion. No adenopathy. Cardiovascular examination reveals a regular rhythm and rate. Heart rate about 80 beats per minute. S1, S2 normal. No distinct murmurs noted. Heart sounds are distant. LUNGS: Reveal some coarse bibasilar rhonchi. Some bibasilar crackles. Breath sounds are diminished at the bases. No wheezes. ABDOMEN: Soft. Bowel sounds are heard. Extremities are intact. No edema. Skin reveals multiple areas of ecchymoses. Skin is thin. No edema. Neurologic examination is brief but nonfocal. A chest x-ray shows some chronic changes but nothing acute. He does have a chronic left-sided pleural effusion. LAB DATA: Reviewed. White count 3.7, hemoglobin now up to 7.8 from 4.4, and hematocrit 23.6. Platelet count 26,000. PT 13.2, INR 1.3. Sodium 132, potassium 4.3, chloride 101, CO2 is 23, BUN and creatinine were 11 and 0.73, anion gap is normal. The patient's total bilirubin is 1.5, AST is 71. The rest of the labs are reviewed. Chest x-rays reviewed. Medications are reviewed. The patient has received 2 units of blood. ASSESSMENT: 1. Acute lower gastrointestinal bleed with profound anemia, presumed secondary to radiation colitis although other etiologies need to be considered including angiodysplasia and diverticular disease. 2. Pancytopenia of unclear etiology. Hematology should be consulted for this. 3. History of prostate cancer, status post radiation treatment. 4. History of chronic atrial fibrillation with chronic anticoagulation. 5. Chronic obstructive pulmonary disease/asthma from previous tobacco use. 6. History of prostate cancer, status post radiation. 7. History of deep venous thrombosis. 8. Previous history of gastrointestinal bleed. 9. Hyperlipidemia. 10.History of hypertension. 11.Dementia. 12.Myocardial infarction. 13.Degenerative joint disease. 14.History of skin cancer with previous resection. 15.Multiple other medical problems and comorbidities. PLAN: The patient's hemoglobin has gone up from 4.4 to 7.8 with 2 units of PRBCs. The patient is on 2 L nasal cannula. I have told the nurses to hold the Xarelto for the atrial fibrillation. The patient should have a GI consultation. Will probably benefit from EGD and colonoscopy. His overall prognosis remains poor. Also would consider Hematology consultation for his pancytopenia. Apparently according to the medical records, his prostate cancer is metastatic to the bone. Additional recommendations and suggestions are forthcoming. Medications, x-rays and labs are all reviewed. MMODL / IJN: [id number] /
[2018-06-18 13:24] LABS: Glucose,Whole Blood 98 mg/dL (75-99)
[2018-06-18 13:31] LABS: Anisocytosis Slight; HCT 22.6 % (39.0-53.0); HGB 7.3 gm/dL (13.0-17.5); Hypochromasia Slight; MCH 29.1 pg (25.0-35.0); MCHC 32.5 g/dL (31.0-37.0); MCV 89.6 fL (80.0-100.0); Mean Platelet Volume 9.8; Poikilocytosis Slight; RBC 2.52 m/uL (4.30-5.90); RDW 19.5 % (11.5-15.5); WBC 3.3 k/uL (3.8-10.6)
[2018-06-18] MEDS ORDERED: PEG 3350-NA SULF,BICARB,CL/KCL 4,000 ML BOTTLE PO ONE (13:45)
[2018-06-18 13:46] LABS: Platelet Count 27 k/uL (150-450)
[2018-06-18 14:27] LABS: Band Neutrophils % 9 %; Metamyelocytes # (M) 0.17 k/uL (0); Metamyelocytes % 5 %; Monocytes # (M) 0.23 k/uL (0-1.0); Myelocytes # (M) 0.33 k/uL (0); Myelocytes % 10 %; Neutrophils % (M) 60 %; Nucleated Red Blood Cells 1 /100 WBC (0-0); Total Cells Counted 100
[2018-06-18 14:28] LABS: Polychromasia Present; RBC Fragments Present
[2018-06-18 18:02] LABS: Glucose,Whole Blood 104 mg/dL (75-99)
[2018-06-18 18:30] LABS: Anisocytosis Moderate; HCT 24.1 % (39.0-53.0); HGB 8.1 gm/dL (13.0-17.5); Hypochromasia Slight; MCH 29.8 pg (25.0-35.0); MCHC 33.7 g/dL (31.0-37.0); MCV 88.4 fL (80.0-100.0); Mean Platelet Volume 6.8; Poikilocytosis Moderate; RBC 2.72 m/uL (4.30-5.90); RDW 20.2 % (11.5-15.5); WBC 3.8 k/uL (3.8-10.6)
[2018-06-18 18:31] LABS: Platelet Count 20 k/uL (150-450)
[2018-06-18] MEDS: MESALAMINE 4 GM/60 ML ENEMA RECTAL SCH (21:41)
[2018-06-19 00:32] LABS: Glucose,Whole Blood 92 mg/dL (75-99)
[2018-06-19 06:05] LABS: Anisocytosis Moderate; HCT 23.5 % (39.0-53.0); HGB 7.6 gm/dL (13.0-17.5); Hypochromasia Slight; MCH 29.2 pg (25.0-35.0); MCHC 32.5 g/dL (31.0-37.0); MCV 89.7 fL (80.0-100.0); Mean Platelet Volume 9.4; Poikilocytosis Slight; RBC 2.62 m/uL (4.30-5.90); RDW 20.1 % (11.5-15.5); WBC 3.4 k/uL (3.8-10.6)
[2018-06-19 06:08] LABS: Platelet Count 28 k/uL (150-450)
[2018-06-19 06:19] LABS: ALT 27 U/L (21-72); AST 73 U/L (17-59); Albumin 2.9 g/dL (3.5-5.0); Alkaline Phosphatase 135 U/L (38-126); Anion Gap 8 mmol/L; Blood Urea Nitrogen 9 mg/dL (9-20); Carbon Dioxide 23 mmol/L (22-30); Chloride 102 mmol/L (98-107); Glucose 88 mg/dL (74-99); Magnesium 2.2 mg/dL (1.6-2.3); Phosphorus 3.4 mg/dL (2.5-4.5); Sodium 133 mmol/L (137-145); Total Protein 5.4 g/dL (6.3-8.2)
[2018-06-19 06:31] LABS: Glucose,Whole Blood 111 mg/dL (75-99)
--- NOTE | 2018-06-19 07:30 | XR ---
EXAMINATION TYPE: XR chest 1V DATE OF EXAM: 06/19/2018 HISTORY: Shortness of breath. COMPARISON: 06/18/2018 TECHNIQUE: Single view of the chest is submitted. FINDINGS: Demonstrated are scattered senescent parenchymal change. Left basilar pleural thickening persists. Strandy perihilar densities unchanged. The heart is stable. Hilar and mediastinal structures are within normal limits. Degenerative changes are seen of the dorsal spine. IMPRESSION: 1. Left basilar pleural thickening persists. Strandy perihilar densities unchanged.
--- NOTE | 2018-06-19 09:55 | PN ---
PROGRESS NOTE DATE OF SERVICE: 06/19/2018 87-year-old patient who was admitted through the emergency room with an acute GI bleed. 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 He is also on Xarelto for atrial fibrillation. He apparently was brought in because of blood in his stools. The blood was apparently bright red. The patient currently is doing reasonably well. Since he has been here, he has received 2 units of PRBCs. His hemoglobin this morning 7.6. The patient is a DNR. He is not receiving any IV fluids. He is on O2 at 4 L. GI has seen him. They are not inclined to do anything at this point given his pancytopenia. I did notice his pancytopenia yesterday. Recommended hematology consult was apparently has been ordered. The patient otherwise is doing reasonably well. Not a particularly good historian. His health care is done at the [facility] and he sees a nurse practitioner there by the name of Brooklyn Wolf. When he first came in, hemoglobin was 4.4. Again, he has only received 2 units of blood. Currently doing reasonably well. Current vital signs are reviewed. Temperature is 97.7, heart rate 92, respiratory rate 18, blood pressure 121/88, mean 99. 3 L saturation 99%. Appears in no acute distress. HEENT examination is grossly unremarkable. Mucous membranes are moist. His skin is pale. No oral lesions. Neck is supple. Full range of motion. No adenopathy or thyromegaly. Cardiovascular examination reveals regular rhythm and rate. Heart rate 99. It is slightly irregular. S1, S2 normal. Cardiovascular examination reveals a regular rhythm and rate. Heart rate 99. It is regular. S1, S2 normal. No distinct murmur. Lungs reveal mostly clear breath sounds. A few scattered rhonchi. Abdomen is soft. Bowel sounds are heard. Extremities are intact. No cyanosis, clubbing, or edema. Skin reveals multiple areas of ecchymoses. Neurologic examination is brief but nonfocal. LABS: Reviewed. White count 3.4, hemoglobin 7.6, hematocrit 23.5, platelet count 28,000. Sodium 133, potassium chloride, CO2 normal, BUN and creatinine were 9 and 0.74. The rest of his labs look okay. Albumin 2.9. Microbiologic studies are negative or pending. MEDICATIONS ARE: Reviewed. He is currently just on Rowasa, Narcan, Protonix and was receiving a GoLYTELY lavage for anticipated procedure, but that has been discontinued. ASSESSMENT: 1. Acute lower gastrointestinal bleed with profound anemia, requiring 2 units of PRBCs, presumed secondary to radiation colitis, although other etiologies need to be considered including angiodysplasia and diverticular disease. 2. Pancytopenia of unclear etiology, with Hematology consult pending. 3. History of prostate cancer, status post external beam radiation. 4. History of chronic atrial fibrillation with chronic anticoagulation. 5. Chronic obstructive pulmonary disease/asthma, from previous tobacco use. 6. History of deep vein thrombosis. 7. Previous history of gastrointestinal bleed. 8. 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 9. Hyperlipidemia. 10.History of hypertension. 11.Dementia. 12.Myocardial infarction. 13.Degenerative joint disease. 14.Previous history of skin cancer with resection. PLAN: Currently, the patient seems relatively stable. Hematology will see the patient for the pancytopenia. He does have prostate cancer with bone METS. He is presumed to have radiation colitis from his previous external beam radiation for his prostate cancer. Apparently, Gastroenterology is not going to do any procedure on him at this time. We will continue to follow. Hemodynamically stable. Prognosis is poor. Later today he can be moved out to the oncology floor. MMODL / IJN: [id number] /
--- NOTE | 2018-06-19 10:07 | P.PN ---
Subjective Progress Note Date: 06/19/18 Isaac peters 87-year-old gentleman with a history of A. fib on [facility], history of metastatic prostate cancer, history of thrombocythemia, comes in with history of blood in the stools for the past 2 days before the admission. He was also having lightheadedness at that time. He otherwise did not complain of any shortness of breath or cough no chest pain or racing heart no abdominal pain , nausea and vomiting, no tingling numbness of the extremities, no itch no rash. 06/19/2018 Patient having no acute issues but according to the nursing had one episode of maroon stool this morning He does not complain of any chest pain or racing heart, no cough no shortness of breath, no abdominal pain, no nausea and vomiting, no diarrhea no constipation, no tingling numbness of any extremities, no itch no rash Objective - Vital Signs Vital signs: Vital Signs Temp 97.7 F 06/19/18 04:00 Pulse 99 06/19/18 09:00 Resp 18 06/19/18 09:00 BP 121/88 06/19/18 09:00 Pulse Ox 99 06/19/18 09:00 Intake & Output 06/18/18 06/19/18 06/19/18 18:59 06:59 18:59 Intake Total 100 Output Total 1100 850 200 Balance -1100 -850 -100 Weight 87.1 kg 85.7 kg Intake: Oral 100 Output: Urine 1050 700 0 Stool 50 150 200 Other: Voiding Method Bedside Commode # Voids 1 - Constitutional General appearance: Present: cooperative, no acute distress - EENT Eyes: Present: PERRLA - Neck Neck: Absent: lymphadenopathy, thyromegaly - Respiratory Respiratory: bilateral: CTA - Cardiovascular Heart sounds: normal: S1, S2 - Gastrointestinal General gastrointestinal: Present: normal bowel sounds. Absent: organomegaly, splenomegaly - Neurologic Neurologic: Present: CNII-XII intact - Musculoskeletal Musculoskeletal: Present: strength equal bilaterally - Psychiatric Psychiatric: Present: A&O x's 3, appropriate affect - Labs CBC & Chem 7: 06/19/18 04:48 06/19/18 04:48 Labs: Abnormal Lab Results - Last 24 Hours (Table) 06/18/18 06/18/18 06/18/18 Range/Units 12:34 18:01 18:17 WBC 3.3 L (3.8-10.6) k/uL RBC 2.52 L 2.72 L (4.30-5.90) m/uL Hgb 7.3 L 8.1 L (13.0-17.5) gm/dL Hct 22.6 L 24.1 L (39.0-53.0) % RDW 19.5 H 20.2 H (11.5-15.5) % Plt Count 27 L 20 L (150-450) k/uL Lymphocytes # (Manual) 0.30 L (1.0-4.8) k/uL Metamyelocytes # (Man) 0.17 H (0) k/uL Myelocytes # (Manual) 0.33 H (0) k/uL Nucleated RBCs 1 H (0-0) /100 WBC Sodium (137-145) mmol/L POC Glucose (mg/dL) 104 H (75-99) mg/dL Calcium (8.4-10.2) mg/dL Total Bilirubin (0.2-1.3) mg/dL AST (17-59) U/L Alkaline Phosphatase (38-126) U/L Total Protein (6.3-8.2) g/dL Albumin (3.5-5.0) g/dL 06/19/18 06/19/18 06/19/18 Range/Units 04:48 04:48 06:07 WBC 3.4 L (3.8-10.6) k/uL RBC 2.62 L (4.30-5.90) m/uL Hgb 7.6 L (13.0-17.5) gm/dL Hct 23.5 L (39.0-53.0) % RDW 20.1 H (11.5-15.5) % Plt Count 28 L (150-450) k/uL Lymphocytes # (Manual) (1.0-4.8) k/uL Metamyelocytes # (Man) (0) k/uL Myelocytes # (Manual) (0) k/uL Nucleated RBCs (0-0) /100 WBC Sodium 133 L (137-145) mmol/L POC Glucose (mg/dL) 111 H (75-99) mg/dL Calcium 8.0 L (8.4-10.2) mg/dL Total Bilirubin 2.0 H (0.2-1.3) mg/dL AST 73 H (17-59) U/L Alkaline Phosphatase 135 H (38-126) U/L Total Protein 5.4 L (6.3-8.2) g/dL Albumin 2.9 L (3.5-5.0) g/dL Assessment and Plan Assessment: 1. Acute GI bleed 2. Acute blood loss anemia 3. History of A. fib was on Xarelto which is on hold as of now 4. Thrombocytopenia follows with Dr. Hamilton 5. History of metastatic prostate cancer 6. History of CVA/TIA 7. History of DVT 8. History of GI bleed previously 9. Hypertension 10. Hyperlipidemia Plan: - Patient's hemoglobin stable. He had one episode of maroon stool this morning - We consulted hematology oncology for recommendations regarding thrombocytopenia - GI considering scope but platelets are the holding factor. We will wait for further recommendations from hematology oncology to see what can be done. Maybe patient can get 2 units of platelets if okay with hematology oncology and then have a scope - We'll continue the rest of the medications as well as now - Due to prophylaxis and SCDs. Patient is on Protonix - Continue to hold her xarelto - We will continue to monitor the patient Time with Patient: Greater than 30
[2018-06-19] MEDS: PANTOPRAZOLE 40 MG/10 ML VIAL IV SCH (10:38)
--- NOTE | 2018-06-19 11:37 | P.PN ---
Subjective Progress Note Date: 06/19/18 Principal diagnosis: GI bleed Afebrile. Denies abdominal pain. Past 2 bowel movements since last night blood -tinged with clots. Hemoglobin 7.6. Elevated heart rate greater than 100 A. fib. Denies chest pain. Platelets 28,000. Heme on consulted. Objective - Vital Signs Vital signs: Vital Signs Temp 97.7 F 06/19/18 04:00 Pulse 102 H 06/19/18 10:00 Resp 24 06/19/18 10:00 BP 114/82 06/19/18 10:00 Pulse Ox 95 06/19/18 10:00 Intake & Output 06/18/18 06/19/18 06/19/18 18:59 06:59 18:59 Intake Total 300 Output Total 1100 850 600 Balance -1100 -850 -300 Weight 87.1 kg 85.7 kg Intake: Oral 300 Output: Urine 1050 700 400 Stool 50 150 200 Other: Voiding Method Bedside Commode # Voids 1 - Exam General appearance: The patient is alert, oriented, in no acute distress. HET: Head is normocephalic and atraumatic. Pupils are equal and reactive. Oropharynx is clear without lesions. Neck: Supple without lymphadenopathy. Trachea midline. Heart: S1 S2. Lungs: No crackles or wheezes are heard. Abdomen: Soft, nontender, nondistended with bowel sounds. Reducible umbilical hernia. No peritoneal signs. No palpable organomegaly or masses. Extremities: Normal skin color and turgor. No cyanosis, rash, ulceration, clubbing, or edema. Radial and pedal pulses are 2/4 bilaterally. Neurological: No focal deficits. Strength and sensation are grossly intact. - Labs CBC & Chem 7: 06/19/18 04:48 06/19/18 04:48 Labs: Abnormal Lab Results - Last 24 Hours (Table) 06/18/18 06/18/18 06/18/18 Range/Units 12:34 18:01 18:17 WBC 3.3 L (3.8-10.6) k/uL RBC 2.52 L 2.72 L (4.30-5.90) m/uL Hgb 7.3 L 8.1 L (13.0-17.5) gm/dL Hct 22.6 L 24.1 L (39.0-53.0) % RDW 19.5 H 20.2 H (11.5-15.5) % Plt Count 27 L 20 L (150-450) k/uL Lymphocytes # (Manual) 0.30 L (1.0-4.8) k/uL Metamyelocytes # (Man) 0.17 H (0) k/uL Myelocytes # (Manual) 0.33 H (0) k/uL Nucleated RBCs 1 H (0-0) /100 WBC Sodium (137-145) mmol/L POC Glucose (mg/dL) 104 H (75-99) mg/dL Calcium (8.4-10.2) mg/dL Total Bilirubin (0.2-1.3) mg/dL AST (17-59) U/L Alkaline Phosphatase (38-126) U/L Total Protein (6.3-8.2) g/dL Albumin (3.5-5.0) g/dL 06/19/18 06/19/18 06/19/18 Range/Units 04:48 04:48 06:07 WBC 3.4 L (3.8-10.6) k/uL RBC 2.62 L (4.30-5.90) m/uL Hgb 7.6 L (13.0-17.5) gm/dL Hct 23.5 L (39.0-53.0) % RDW 20.1 H (11.5-15.5) % Plt Count 28 L (150-450) k/uL Lymphocytes # (Manual) (1.0-4.8) k/uL Metamyelocytes # (Man) (0) k/uL Myelocytes # (Manual) (0) k/uL Nucleated RBCs (0-0) /100 WBC Sodium 133 L (137-145) mmol/L POC Glucose (mg/dL) 111 H (75-99) mg/dL Calcium 8.0 L (8.4-10.2) mg/dL Total Bilirubin 2.0 H (0.2-1.3) mg/dL AST 73 H (17-59) U/L Alkaline Phosphatase 135 H (38-126) U/L Total Protein 5.4 L (6.3-8.2) g/dL Albumin 2.9 L (3.5-5.0) g/dL Assessment and Plan (1) Acute GI bleeding Narrative/Plan: 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 History of metastatic prostate cancer atrial fibrillation maintained on anticoagulation. 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 Current Visit: Yes Status: Acute Code(s): K92.2 - GASTROINTESTINAL HEMORRHAGE, UNSPECIFIED SNOMED Code(s): 96114582 (2) Prostate cancer metastatic to bone Current Visit: Yes Status: Acute Code(s): C61 - MALIGNANT NEOPLASM OF PROSTATE; C79.51 - SECONDARY MALIGNANT NEOPLASM OF BONE SNOMED Code(s): 26349772 (3) Acute blood loss anemia Current Visit: Yes Status: Acute Code(s): D62 - ACUTE POSTHEMORRHAGIC ANEMIA SNOMED Code(s): 342365321 (4) Thrombocytopenia Current Visit: Yes Status: Acute Code(s): D69.6 - THROMBOCYTOPENIA, UNSPECIFIED SNOMED Code(s): 104974324 Plan: 1. CBC at noon. GI prophylaxis. Continue to hold anticoagulation. Continue clear liquids. Inpatient endoscopy discussed per clinical course but platelet count would have to improve and or receive transfusion. Stabilization of heart rate. Oncology consult. Will follow closely with you. Assessment and plan a care discussed with Dr. Castillo
[2018-06-19 11:56] LABS: Glucose,Whole Blood 117 mg/dL (75-99)
[2018-06-19 12:20] LABS: Anisocytosis Moderate; HCT 23.6 % (39.0-53.0); HGB 7.6 gm/dL (13.0-17.5); Hypochromasia Slight; MCH 28.9 pg (25.0-35.0); MCHC 32.4 g/dL (31.0-37.0); MCV 89.1 fL (80.0-100.0); Mean Platelet Volume 7.6; Poikilocytosis Slight; RBC 2.65 m/uL (4.30-5.90); RDW 20.2 % (11.5-15.5); WBC 3.1 k/uL (3.8-10.6)
[2018-06-19 12:21] LABS: Platelet Count 22 k/uL (150-450)
[2018-06-19] MEDS ORDERED: ALPRAZolam 0.25 MG TAB PO PRN (13:23)
[2018-06-19] MEDS ORDERED: IPRATROPIUM-ALBUTEROL 3 ML NEB INHALATION PRN (13:25)
[2018-06-19 13:54] LABS: Band Neutrophils % 5 %; Lymphocytes # (M) 0.31 k/uL (1.0-4.8); Metamyelocytes # (M) 0.06 k/uL (0); Metamyelocytes % 2 %; Monocytes # (M) 0.25 k/uL (0-1.0); Myelocytes # (M) 0.37 k/uL (0); Myelocytes % 12 %; Neutrophils % (M) 63 %; Nucleated Red Blood Cells 0 /100 WBC (0-0); Promyelocytes # (M) 0.03 k/uL (0); Promyelocytes % 1 %; Total Cells Counted 200
[2018-06-19 13:55] LABS: Ovalocytes Present; Poikilocytosis (M) Present; Polychromasia Present
[2018-06-19] MEDS: DILTIAZEM CD 120 MG CAP.ER.24H PO SCH (14:11)
--- NOTE | 2018-06-19 17:32 | P.CONS ---
History of Present Illness - Reason for Consult Consult date: 06/19/18 Metastatic Prostate cancer Requesting physician: Isaiah Crawley - Chief Complaint Rectal bleeding - History of Present Illness Mr. Calderon is a pleant male, 87-year-old gentleman, who is well known to us for treatment of his metastatic prostate cancer. He has a known history of A. fib on Xarelto, hyperlipidemia history of metastatic prostate cancer. He received one round of IV chemotherapy Taxotere on 03/07/18, poor toleration he opted against further treatment, he continued to become weaker and was admitted into rehab last month. He now presents with complaints of rectal bleeding x2 days. Labwork was done which showed WBC 3.9 hemoglobin 4.4 platelets 32K INR was 1.3 sodium 130 potassium 4.5 BUN/creatinine 10 creatinine 0.73 GFR more than 90 troponin less than 0.012 alk phos 135 AST 71 ALT 28 total bili 1.5. Patient was given 2 units of blood transfusion after his hemoglobin came up to 7.8. GI was consulted and patient was admitted to ICU for further monitoring and care. On evaluation he has some moderate increased respirations, although states the bleeding has stopped, hemoglobin has held stable above 10. Review of Systems A 14 point review of systems assessed and completed and all negative except HPI Past Medical History Past Medical History: Atrial Fibrillation, Asthma, Cancer, COPD, CVA/TIA, Deep Vein Thrombosis (DVT), GI Bleed, Hyperlipidemia, Hypertension, Memory Impairment , Myocardial Infarction (AR), Osteoarthritis (OA), Prostate Disorder Additional Past Medical History / Comment(s): prostate CA-HAD 46 RADIATION TX- had mets to bone currently taking oral chemo and hormone tx, MILD SHORT TERM MEMORY PROBLEMS, NAVEL HERNIA,SKIN CA basal cell(LT HAND-lip. back REMOVED. past gi bleed lower bowel pt stated it was from the past radiation tx- it was cauterized.. Last Myocardial Infarction Date:: UNK History of Any Multi-Drug Resistant Organisms: None Reported Past Surgical History: Heart Catheterization Additional Past Surgical History / Comment(s): VASECTOMY, PROSTATE BX TOMMY CATARACTS, RT EYE LASER SX, skin ca removed. Past Anesthesia/Blood Transfusion Reactions: No Reported Reaction Past Psychological History: No Psychological Hx Reported Additional Psychological History / Comment(s): pt lives alone. uses cane when up and has a walker to use if needed. Smoking Status: Former smoker Past Alcohol Use History: Rare Additional Past Alcohol Use History / Comment(s): STARTED SMOKING AT AGE 16(1945 ), WAS SMOKING 2 PPD. QUIT 1992 Past Drug Use History: None Reported - Past Family History Mother Additional Family Medical History / Comment(s): RHEUMATIC FEVER- HEART VALVE DAMAGE- AGE 45 Father Family Medical History: Coronary Artery Disease (CAD) Additional Family Medical History / Comment(s): AGE 93 HEART PROBLEMS Medications and Allergies Home Medications Medication Instructions Recorded Confirmed Type Diltiazem HCl [Diltiazem 24Hr ER] 120 mg PO Q24HR 01/29/17 06/18/18 History Escitalopram [Lexapro] 10 mg PO HS 01/29/17 06/18/18 History Montelukast [Singulair] 10 mg PO HS 01/29/17 06/18/18 History ALPRAZolam [Xanax] 0.25 mg PO HS PRN 03/13/18 06/18/18 History Acetaminophen [Tylenol] 325 mg Q4H PRN 06/18/18 06/18/18 History Atorvastatin [Lipitor] 20 mg PO HS 06/18/18 06/18/18 History Fluticasone/Vilanterol [Breo 1 inhalation PO Q24HR 06/18/18 06/18/18 History Ellipta 100-25 Mcg Inhaler] Magnesium Hydroxide [Milk of 400 mg PO Q3D PRN 06/18/18 06/18/18 History Magnesia] Pantoprazole Sodium 40 mg PO DAILY 06/18/18 06/18/18 History Polyethylene Glycol 3350 [Miralax] 17 gm PO DAILY 06/18/18 06/18/18 History Rivaroxaban [Xarelto] 20 mg PO DAILY 06/18/18 06/18/18 History Sennosides [Senokot] 8.6 mg PO DAILY 06/18/18 06/18/18 History predniSONE 5 mg PO DAILY 06/18/18 06/18/18 History Allergies Allergy/AdvReac Type Severity Reaction Status Date / Time simvastatin [From Zocor] AdvReac MUSCLE PAIN Verified 06/18/18 08:49 Physical Exam Vitals: Vital Signs Temp Pulse Resp BP Pulse Ox 06/19/18 16:00 94 24 120/84 96 06/19/18 15:00 98 19 119/80 96 06/19/18 14:15 92 24 119/80 97 06/19/18 13:00 110 H 43 H 111/75 98 06/19/18 12:00 103 H 26 H 119/83 97 06/19/18 11:00 98.0 F 115 H 19 127/85 95 06/19/18 10:00 102 H 24 114/82 95 06/19/18 09:00 99 18 121/88 99 06/19/18 08:00 140 H 20 111/81 100 06/19/18 07:00 92 16 106/71 100 06/19/18 06:00 121 H 18 115/99 96 06/19/18 05:00 98 22 124/86 98 06/19/18 04:00 97.7 F 102 H 28 H 115/93 100 06/19/18 03:00 102 H 19 124/83 99 06/19/18 02:00 95 18 112/94 98 06/19/18 01:00 93 13 120/80 100 06/19/18 00:00 97.5 F L 105 H 12 118/74 100 06/18/18 23:00 92 24 130/87 90 L 06/18/18 22:00 92 14 120/79 93 L 06/18/18 21:00 85 17 139/96 98 06/18/18 20:00 97.6 F 95 28 H 123/93 95 06/18/18 19:00 105 H 32 H 132/84 92 L 06/18/18 18:00 85 24 143/93 99 Intake and Output 06/19/18 06/19/18 06/19/18 06:59 14:59 22:59 Intake Total 700 Output Total 700 850 500 Balance -700 -150 -500 Intake: Oral 700 Output: Urine 550 650 300 Stool 150 200 200 Other: Voiding Method Bedside Commode Bedside Commode # Voids 1 1 Weight 85.7 kg - Constitutional General appearance: cooperative, mild distress - EENT Eyes: edentulous, EOMI, PERRLA ENT: hard of hearing, NA/AT - Neck Neck: normal ROM - Respiratory Respiratory: bilateral: diminished (bibasilar, rhonchi cleared coughing) - Cardiovascular Rhythm: irregularly irregular - Gastrointestinal General gastrointestinal: normal bowel sounds, soft, tenderness - Integumentary Integumentary: pale - Musculoskeletal Musculoskeletal: generalized weakness, strength equal bilaterally - Psychiatric Psychiatric: A&O x's 3, appropriate affect Results CBC & Chem 7: 06/19/18 11:42 06/19/18 04:48 Labs: Abnormal Lab Results - Last 24 Hours (Table) 06/18/18 06/18/18 06/19/18 Range/Units 18:01 18:17 04:48 WBC (3.8-10.6) k/uL RBC 2.72 L (4.30-5.90) m/uL Hgb 8.1 L (13.0-17.5) gm/dL Hct 24.1 L (39.0-53.0) % RDW 20.2 H (11.5-15.5) % Plt Count 20 L (150-450) k/uL Lymphocytes # (Manual) (1.0-4.8) k/uL Metamyelocytes # (Man) (0) k/uL Myelocytes # (Manual) (0) k/uL Promyelocytes # (Man) (0) k/uL Sodium 133 L (137-145) mmol/L POC Glucose (mg/dL) 104 H (75-99) mg/dL Calcium 8.0 L (8.4-10.2) mg/dL Total Bilirubin 2.0 H (0.2-1.3) mg/dL AST 73 H (17-59) U/L Alkaline Phosphatase 135 H (38-126) U/L Total Protein 5.4 L (6.3-8.2) g/dL Albumin 2.9 L (3.5-5.0) g/dL 06/19/18 06/19/18 06/19/18 Range/Units 04:48 06:07 11:42 WBC 3.4 L 3.1 L (3.8-10.6) k/uL RBC 2.62 L 2.65 L (4.30-5.90) m/uL Hgb 7.6 L 7.6 L (13.0-17.5) gm/dL Hct 23.5 L 23.6 L (39.0-53.0) % RDW 20.1 H 20.2 H (11.5-15.5) % Plt Count 28 L 22 L (150-450) k/uL Lymphocytes # (Manual) 0.31 L (1.0-4.8) k/uL Metamyelocytes # (Man) 0.06 H (0) k/uL Myelocytes # (Manual) 0.37 H (0) k/uL Promyelocytes # (Man) 0.03 H (0) k/uL Sodium (137-145) mmol/L POC Glucose (mg/dL) 111 H (75-99) mg/dL Calcium (8.4-10.2) mg/dL Total Bilirubin (0.2-1.3) mg/dL AST (17-59) U/L Alkaline Phosphatase (38-126) U/L Total Protein (6.3-8.2) g/dL Albumin (3.5-5.0) g/dL 06/19/18 Range/Units 11:52 WBC (3.8-10.6) k/uL RBC (4.30-5.90) m/uL Hgb (13.0-17.5) gm/dL Hct (39.0-53.0) % RDW (11.5-15.5) % Plt Count (150-450) k/uL Lymphocytes # (Manual) (1.0-4.8) k/uL Metamyelocytes # (Man) (0) k/uL Myelocytes # (Manual) (0) k/uL Promyelocytes # (Man) (0) k/uL Sodium (137-145) mmol/L POC Glucose (mg/dL) 117 H (75-99) mg/dL Calcium (8.4-10.2) mg/dL Total Bilirubin (0.2-1.3) mg/dL AST (17-59) U/L Alkaline Phosphatase (38-126) U/L Total Protein (6.3-8.2) g/dL Albumin (3.5-5.0) g/dL CT scan - abdomen: report reviewed Assessment and Plan Plan: Assessment and recommendations: 1. Metastatic Prostate Cancer, Currently on palliative comfort support - No chemo at this time secondary to decreased performance status and poor toleration 2. Pancytopenia - Likely secondary diffuse bone and bone marrow involvement - Severe anemia secondary to acute blood loss: - COntinue PRBC transfusions under 7 and close monitoring Thrombocytopenia - Monitor closely and transfuse under 50K with active bleeding: - COmponent of consumption and reabsorbtion as well as metastatic disease - Monitor coagulation factors and fibrinogen, transfuse cryoprecipitate if fibrinogen less than 100 in active bleed Leukopenia - Secondary to number one Continue supportive care per ICU, we will follow
[2018-06-19] MEDS ORDERED: ACETAMINOPHEN TAB 325 MG TAB PO PRN (19:35)
[2018-06-19] MEDS: SYMBICORT 160-4.5 MCG INHALER INHALATION SCH (19:51)
[2018-06-19] MEDS: MONTELUKAST 10 MG TAB PO SCH (20:22)
[2018-06-19] MEDS: ESCITALOPRAM 10 MG TAB PO SCH (20:22)
[2018-06-19] MEDS: MESALAMINE 4 GM/60 ML ENEMA RECTAL SCH (21:29)
[2018-06-19] MEDS ORDERED: HYDROcodone/APAP 5-325MG 1 EACH TAB PO PRN (23:48)
[2018-06-19] MEDS ORDERED: CALCIUM CARBONATE 500 MG CHEWABLE PO PRN (23:56)
[2018-06-20 00:06] LABS: Glucose,Whole Blood 111 mg/dL (75-99)
[2018-06-20 03:57] LABS: Iron Saturation 32.15 (15.00-50.00)
[2018-06-20 05:23] LABS: Anisocytosis Moderate; HCT 21.1 % (39.0-53.0); HGB 7.2 gm/dL (13.0-17.5); Hypochromasia Slight; MCH 30.1 pg (25.0-35.0); MCHC 33.9 g/dL (31.0-37.0); MCV 88.8 fL (80.0-100.0); Mean Platelet Volume 10.2; Poikilocytosis Moderate; RBC 2.38 m/uL (4.30-5.90); RDW 20.2 % (11.5-15.5)
[2018-06-20 05:30] LABS: Platelet Count 26 k/uL (150-450)
[2018-06-20 05:32] LABS: INR 1.3 (<1.2); Partial Thromboplastin Time 25.2 sec (22.0-30.0); Prothrombin Time 12.9 sec (9.0-12.0)
[2018-06-20 05:33] LABS: Anion Gap 9 mmol/L; Blood Urea Nitrogen 9 mg/dL (9-20); Carbon Dioxide 21 mmol/L (22-30); Chloride 99 mmol/L (98-107); Glucose 113 mg/dL (74-99); Magnesium 2.2 mg/dL (1.6-2.3); Phosphorus 3.7 mg/dL (2.5-4.5); Potassium 4.2 mmol/L (3.5-5.1); Sodium 129 mmol/L (137-145)
[2018-06-20 06:10] LABS: Band Neutrophils % 9 %; Myelocytes % 5 %; Neutrophils % (M) 59 %; Nucleated Red Blood Cells 4 /100 WBC (0-0); Total Cells Counted 200
[2018-06-20 06:11] LABS: Lymphocytes # (M) 0.57 k/uL (1.0-4.8); Monocytes # (M) 0.27 k/uL (0-1.0); Myelocytes # (M) 0.15 k/uL (0); Polychromasia Present
[2018-06-20 06:12] LABS: Poikilocytosis (M) Present
[2018-06-20] MEDS: SYMBICORT 160-4.5 MCG INHALER INHALATION SCH ×2 (07:21→20:37)
--- NOTE | 2018-06-20 09:05 | P.PN ---
Subjective Progress Note Date: 06/20/18 E pleasant 87-year-old gentleman with a history of A. fib on xarelto, history of metastatic prostate cancer, history of thrombocythemia, comes in with history of blood in the stools for the past 2 days before the admission. He was also having lightheadedness at that time. He otherwise did not complain of any shortness of breath or cough no chest pain or racing heart no abdominal pain , nausea and vomiting, no tingling numbness of the extremities, no itch no rash. 06/19/2018 Patient having no acute issues but according to the nursing had one episode of maroon stool this morning He does not complain of any chest pain or racing heart, no cough no shortness of breath, no abdominal pain, no nausea and vomiting, no diarrhea no constipation, no tingling numbness of any extremities, no itch no rash 06/20/2018 Patient still having small bowel movements with blood in it. Patient otherwise not complaining of any chest pain, racing heart, no abdominal pain, no nausea and vomiting, no diarrhea no constipation. Objective - Vital Signs Vital signs: Vital Signs Temp 97.7 F 06/20/18 04:00 Pulse 84 06/20/18 07:00 Resp 15 06/20/18 07:00 BP 114/74 06/20/18 07:00 Pulse Ox 93 L 06/20/18 07:00 Intake & Output 06/19/18 06/20/18 06/20/18 18:59 06:59 18:59 Intake Total 1300 0 Output Total 2050 500 Balance -750 -500 Weight 86.5 kg Intake: Oral 1300 0 Output: Urine 1500 100 Stool 550 Urine/Stool Mix 400 Other: Voiding Method Bedside Commode Bedside Commode Urinal # Voids 1 # Bowel Movements 1 1 - Exam On exam, alert and oriented x3. HEENT: Conjunctivae normal. eyes normal. NECK: No JVD. No thyroid enlargement. No LNs CARDIOVASCULAR: S1, S2 heard. No murmur RESPIRATION: Breath sounds diminished in the bases. No rhonchi or crackles. No bronchial breathing. ABDOMEN: Soft, nontender . No guarding. no masses palpable. No ascites, No hepatosplenomegaly.Bowel sounds heard. LEGS: No edema. no swelling NERVOUS SYSTEM: Cranial N 2-12 grossly normal. Moves all 4 limbs. No focal deficits. No sensory deficit. No signs of cerebellar dysfucntion. Skin: no ulcer, patient having petechiae in the upper and lower extremities joints: No active swelling. No inflammation. Lymphatic system. No LN neck axilla or groin. - Labs CBC & Chem 7: 06/20/18 05:06 06/20/18 05:06 Labs: Abnormal Lab Results - Last 24 Hours (Table) 06/19/18 06/19/18 06/19/18 Range/Units 04:48 04:48 11:42 WBC 3.1 L (3.8-10.6) k/uL RBC 2.65 L (4.30-5.90) m/uL Hgb 7.6 L (13.0-17.5) gm/dL Hct 23.6 L (39.0-53.0) % RDW 20.2 H (11.5-15.5) % Plt Count 22 L (150-450) k/uL Lymphocytes # (Manual) 0.31 L (1.0-4.8) k/uL Metamyelocytes # (Man) 0.06 H (0) k/uL Myelocytes # (Manual) 0.37 H (0) k/uL Promyelocytes # (Man) 0.03 H (0) k/uL Nucleated RBCs (0-0) /100 WBC PT (9.0-12.0) sec INR (<1.2) Fibrinogen (200-500) mg/dL Sodium (137-145) mmol/L Carbon Dioxide (22-30) mmol/L Glucose (74-99) mg/dL POC Glucose (mg/dL) (75-99) mg/dL Calcium (8.4-10.2) mg/dL Ferritin 2151.5 H (22.0-322.0) ng/mL Lactate Dehydrogenase 7935 H (313-618) U/L 06/19/18 06/19/18 06/20/18 Range/Units 11:52 19:03 00:03 WBC (3.8-10.6) k/uL RBC (4.30-5.90) m/uL Hgb (13.0-17.5) gm/dL Hct (39.0-53.0) % RDW (11.5-15.5) % Plt Count (150-450) k/uL Lymphocytes # (Manual) (1.0-4.8) k/uL Metamyelocytes # (Man) (0) k/uL Myelocytes # (Manual) (0) k/uL Promyelocytes # (Man) (0) k/uL Nucleated RBCs (0-0) /100 WBC PT (9.0-12.0) sec INR (<1.2) Fibrinogen 531 H (200-500) mg/dL Sodium (137-145) mmol/L Carbon Dioxide (22-30) mmol/L Glucose (74-99) mg/dL POC Glucose (mg/dL) 117 H 111 H (75-99) mg/dL Calcium (8.4-10.2) mg/dL Ferritin (22.0-322.0) ng/mL Lactate Dehydrogenase (313-618) U/L 06/20/18 06/20/18 06/20/18 Range/Units 05:06 05:06 05:06 WBC 3.0 L (3.8-10.6) k/uL RBC 2.38 L (4.30-5.90) m/uL Hgb 7.2 L (13.0-17.5) gm/dL Hct 21.1 L (39.0-53.0) % RDW 20.2 H (11.5-15.5) % Plt Count 26 L (150-450) k/uL Lymphocytes # (Manual) 0.57 L (1.0-4.8) k/uL Metamyelocytes # (Man) (0) k/uL Myelocytes # (Manual) 0.15 H (0) k/uL Promyelocytes # (Man) (0) k/uL Nucleated RBCs 4 H (0-0) /100 WBC PT 12.9 H (9.0-12.0) sec INR 1.3 H (<1.2) Fibrinogen (200-500) mg/dL Sodium 129 L (137-145) mmol/L Carbon Dioxide 21 L (22-30) mmol/L Glucose 113 H (74-99) mg/dL POC Glucose (mg/dL) (75-99) mg/dL Calcium 8.0 L (8.4-10.2) mg/dL Ferritin (22.0-322.0) ng/mL Lactate Dehydrogenase (313-618) U/L Assessment and Plan Assessment: 1. Acute GI bleed 2. Acute blood loss anemia 3. History of A. fib was on Xarelto which is on hold as of now 4. Thrombocytopenia follows with Dr. Hamilton 5. History of metastatic prostate cancer not on any chemo right now due to declining functional status 6. History of CVA/TIA 7. History of DVT 8. History of GI bleed previously 9. Hypertension 10. Hyperlipidemia Plan: - Patient's hemoglobin stable. According to the nurse still having bowel movements with blood in it - Hemoglobin 7.2 this morning - We will wait for GI recommendation regarding scope Or no scope - According to hematology oncology no plans for chemotherapy due to declining functional status - We will discuss with patient's daughter regarding the goals of care. There was also talks about hospice as the patient was wishing to go to hospice. We' ll discuss with daughter when she comes later in the morning. - Continue current management as of now - We'll continue to follow patient along Time with Patient: Greater than 30
[2018-06-20] MEDS: PANTOPRAZOLE 40 MG/10 ML VIAL IV SCH (09:28)
[2018-06-20] MEDS: DILTIAZEM CD 120 MG CAP.ER.24H PO SCH (09:39)
[2018-06-20] MEDS: predniSONE 5 MG TAB PO SCH (09:39)
--- NOTE | 2018-06-20 10:51 | P.PN ---
Subjective Progress Note Date: 06/20/18 Principal diagnosis: Gastrointestinal bleeding This is a very pleasant 87-year-old gentleman who was admitted on 06/17/2018 with acute gastrointestinal bleeding. 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 He was also on Xarelto for atrial fibrillation in the outpatient setting. He is seen again today in the intensive care unit. He is awake and alert in no acute distress. He is quite pale yet. Current hemoglobin 7.2. He is status post 2 units of packed red blood cell transfusions since admission. White count 3.0. Platelet count 26,000. INR 1.3. Sodium 129. Creatinine 0.73. He has passed one large clot per rectum this morning. He is requesting hospice at this time. Objective - Vital Signs Vital signs: Vital Signs Temp 97.0 F L 06/20/18 08:00 Pulse 101 H 06/20/18 10:00 Resp 22 06/20/18 10:00 BP 107/67 06/20/18 10:00 Pulse Ox 91 L 06/20/18 10:00 Intake & Output 06/19/18 06/20/18 06/20/18 18:59 06:59 18:59 Intake Total 1300 0 200 Output Total 2050 500 Balance -750 -500 200 Weight 86.5 kg Intake: Oral 1300 0 200 Output: Urine 1500 100 Stool 550 Urine/Stool Mix 400 Other: Voiding Method Bedside Commode Bedside Commode Urinal # Voids 1 1 # Bowel Movements 1 1 1 - Constitutional General appearance: Present: average body habitus, mild distress - EENT Eyes: Present: EOMI, PERRLA ENT: Present: hard of hearing Ears: bilateral: normal - Neck Neck: Present: normal ROM Carotids: bilateral: upstroke normal Thyroid: bilateral: normal size - Respiratory Respiratory: bilateral: rhonchi - Cardiovascular Rhythm: irregularly irregular Heart sounds: normal: S1, S2 - Gastrointestinal General gastrointestinal: Present: hyperactive bowel sounds Localized gastrointestinal: tender: diffuse - Integumentary Integumentary: Present: normal turgor - Neurologic Neurologic: Present: CNII-XII intact - Musculoskeletal Musculoskeletal: Present: generalized weakness - Psychiatric Psychiatric: Present: A&O x's 3, appropriate affect, intact judgment & insight - Labs CBC & Chem 7: 06/20/18 05:06 06/20/18 05:06 Labs: Abnormal Lab Results - Last 24 Hours (Table) 06/19/18 06/19/18 06/19/18 Range/Units 04:48 04:48 11:42 WBC 3.1 L (3.8-10.6) k/uL RBC 2.65 L (4.30-5.90) m/uL Hgb 7.6 L (13.0-17.5) gm/dL Hct 23.6 L (39.0-53.0) % RDW 20.2 H (11.5-15.5) % Plt Count 22 L (150-450) k/uL Lymphocytes # (Manual) 0.31 L (1.0-4.8) k/uL Metamyelocytes # (Man) 0.06 H (0) k/uL Myelocytes # (Manual) 0.37 H (0) k/uL Promyelocytes # (Man) 0.03 H (0) k/uL Nucleated RBCs (0-0) /100 WBC PT (9.0-12.0) sec INR (<1.2) Fibrinogen (200-500) mg/dL Sodium (137-145) mmol/L Carbon Dioxide (22-30) mmol/L Glucose (74-99) mg/dL POC Glucose (mg/dL) (75-99) mg/dL Calcium (8.4-10.2) mg/dL Ferritin 2151.5 H (22.0-322.0) ng/mL Lactate Dehydrogenase 7935 H (313-618) U/L 06/19/18 06/19/18 06/20/18 Range/Units 11:52 19:03 00:03 WBC (3.8-10.6) k/uL RBC (4.30-5.90) m/uL Hgb (13.0-17.5) gm/dL Hct (39.0-53.0) % RDW (11.5-15.5) % Plt Count (150-450) k/uL Lymphocytes # (Manual) (1.0-4.8) k/uL Metamyelocytes # (Man) (0) k/uL Myelocytes # (Manual) (0) k/uL Promyelocytes # (Man) (0) k/uL Nucleated RBCs (0-0) /100 WBC PT (9.0-12.0) sec INR (<1.2) Fibrinogen 531 H (200-500) mg/dL Sodium (137-145) mmol/L Carbon Dioxide (22-30) mmol/L Glucose (74-99) mg/dL POC Glucose (mg/dL) 117 H 111 H (75-99) mg/dL Calcium (8.4-10.2) mg/dL Ferritin (22.0-322.0) ng/mL Lactate Dehydrogenase (313-618) U/L 06/20/18 06/20/18 06/20/18 Range/Units 05:06 05:06 05:06 WBC 3.0 L (3.8-10.6) k/uL RBC 2.38 L (4.30-5.90) m/uL Hgb 7.2 L (13.0-17.5) gm/dL Hct 21.1 L (39.0-53.0) % RDW 20.2 H (11.5-15.5) % Plt Count 26 L (150-450) k/uL Lymphocytes # (Manual) 0.57 L (1.0-4.8) k/uL Metamyelocytes # (Man) (0) k/uL Myelocytes # (Manual) 0.15 H (0) k/uL Promyelocytes # (Man) (0) k/uL Nucleated RBCs 4 H (0-0) /100 WBC PT 12.9 H (9.0-12.0) sec INR 1.3 H (<1.2) Fibrinogen (200-500) mg/dL Sodium 129 L (137-145) mmol/L Carbon Dioxide 21 L (22-30) mmol/L Glucose 113 H (74-99) mg/dL POC Glucose (mg/dL) (75-99) mg/dL Calcium 8.0 L (8.4-10.2) mg/dL Ferritin (22.0-322.0) ng/mL Lactate Dehydrogenase (313-618) U/L Assessment and Plan Assessment: Impression: #1 Acute lower gastrointestinal bleeding with profound anemia, status post 2 units of packed red blood cells since admission. Presume secondary to radiation colitis or possibly angiodysplasia and diverticular disease. #2 Pancytopenia. #3 History of prostate cancer, status post external beam radiation. #4 History of chronic atrial fibrillation, on Xarelto in the outpatient setting. #5 Chronic obstructive pulmonary disease secondary to previous tobacco dependence. #6 History of DVT. #7 Previous history of gastrointestinal bleeding. #8 Presume radiation colitis. #9 Hyperlipidemia. #10 History of hypertension. #11 Dementia. #12 Myocardial infarction. #13 Degenerative joint disease. #14 History of previous skin cancer with resection. Plan: The patient was seen and evaluated by Dr. Koenig. His overall prognosis remains quite poor. The patient was inquiring about possible hospice. The nursing staff will be talking with the patient's daughter and possible place a hospice consult. In the interim, we'll continue to monitor him here closely in the intensive care unit. Current hemoglobin 7.2. We'll continue to follow make further recommendations based on his clinical status. I, the cosigning physician, performed a history & physical examination of the patient. Lungs sounds are clear. Maintaining good O2 saturations in the 90s on room air. I discussed the assessment and plan of care with my nurse practitioner, Corina Martinez. I attest to the above note as dictated by her. Time with Patient: Greater than 30
[2018-06-20 10:56] VITALS: BMI 25.8
--- NOTE | 2018-06-20 11:38 | P.PN ---
Subjective Progress Note Date: 06/20/18 Principal diagnosis: GI bleed Afebrile. Denies abdominal pain. Passed 2 small bloody movements today. Hemoglobin 7.2. Platelet 26,000. Denies chest pain. Heme/ONC consulted. Hospice has been mentioned. Receiving Rowasa enema QHS. Objective - Vital Signs Vital signs: Vital Signs Temp 97.0 F L 06/20/18 08:00 Pulse 84 06/20/18 11:00 Resp 18 06/20/18 11:00 BP 107/67 06/20/18 10:00 Pulse Ox 91 L 06/20/18 10:00 Intake & Output 06/19/18 06/20/18 06/20/18 18:59 06:59 18:59 Intake Total 1300 0 200 Output Total 2050 500 Balance -750 -500 200 Weight 86.5 kg 86.5 kg Intake: Oral 1300 0 200 Output: Urine 1500 100 Stool 550 Urine/Stool Mix 400 Other: Voiding Method Bedside Commode Bedside Commode Bedside Commode Urinal Urinal # Voids 1 1 # Bowel Movements 1 1 1 - Exam General appearance: The patient is alert, oriented, in no acute distress. HET: Head is normocephalic and atraumatic. Pupils are equal and reactive. Oropharynx is clear without lesions. Neck: Supple without lymphadenopathy. Trachea midline. Heart: S1 S2. Lungs: No crackles or wheezes are heard. Abdomen: Soft, nontender, nondistended with bowel sounds. Reducible umbilical hernia. No peritoneal signs. No palpable organomegaly or masses. Extremities: Normal skin color and turgor. No cyanosis, rash, ulceration, clubbing, or edema. Radial and pedal pulses are 2/4 bilaterally. Neurological: No focal deficits. Strength and sensation are grossly intact. - Labs CBC & Chem 7: 06/20/18 05:06 06/20/18 05:06 Labs: Abnormal Lab Results - Last 24 Hours (Table) 06/19/18 06/19/18 06/19/18 Range/Units 04:48 04:48 11:42 WBC 3.1 L (3.8-10.6) k/uL RBC 2.65 L (4.30-5.90) m/uL Hgb 7.6 L (13.0-17.5) gm/dL Hct 23.6 L (39.0-53.0) % RDW 20.2 H (11.5-15.5) % Plt Count 22 L (150-450) k/uL Lymphocytes # (Manual) 0.31 L (1.0-4.8) k/uL Metamyelocytes # (Man) 0.06 H (0) k/uL Myelocytes # (Manual) 0.37 H (0) k/uL Promyelocytes # (Man) 0.03 H (0) k/uL Nucleated RBCs (0-0) /100 WBC PT (9.0-12.0) sec INR (<1.2) Fibrinogen (200-500) mg/dL Sodium (137-145) mmol/L Carbon Dioxide (22-30) mmol/L Glucose (74-99) mg/dL POC Glucose (mg/dL) (75-99) mg/dL Calcium (8.4-10.2) mg/dL Ferritin 2151.5 H (22.0-322.0) ng/mL Lactate Dehydrogenase 7935 H (313-618) U/L 06/19/18 06/19/18 06/20/18 Range/Units 11:52 19:03 00:03 WBC (3.8-10.6) k/uL RBC (4.30-5.90) m/uL Hgb (13.0-17.5) gm/dL Hct (39.0-53.0) % RDW (11.5-15.5) % Plt Count (150-450) k/uL Lymphocytes # (Manual) (1.0-4.8) k/uL Metamyelocytes # (Man) (0) k/uL Myelocytes # (Manual) (0) k/uL Promyelocytes # (Man) (0) k/uL Nucleated RBCs (0-0) /100 WBC PT (9.0-12.0) sec INR (<1.2) Fibrinogen 531 H (200-500) mg/dL Sodium (137-145) mmol/L Carbon Dioxide (22-30) mmol/L Glucose (74-99) mg/dL POC Glucose (mg/dL) 117 H 111 H (75-99) mg/dL Calcium (8.4-10.2) mg/dL Ferritin (22.0-322.0) ng/mL Lactate Dehydrogenase (313-618) U/L 06/20/18 06/20/18 06/20/18 Range/Units 05:06 05:06 05:06 WBC 3.0 L (3.8-10.6) k/uL RBC 2.38 L (4.30-5.90) m/uL Hgb 7.2 L (13.0-17.5) gm/dL Hct 21.1 L (39.0-53.0) % RDW 20.2 H (11.5-15.5) % Plt Count 26 L (150-450) k/uL Lymphocytes # (Manual) 0.57 L (1.0-4.8) k/uL Metamyelocytes # (Man) (0) k/uL Myelocytes # (Manual) 0.15 H (0) k/uL Promyelocytes # (Man) (0) k/uL Nucleated RBCs 4 H (0-0) /100 WBC PT 12.9 H (9.0-12.0) sec INR 1.3 H (<1.2) Fibrinogen (200-500) mg/dL Sodium 129 L (137-145) mmol/L Carbon Dioxide 21 L (22-30) mmol/L Glucose 113 H (74-99) mg/dL POC Glucose (mg/dL) (75-99) mg/dL Calcium 8.0 L (8.4-10.2) mg/dL Ferritin (22.0-322.0) ng/mL Lactate Dehydrogenase (313-618) U/L Assessment and Plan (1) Acute GI bleeding Narrative/Plan: 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 History of metastatic prostate cancer atrial fibrillation maintained on anticoagulation. 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 Current Visit: Yes Status: Acute Code(s): K92.2 - GASTROINTESTINAL HEMORRHAGE, UNSPECIFIED SNOMED Code(s): 56342213 (2) Prostate cancer metastatic to bone Current Visit: Yes Status: Acute Code(s): C61 - MALIGNANT NEOPLASM OF PROSTATE; C79.51 - SECONDARY MALIGNANT NEOPLASM OF BONE SNOMED Code(s): 15304307 (3) Acute blood loss anemia Current Visit: Yes Status: Acute Code(s): D62 - ACUTE POSTHEMORRHAGIC ANEMIA SNOMED Code(s): 781275366 (4) Thrombocytopenia Current Visit: Yes Status: Acute Code(s): D69.6 - THROMBOCYTOPENIA, UNSPECIFIED SNOMED Code(s): 703357317 Plan: 1. GI prophylaxis. Continue to hold anticoagulation. Full liquids with Ensure. Hospice has been discussed; decision has not been made yet. Inpatient endoscopy can be performed but platelet count would have to improve and or receive transfusion. Will transfuse platelets today to see if it helps rectal bleeding. Continue Rowasa enema QHS. Possible inpatient endoscopy. Will follow closely with you. Assessment and plan a care discussed with Dr. Castillo
--- NOTE | 2018-06-20 12:05 | P.PN ---
Subjective Progress Note Date: 06/20/18 Principal diagnosis: Rectal Bleeding Hemoglobin and Platelets are stable today. I discussed case with GI, Resoionable to transfuse platelets for Endoscopy to control bleeding (previous similiar event) prior to discharge and home palliative care after. Objective - Vital Signs Vital signs: Vital Signs Temp 97.0 F L 06/20/18 08:00 Pulse 84 06/20/18 11:00 Resp 18 06/20/18 11:00 BP 107/67 06/20/18 10:00 Pulse Ox 91 L 06/20/18 10:00 Intake & Output 06/19/18 06/20/18 06/20/18 18:59 06:59 18:59 Intake Total 1300 0 200 Output Total 2050 500 Balance -750 -500 200 Weight 86.5 kg 86.5 kg Intake: Oral 1300 0 200 Output: Urine 1500 100 Stool 550 Urine/Stool Mix 400 Other: Voiding Method Bedside Commode Bedside Commode Bedside Commode Urinal Urinal # Voids 1 1 # Bowel Movements 1 1 1 - Exam - Constitutional General appearance: cooperative, mild distress - EENT Eyes: edentulous, EOMI, PERRLA ENT: hard of hearing, NA/AT - Neck Neck: normal ROM - Respiratory Respiratory: bilateral: diminished (bibasilar, rhonchi cleared coughing) - Cardiovascular Rhythm: irregularly irregular - Gastrointestinal General gastrointestinal: normal bowel sounds, soft, tenderness - Integumentary Integumentary: pale - Musculoskeletal Musculoskeletal: generalized weakness, strength equal bilaterally - Psychiatric Psychiatric: A&O x's 3, appropriate affect - Labs CBC & Chem 7: 06/20/18 05:06 06/20/18 05:06 Labs: Abnormal Lab Results - Last 24 Hours (Table) 06/19/18 06/19/18 06/19/18 Range/Units 04:48 04:48 11:42 WBC 3.1 L (3.8-10.6) k/uL RBC 2.65 L (4.30-5.90) m/uL Hgb 7.6 L (13.0-17.5) gm/dL Hct 23.6 L (39.0-53.0) % RDW 20.2 H (11.5-15.5) % Plt Count 22 L (150-450) k/uL Lymphocytes # (Manual) 0.31 L (1.0-4.8) k/uL Metamyelocytes # (Man) 0.06 H (0) k/uL Myelocytes # (Manual) 0.37 H (0) k/uL Promyelocytes # (Man) 0.03 H (0) k/uL Nucleated RBCs (0-0) /100 WBC PT (9.0-12.0) sec INR (<1.2) Fibrinogen (200-500) mg/dL Sodium (137-145) mmol/L Carbon Dioxide (22-30) mmol/L Glucose (74-99) mg/dL POC Glucose (mg/dL) (75-99) mg/dL Calcium (8.4-10.2) mg/dL Ferritin 2151.5 H (22.0-322.0) ng/mL Lactate Dehydrogenase 7935 H (313-618) U/L 06/19/18 06/20/18 06/20/18 Range/Units 19:03 00:03 05:06 WBC (3.8-10.6) k/uL RBC (4.30-5.90) m/uL Hgb (13.0-17.5) gm/dL Hct (39.0-53.0) % RDW (11.5-15.5) % Plt Count (150-450) k/uL Lymphocytes # (Manual) (1.0-4.8) k/uL Metamyelocytes # (Man) (0) k/uL Myelocytes # (Manual) (0) k/uL Promyelocytes # (Man) (0) k/uL Nucleated RBCs (0-0) /100 WBC PT (9.0-12.0) sec INR (<1.2) Fibrinogen 531 H (200-500) mg/dL Sodium 129 L (137-145) mmol/L Carbon Dioxide 21 L (22-30) mmol/L Glucose 113 H (74-99) mg/dL POC Glucose (mg/dL) 111 H (75-99) mg/dL Calcium 8.0 L (8.4-10.2) mg/dL Ferritin (22.0-322.0) ng/mL Lactate Dehydrogenase (313-618) U/L 06/20/18 06/20/18 Range/Units 05:06 05:06 WBC 3.0 L (3.8-10.6) k/uL RBC 2.38 L (4.30-5.90) m/uL Hgb 7.2 L (13.0-17.5) gm/dL Hct 21.1 L (39.0-53.0) % RDW 20.2 H (11.5-15.5) % Plt Count 26 L (150-450) k/uL Lymphocytes # (Manual) 0.57 L (1.0-4.8) k/uL Metamyelocytes # (Man) (0) k/uL Myelocytes # (Manual) 0.15 H (0) k/uL Promyelocytes # (Man) (0) k/uL Nucleated RBCs 4 H (0-0) /100 WBC PT 12.9 H (9.0-12.0) sec INR 1.3 H (<1.2) Fibrinogen (200-500) mg/dL Sodium (137-145) mmol/L Carbon Dioxide (22-30) mmol/L Glucose (74-99) mg/dL POC Glucose (mg/dL) (75-99) mg/dL Calcium (8.4-10.2) mg/dL Ferritin (22.0-322.0) ng/mL Lactate Dehydrogenase (313-618) U/L Assessment and Plan Plan: Assessment and recommendations: 1. Metastatic Prostate Cancer, Currently on palliative comfort support - No chemo at this time secondary to decreased performance status and poor toleration 2. Pancytopenia - Likely secondary diffuse bone and bone marrow involvement Severe anemia secondary to acute blood loss: - o PRBC transfusions under 7 and close monitoring Thrombocytopenia - Monitor closely and transfuse under 50K with active bleeding: - COmponent of consumption and reabsorbtion as well as metastatic disease - Monitor coagulation factors and fibrinogen stable greater than 500, Leukopenia - Secondary to number one I discussed case with GI, Resoionable to transfuse platelets for Endoscopy to control bleeding (previous similiar event) prior to discharge and home palliative care after. Continue supportive care per ICU, we will follow
[2018-06-20 18:14] LABS: Anisocytosis Moderate; Hypochromasia Slight; MCH 29.1 pg (25.0-35.0); MCHC 33.2 g/dL (31.0-37.0); MCV 87.7 fL (80.0-100.0); Mean Platelet Volume 10.3; Poikilocytosis Slight; RBC 2.22 m/uL (4.30-5.90); RDW 20.3 % (11.5-15.5); WBC 3.2 k/uL (3.8-10.6)
[2018-06-20 18:20] LABS: HGB 6.5 gm/dL (13.0-17.5)
[2018-06-20 18:21] LABS: HCT 19.5 % (39.0-53.0)
[2018-06-20 18:30] LABS: Band Neutrophils % 11 %; Lymphocytes # (M) 0.51 k/uL (1.0-4.8); Monocytes # (M) 0.22 k/uL (0-1.0); Neutrophils % (M) 66 %; Nucleated Red Blood Cells 0 /100 WBC (0-0); Platelet Count 24 k/uL (150-450); Poikilocytosis (M) Present; Polychromasia Present; Total Cells Counted 100
[2018-06-20] MEDS: MESALAMINE 4 GM/60 ML ENEMA RECTAL SCH (21:00)
[2018-06-20] MEDS: ESCITALOPRAM 10 MG TAB PO SCH (21:00)
[2018-06-20] MEDS: MONTELUKAST 10 MG TAB PO SCH (21:00)
[2018-06-21 06:01] LABS: Anion Gap 7 mmol/L; Blood Urea Nitrogen 9 mg/dL (9-20); Calcium 7.8 mg/dL (8.4-10.2); Carbon Dioxide 23 mmol/L (22-30); Chloride 100 mmol/L (98-107); Glucose 110 mg/dL (74-99); Phosphorus 3.8 mg/dL (2.5-4.5); Sodium 130 mmol/L (137-145)
[2018-06-21 06:02] LABS: INR 1.2 (<1.2); Prothrombin Time 12.4 sec (9.0-12.0)
[2018-06-21 06:06] LABS: Anisocytosis Slight; HGB 7.3 gm/dL (13.0-17.5); Hypochromasia Slight; MCH 30.7 pg (25.0-35.0); MCHC 34.6 g/dL (31.0-37.0); MCV 88.8 fL (80.0-100.0); Mean Platelet Volume 8.6; Poikilocytosis Slight; RBC 2.37 m/uL (4.30-5.90)
[2018-06-21 06:17] LABS: Partial Thromboplastin Time 19.9 sec (22.0-30.0)
[2018-06-21 07:25] LABS: Band Neutrophils % 13 %; Metamyelocytes # (M) 0.25 k/uL (0); Metamyelocytes % 9 %; Monocytes # (M) 0.36 k/uL (0-1.0); Myelocytes # (M) 0.06 k/uL (0); Myelocytes % 2 %; Neutrophils % (M) 47 %; Nucleated Red Blood Cells 4 /100 WBC (0-0); Poikilocytosis (M) Present; Reactive Lymphocytes Present; Total Cells Counted 200; WBC 2.8 k/uL (3.8-10.6)
[2018-06-21 07:26] LABS: Platelet Count 64 k/uL (150-450)
--- NOTE | 2018-06-21 10:50 | PN ---
PROGRESS NOTE Patient is an 87-year-old pleasant white male with metastatic prostate cancer, admitted to the hospital with rectal bleeding. He had multiple episodes of bright red blood per rectum with clots for the last 3-4 days duration. However, was noted to have severe thrombocytopenia and hematology has seen the patient. His platelet count was 22,000 yesterday. He had about 5 episodes of maroon-colored stools with bright red stools with clots all day yesterday. He received 1 unit of platelet transfusion and 3 units of PRBC transfusion so far. LABS: Today show WBC count of 2.8, hemoglobin 7.3, and platelets were 64,000. This morning he has small amount of bright red blood in the stool. Patient known to have history of prostate cancer with radiation in the past and had radiation proctitis for which he underwent a colonoscopy with Argon plasma coagulation in August of 2016. He denies any abdominal pain. No nausea, vomiting. PHYSICAL EXAMINATION: He appears comfortable. No apparent distress. VITAL SIGNS: Stable. Blood pressure is 115/76, pulse rate 108, temperature 98.8. HEENT examination unremarkable. Conjunctivae pink. Sclerae anicteric. Oral cavity no lesions. Neck: No JVD or lymph node enlargement. Chest was clear to auscultation. HEART: Regular rate and rhythm. ABDOMEN: Soft. Bowel sounds are positive. NEUROLOGIC: Alert and oriented x3. No focal deficits. LABORATORY DATA: The following are the labs that were done today. CBC showed a WBC count 2.4, hemoglobin 7.3, platelets 64,000. IMPRESSION: 1. Acute lower gastrointestinal bleed, most likely from radiation proctitis. He is status post colonoscopy with argon plasma coagulation a year and half ago. He continues to have ongoing bleeding because of severe thrombocytopenia. He is status post 1 unit of platelet transfusion yesterday and platelets have improved to 64,000 today. 2. Metastatic prostate cancer. 3. Severe thrombocytopenia. RECOMMENDATIONS: I had a lengthy discussion with the patient. At this time, since he continues to have ongoing bleeding, we will proceed with a flexible sigmoidoscopy tomorrow. We will repeat CBC in the morning and if needed, give him a platelet transfusion tomorrow. The plan was discussed with the patient and he is agreeable to it. Thank you for this consultation. MMODL / IJN: [id number] /
--- NOTE | 2018-06-21 10:51 | P.PN ---
Subjective Progress Note Date: 06/21/18 Principal diagnosis: Gastrointestinal bleeding This is a very pleasant 87-year-old gentleman who was admitted on 06/17/2018 with acute gastrointestinal bleeding. 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 He was also on Xarelto for atrial fibrillation in the outpatient setting. He is seen again today in the intensive care unit. He is awake and alert in no acute distress. He is quite pale yet. Current hemoglobin 7.2. He is status post 2 units of packed red blood cell transfusions since admission. White count 3.0. Platelet count 26,000. INR 1.3. Sodium 129. Creatinine 0.73. He has passed one large clot per rectum this morning. He is requesting hospice at this time. The patient is seen again today 06/21/2018 in follow-up in the intensive care unit. He is currently awake and alert in no acute distress. He is somewhat confused to time and place. He is maintaining O2 saturations in the high 90s on 2 L/m per nasal cannula. He is afebrile. Slightly tachycardic. He has received a total of 3 units of packed red blood cells and 1 unit of platelets. Current hemoglobin 7.3. Platelets 64,000. White count 2.8. He remains on Protonix IV. GI services are following. Objective - Vital Signs Vital signs: Vital Signs Temp 98.2 F 06/21/18 04:00 Pulse 93 06/21/18 09:00 Resp 25 H 06/21/18 09:00 BP 142/90 06/21/18 08:00 Pulse Ox 99 06/21/18 09:00 Intake & Output 06/20/18 06/21/18 06/21/18 18:59 06:59 18:59 Intake Total 740 1631 Output Total 1 0 0 Balance 739 1631 0 Weight 86.5 kg 87.6 kg Intake: IV 460 Platelets 460 Oral 740 370 Blood Product 801 Platelet Irr Pheresis 491 Acda Unit [id number] Rc As-1 Unit 310 [id number] Output: Urine 1 0 Stool 0 Other: Voiding Method Bedside Commode Bedside Commode Urinal Urinal # Voids 1 1 1 # Bowel Movements 1 1 - Exam General appearance: Present: average body habitus, mild distress, pallor - EENT Eyes: Present: EOMI, PERRLA ENT: Present: hard of hearing Ears: bilateral: normal - Neck Neck: Present: normal ROM Carotids: bilateral: upstroke normal Thyroid: bilateral: normal size - Respiratory Respiratory: bilateral: rhonchi - Cardiovascular Rhythm: irregularly irregular Heart sounds: normal: S1, S2 - Gastrointestinal General gastrointestinal: Present: hyperactive bowel sounds Localized gastrointestinal: tender: diffuse - Integumentary Integumentary: Present: normal turgor - Neurologic Neurologic: Present: CNII-XII intact - Musculoskeletal Musculoskeletal: Present: generalized weakness - Psychiatric Psychiatric: Present: A&O x's 1 was somewhat confused to time and place. - Labs CBC & Chem 7: 06/21/18 05:37 06/21/18 05:37 Labs: Abnormal Lab Results - Last 24 Hours (Table) 06/20/18 06/20/18 06/21/18 Range/Units 17:56 19:27 05:37 WBC 3.2 L (3.8-10.6) k/uL RBC 2.22 L (4.30-5.90) m/uL Hgb 6.5 L* (13.0-17.5) gm/dL Hct 19.5 L* (39.0-53.0) % RDW 20.3 H (11.5-15.5) % Plt Count 24 L (150-450) k/uL Lymphocytes # (Manual) 0.51 L (1.0-4.8) k/uL Metamyelocytes # (Man) (0) k/uL Myelocytes # (Manual) (0) k/uL Nucleated RBCs (0-0) /100 WBC PT (9.0-12.0) sec INR (<1.2) APTT (22.0-30.0) sec Sodium 130 L (137-145) mmol/L Glucose 110 H (74-99) mg/dL Calcium 7.8 L (8.4-10.2) mg/dL Crossmatch See Detail 06/21/18 06/21/18 Range/Units 05:37 05:37 WBC 2.8 L (3.8-10.6) k/uL RBC 2.37 L (4.30-5.90) m/uL Hgb 7.3 L (13.0-17.5) gm/dL Hct 21.0 L (39.0-53.0) % RDW 19.0 H (11.5-15.5) % Plt Count 64 L D (150-450) k/uL Lymphocytes # (Manual) 0.50 L (1.0-4.8) k/uL Metamyelocytes # (Man) 0.25 H (0) k/uL Myelocytes # (Manual) 0.06 H (0) k/uL Nucleated RBCs 4 H (0-0) /100 WBC PT 12.4 H (9.0-12.0) sec INR 1.2 H (<1.2) APTT 19.9 L (22.0-30.0) sec Sodium (137-145) mmol/L Glucose (74-99) mg/dL Calcium (8.4-10.2) mg/dL Crossmatch Assessment and Plan Assessment: Impression: #1 Acute lower gastrointestinal bleeding with profound anemia, status post 3 units of packed red blood cells since admission. Presume secondary to radiation colitis or possibly angiodysplasia and diverticular disease. #2 Pancytopenia. He has received 1 unit of platelets as well. #3 History of prostate cancer, status post external beam radiation. #4 History of chronic atrial fibrillation, on Xarelto in the outpatient setting. #5 Chronic obstructive pulmonary disease secondary to previous tobacco dependence. #6 History of DVT. #7 Previous history of gastrointestinal bleeding. #8 Presume radiation colitis. #9 Hyperlipidemia. #10 History of hypertension. #11 Dementia. #12 Myocardial infarction. #13 Degenerative joint disease. #14 History of previous skin cancer with resection. Plan: The patient was seen and evaluated by Dr. Koenig. He did speak with the patient' s daughter on the phone at length today. She is considering hospice versus allowing sigmoidoscopy or any other procedures to be done at this point. We are awaiting her arrival to the ICU for further discussion. In the interim, we' ll continue with full supportive care. His overall prognosis remains quite poor. He did require another unit of packed red cells and platelets yesterday. White count 2.8. Hemoglobin 7.3. Platelet count 64,000. We'll continue to follow make further recommendations based on his clinical status. I, the cosigning physician, performed a history & physical examination of the patient. Lungs sounds are clear. Maintaining good O2 saturations in the 90s on 2 liters per minute per nasal cannula. I discussed the assessment and plan of care with my nurse practitioner, Corina Martinez. I attest to the above note as dictated by her.
[2018-06-21] MEDS: PANTOPRAZOLE 40 MG/10 ML VIAL IV SCH (11:24)
[2018-06-21] MEDS: DILTIAZEM CD 120 MG CAP.ER.24H PO SCH (11:25)
[2018-06-21] MEDS: predniSONE 5 MG TAB PO SCH (11:25)
[2018-06-21 13:40] VITALS: BP 112/94; PULSE 109; RESP 18; TEMP 97.9
--- NOTE | 2018-06-21 14:36 | P.PN ---
Subjective Progress Note Date: 06/21/18 E pleasant 87-year-old gentleman with a history of A. fib on xarelto, history of metastatic prostate cancer, history of thrombocythemia, comes in with history of blood in the stools for the past 2 days before the admission. He was also having lightheadedness at that time. He otherwise did not complain of any shortness of breath or cough no chest pain or racing heart no abdominal pain , nausea and vomiting, no tingling numbness of the extremities, no itch no rash. 06/19/2018 Patient having no acute issues but according to the nursing had one episode of maroon stool this morning He does not complain of any chest pain or racing heart, no cough no shortness of breath, no abdominal pain, no nausea and vomiting, no diarrhea no constipation, no tingling numbness of any extremities, no itch no rash 06/20/2018 Patient still having small bowel movements with blood in it. Patient otherwise not complaining of any chest pain, racing heart, no abdominal pain, no nausea and vomiting, no diarrhea no constipation. 06/21/2018 Patient apparently was made hospice today. Patient is slightly more short of breath. Patient is lying ongoing bleeding. Objective - Vital Signs Vital signs: Vital Signs Temp 97.9 F 06/21/18 12:00 Pulse 109 H 06/21/18 12:00 Resp 18 06/21/18 12:00 BP 112/94 06/21/18 13:00 Pulse Ox 98 06/21/18 12:00 Intake & Output 06/20/18 06/21/18 06/21/18 18:59 06:59 18:59 Intake Total 740 1631 400 Output Total 1 0 0 Balance 739 1631 400 Weight 86.5 kg 87.6 kg Intake: IV 460 Platelets 460 Oral 740 370 400 Blood Product 801 Platelet Irr Pheresis 491 Acda Unit [id number] Rc As-1 Unit 310 [id number] Output: Urine 1 0 0 Stool 0 Other: Voiding Method Bedside Commode Bedside Commode Urinal Urinal # Voids 1 1 1 # Bowel Movements 1 1 3 - Exam On exam, alert and oriented x3. HEENT: Conjunctivae normal. eyes normal. NECK: No JVD. No thyroid enlargement. No LNs CARDIOVASCULAR: S1, S2 heard. No murmur RESPIRATION: Breath sounds diminished in the bases. No rhonchi or crackles. No bronchial breathing. ABDOMEN: Soft, nontender . No guarding. no masses palpable. No ascites, No hepatosplenomegaly.Bowel sounds heard. LEGS: No edema. no swelling NERVOUS SYSTEM: Cranial N 2-12 grossly normal. Moves all 4 limbs. No focal deficits. No sensory deficit. No signs of cerebellar dysfucntion. Skin: no ulcer, patient having petechiae in the upper and lower extremities joints: No active swelling. No inflammation. Lymphatic system. No LN neck axilla or groin. - Labs CBC & Chem 7: 06/21/18 05:37 06/21/18 05:37 Labs: Abnormal Lab Results - Last 24 Hours (Table) 06/20/18 06/20/18 06/21/18 Range/Units 17:56 19:27 05:37 WBC 3.2 L (3.8-10.6) k/uL RBC 2.22 L (4.30-5.90) m/uL Hgb 6.5 L* (13.0-17.5) gm/dL Hct 19.5 L* (39.0-53.0) % RDW 20.3 H (11.5-15.5) % Plt Count 24 L (150-450) k/uL Lymphocytes # (Manual) 0.51 L (1.0-4.8) k/uL Metamyelocytes # (Man) (0) k/uL Myelocytes # (Manual) (0) k/uL Nucleated RBCs (0-0) /100 WBC PT (9.0-12.0) sec INR (<1.2) APTT (22.0-30.0) sec Sodium 130 L (137-145) mmol/L Glucose 110 H (74-99) mg/dL Calcium 7.8 L (8.4-10.2) mg/dL Crossmatch See Detail 06/21/18 06/21/18 Range/Units 05:37 05:37 WBC 2.8 L (3.8-10.6) k/uL RBC 2.37 L (4.30-5.90) m/uL Hgb 7.3 L (13.0-17.5) gm/dL Hct 21.0 L (39.0-53.0) % RDW 19.0 H (11.5-15.5) % Plt Count 64 L D (150-450) k/uL Lymphocytes # (Manual) 0.50 L (1.0-4.8) k/uL Metamyelocytes # (Man) 0.25 H (0) k/uL Myelocytes # (Manual) 0.06 H (0) k/uL Nucleated RBCs 4 H (0-0) /100 WBC PT 12.4 H (9.0-12.0) sec INR 1.2 H (<1.2) APTT 19.9 L (22.0-30.0) sec Sodium (137-145) mmol/L Glucose (74-99) mg/dL Calcium (8.4-10.2) mg/dL Crossmatch Assessment and Plan Assessment: 1. Acute GI bleed 2. Acute blood loss anemia 3. History of A. fib was on Xarelto which is on hold as of now 4. Thrombocytopenia follows with Dr. Hamilton 5. History of metastatic prostate cancer not on any chemo right now due to declining functional status 6. History of CVA/TIA 7. History of DVT 8. History of GI bleed previously 9. Hypertension 10. Hyperlipidemia Plan: - Patient and family opted for hospice - Family wants him to be comfortable. - Discussed with the patient and family regarding home medications as to what they're comfortable with and what can be stopped - Patient is in inpatient hospice as of now. There are plan for home with hospice depending upon his condition tomorrow
[2018-06-22] MEDS ORDERED: NA PHOS,M-B/NA PHOS,DI-BA 133 ML ENEMA RECTAL SCH (07:00)
== END 2018-06-21 15:16 | disposition hospice, inpatient (51) | DRG 393 ==
LOC: EC 17:45 → 2SICU 19:27
PROVIDERS: ADMIT Hospitalist; ATTEND Hospitalist
PROC: 30233N1 Transfusion of Nonautologous Red Blood Cells into Peripheral Vein, Percutaneous Approach (ICD-10-PCS; principal; 2018-06-17)
DX: K62.7 Radiation proctitis (principal); K55.21 Angiodysplasia of colon with hemorrhage; K57.91 Diverticulosis of intestine, part unspecified, without perforation or abscess with bleeding; C79.51 Secondary malignant neoplasm of bone; D61.818 Other pancytopenia; D62 Acute posthemorrhagic anemia; C61 Malignant neoplasm of prostate; E78.5 Hyperlipidemia, unspecified; F03.90 Unspecified dementia, unspecified severity, without behavioral disturbance, psychotic disturbance, mood disturbance, and anxiety; I10 Essential (primary) hypertension; I25.2 Old myocardial infarction; I48.2 Chronic atrial fibrillation; J44.9 Chronic obstructive pulmonary disease, unspecified; K44.9 Diaphragmatic hernia without obstruction or gangrene; K57.30 Diverticulosis of large intestine without perforation or abscess without bleeding; M19.90 Unspecified osteoarthritis, unspecified site; Y84.2 Radiological procedure and radiotherapy as the cause of abnormal reaction of the patient, or of later complication, without mention of misadventure at the time of the procedure; Z66 Do not resuscitate; Z79.01 Long term (current) use of anticoagulants; Z79.4 Long term (current) use of insulin; Z79.51 Long term (current) use of inhaled steroids; Z79.899 Other long term (current) drug therapy; Z82.49 Family history of ischemic heart disease and other diseases of the circulatory system; Z85.828 Personal history of other malignant neoplasm of skin; Z86.718 Personal history of other venous thrombosis and embolism; Z86.73 Personal history of transient ischemic attack (TIA), and cerebral infarction without residual deficits; Z87.891 Personal history of nicotine dependence; Z92.3 Personal history of irradiation; Z60.2 Problems related to living alone
CPT/HCPCS: 36415; 71045; 80048; 80053; 82550; 82553; 82728; 83540; 83550; 83615; 83735; 84100; 84484; 85025; 85027; 85384; 85610; 85730; 86850; 86900; 86901; 86920; 93005; 99291

== ENCOUNTER 2018-06-21 13:50 | Inpatient (IN) | payer MEDICAID ==
[2018-06-21] MEDS ORDERED: ACETAMINOPHEN TAB 325 MG TAB PO PRN (14:10)
[2018-06-21] MEDS ORDERED: ONDANSETRON 4 MG/2 ML VIAL IVP PRN (14:10)
[2018-06-21] MEDS ORDERED: HYDROcodone/APAP 5-325MG 1 EACH TAB PO PRN (14:10)
[2018-06-21] MEDS ORDERED: BISACODYL 10 MG SUPP RECTAL PRN (14:19)
[2018-06-21 15:55] VITALS: BMI 26.2
[2018-06-21] MEDS: MESALAMINE 4 GM/60 ML ENEMA RECTAL SCH (21:11)
[2018-06-21] MEDS: ESCITALOPRAM 10 MG TAB PO SCH (21:11)
[2018-06-22] MEDS: predniSONE 5 MG TAB PO SCH (08:58)
[2018-06-22] MEDS: PANTOPRAZOLE 40 MG TABLET PO SCH (08:58)
[2018-06-22] MEDS: DILTIAZEM CD 120 MG CAP.ER.24H PO SCH (08:58)
[2018-06-22] MEDS: LORazepam 2 MG/ML INJ IV PRN (11:37)
[2018-06-22] MEDS: MORPHINE SULFATE 2 MG/ML SYRINGE IV PRN ×2 (14:09→23:38)
[2018-06-22] MEDS: MESALAMINE 4 GM/60 ML ENEMA RECTAL SCH (19:55)
[2018-06-22] MEDS: ESCITALOPRAM 10 MG TAB PO SCH (19:55)
[2018-06-23 06:46] VITALS: BP 124/85
--- NOTE | 2018-06-23 07:03 | P.HPIM ---
History of Present Illness This is a pleasant 87 years old male with past medical history of atrial fibrillation, COPD/asthma, TIA, DVT, GI bleed, hyperlipidemia, hypertension, memory problem, coronary artery disease, history of prostate cancer status post radiotherapy and chemotherapy with metastasis to the bone. who was already been accepted to comfort care by the time i saw the pt today , pt originally admitted with several maroon colored bowel movements with hemoglobin 4.4, Received several units of blood transfusion , and plateletet transfusion , GI and critical care team were following the pt then, however family opted comfort care due to pt advanced complex medical problems. pt was in the ICU then and he was transferred to the oncology floor , he is lying in bed, minimally responsive , he is breathing qiuetly , and daughter at bed side Review of Systems N/A Past Medical History Past Medical History: Atrial Fibrillation, Asthma, Cancer, COPD, CVA/TIA, Deep Vein Thrombosis (DVT), GI Bleed, Hyperlipidemia, Hypertension, Memory Impairment , Myocardial Infarction (UT), Osteoarthritis (OA), Prostate Disorder Additional Past Medical History / Comment(s): prostate CA-HAD 44 RADIATION TX- had mets to bone currently taking oral chemo and hormone tx, MILD SHORT TERM MEMORY PROBLEMS, NAVEL HERNIA,SKIN CA basal cell(LT HAND-lip. back REMOVED. past gi bleed lower bowel pt stated it was from the past radiation tx- it was cauterized.. Last Myocardial Infarction Date:: UNK History of Any Multi-Drug Resistant Organisms: None Reported Past Surgical History: Heart Catheterization Additional Past Surgical History / Comment(s): VASECTOMY, PROSTATE BX TOMMY CATARACTS, RT EYE LASER SX, skin ca removed. Past Anesthesia/Blood Transfusion Reactions: No Reported Reaction Past Psychological History: No Psychological Hx Reported Additional Psychological History / Comment(s): pt lives alone. uses cane when up and has a walker to use if needed. Smoking Status: Former smoker Past Alcohol Use History: Rare Additional Past Alcohol Use History / Comment(s): STARTED SMOKING AT AGE 16(1945 ), WAS SMOKING 2 PPD. QUIT 1992 Past Drug Use History: None Reported - Past Family History Mother Additional Family Medical History / Comment(s): RHEUMATIC FEVER- HEART VALVE DAMAGE- AGE 45 Father Family Medical History: Coronary Artery Disease (CAD) Additional Family Medical History / Comment(s): AGE 93 HEART PROBLEMS Medications and Allergies Home Medications Medication Instructions Recorded Confirmed Type Diltiazem HCl [Diltiazem 24Hr ER] 120 mg PO Q24HR 01/29/17 06/21/18 History Escitalopram [Lexapro] 10 mg PO HS 01/29/17 06/21/18 History Montelukast [Singulair] 10 mg PO HS 01/29/17 06/21/18 History ALPRAZolam [Xanax] 0.25 mg PO HS PRN 03/13/18 06/21/18 History Acetaminophen [Tylenol] 325 mg PO Q4H PRN 06/18/18 06/21/18 History Atorvastatin [Lipitor] 20 mg PO HS 06/18/18 06/21/18 History Fluticasone/Vilanterol [Breo 1 puff INHALATION RT-DAILY 06/18/18 06/21/18 History Ellipta 100-25 Mcg Inhaler] Magnesium Hydroxide [Milk of 400 mg PO Q72H PRN 06/18/18 06/21/18 History Magnesia] Pantoprazole Sodium 40 mg PO DAILY 06/18/18 06/21/18 History Polyethylene Glycol 3350 [Miralax] 17 gm PO DAILY 06/18/18 06/21/18 History Rivaroxaban [Xarelto] 20 mg PO DAILY 06/18/18 06/21/18 History Sennosides [Senokot] 8.6 mg PO DAILY 06/18/18 06/21/18 History predniSONE 5 mg PO DAILY 06/18/18 06/21/18 History Allergies Allergy/AdvReac Type Severity Reaction Status Date / Time simvastatin [From Zocor] AdvReac MUSCLE PAIN Verified 06/21/18 18:10 Physical Exam Vitals: Vital Signs Temp Pulse Pulse Resp BP Pulse Ox 06/22/18 08:20 98.1 F 98 90 16 99/65 99 06/22/18 06:24 98.6 F 98 14 110/65 98 06/21/18 23:00 97.5 F L 105 H 18 97/60 96 06/21/18 16:00 92 20 06/21/18 15:51 97.9 F 92 20 117/66 96 Intake and Output 06/21/18 06/22/18 06/22/18 22:59 06:59 14:59 Output Total 3 2 Balance -3 -2 Output: Urine 0 Stool 3 2 Other: # Voids 1 # Bowel Movements 1 Weight 87.6 kg GENERAL: The patient is alert and oriented x0, generally weak. HEENT: Pupils are round and equally reacting to light. EOMI. No scleral icterus. No conjunctival pallor. Normocephalic, atraumatic. No pharyngeal erythema. No thyromegaly. CARDIOVASCULAR: S1 and S2 present. No murmurs, rubs, or gallops. PULMONARY: Chest is clear to auscultation, no wheezing or crackles. ABDOMEN: Soft, nontender, nondistended, normoactive bowel sounds. No palpable organomegaly. MUSCULOSKELETAL: No joint swelling or deformity. EXTREMITIES: No cyanosis, clubbing, or pedal edema. NEUROLOGICAL: Gross neurological examination did not reveal any focal deficits. SKIN: No rashes. Assessment and Plan Assessment: metastatic prostate cancer not on any chemo right now due to declining functional status, with mets to liver and lung. s/p radio-chemotherapy Acute GI bleed Acute blood loss anemia History of A. fib was on Xarelto which is on hold as of now Thrombocytopenia follows with Dr. Hamilton History of CVA/TIA History of DVT History of GI bleed previously Hypertension Hyperlipidemia Plan: This is a pleasant 87 years old male who is admitted to hospice due to end stages of his illness, including metastatic prostate cancer with complication eg GI bleed, and continue with hospice care as per family wishes, family at bed side and they had no more questions. pt looks comfortable and not in distress. pain medication is provided. prognosis is very poor
[2018-06-23] MEDS: predniSONE 5 MG TAB PO SCH (07:31)
[2018-06-23] MEDS: DILTIAZEM CD 120 MG CAP.ER.24H PO SCH (07:31)
[2018-06-23] MEDS: PANTOPRAZOLE 40 MG TABLET PO SCH (07:31)
[2018-06-23] MEDS: MORPHINE SULFATE 2 MG/ML SYRINGE IV PRN ×4 (08:47→23:44)
[2018-06-23] MEDS ORDERED: ATROPINE OPHTH SOLN 1% 5ML BTL SUBLINGUAL PRN (12:42)
[2018-06-23] MEDS ORDERED: SCOPOLAMINE 1.5MG/72HR PATCH TRANSDERM SCH (12:45)
[2018-06-23] MEDS: LORazepam 2 MG/ML INJ IV PRN (18:07)
--- NOTE | 2018-06-23 21:30 | P.PN ---
Subjective Progress Note Date: 06/23/18 Principal diagnosis: Metastatic prostate cancer. This is a pleasant 87 years old male with past medical history of atrial fibrillation, COPD/asthma, TIA, DVT, GI bleed, hyperlipidemia, hypertension, memory problem, coronary artery disease, history of prostate cancer status post radiotherapy and chemotherapy with metastasis to the bone. who was already been accepted to comfort care by the time i saw the pt today , pt originally admitted with several maroon colored bowel movements with hemoglobin 4.4, Received several units of blood transfusion , and plateletet transfusion , GI and critical care team were following the pt then, however family opted comfort care due to pt advanced complex medical problems. pt was in the ICU then and he was transferred to the oncology floor , he is lying in bed, minimally responsive , he is breathing qiuetly , and daughter at bed side. 06/23/2018 Patient is resting comfortably. Patient's is at bedside. Continued on pain management and anxiolytics as needed. Complete review of systems could not be obtained from the patient. Current medications reviewed. Objective - Vital Signs Vital signs: Vital Signs Temp 98.2 F 06/23/18 06:45 Pulse 96 06/23/18 06:45 Resp 18 06/23/18 14:56 BP 124/85 06/23/18 06:45 Pulse Ox 100 06/23/18 06:45 Intake & Output 06/23/18 06/23/18 06/24/18 06:59 18:59 06:59 Output Total 425 1 Balance -425 -1 Output: Urine 425 Stool 1 Other: Voiding Method Indwelling Catheter # Bowel Movements 4 - Exam GENERAL: The patient is alert and oriented x0, generally weak. HEENT: EOMI. No scleral icterus. No conjunctival pallor. Normocephalic, atraumatic. No pharyngeal erythema. No thyromegaly. CARDIOVASCULAR: S1 and S2 present. No murmurs, rubs, or gallops. PULMONARY: Chest is clear to auscultation, no wheezing or crackles. ABDOMEN: Soft, nontender, nondistended, normoactive bowel sounds. No palpable organomegaly. MUSCULOSKELETAL: No joint swelling or deformity. EXTREMITIES: No cyanosis, clubbing, or pedal edema. NEUROLOGICAL: Gross neurological examination did not reveal any focal deficits. SKIN: No rashes. Assessment and Plan Assessment: Metastatic prostate cancer not on any chemo right now due to declining functional status, with mets to liver and lung. s/p radio-chemotherapy Acute GI bleed Acute blood loss anemia History of Jamaal alvarez was on Xarelto which is on hold as of now Thrombocytopenia follows with Dr. Hamilton History of CVA/TIA History of DVT History of GI bleed previously Hypertension Hyperlipidemia Plan: This is a pleasant 87 years old male who is admitted to hospice due to end stages of his illness, including metastatic prostate cancer with complication of GI bleed, and continue with hospice care as per family wishes, family at bed side and they had no more questions. pt looks comfortable and not in distress. pain medication is provided. prognosis is very poor
[2018-06-24 05:48] VITALS: TEMP 99.1
[2018-06-24] MEDS: MORPHINE SULFATE 2 MG/ML SYRINGE IV PRN (06:12)
[2018-06-24] MEDS: LORazepam 2 MG/ML INJ IV PRN (06:12)
[2018-06-24] MEDS: MORPHINE SULFATE 2 MG/ML SYRINGE IVP SCH ×4 (10:54→22:18)
[2018-06-24] MEDS: LORazepam 2 MG/ML INJ IV SCH ×3 (12:34→20:11)
[2018-06-25] MEDS: LORazepam 2 MG/ML INJ IV SCH ×6 (01:42→21:16)
[2018-06-25] MEDS: MORPHINE SULFATE 2 MG/ML SYRINGE IVP SCH ×3 (03:04→10:39)
[2018-06-25] MEDS: MORPHINE SULFATE (100 MG/2 ML) 100 MG in SODIUM CHLORIDE 0.9% 100 ML IV SCH (10:50)
--- NOTE | 2018-06-25 14:55 | P.PN ---
Subjective Progress Note Date: 06/24/18 Principal diagnosis: Metastatic prostate cancer. This is a pleasant 87 years old male with past medical history of atrial fibrillation, COPD/asthma, TIA, DVT, GI bleed, hyperlipidemia, hypertension, memory problem, coronary artery disease, history of prostate cancer status post radiotherapy and chemotherapy with metastasis to the bone. who was already been accepted to comfort care by the time i saw the pt today , pt originally admitted with several maroon colored bowel movements with hemoglobin 4.4, Received several units of blood transfusion , and plateletet transfusion , GI and critical care team were following the pt then, however family opted comfort care due to pt advanced complex medical problems. pt was in the ICU then and he was transferred to the oncology floor , he is lying in bed, minimally responsive , he is breathing qiuetly , and daughter at bed side. 06/23/2018 Patient is resting comfortably. Patient's is at bedside. Continued on pain management and anxiolytics as needed. Complete review of systems could not be obtained from the patient. 06/20/2018 Patient was having slight agitation this morning. Morphine dose increased to every 4. Otherwise requesting comfortably currently. Family is at bedside. Current medications reviewed. Objective - Vital Signs Vital signs: Vital Signs Temp 99.1 F 06/23/18 23:00 Pulse 107 H 06/24/18 15:45 Resp 24 06/24/18 15:45 BP 124/85 06/23/18 06:45 Pulse Ox 95 06/24/18 15:45 Intake & Output 06/24/18 06/24/18 06/25/18 06:59 18:59 06:59 Intake Total 0 Output Total 400 275 0 Balance -400 -275 0 Intake: Oral 0 Output: Urine 400 275 0 Uretheral (Paz) 400 Other: Voiding Method Indwelling Catheter Indwelling Catheter # Bowel Movements 2 2 - Exam GENERAL: The patient is alert and oriented x0, generally weak. HEENT: EOMI. No scleral icterus. No conjunctival pallor. Normocephalic, atraumatic. No pharyngeal erythema. No thyromegaly. CARDIOVASCULAR: S1 and S2 present. No murmurs, rubs, or gallops. PULMONARY: Chest is clear to auscultation, no wheezing or crackles. ABDOMEN: Soft, nontender, nondistended, normoactive bowel sounds. No palpable organomegaly. MUSCULOSKELETAL: No joint swelling or deformity. EXTREMITIES: No cyanosis, clubbing, or pedal edema. NEUROLOGICAL: Gross neurological examination did not reveal any focal deficits. SKIN: No rashes. Assessment and Plan Assessment: Metastatic prostate cancer not on any chemo right now due to declining functional status, with mets to liver and lung. s/p radio-chemotherapy Acute GI bleed Acute blood loss anemia History of Rohith. kim was on Xarelto which is on hold as of now Thrombocytopenia follows with Dr. Hamilton History of CVA/TIA History of DVT History of GI bleed previously Hypertension Hyperlipidemia Plan: This is a pleasant 87 years old male who is admitted to hospice due to end stages of his illness, including metastatic prostate cancer with complication of GI bleed, and continue with hospice care as per family wishes, family at bed side and they had no more questions. pt looks comfortable and not in distress. pain medication is provided. prognosis is very poor
[2018-06-25 17:08] VITALS: RESP 24
[2018-06-26] MEDS: LORazepam 2 MG/ML INJ IV SCH ×3 (00:23→09:57)
[2018-06-26 00:50] VITALS: PULSE 104
[2018-06-26] MEDS: MORPHINE SULFATE (100 MG/2 ML) 100 MG in SODIUM CHLORIDE 0.9% 100 ML IV SCH (10:22)
--- NOTE | 2018-06-27 00:24 | P.DS ---
Providers Date of admission: 06/21/18 15:41 Expected date of discharge: 06/26/18 Attending physician: Ping Blankenship Primary care physician: Rafael Presley Hospital Course: diagnosis Metastatic prostate cancer not on any chemo right now due to declining functional status, with mets to liver and lung. s/p radio-chemotherapy Acute GI bleed Acute blood loss anemia History of Jamaal alvarez was on Xarelto which is on hold as of now Thrombocytopenia follows with Dr. Hamilton History of CVA/TIA History of DVT History of GI bleed previously Hypertension Hyperlipidemia Hospital course This is a pleasant 87 years old male with past medical history of atrial fibrillation, COPD/asthma, TIA, DVT, GI bleed, hyperlipidemia, hypertension, memory problem, coronary artery disease, history of prostate cancer status post radiotherapy and chemotherapy with metastasis to the bone. who was already been accepted to comfort care by the time i saw the pt today , pt originally admitted with several maroon colored bowel movements with hemoglobin 4.4, Received several units of blood transfusion , and plateletet transfusion , GI and critical care team were following the pt then, however family opted comfort care due to pt advanced complex medical problems. pt was in the ICU then and he was transferred to the oncology floor Due to end stages of his illness, including metastatic prostate cancer with complication of GI bleed, hospice care was requested as per family wishes. Patient was continued on comfort measures. Patient at 10:12 a.m. Plan - Discharge Summary New Discharge Prescriptions: No Action Escitalopram [Lexapro] 10 mg PO HS Montelukast [Singulair] 10 mg PO HS Diltiazem HCl [Diltiazem 24Hr ER] 120 mg PO Q24HR ALPRAZolam [Xanax] 0.25 mg PO HS PRN PRN Reason: Anxiety Atorvastatin [Lipitor] 20 mg PO HS Pantoprazole Sodium 40 mg PO DAILY Rivaroxaban [Xarelto] 20 mg PO DAILY Sennosides [Senokot] 8.6 mg PO DAILY predniSONE 5 mg PO DAILY Polyethylene Glycol 3350 [Miralax] 17 gm PO DAILY Magnesium Hydroxide [Milk of Magnesia] 400 mg PO Q72H PRN PRN Reason: Constipation Fluticasone/Vilanterol [Breo Ellipta 100-25 Mcg Inhaler] 1 puff INHALATION RT -DAILY Acetaminophen [Tylenol] 325 mg PO Q4H PRN PRN Reason: Pain Or Fever > 100.5 Discharge Medication List Diltiazem HCl [Diltiazem 24Hr ER] 120 mg PO Q24HR 01/29/17 [History] Escitalopram [Lexapro] 10 mg PO HS 01/29/17 [History] Montelukast [Singulair] 10 mg PO HS 01/29/17 [History] ALPRAZolam [Xanax] 0.25 mg PO HS PRN 03/13/18 [History] Acetaminophen [Tylenol] 325 mg PO Q4H PRN 06/18/18 [History] Atorvastatin [Lipitor] 20 mg PO HS 06/18/18 [History] Fluticasone/Vilanterol [Breo Ellipta 100-25 Mcg Inhaler] 1 puff INHALATION RT- DAILY 06/18/18 [History] Magnesium Hydroxide [Milk of Magnesia] 400 mg PO Q72H PRN 06/18/18 [History] Pantoprazole Sodium 40 mg PO DAILY 06/18/18 [History] Polyethylene Glycol 3350 [Miralax] 17 gm PO DAILY 06/18/18 [History] Rivaroxaban [Xarelto] 20 mg PO DAILY 06/18/18 [History] Sennosides [Senokot] 8.6 mg PO DAILY 06/18/18 [History] predniSONE 5 mg PO DAILY 06/18/18 [History] Discharge Disposition: - Preliminary Cause of Preliminary Cause of : Acute blood loss anemia and metastatic prostate cancer
--- NOTE | 2018-06-27 00:24 | P.PN ---
Subjective Progress Note Date: 06/25/18 Principal diagnosis: Metastatic prostate cancer. This is a pleasant 87 years old male with past medical history of atrial fibrillation, COPD/asthma, TIA, DVT, GI bleed, hyperlipidemia, hypertension, memory problem, coronary artery disease, history of prostate cancer status post radiotherapy and chemotherapy with metastasis to the bone. who was already been accepted to comfort care by the time i saw the pt today , pt originally admitted with several maroon colored bowel movements with hemoglobin 4.4, Received several units of blood transfusion , and plateletet transfusion , GI and critical care team were following the pt then, however family opted comfort care due to pt advanced complex medical problems. pt was in the ICU then and he was transferred to the oncology floor , he is lying in bed, minimally responsive , he is breathing qiuetly , and daughter at bed side. 06/23/2018 Patient is resting comfortably. Patient's is at bedside. Continued on pain management and anxiolytics as needed. Complete review of systems could not be obtained from the patient. 06/24/2018 Patient was having slight agitation this morning. Morphine dose increased to every 4. Otherwise requesting comfortably currently. Family is at bedside. 06/25/2018 Patient is comfortable. Family is at bedside. Could not provide any history. Current medications reviewed. Objective - Vital Signs Vital signs: Vital Signs Temp 99.1 F 06/23/18 23:00 Pulse 100 06/25/18 08:51 Resp 22 06/25/18 14:52 BP 124/85 06/23/18 06:45 Pulse Ox 95 06/24/18 15:45 Intake & Output 06/24/18 06/25/18 06/25/18 18:59 06:59 18:59 Intake Total 0 5.284 Output Total 275 121 Balance -275 -121 5.284 Intake: Intake, IV Titration 5.284 Amount Morphine Sulfate (100 mg/ 5.284 2 ml) 100 mg In Sodium Chloride 0.9% 100 ml @ 1 MG/HR 1.02 mls/hr IV . Q24H [facility] Rx#:[id number] Oral 0 Output: Urine 275 120 Stool 1 Other: Voiding Method Indwelling Catheter Indwelling Catheter Indwelling Catheter # Bowel Movements 2 - Exam GENERAL: The patient is alert and oriented x0, generally weak. HEENT: EOMI. No scleral icterus. No conjunctival pallor. Normocephalic, atraumatic. No pharyngeal erythema. No thyromegaly. CARDIOVASCULAR: S1 and S2 present. No murmurs, rubs, or gallops. PULMONARY: Chest is clear to auscultation, no wheezing or crackles. ABDOMEN: Soft, nontender, nondistended, normoactive bowel sounds. No palpable organomegaly. MUSCULOSKELETAL: No joint swelling or deformity. EXTREMITIES: No cyanosis, clubbing, or pedal edema. NEUROLOGICAL: Gross neurological examination did not reveal any focal deficits. SKIN: No rashes. Assessment and Plan Assessment: Metastatic prostate cancer not on any chemo right now due to declining functional status, with mets to liver and lung. s/p radio-chemotherapy Acute GI bleed Acute blood loss anemia History of Jamaal alvarez was on Xarelto which is on hold as of now Thrombocytopenia follows with Dr. Hamilton History of CVA/TIA History of DVT History of GI bleed previously Hypertension Hyperlipidemia Plan: This is a pleasant 87 years old male who is admitted to hospice due to end stages of his illness, including metastatic prostate cancer with complication of GI bleed, and continue with hospice care as per family wishes, family at bed side and they had no more questions. pt looks comfortable and not in distress. pain medication is provided. prognosis is very poor
== END 2018-06-26 10:15 | disposition expired | DRG 951 ==
LOC: 2SICU 15:41 → 3NMEDONC 06-22 08:10
PROVIDERS: ADMIT Hospitalist; ATTEND Hospitalist
DX: Z51.5 Encounter for palliative care (principal); C78.00 Secondary malignant neoplasm of unspecified lung; C78.7 Secondary malignant neoplasm of liver and intrahepatic bile duct; C79.51 Secondary malignant neoplasm of bone; D62 Acute posthemorrhagic anemia; K92.2 Gastrointestinal hemorrhage, unspecified; C61 Malignant neoplasm of prostate; D69.6 Thrombocytopenia, unspecified; E78.5 Hyperlipidemia, unspecified; I10 Essential (primary) hypertension; I25.10 Atherosclerotic heart disease of native coronary artery without angina pectoris; I25.2 Old myocardial infarction; I48.91 Unspecified atrial fibrillation; J44.9 Chronic obstructive pulmonary disease, unspecified; Z79.01 Long term (current) use of anticoagulants; Z82.49 Family history of ischemic heart disease and other diseases of the circulatory system; Z85.828 Personal history of other malignant neoplasm of skin; Z86.718 Personal history of other venous thrombosis and embolism; Z86.73 Personal history of transient ischemic attack (TIA), and cerebral infarction without residual deficits; Z87.891 Personal history of nicotine dependence